=== PATIENT | male | born 1970 | race Caucasian/White ===

== ENCOUNTER 2017-09-14 17:40 | Inpatient (IN) | payer OTHER ==
[~2017-09-14] VITALS: Ht 177.8 cm; Wt 94.8 kg
[2017-09-14 18:21] LABS: ABSOLUTE BASOPHIL COUNT 0 /CUMM (0.0-0.2); ABSOLUTE EOSINOPHIL COUNT 0.5 /CUMM (0.0-0.7); ABSOLUTE GRANULOCYTE CT 10.8 /CUMM (1.4-6.5); ABSOLUTE LYMPH COUNT 2.1 /CUMM (1.2-3.4); ABSOLUTE MONOCYTE COUNT 0.6 /CUMM (0.10-0.60); BASOPHIL % 0.2 % (0.0-2.0); EOSINOPHIL % 3.6 % (0-5); GRANULOCYTE % 76.8 % (42.2-75.2); HEMATOCRIT 46.5 % (42-52); MEAN CORPUSCULAR HGB CONC 32.5 G/DL (33.0-37.0); MEAN CORPUSCULAR VOLUME 92.3 FL (80.0-94.0); MEAN PLATELET VOLUME 7.9 FL (7.4-10.4); PLATELET COUNT 375 /CUMM (130-400); RBC DISTRIBUTION WIDTH 15.2 % (11.5-14.5); RED BLOOD CELL CT 5.03 /CUMM (4.70-6.10); WHITE BLOOD CELL COUNT 14.1 /CUMM (4.8-10.8)
--- NOTE | 2017-09-14 18:26 | ED GI/GU/ABDOMINAL COMPLAINT ---
History of Present Illness General Chief Complaint: Abdominal Pain/Flank Pain Stated Complaint: ABDOMINAL PAIN Source: patient, old records Exam Limitations: no limitations Vital Signs & Intake/Output Vital Signs & Intake/Output Vital Signs Date Time Temp Pulse Resp B/P B/P Pulse O2 O2 Flow FiO2 Mean Ox Delivery Rate 09/14 2106 98.4 89 16 143/81 100 Room Air 09/14 1748 94.8 64 22 103/66 98 Room Air Allergies Coded Allergies: NO KNOWN ALLERGIES (12/05/10) Triage Note: PT TO ER C/C 03/17 UMBILICAL ABD PAIN X 2 HRS. 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 +DIAPHORESIS +NAUSEA Triage Nurses Notes Reviewed? yes Onset: Abrupt Duration: hour(s): Timing: single episode today Quality/Severity: severe Severity Numbers: 10 Location: periumbilical Radiation: periumbilical HPI: 47yo male with hx of HTN presents to ED complaining of severe abdominal pain x 2 hours. Pain is described as periumbilical, 03/17, without radiation. Patient reports abdoinal pain and diarrhea x 1 month described as generalized however current symptoms are much more severe. Patient states he had an abdominal ultrasound last month in [place] which showed his "gallbladder was enlarged" however no other acute abnormality that he knows of. Patient reports nausea and chills associated with his abdominal pain. Patient reports dark urine for the past few days. The patient denies constipation, vomiting, chest pain, shortness of breath, dysuria, urinary frequency. (Key Marie) Past History Travel History Traveled to [place] past 21 day No Medical History Any Pertinent Medical History? see below for history Cardiovascular: hypertension, hyperlipidemia Tetanus Vaccine: Surgical History Surgical History: non-contributory Psychosocial History What is your primary language Azeri Tobacco Use: Current Daily Use Daily Tobacco Use Amount/Type: =< 4 Cigarettes daily Family History Hx Contributory? No (Key Marie) Review of Systems Review of Systems Constitutional: Reports: see HPI. EENTM: Reports: no symptoms. Respiratory: Reports: no symptoms. Cardiovascular: Reports: no symptoms. GI: Reports: see HPI. Genitourinary: Reports: see HPI. Musculoskeletal: Reports: no symptoms. Skin: Reports: no symptoms. Neurological/Psychological: Reports: no symptoms. Hematologic/Endocrine: Reports: no symptoms. Immunologic/Allergic: Reports: no symptoms. All Other Systems: Reviewed and Negative (Uyen SIMONS,Key Barboza) Physical Exam Physical Exam General Appearance: well developed/nourished, alert, moderate distress Head: atraumatic, normal appearance Eyes: Bilateral: normal appearance. Ears, Nose, Throat, Mouth: hearing grossly normal Neck: normal inspection, supple, full range of motion Respiratory: normal breath sounds, no respiratory distress, lungs clear Cardiovascular: regular rate/rhythm Gastrointestinal: normal bowel sounds, mild distention, RUQ tenderness with gaurding, RLQ tenderness Back: normal inspection, normal range of motion, no CVA tenderness Extremities: normal range of motion Neurologic/Psych: awake, alert, oriented x 3 Skin: intact, normal color, warm/dry Core Measures ACS in differential dx? No Sepsis Present: No Sepsis Focused Exam Completed? No (Key Marie) Progress Differential Diagnosis: appendicitis, biliary colic, bowel obstruction, cholecystitis, diverticulitis, gastritis, hernia, ischemic bowel, inflamm bowel dis, pancreatitis, peptic ulcer, PUD/GERD, perforated viscous, SBO, UTI/pyelo Plan of Care: Orders Procedure Date/time Status Nothing by Mouth 09/15 B Active ED Holding Orders 09/15 2119 Active Admit to inpatient 09/15 2119 Active Vital Signs 09/15 2119 Active Code Status 09/15 2119 Active LACTIC ACID 09/14 205 Active PARTIAL THROMBOPLASTIN TIME 09/14 2044 Active PROTHROMBIN TIME 09/14 2044 Active BLOOD CULTURE 09/14 1916 Active Add-on Test (ER Only) 09/14 191 Active DIRECT BILIRUBIN 09/14 1806 Complete URINALYSIS 09/14 175 Active EKG 09/14 175 Active TROPONIN LEVEL 09/14 175 Complete LIPASE 09/14 1751 Complete LACTIC ACID 09/14 175 Complete COMPREHENSIVE METABOLIC PANEL 09/14 175 Complete CBC WITHOUT DIFFERENTIAL 09/14 175 Complete Current Medications Sig/Carrington Start time Last Medication Dose Stop Time Status Admin Lactated Ringer's 1,000 ML ONCE ONE 09/14 2044 AC 09/14 (Lactated Ringers) 09/15 0144 2117 Laboratory Tests 09/14/17 2110: Urine Color Pending, Urine Clarity Pending, Urine pH Pending, Ur Specific Doyle Pending, Urine Protein Pending, Urine Ketones Pending, Urine Nitrite Pending, Urine Bilirubin Pending, Urine Urobilinogen Pending, Ur Leukocyte Esterase Pending, Ur Microscopic Pending, Urine Hemoglobin Pending, Urine Glucose Pending 09/14/172058: Lactic Acid Pending, PT Pending, INR Pending, APTT Pending 09/14/17 1806: Anion Gap 14, Estimated GFR > 60, BUN/Creatinine Ratio 14.0, Glucose 148 H, Lactic Acid 1.6, Calcium 9.5, Total Bilirubin 4.4 H, Direct Bilirubin 3.1 H, AST 697 H, ALT 1330 H, Alkaline Phosphatase 282 H, Troponin I < 0.01, Total Protein 7.3, Albumin 4.6, Globulin 2.7, Albumin/Globulin Ratio 1.7, Lipase > 66556 H, CBC w Diff NO MAN DIFF REQ, RBC 5.03, MCV 92.3, MCH 30.0, MCHC 32.5 L , RDW 15.2 H, MPV 7.9, Gran % 76.8 H, Lymphocytes % 15.0 L, Monocytes % 4.4, Eosinophils % 3.6, Basophils % 0.2, Absolute Granulocytes 10.8 H, Absolute Lymphocytes 2.1, Absolute Monocytes 0.6, Absolute Eosinophils 0.5, Absolute Basophils 0 Microbiology 09/14 2058 BLOOD: Blood Culture - RECD 09/14 1916 BLOOD: Blood Culture - ORD Patient with elevated lipase, bilirubin, liver enzymes. Patient has abdominal tenderness and guarding. Findings suspicious for cholecystitis/cholangitis/ gallstone pancreatitis CT scan of abdomen is pending. Patient started on IV Unasyn. The patient was signed out to Dr. Hernandez pending abdominal CT scan, GI consult. Initial ED EKG: sinus rhythm @59bpm, nonspecific ST changes Hand-Off Endorsed To: David INIGUEZ,Rubens Gray Endorsed Time: 2017 Pending: CT, consult, labs (Uyen SIMONS,Key Barboza) Diagnostic Imaging: Viewed by Me: CT Scan. Discussed w/RAD: CT Scan. Radiology Impression: PATIENT: EVANGELISTA CARO PRESENT AGE: 47 PATIENT ACCOUNT NO: [id number] : 70 LOCATION: [facility] ORDERING PHYSICIAN: Key SIMONS SERVICE DATE: 09/14/17 EXAM TYPE: CAT - CT ABD & PELVIS W IV CONTRAST EXAMINATION: CT ABDOMEN AND PELVIS WITH CONTRAST CLINICAL INFORMATION: Abdominal pain. Rule out bowel obstruction or hernia. Periumbilical pain and nausea. COMPARISON: Abdominal CT from 2006. TECHNIQUE: Multidetector volumetric imaging was performed of the abdomen and pelvis following IV administration of 95 mL of Optiray 320 contrast. Sagittal and coronal reformatted images were obtained on the technologist's workstation. DLP: 923 mGy-cm FINDINGS: There is mild dilatation of the intrahepatic and extrahepatic biliary ducts due to an obstructing 0.3 cm calculus at the duodenal papilla. There are also mild inflammatory changes in the fat surrounding the pancreas which is somewhat boggy and mildly enlarged. No peripancreatic fluid collections are seen. There is also mild thickening, hyperemia, and inflammatory change associated with the gastric antral wall and duodenum. There are subsegmental atelectatic changes in the lung bases. No pleural effusions are seen. The liver is homogeneous in attenuation. The gallbladder is mildly distended without wall thickening or pericholecystic change. The spleen and adrenal glands are normal. The kidneys demonstrate nearly symmetric nephrograms. There is a 1.4 cm exophytic soft tissue nodular lesion arising from the posterior cortex of the right kidney which was not present on prior imaging. The lesion does not measure simple fluid characteristics. The abdominal aorta is normal in caliber. There is no evidence of a bowel obstruction. The appendix is normal. No diverticular disease is seen. No pericolonic inflammatory changes are identified. The bladder is distended without wall thickening. The prostate gland and seminal vesicles are unremarkable. No acute osseous abnormality is seen. Multilevel degenerative endplate spurring noted in the lower thoracic spine. There is severe disc space narrowing and a retrosubluxation at L5-S1 contributing to significant foraminal encroachment. IMPRESSION: Choledocholithiasis resulting in mild obstructive biliary ductal dilatation and secondary pancreatitis. Additional mild mucosal hyperemia, surrounding inflammatory change and mild wall thickening of the gastric antrum and duodenum. Exophytic 1.4 cm low-density nodular lesion arising from the posterior cortex of the right kidney which does not measure simple fluid and was not present on previous imaging from 2006. Although this may represent a proteinaceous or hemorrhagic cyst, a dedicated renal ultrasound is recommended in order to rule out a solid mass. Imaging findings discussed with Dr. Hernandez at 9:07 PM on 09/14/2017. DICTATED BY: Rubens Alejandra MD DATE/ TIME DICTATED:09/14/172050 BALLISTICS TEACHER:JOSÉ MIGUEL DATE/TIME TRANSCRIBED: 09/14/172050 CONFIDENTIAL, DO NOT COPY WITHOUT APPROPRIATE AUTHORIZATION. < Electronically signed in Other Vendor System> SIGNED BY: Rubens Alejandra MD 09/14/172110 Comments: D/W DR. FERRIS, HE WILL CONSULT D/W DR. GAONA, ERCP TOMORROW, LR AT 200 ML/HR, IV ABX (David INIGUEZ,Rubens Gray) Departure Departure Disposition: STILL A PATIENT Condition: Stable Referrals: Patient Has No Primary Care Dr (PCP/Family) Departure Forms: Customer Survey General Discharge Information (Uyen SIMONS,Key Barboza) Departure Clinical Impression Primary Impression: Abdominal pain Qualifiers: Abdominal location: unspecified location Qualified Code: R10.9 - Unspecified abdominal pain Secondary Impressions: Cholangitis, Pancreatitis, Transaminitis Admission Note Spoke With: Otoniel Goldberg MD Documentation of Exam: Documentation of any treatments & extenuating circumstances including Concerns Regarding Discharge (functional status, medication knowledge or non-compliance, living conditions, etc.) that warrant an admission rather than observation: [ Nothing by mouth, IV fluids lactated Ringer's at 200 mL per hour, IV antibiotics , ERCP in the morning, surgical consultation] PA/DOT NET ARCHITECT Co-Sign Statement Statement: ED Attending supervision documentation- [X] I saw and evaluated the patient. I have also reviewed all the pertinent lab results and diagnostic results. I agree with the findings and the plan of care as documented in the PA's/DOT NET ARCHITECT's documentation. [X] I have reviewed the ED Record and agree with the PA's/DOT NET ARCHITECT's documentation. [] Additions or exceptions (if any) to the PAs/DOT NET ARCHITECT's note and plan are summarized below: [SEE ABOVE NOTE] (David INIGUEZ,Rubens Gray)
--- NOTE | 2017-09-14 21:11 | CT SCAN REPORT ---
EXAMINATION: CT ABDOMEN AND PELVIS WITH CONTRAST CLINICAL INFORMATION: Abdominal pain. Rule out bowel obstruction or hernia. Periumbilical pain and nausea. COMPARISON: Abdominal CT from 02/19/2007. TECHNIQUE: Multidetector volumetric imaging was performed of the abdomen and pelvis following IV administration of 95 mL of Optiray 320 contrast. Sagittal and coronal reformatted images were obtained on the technologist's workstation. DLP: 923 mGy-cm FINDINGS: There is mild dilatation of the intrahepatic and extrahepatic biliary ducts due to an obstructing 0.3 cm calculus at the duodenal papilla. There are also mild inflammatory changes in the fat surrounding the pancreas which is somewhat boggy and mildly enlarged. No peripancreatic fluid collections are seen. There is also mild thickening, hyperemia, and inflammatory change associated with the gastric antral wall and duodenum. There are subsegmental atelectatic changes in the lung bases. No pleural effusions are seen. The liver is homogeneous in attenuation. The gallbladder is mildly distended without wall thickening or pericholecystic change. The spleen and adrenal glands are normal. The kidneys demonstrate nearly symmetric nephrograms. There is a 1.4 cm exophytic soft tissue nodular lesion arising from the posterior cortex of the right kidney which was not present on prior imaging. The lesion does not measure simple fluid characteristics. The abdominal aorta is normal in caliber. There is no evidence of a bowel obstruction. The appendix is normal. No diverticular disease is seen. No pericolonic inflammatory changes are identified. The bladder is distended without wall thickening. The prostate gland and seminal vesicles are unremarkable. No acute osseous abnormality is seen. Multilevel degenerative endplate spurring noted in the lower thoracic spine. There is severe disc space narrowing and a retrosubluxation at L5-S1 contributing to significant foraminal encroachment. IMPRESSION: Choledocholithiasis resulting in mild obstructive biliary ductal dilatation and secondary pancreatitis. Additional mild mucosal hyperemia, surrounding inflammatory change and mild wall thickening of the gastric antrum and duodenum. Exophytic 1.4 cm low-density nodular lesion arising from the posterior cortex of the right kidney which does not measure simple fluid and was not present on previous imaging from 2006. Although this may represent a proteinaceous or hemorrhagic cyst, a dedicated renal ultrasound is recommended in order to rule out a solid mass. Imaging findings discussed with Dr. Hernandez at 9:07 PM on 09/14/2017.
[2017-09-14 21:26] LABS: PT 11.5 SEC (9.4-12.5); PTT 27 SEC (25-37)
--- NOTE | 2017-09-14 22:36 | History & Physical ---
Trev Gacria MD 09/14/17 8865: General Information and HPI History of Present Illness: 47 year old man with past medical history of bipolar disorder, hypertension, and hyperlipidemia seen for evaluation of acute onset abdominal was with nausea, diarrhea, and chills. Patient reports over the past six months he has had "stomach issues" with persistent / recurrent watery diarrhea and mild abdominal pain. He reports waking today in his normal state of health when around 2 PM after eating a meal of "two hot dogs" he developed sudden onset sharp 10/10 pain just above his belly button without radiation. Nothing seemed to make it better or worse. He reports assocaited cold sweats with chills with nausea, dry heaves, and watery non bloody diarrhea. For further evaluation of these symptoms he came to the [facility] ED. He denies any consumption of raw/undercooked foods, recent travel, but admits to recently starting Zyprexa 2-3 weeks ago. Presently he reports that his pain is "extreme" and that he cannot get comfortably. He is repeatedly requesting pain meds; he is squirming around in a colicky fashion and appears to be in moderate distress. He admits to persistent nausea with a mild headache and chills. Review of Systems He otherwise denies any fever, blurred / double vision, lightheadedness, dizziness, chest pain, heart burn, palpitations, shortness of breath, cough, urinary complaints. Past medical history - as above Allergies - NKDA Meds - reconile in AM when pharmacy opens, patient reports taking Losartan, Simvastatin, Zyprexa, and Ovando; doses unknown Surgical history - None reported Family history - hypertension and hyperlipidemia in multiple family members, father from lung cancer Social history Denies drinking alcohol, smokes 1-2 cigarettes per day for the past four years, denies recreational drug use. Currently works at [employer] and goes to the gym semi- regularly. He recently started Zyprexa 2-3 weeks ago as prescribed by his psychiatrist "Star" at [facility]. Allergies/Medications Allergies: Coded Allergies: NO KNOWN ALLERGIES (12/05/10) Past History Travel History Traveled to [place] past 21 day No Medical History Cardiovascular: hypertension, hyperlipidemia Psychiatric: bipolar disease Tetanus Vaccine: Surgical History Surgical History: non-contributory Past Family/Social History Family History Relations & Conditions if any FATHER, ; Cause: Lung cancer. FH: lung cancer Relation not specified for: FH: hyperlipidemia FH: hypertension Psychosocial History Where do you live? Home Smoking Status: Current Everyday Smoker ETOH Use: denies use Illicit Drug Use: denies illicit drug use Functional Ability ADLs Independent: dressing, eating, toileting, bathing. Ambulation: independent IADLs Independent: shopping, housework, finances, food prep, telephone, transportation , medication admin. Employment History Employment Employed Profession/Employer [employer] Review of Systems Review of Systems Constitutional: Reports: see HPI. Exam & Diagnostic Data Last 24 Hrs of Vital Signs/I&O Vital Signs Date Time Temp Pulse Resp B/P B/P Pulse O2 O2 Flow FiO2 Mean Ox Delivery Rate 09/14 2106 98.4 89 16 143/81 100 Room Air 09/14 1748 94.8 64 22 103/66 98 Room Air Physical Exam General Appearance Alert, Oriented X3, Moderate Distress Skin No Rashes, No Breakdown, No Significant Lesion Skin Temp/Moisture Exam: Cool/Dry Sepsis Skin Exam (color): Flushed, Jaundiced HEENT Atraumatic, PERRLA, EOMI, Dry oral mucosa Neck Supple, No JVD Cardiovascular Regular Rate, Normal S1, Normal S2, No Murmurs Lungs Clear to Auscultation, Normal Air Movement Abdomen Normal Bowel Sounds, Soft, severe diffuse abdominal tenderness without guarding or rigidity, BS + Neurological Normal Speech, Strength at 5/5 X4 Ext, Normal Tone, Sensation Intact, Cranial Nerves 3-12 NL Extremities No Clubbing, No Cyanosis, No Edema, Normal Pulses, No Tenderness/ Swelling Vascular Normal Pulses, Pulses Symmetrical Sepsis Peripheral Pulse Location: Dorsalis Pedis Sepsis Peripheral Pulse Exam: Normal Sepsis Cap Refill Exam: <2 Sec Last 24 Hrs of Labs/David: Laboratory Tests 09/14/17 2110: Methadone Screen Pending, Barbiturate Screen Pending, Ur Phencyclidine Scrn Pending, Amphetamines Screen Pending, U Benzodiazepines Scrn Pending, Urine Cocaine Screen Pending, Urine Cannabis Screen Pending, Urine Color YEL, Urine Clarity CLEAR, Urine pH 6.5, Ur Specific [place] 1.010, Urine Protein NEG, Urine Ketones NEG, Urine Nitrite NEG, Urine Bilirubin POS@ICTO H, Urine Urobilinogen 1.0, Ur Leukocyte Esterase NEG, Ur Microscopic EXAM NOT REQUIRED, Urine Hemoglobin NEG, Urine Glucose NEG 09/14/172058: Lactic Acid 1.5, PT 11.5, INR 1.05, APTT 27 09/14/171805: Anion Gap 14, Estimated GFR > 60, BUN/Creatinine Ratio 14.0, Glucose 148 H, Lactic Acid 1.6, Calcium 9.5, Total Bilirubin 4.4 H, Direct Bilirubin 3.1 H, AST 697 H, ALT 1330 H, Alkaline Phosphatase 282 H, Troponin I < 0.01, Total Protein 7.3, Albumin 4.6, Globulin 2.7, Albumin/Globulin Ratio 1.7, Lipase > 11963 H, CBC w Diff NO MAN DIFF REQ, RBC 5.03, MCV 92.3, MCH 30.0, MCHC 32.5 L , RDW 15.2 H, MPV 7.9, Gran % 76.8 H, Lymphocytes % 15.0 L, Monocytes % 4.4, Eosinophils % 3.6, Basophils % 0.2, Absolute Granulocytes 10.8 H, Absolute Lymphocytes 2.1, Absolute Monocytes 0.6, Absolute Eosinophils 0.5, Absolute Basophils 0, Ovando 0.9, Serum Alcohol < 10.0 Microbiology 09/14 2058 BLOOD: Blood Culture - RECD 09/14 1916 BLOOD: Blood Culture - ORD Assessment/Plan Assessment: 47 year old man with multiple medical problems seen for evaluation of acute onset abdominal pain with nausea, dry heaves, diarrhea, and chills. ED Course -Vitals: Temp 94.8 - 98.4, HR 64-89, RR 16-22, SBP 103-143, O2 98-100% on room air -CBC: WBC 14.1, Hgb 15.1, Hct 46.5, Plt 375 -BMP: Na 140, K 3.7, Cl 101, CO2 25, BUN 14, Cr 1.0, AG 14, Glu 148 -LFT: AST 697, ALT 1330, ALP 282, T. Bili 4.4, D. Bili 3.1 -Misc: Troponin I <0.01, Lactic acid 1.6/1.6, Lipase > 40,000, INR 1.05 -UA: unremarkable -EKG: NSR, HR 59, AL 176, QTc 440 -CT Abdomen/Pelvis with IV Contrast: * Choledocholithiasis resulting in mild obstructive biliary ductal dilatation and secondary pancreatitis. Additional mild mucosal hyperemia, surrounding inflammatory change and mild wall thickening of the gastric antrum and duodenum. * Exophytic 1.4 cm low-density nodular lesion arising from the posterior cortex of the right kidney which does not measure simple fluid and was not present on previous imaging from 2006. Although this may represent a proteinaceous or hemorrhagic cyst, a dedicated renal ultrasound is recommended in order to rule out a solid mass. -ED Interventions: * Blood cultures x 2 * Unasyn 3 g IV * Maritza 30 mg IV * LR 1 L * NS 2 L * Zofran * Morphine Sulfate: 18 mg Patient meets sepsis criteria through leukocytosis and hypothermia; blood cultures were drawn and empiric unasyn was started. CT Abdomen/pelvis with IV contrast demonstrated findings suggestive of choledocholithasis and a new right renal cyst. Liver functions tests are elevated in addition to incredibly high levels of lipase suggestive of gallstone pancreatitis. Patient is to be given aggressive intravenous fluids and be kept nothing by mouth. He is to be given morphine and zofran for pain control and nausea relief respectively; the hospital is currently out of Dilaudid. He is to be seen by gastroenterology and the surgical service in the morning for evaluation of possible ERCP. Patient reportedly takes 1500 mg of Ovando nightly in addition to his new recentyl prescribed Zyprexa for his bipolar disorder. He reported uses [facility] pharmacy on [address] in [place] for his medications, but they have no record of this. Insurance claim history demonstrates using a [facility] pharmacy prior to May of 2017; [facility] is currently closed. Medication reconcilliation should occur in the morning. Problem List -Choledocholithasis -Possible cholangitis -Gallstone pancreatitis -Sepsis -New Right Renal Cyst -Bipolar disorder -Hypertension -Hyperlipidemia Plan -Admit to ICU -Strict I & Os -LR @ 150 mL/hr -Unasyn 3 g IV Q6H -Zofran 4mg IV Q6H PRN for nausea -Hold oral meds: including Losartan, Zyprexa -GI consult for pancreatitis / possible ERCP -Surgery consult for operative evaluation -Blood cultures x2 -Check portable CXR for effusions -Check lithium, utox, and EtOH level -Reconcile patient meds in AM -Renal ultrasound when stable -Pain control with toradol, acetaminophen, and morphine -NPO -DVT PPx with subcutaneous heparin -FULL CODE As Ranked By This Provider Problem List: 1. Pancreatitis 2. Transaminitis 3. Cholangitis Core Measures/Misc (02/22) Acute Coronary Syndrome ACS Diagnosis: No Congestive Heart Failure Congestive Heart Failure Diagnosis No Cerebrovascular Accident CVA/TIA Diagnosis: No VTE (View Protocol) VTE Risk Factors Age>40 No Mechanical VTE Prophylaxis d/t N/A MechProphylax Ordered No VTE Pharm Prophylaxis d/t NA PharmProphylax ordered Sepsis (View protocol) Sepsis Present: Yes Otoniel Goldberg MD 09/15/17 0026: Attending MD Review Statement Attending Statement Attending MD Statement: examined this patient, discuss w/resident/PA/SUPERVISOR PAPER MACHINE, agreed w/resident/PA/SUPERVISOR PAPER MACHINE, discussed with nursing Attending Assessment/Plan: Mr. Carbone is a 47 y/o male with of hypertension dyslipidemia bipolar disorder presents with complaints of acute onset of abdominal pain. Pain started suddenly this afternoon after he had lunch, severity of 10 x 10 without any radiation, associated with fever but associated with watery nonbloody diarrhea. No recent new medications. On examination, patient was initially hypothermic temperature of 94.8 however repeat temperatures after a few hours was normal blood pressure was initially systolic 103 however later blood pressure was 143/81, saturating well on room air heart rate of 90, respiratory rate of 16 General Appearance Alert, Oriented X3, Severe Distress Skin No Rashes, No Breakdown, No Significant Lesion Skin Temp/Moisture Exam: Cool/Dry and icteric HEENT Atraumaticm (color): Flushed, Jaundiced, PERRLA, EOMI, Dry oral mucosa Neck Supple, No JVD Cardiovascular Regular Rate, Normal S1, Normal S2, No Murmurs Lungs Clear to Auscultation, Normal Air Movement Abdomen Normal Bowel Sounds, Soft, diffuse abdominal tenderness all over more so in the right upper quadrant Neurological no focal neurological deficits Extremities no edema tenderness or swelling CT abdomen showed Choledocholithiasis resulting in mild obstructive biliary ductal dilatation and secondary pancreatitis. Additional mild mucosal hyperemia, surrounding inflammatory change and mild wall thickening of the gastric antrum and duodenum. Assessment 1. Gall stone pancreatitis with possible cholangitis - lipase [place] more [place] 33262 2. Choledocholithiasis 3. Hepatocellular pattern of transaminitis with elevated alkaline phosphatase 4. Bipolar disorder 5. Hypertension 6. Exophytic lesion arising from Right kidney Plan Admit to ICU for close monitoring. NPO, IVF @ 150 - 200 cc an hour Follow up on cultures. Continue with IV Unasyn Symptomatic management with antiemetics and pain control with morphine Will obtain chest x-ray, follow-up on lithium and alcohol levels Discussed with gastroenterology-patient will go for ERCP in the morning Repeat Lab work including LFT's in the morning Needs dedicated renal ultrasound - to rule out a solid mass - as an outpatient Sub Q Heparin for DVT prophylaxis
[2017-09-14 23:25] LABS: LITHIUM 0.9 mmol/L (0.6-1.2)
[2017-09-15 01:09] VITALS: BP 130/70
[2017-09-15 04:11] LABS: ABSOLUTE BASOPHIL COUNT 0 /CUMM (0.0-0.2); ABSOLUTE EOSINOPHIL COUNT 0 /CUMM (0.0-0.7); ABSOLUTE GRANULOCYTE CT 19.3 /CUMM (1.4-6.5); ABSOLUTE LYMPH COUNT 0.4 /CUMM (1.2-3.4); ABSOLUTE MONOCYTE COUNT 0.7 /CUMM (0.10-0.60); BASOPHIL % 0 % (0.0-2.0); EOSINOPHIL % 0 % (0-5); GRANULOCYTE % 94.7 % (42.2-75.2); HEMATOCRIT 44.8 % (42-52); MEAN CORPUSCULAR HGB 30.3 PG (27.0-31.0); MEAN CORPUSCULAR HGB CONC 32.9 G/DL (33.0-37.0); MEAN CORPUSCULAR VOLUME 91.9 FL (80.0-94.0); MEAN PLATELET VOLUME 7.9 FL (7.4-10.4); PLATELET COUNT 352 /CUMM (130-400); RBC DISTRIBUTION WIDTH 14.9 % (11.5-14.5); RED BLOOD CELL CT 4.88 /CUMM (4.70-6.10); WHITE BLOOD CELL COUNT 20.3 /CUMM (4.8-10.8)
--- NOTE | 2017-09-15 07:25 | Cons- CRCU ---
Anders INIGUEZ,[facility] 09/15/17 0725: General Information and HPI Consulting Request Date of Consult: 09/15/17 Requested By: Hospitalist Dr. Goldberg Reason for Consult: -Choledocholithasis -Possible cholangitis -Gallstone pancreatitis -Sepsis -New Right Renal Cyst -Bipolar disorder -Hypertension -Hyperlipidemia Source of Information: patient Exam Limitations: no limitations History of Present Illness: Mr. Carbone is a 47 year old man with past medical history of bipolar disorder, hypertension, and hyperlipidemia presented with acute onset abdominal was with nausea, diarrhea, and chills. Patient has been having "stomach issues" with persistent / recurrent watery diarrhea and mild abdominal pain, was referred to a seismographer but has not followed up with him yet. He reported waking up yesterday in his normal state of health when around 2 PM after eating a meal of "two hot dogs" he developed sudden onset sharp 10/10 pain just above his belly button without radiation, aggravating or relieving factors. Reports assocaited cold sweats with chills with nausea, dry heaves, and watery non bloody diarrhea. He denies any consumption of raw/undercooked foods, recent travel, but admits to recently starting Zyprexa 2-3 weeks ago. He has also been taking lithium regularly for his bipolar disorder. Allergies/Medications Allergies: Coded Allergies: NO KNOWN ALLERGIES (12/05/10) Current Medications: Current Medications Sig/[place] Start time Last Medication Dose Route Stop Time Status Admin Acetaminophen 1,000 MG Q6P PRN 09/14 2300 AC IV Ampicillin Sodium/ 3,000 MG Q6H 09/15 0230 AC 09/15 Sulbactam Sodium IV 0815 Sodium Chloride 100 ML Ampicillin Sodium/ 3,000 MG Q6 09/14 2359 DC Sulbactam Sodium IV Sodium Chloride 100 ML Ampicillin Sodium/ 0 .STK-MED ONE 09/15 2031 DC Sulbactam Sodium .ROUTE Ampicillin Sodium/ 3,000 MG ONCE ONE 09/14 1930 DC 09/14 Sulbactam Sodium IV 09/14 Sodium Chloride 100 ML Heparin Sodium 5,000 UNIT Q8 09/15 0600 AC 09/15 (Porcine) SC 0529 Hydromorphone HCl 0.6 MG ONCE ONE 09/15 1000 DC 09/15 IV 09/15 1001 1000 Hydromorphone HCl 0.4 MG ONCE ONE 09/15 0945 CAN IV 09/15 0946 Hydromorphone HCl 0.4 MG ONCE ONE 09/15 0845 DC 09/15 IV 09/15 0846 0840 Ketorolac 15 MG Q6P PRN 09/14 2300 DC Tromethamine IV Ketorolac 0 .STK-MED ONE 09/14 1811 DC Tromethamine .ROUTE Ketorolac 30 MG ONCE ONE 09/14 1800 DC 09/14 Tromethamine IM 09/14 1801 1807 Lactated Ringer's 150 ML 150 MLS/HR 09/14 2315 CAN IV Lactated Ringer's 1,000 ML Q6H 09/14 2315 AC 09/15 IV 0613 Lactated Ringer's 1,000 ML ONCE ONE 09/14 2045 DC 09/14 IV 09/15 0144 2117 Morphine Sulfate 4 MG Q2P PRN 09/15 0945 AC IV Morphine Sulfate 4 MG ONCE ONE 09/15 0800 DC 09/15 IV 09/15 0801 0745 Morphine Sulfate 6 MG ONCE ONE 09/15 0745 DC IV 09/15 0746 Morphine Sulfate 0 .STK-MED ONE 09/14 2311 DC .ROUTE Morphine Sulfate 4 MG Q4 HRS NEEDED PRN 09/14 2245 DC 09/15 IV 0701 Morphine Sulfate 0 .STK-MED ONE 09/14 2118 DC .ROUTE Morphine Sulfate 6 MG ONCE ONE 09/14 2100 DC 09/14 IV 09/14 2101 2116 Morphine Sulfate 0 .STK-MED ONE 09/14 203 DC .ROUTE Morphine Sulfate 4 MG ONCE ONE 09/14 1945 DC 09/14 IV 09/14 194 2032 Morphine Sulfate 0 .STK-MED ONE 09/14 1853 DC .ROUTE Morphine Sulfate 4 MG ONCE ONE 09/14 1845 DC 09/14 IV 09/14 1846 1850 Ondansetron HCl 4 MG Q6P PRN 09/14 2245 AC IV Ondansetron HCl 0 .STK-MED ONE 09/14 1853 DC .ROUTE Ondansetron HCl 4 MG ONCE ONE 09/14 1845 DC 09/14 IV 09/14 1846 1850 Sodium Chloride 1,000 ML BOLUS ONE 09/14 1945 DC IV 09/14 2044 Sodium Chloride 1,000 ML BOLUS ONE 09/14 1844 DC 09/14 IV 09/14 Review of Systems Review of Systems Constitutional: Reports: no symptoms. EENTM: Reports: no symptoms. Cardiovascular: Reports: no symptoms. Respiratory: Reports: no symptoms. GI: Reports: abdominal pain, diarrhea. Genitourinary: Reports: no symptoms. Musculoskeletal: Reports: no symptoms. Skin: Reports: no symptoms. Neurological/Psychological: Reports: no symptoms. Hematologic/Endocrine: Reports: no symptoms. Immunologic/Allergic: Reports: no symptoms. All Other Systems: Reviewed and Negative Past History Travel History Traveled to [place] past 21 day No Medical History Cardiovascular: hypertension, hyperlipidemia Psychiatric: bipolar disease Surgical History Surgical History: non-contributory Family History Relations & Conditions If Any: FATHER, ; Cause: Lung cancer. FH: lung cancer Relation not specified for: FH: hyperlipidemia FH: hypertension Psychosocial History Where Do You Live? Home Smoking Status: Current Everyday Smoker ETOH Use: denies use Illicit Drug Use: heroin (sobre for 1 month) Functional Ability ADLs Independent: dressing, eating, toileting, bathing. Ambulation: independent IADLs Independent: shopping, housework, finances, food prep, telephone, transportation , medication admin. Employment History Employment: Employed Profession/Employer: [employer] Exam & Diagnostic Data Last 24 Hrs of Vital Signs/I&O Vital Signs Date Time Temp Pulse Resp B/P B/P Pulse O2 O2 Flow FiO2 Mean Ox Delivery Rate 09/15 08 99.9 81 20 128/80 96 Room Air 09/15 0800 96 Room Air 09/15 0400 96 Room Air 09/15 0152 98 Room Air 09/15 0109 98 Room Air 09/15 0109 97.6 68 18 130/70 98 Room Air 09/15 0014 98.3 71 20 139/91 97 Room Air 09/14 2106 98.4 89 16 143/81 100 Room Air 09/14 1748 94.8 64 22 103/66 98 Room Air Intake & Output 09/15 1600 09/15 0800 09/15 0000 Intake Total 1000 1000 Output Total 700 Balance 300 1000 Intake, IV 1000 1000 Intake, Oral 0 Output, Urine 700 Patient 210 lb 210 lb Weight Weight Reported by Patient Measurement Method Physical Exam General Appearance: well developed/nourished, alert, awake, severe distress Head: atraumatic, normal appearance Neck: normal inspection, supple Respiratory: normal breath sounds, lungs clear Cardiovascular: regular rate/rhythm, normal peripheral pulses Gastrointestinal: normal bowel sounds, soft, tenderness Extremities: normal inspection, normal range of motion, no edema Last 48 Hrs of Labs/David: Laboratory Tests 09/15/17 0345: Anion Gap 16, Estimated GFR > 60, BUN/Creatinine Ratio 16.3, Calcium 9.1, Phosphorus 4.1, Magnesium 1.7, Total Bilirubin 3.1 H, Direct Bilirubin 1.9 H, AST 385 H, ALT 1075 H, Alkaline Phosphatase 259 H, Lactate Dehydrogenase 735 H, Total Protein 7.0, Albumin 4.3, Triglycerides 106, Cholesterol 227 H, LDL Cholesterol, Calc 147 H, HDL Cholesterol 59, Cholesterol/HDL Ratio 4, Lipase Pending, CBC w Diff MAN DIFF ORDERED, RBC 4.88, MCV 91.9, MCH 30.3, MCHC 32.9 L , RDW 14.9 H, MPV 7.9, Gran % 94.7 H, Lymphocytes % 1.8 L, Monocytes % 3.5, Eosinophils % 0, Basophils % 0, Absolute Granulocytes 19.3 H, Segmented Neutrophils 87 H, Band Neutrophils 4, Absolute Lymphocytes 0.4 L, Lymphocytes 5 L, Monocytes 4, Absolute Monocytes 0.7 H, Absolute Eosinophils 0, Absolute Basophils 0, Platelet Estimate ADEQUATE, Normocytic RBCs VERIFIED, Normochromic RBCs VERIFIED, Hepatitis A IgM Ab Pending, Hep Bs Antigen Pending, Hep B Core IgM Ab Conf Pending, Hepatitis C Antibody Pending 09/14/17 2110: Urine Opiates Screen 2450.00 H, Methadone Screen < 40, Barbiturate Screen < 60, Ur Phencyclidine Scrn < 6.00, Amphetamines Screen < 100, U Benzodiazepines Scrn < 85, Urine Cocaine Screen < 50, Urine Cannabis Screen < 5.00, Urine Color YEL, Urine Clarity CLEAR, Urine pH 6.5, Ur Specific [place] 1.010, Urine Protein NEG, Urine Ketones NEG, Urine Nitrite NEG, Urine Bilirubin POS@ICTO H, Urine Urobilinogen 1.0, Ur Leukocyte Esterase NEG, Ur Microscopic EXAM NOT REQUIRED, Urine Hemoglobin NEG, Urine Glucose NEG 09/14/172058: Lactic Acid 1.5, PT 11.5, INR 1.05, APTT 27 09/14/17 1806: Anion Gap 14, Estimated GFR > 60, BUN/Creatinine Ratio 14.0, Glucose 148 H, Lactic Acid 1.6, Calcium 9.5, Total Bilirubin 4.4 H, Direct Bilirubin 3.1 H, AST 697 H, ALT 1330 H, Alkaline Phosphatase 282 H, Troponin I < 0.01, Total Protein 7.3, Albumin 4.6, Globulin 2.7, Albumin/Globulin Ratio 1.7, Lipase > 77904 H, CBC w Diff NO MAN DIFF REQ, RBC 5.03, MCV 92.3, MCH 30.0, MCHC 32.5 L , RDW 15.2 H, MPV 7.9, Gran % 76.8 H, Lymphocytes % 15.0 L, Monocytes % 4.4, Eosinophils % 3.6, Basophils % 0.2, Absolute Granulocytes 10.8 H, Absolute Lymphocytes 2.1, Absolute Monocytes 0.6, Absolute Eosinophils 0.5, Absolute Basophils 0, [place] 0.9, Serum Alcohol < 10.0 Diagnostic Data CXR Results FINDINGS: Study limited oblique projection, increased attenuation over the LEFT field probably technical, the costophrenic angle on the LEFT is excluded from the film margin, RIGHT lung is clear. IMPRESSION: Very limited study, oblique projection. Left costophrenic angle is excluded from the film margin, no large effusions. Assessment/Plan CRCU Impression/Plan: Mr. Carbone is a 47 year old man with past medical history of bipolar disorder, hypertension, and hyperlipidemia presented with acute onset abdominal associated with nausea, diarrhea, and chills likely 2/2 choledocholithiasis causing pancreatitis and possible cholangitis. In the ER patient, patient was hypothermic with temperature of 94.8 and had a white count of 14.1 with no bands(met SIRS criteria). Had an AST of 697, ALT 1330, ALP 282, T. Bili 4.4, D. Bili 3.1 and Lipase of 40,000. CT abdomen and pelvis showed choledocholithiasis resulting in mild obstructive biliary ductal dilatation and secondary pancreatitis. Patient was kept nothing by mouth and started on IV fluids. Adequate pain management with IV morphine was provided. Patient continues to be in severe pain despite getting IV morphine and IV Dilaudid. He is squirming around in a colicky fashion and appears to be in severe distress. Patient also has a history of opiates and heroine use and states he has been sober for the past 1 month now. He is currently in the ICU for the management of following issues: 1. Gall stone pancreatitis with possible cholangitis - lipase levels more than [id number] 2. Choledocholithiasis 3. Hepatocellular pattern of transaminitis with elevated alkaline phosphatase 4. Bipolar disorder 5. Hypertension 6. Exophytic lesion arising from Right kidney Plan; - Continue to monitor in the ICU - Paul criteria - low mortality - Continue to keep nothing by mouth and continue gentle IV fluid. - Patient will be going for ERCP today. - Appreciate GI recommendations - Appreciate general surgery recommendations. - Pain management with IV morphine 4 mg every 2 hours. - Zofran as needed for nausea. - Continue antibiotics.(Unasyn day 2) - Chest x-ray negative for any large effusions given though it was a very limited study. - Psych consult given history of bipolar disorder and patient recently been started on Zyprexa(which can contribute to pancreatitis episode). Will hold his Zyprexa for now and continue lesion. - We will obtain LDH, lipid panel, hepatitis panel and repeat lipase level. - DVT prophylaxis; subcutaneous heparin and Alps Patient is full code Problem List: 1. Pancreatitis 2. Cholangitis 3. Transaminitis 4. Abdominal pain Consult Acknowledgment - Thank you for your consult request. Pravin Hill MD 09/15/17 1107: Assessment/Plan CRCU Other Findings/Comments: Pravin Richard M.D. have examined this patient, reviewed available EMR data, personally reviewed images, discussed with resident/PA/BASEBALL UMPIRE [employer], discussed management plan with housestaff and nursing staff, discussed managment plan all of healthcare providers, discussed management plan with patient and/or family, agreed with resident/PA/BASEBALL UMPIRE [employer]. The past history and parts of the chart have been autopopulated. Impression 47 year old man * pancreatitis secondary to choledocholithiasis * transaminitis * bipolar disorder * hx of opiate dependence Plan -gi consultation for ercp -f/u lipase -hepatitis panel -monitor electrolytes -paul criteria low for mortality -iv hydration -empiric abx -f/u gi/surgery recommendations -psych consultation - to evaluate zyprexa/lithium use - especially in setting of pancreatitis -check TG levels DVT prophylaxis at all times TTS 40 min Consult Acknowledgment - Thank you for your consult request.
[2017-09-15 08:00] VITALS: BP 128/80
--- NOTE | 2017-09-15 08:59 | Cons- Gastroenterology ---
General Information and HPI Consulting Request Date of Consult: 09/15/17 Requested By: Pravin Hill MD Reason for Consult: Gallstone pancreatitis Source of Information: patient History of Present Illness: The patient presents with acute onset of severe upper abdominal pain starting yesterday afternoon, accompanied by nausea and vomiting, but no fever or chills. The pain has persisted and is now more generalized. It does not radiate to chest or back. There has been no significant dyspnea, diaphoresis, dysuria, or lightheadedness/loss of consciousness. There is no history of liver disease/ jaundice. The patient is a heroin abuser who was recently in rehabilitation in [place]; during that stay he had abdominal pain, an ultrasound was performed and demonstrated "an inflamed gallbladder." For the past month the patient has been having 1-2 hour episodes of upper abdominal pain. The patient does not abuse or even use alcohol, for approximately 20 years. There is no antecedent GI history or diagnosis, such as urgent, peptic ulcer disease, or previous pancreatitis. His bowel movements are generally regular, and he has never had a GI bleed. Allergies/Medications Allergies: Coded Allergies: NO KNOWN ALLERGIES (12/05/10) Current Medications: Current Medications Sig/[place] Start time Last Medication Dose Route Stop Time Status Admin Acetaminophen 1,000 MG Q6P PRN 09/14 2300 AC IV Ampicillin Sodium/ 3,000 MG Q6H 09/15 0230 AC 09/15 Sulbactam Sodium IV 0815 Sodium Chloride 100 ML Ampicillin Sodium/ 3,000 MG Q6 09/14 2359 DC Sulbactam Sodium IV Sodium Chloride 100 ML Ampicillin Sodium/ 0 .STK-MED ONE 09/14 2032 DC Sulbactam Sodium .ROUTE Ampicillin Sodium/ 3,000 MG ONCE ONE 09/14 1930 DC 09/14 Sulbactam Sodium IV 09/14 1958 2032 Sodium Chloride 100 ML Heparin Sodium 5,000 UNIT Q8 09/15 0600 AC 09/15 (Porcine) SC 0529 Hydromorphone HCl 0.4 MG ONCE ONE 09/15 0845 DC 09/15 IV 09/15 0846 0840 Ketorolac 15 MG Q6P PRN 09/14 2300 DC Tromethamine IV Ketorolac 0 .STK-MED ONE 09/14 1811 DC Tromethamine .ROUTE Ketorolac 30 MG ONCE ONE 09/14 1800 DC 09/14 Tromethamine IM 09/14 1801 1807 Lactated Ringer's 150 ML 150 MLS/HR 09/14 2314 CAN IV Lactated Ringer's 1,000 ML Q6H 09/14 2315 AC 09/15 IV 0613 Lactated Ringer's 1,000 ML ONCE ONE 09/14 2045 DC 09/14 IV 09/15 0144 2117 Morphine Sulfate 4 MG ONCE ONE 09/15 0800 DC 09/15 IV 09/15 0801 0745 Morphine Sulfate 6 MG ONCE ONE 09/15 0745 DC IV 09/15 0746 Morphine Sulfate 0 .STK-MED ONE 09/14 2311 DC .ROUTE Morphine Sulfate 4 MG Q4 HRS NEEDED PRN 09/14 2245 AC 09/15 IV 0701 Morphine Sulfate 0 .STK-MED ONE 09/14 2118 DC .ROUTE Morphine Sulfate 6 MG ONCE ONE 09/14 2100 DC 09/14 IV 09/14 2101 2116 Morphine Sulfate 0 .STK-MED ONE 09/14 203 DC .ROUTE Morphine Sulfate 4 MG ONCE ONE 09/14 1945 DC 09/14 IV 09/14 194 203 Morphine Sulfate 0 .STK-MED ONE 09/14 1853 DC .ROUTE Morphine Sulfate 4 MG ONCE ONE 09/14 1845 DC 09/14 IV 09/14 184 1850 Ondansetron HCl 4 MG Q6P PRN 09/14 2245 AC IV Ondansetron HCl 0 .STK-MED ONE 09/14 1853 DC .ROUTE Ondansetron HCl 4 MG ONCE ONE 09/14 1845 DC 09/14 IV 09/14 184 1850 Sodium Chloride 1,000 ML BOLUS ONE 09/14 194 DC IV 09/14 204 Sodium Chloride 1,000 ML BOLUS ONE 09/14 1845 DC 09/14 IV 09/15 1943 1847 Past History Travel History Traveled to [place] past 21 day No Medical History Cardiovascular: hypertension, hyperlipidemia Psychiatric: bipolar disease Surgical History Surgical History: non-contributory Family History Relations & Conditions If Any: FATHER, ; Cause: Lung cancer. FH: lung cancer Relation not specified for: FH: hyperlipidemia FH: hypertension Psychosocial History Where Do You Live? Home Smoking Status: Current Everyday Smoker ETOH Use: denies use Illicit Drug Use: denies illicit drug use Functional Ability ADLs Independent: dressing, eating, toileting, bathing. Ambulation: independent IADLs Independent: shopping, housework, finances, food prep, telephone, transportation , medication admin. Employment History Employment: Employed Profession/Employer: [employer] Review of Systems Review of Systems Constitutional: Denies: chills, fever. EENTM: Denies: icterus, epistaxis. Cardiovascular: Denies: chest pain, edema, syncope. Respiratory: Denies: cough, short of breath. GI: Reports: see HPI. Genitourinary: Denies: dysuria, hematuria. Musculoskeletal: Denies: muscle stiffness, neck pain. Skin: Denies: jaundice, lesions. Neurological/Psychological: Denies: cognitive dysfunction, tremors. Hematologic/Endocrine: Denies: bruising, bleeding. Exam & Diagnostic Data Vital Signs and I&O Vital Signs Date Time Temp Pulse Resp B/P B/P Pulse O2 O2 Flow FiO2 Mean Ox Delivery Rate 09/15 08 99.9 81 20 128/80 96 Room Air 09/15 0800 96 Room Air 09/15 0400 96 Room Air 09/15 0152 98 Room Air 09/15 0109 98 Room Air 09/15 0109 97.6 68 18 130/70 98 Room Air 09/15 0014 98.3 71 20 139/91 97 Room Air 09/14 2106 98.4 89 16 143/81 100 Room Air 09/14 1748 94.8 64 22 103/66 98 Room Air Intake & Output 09/15 1600 09/15 0400 09/14 1600 09/14 0400 09/13 1600 09/13 0400 Intake Total 1000 1000 Output Total 300 400 Balance 700 600 Intake, IV 1000 1000 Intake, Oral 0 Output, Urine 300 400 Patient 210 lb Weight Weight Reported by Patient Measurement Method Physical Exam: Well-developed, well-nourished, in pain. Alert and oriented with normal cognition. Skin is warm and dry without jaundice, stigmata of liver disease, rash or lesion. No adenopathy. Sclera anicteric. Oropharynx is slightly dry, without lesion. Neck supple without thyromegaly. No adenopathy. Heart regular rhythm. Lungs clear. Abdomen is mildly distended with normal bowel sounds; there is diffuse tenderness to mild palpation, worst in the right upper quadrant and epigastrium. No palpable mass or organomegaly. Extremities without clubbing, cyanosis or edema. Distal pulses intact. Results Pertinent Lab Results: Laboratory Tests 09/15 09/14 0345 2110 Chemistry Sodium (137 - 145 mmol/L) 142 Potassium (3.5 - 5.1 mmol/L) 4.4 Chloride (98 - 107 mmol/L) 103 Carbon Dioxide (22 - 30 mmol/L) 22 Anion Gap (5 - 16) 16 BUN (9 - 20 mg/dL) 13 Creatinine (0.7 - 1.2 mg/dL) 0.8 Estimated GFR (>60 ml/min) > 60 BUN/Creatinine Ratio (7 - 25 %) 16.3 Total Bilirubin (0.2 - 1.3 mg/dL) 3.1 H Direct Bilirubin (< 0.4 mg/dL) 1.9 H AST (17 - 59 U/L) 385 H ALT (21 - 72 U/L) 1075 H Alkaline Phosphatase (< 127 U/L) 259 H Total Protein (6.3 - 8.2 g/dL) 7.0 Albumin (3.5 - 5.0 g/dL) 4.3 Hematology CBC w Diff MAN DIFF ORDERED WBC (4.8 - 10.8 /CUMM) 20.3 H RBC (4.70 - 6.10 /CUMM) 4.88 Hgb (14.0 - 18.0 G/DL) 14.8 Hct (42 - 52 %) 44.8 MCV (80.0 - 94.0 FL) 91.9 MCH (27.0 - 31.0 PG) 30.3 MCHC (33.0 - 37.0 G/DL) 32.9 L RDW (11.5 - 14.5 %) 14.9 H Plt Count (130 - 400 /CUMM) 352 MPV (7.4 - 10.4 FL) 7.9 Gran % (42.2 - 75.2 %) 94.7 H Lymphocytes % (20.5 - 51.1 %) 1.8 L Monocytes % (1.7 - 9.3 %) 3.5 Eosinophils % (0 - 5 %) 0 Basophils % (0.0 - 2.0 %) 0 Absolute Granulocytes (1.4 - 6.5 /CUMM) 19.3 H Segmented Neutrophils (42.2 - 75.2 %) 87 H Band Neutrophils (0.0 - 5.0 %) 4 Absolute Lymphocytes (1.2 - 3.4 /CUMM) 0.4 L Lymphocytes (20.5 - 51.1 %) 5 L Monocytes (1.7 - 9.3 %) 4 Absolute Monocytes (0.10 - 0.60 /CUMM) 0.7 H Absolute Eosinophils (0.0 - 0.7 /CUMM) 0 Absolute Basophils (0.0 - 0.2 /CUMM) 0 Platelet Estimate (ADEQUATE) ADEQUATE Normocytic RBCs VERIFIED Normochromic RBCs VERIFIED Toxicology Urine Opiates Screen (>2000 NG/ML) 2450.00 H Methadone Screen (>300 NG/ML) < 40 Barbiturate Screen (>200 NG/ML) < 60 Ur Phencyclidine Scrn (>25 NG/ML) < 6.00 Amphetamines Screen (>1000 NG/ML) < 100 U Benzodiazepines Scrn (>200 NG/ML) < 85 Urine Cocaine Screen (>300 NG/ML) < 50 Urine Cannabis Screen (>50 NG/ML) < 5.00 Urines Urine Color (YEL,AMB,STR) YEL Urine Clarity (CLEAR) CLEAR Urine pH (5.0 - 8.0) 6.5 Ur Specific [place] (1.001 - 1.035) 1.010 Urine Protein (NEG,<30 MG/DL) NEG Urine Ketones (NEG) NEG Urine Nitrite (NEG) NEG Urine Bilirubin (NEG) POS@ICTO H Urine Urobilinogen (0.1 - 1.0 EU/dl) 1.0 Ur Leukocyte Esterase (NEG) NEG Ur Microscopic EXAM NOT REQUIRED Urine Hemoglobin (NEG) NEG Urine Glucose (N MG/DL) NEG 09/14 09/14 2059 1806 Chemistry Sodium (137 - 145 mmol/L) 140 Potassium (3.5 - 5.1 mmol/L) 3.7 Chloride (98 - 107 mmol/L) 101 Carbon Dioxide (22 - 30 mmol/L) 25 Anion Gap (5 - 16) 14 BUN (9 - 20 mg/dL) 14 Creatinine (0.7 - 1.2 mg/dL) 1.0 Estimated GFR (>60 ml/min) > 60 BUN/Creatinine Ratio (7 - 25 %) 14.0 Glucose (65 - 99 mg/dL) 148 H Lactic Acid (0.7 - 2.1 mmol/L) 1.5 1.6 Calcium (8.4 - 10.2 mg/dL) 9.5 Total Bilirubin (0.2 - 1.3 mg/dL) 4.4 H Direct Bilirubin (< 0.4 mg/dL) 3.1 H AST (17 - 59 U/L) 697 H ALT (21 - 72 U/L) 1330 H Alkaline Phosphatase (< 127 U/L) 282 H Troponin I (<0.11 ng/ml) < 0.01 Total Protein (6.3 - 8.2 g/dL) 7.3 Albumin (3.5 - 5.0 g/dL) 4.6 Globulin (1.9 - 4.2 gm/dL) 2.7 Albumin/Globulin Ratio (1.1 - 2.2 %) 1.7 Lipase (23 - 300 U/L) > 37145 H Coagulation PT (9.4 - 12.5 SEC) 11.5 INR (0.90 - 1.17) 1.05 APTT (25 - 37 SEC) 27 Hematology CBC w Diff NO MAN DIFF REQ WBC (4.8 - 10.8 /CUMM) 14.1 H RBC (4.70 - 6.10 /CUMM) 5.03 Hgb (14.0 - 18.0 G/DL) 15.1 Hct (42 - 52 %) 46.5 MCV (80.0 - 94.0 FL) 92.3 MCH (27.0 - 31.0 PG) 30.0 MCHC (33.0 - 37.0 G/DL) 32.5 L RDW (11.5 - 14.5 %) 15.2 H Plt Count (130 - 400 /CUMM) 375 MPV (7.4 - 10.4 FL) 7.9 Gran % (42.2 - 75.2 %) 76.8 H Lymphocytes % (20.5 - 51.1 %) 15.0 L Monocytes % (1.7 - 9.3 %) 4.4 Eosinophils % (0 - 5 %) 3.6 Basophils % (0.0 - 2.0 %) 0.2 Absolute Granulocytes (1.4 - 6.5 /CUMM) 10.8 H Absolute Lymphocytes (1.2 - 3.4 /CUMM) 2.1 Absolute Monocytes (0.10 - 0.60 /CUMM) 0.6 Absolute Eosinophils (0.0 - 0.7 /CUMM) 0.5 Absolute Basophils (0.0 - 0.2 /CUMM) 0 Toxicology Opp (0.6 - 1.2 mmol/L) 0.9 Serum Alcohol (<10 MG/DL) < 10.0 Imaging/Other Studies: CT scan: IMPRESSION: Choledocholithiasis resulting in mild obstructive biliary ductal dilatation and secondary pancreatitis. Additional mild mucosal hyperemia, surrounding inflammatory change and mild wall thickening of the gastric antrum and duodenum. Exophytic 1.4 cm low-density nodular lesion arising from the posterior cortex of the right kidney which does not measure simple fluid and was not present on previous imaging from 2006. Although this may represent a proteinaceous or hemorrhagic cyst, a dedicated renal ultrasound is recommended in order to rule out a solid mass. Assessment/Plan Assessment/Recommendations: Acute gallstone pancreatitis, with choledocholithiasis evident on CT scan. There is hyperbilirubinemia and transaminitis, but no evident cholangitis ( afebrile). The leukocytosis is likely secondary to the pancreatitis. Nevertheless, empiric antibiotic coverage is warranted. There is no evidence of hemoconcentration, acidemia or hypoxemia at this time. The patient's pain is not well controlled on current dose of narcotics. Recommendations * Continue IV fluid (lactated Ringer's), monitor input and output, nothing by mouth * Continue antibiotics * Increase morphine dose (titrated to pain, and watch for overmedication as per protocol) and decrease interval to 2 hours * ERCP to be performed today Copies To: Marcelle Garcia APRN Consult Acknowledgment - Thank you for your consult request.
--- NOTE | 2017-09-15 11:08 | RADIOLOGY REPORT ---
EXAMINATION: XR PORTABLE CHEST CLINICAL INFORMATION: Pancreatitis rule out pleural effusion COMPARISON: None TECHNIQUE: Portable frontal view of the chest was obtained. FINDINGS: Study limited oblique projection, increased attenuation over the LEFT field probably technical, the costophrenic angle on the LEFT is excluded from the film margin, RIGHT lung is clear. IMPRESSION: Very limited study, oblique projection. Left costophrenic angle is excluded from the film margin, no large effusions.
--- NOTE | 2017-09-15 12:05 | Cons- Psychiatry ---
Psychiatric Consult Date of Consult: 09/15/17 Reason for Consult: "bipolar" History of Present Illness: 47 , domiciled male presented to the ED 09/14/17 @ 1744 with a CC of 10/10 umbilical pain X 2 hours, abdominal pain x 1 month, but felt like something burst 2 hours [employer], per triage note. He has been treated at [facility] from 08/07/17 through 08/27/17 for bipolar d/o, opioid/alcohol. stimulant use disorders. At discharge, he was admitted to a residential drug treatment center, [facility]. He was due to start [facility] today, 09/15/17, but is in the hospital. We expect to make an intake appointment at [facility] after medical treatment. The patient is due for an ERCP and probable resolution of a gallstone(s) at 1230 today. He is in severe pain and is NPO. Allergies: Coded Allergies: NO KNOWN ALLERGIES (12/05/10) Current Medications: Current Medications Sig/[place] Start time Last Medication Dose Route Stop Time Status Admin Acetaminophen 1,000 MG Q6P PRN 09/14 2300 AC IV Ampicillin Sodium/ 3,000 MG Q6H 09/15 0230 AC 09/15 Sulbactam Sodium IV 0815 Sodium Chloride 100 ML Ampicillin Sodium/ 3,000 MG Q6 09/14 2359 DC Sulbactam Sodium IV Sodium Chloride 100 ML Ampicillin Sodium/ 0 .STK-MED ONE 09/14 203 DC Sulbactam Sodium .ROUTE Ampicillin Sodium/ 3,000 MG ONCE ONE 09/14 1930 DC 09/14 Sulbactam Sodium IV 09/14 1958 203 Sodium Chloride 100 ML Heparin Sodium 5,000 UNIT Q8 09/15 0600 AC 09/15 (Porcine) SC 0529 Hydromorphone HCl 0.6 MG ONCE ONE 09/15 1000 DC 09/15 IV 09/15 1001 1000 Hydromorphone HCl 0.4 MG ONCE ONE 09/15 0945 CAN IV 09/15 0946 Hydromorphone HCl 0.4 MG ONCE ONE 09/15 0845 DC 09/15 IV 09/15 0846 0840 Ketorolac 15 MG Q6P PRN 09/14 2300 DC Tromethamine IV Ketorolac 0 .STK-MED ONE 09/14 1811 DC Tromethamine .ROUTE Ketorolac 30 MG ONCE ONE 09/14 1800 DC 09/14 Tromethamine IM 09/14 1801 1807 Lactated Ringer's 150 ML 150 MLS/HR 09/14 2314 CAN IV Lactated Ringer's 1,000 ML Q6H 09/14 2315 AC 09/15 IV 0613 Lactated Ringer's 1,000 ML ONCE ONE 09/14 2045 DC 09/14 IV 09/15 0144 2117 Morphine Sulfate 4 MG Q2P PRN 09/15 0845 AC IV Morphine Sulfate 4 MG ONCE ONE 09/15 0800 DC 09/15 IV 09/15 0801 0745 Morphine Sulfate 6 MG ONCE ONE 09/15 0745 DC IV 09/15 0746 Morphine Sulfate 0 .STK-MED ONE 09/14 231 DC .ROUTE Morphine Sulfate 4 MG Q4 HRS NEEDED PRN 09/14 2245 DC 09/15 IV 0701 Morphine Sulfate 0 .STK-MED ONE 09/14 2118 DC .ROUTE Morphine Sulfate 6 MG ONCE ONE 09/14 2100 DC 09/14 IV 09/14 2101 2116 Morphine Sulfate 0 .STK-MED ONE 09/14 203 DC .ROUTE Morphine Sulfate 4 MG ONCE ONE 09/14 194 DC 09/14 IV 09/14 1945 203 Morphine Sulfate 0 .STK-MED ONE 09/14 1853 DC .ROUTE Morphine Sulfate 4 MG ONCE ONE 09/14 1845 DC 09/14 IV 09/14 184 1850 Ondansetron HCl 4 MG Q6P PRN 09/14 2245 AC IV Ondansetron HCl 0 .STK-MED ONE 09/14 1853 DC .ROUTE Ondansetron HCl 4 MG ONCE ONE 09/14 1845 DC 09/14 IV 09/14 184 1850 Sodium Chloride 1,000 ML BOLUS ONE 09/14 194 DC IV 09/15 2043 Sodium Chloride 1,000 ML BOLUS ONE 09/14 184 DC 09/14 IV 09/15 1943 184 Past History Past Medical History Cardiovascular: hypertension, hyperlipidemia Psychiatric: bipolar disease, Opioid, alcohol and stimulant use disorders Past Surgical History Surgical History: non-contributory Psychosocial History Strengths/Capabilities: Motivated for treatment Physical Limitations (Interventions): Severe abd pain, at this time. Psychiatric Treatment History Psych Treatment Psychiatric Treatment Yes Inpatient Treatment No Outpatient Treatment Yes Location of Treatment [facility] Reason for Treatment Bipolar d/o Dates of Treatment Last at [facility] 08/27/17 Response to Treatment continued to relapse Diagnosis: Bipolar disorder, unspecified Risk Factors: [facility] hospitalized, substance abuse, lives alone, male Substance Use/Abuse History Drug Use/Abuse Substances Used/Abused Yes Substance Used/Abused Non-Prescribed Opiates Substance Abuse Treatment Substance Abuse Treatment Past Substance Abuse [place] Yes Inpatient Treatment Yes Outpatient Treatment Yes Location of Treatment Inpt: [facility] in [place], and before that in [place]. Outpt: [facility] Reason for Treatment Polysubstance use disorders and bipolar d/o Dates of Treatment [place] 08/07/17-08/27/17, followed by [facility] Response to Treatment Moderate Assessment/Plan Mental Status Orientation: Person, Place, Situation Affect: Constricted (The patient is in severe pain) Speech: Soft Neuro-vegetative: Not evaluated, due to severe pain Mental Status Exam: The patient is awaiting ERCP and gll stone removal within 45 minutes, and is unable to complete this interview. He is alert and oriented. Denies racing thoughts Denies AH, VH, and presents no aviva delusions He denies SI or HI Lab Results: Laboratory Tests 09/15 09/15 1300 0345 Chemistry Sodium (137 - 145 mmol/L) 142 Potassium (3.5 - 5.1 mmol/L) 4.4 Chloride (98 - 107 mmol/L) 103 Carbon Dioxide (22 - 30 mmol/L) 22 Anion Gap (5 - 16) 16 BUN (9 - 20 mg/dL) 13 Creatinine (0.7 - 1.2 mg/dL) 0.8 Estimated GFR (>60 ml/min) > 60 BUN/Creatinine Ratio (7 - 25 %) 16.3 Calcium (8.4 - 10.2 mg/dL) 9.1 Phosphorus (2.5 - 4.5 mg/dL) 4.1 Magnesium (1.6 - 2.3 mg/dL) 1.7 Total Bilirubin (0.2 - 1.3 mg/dL) 3.1 H Direct Bilirubin (< 0.4 mg/dL) 1.9 H AST (17 - 59 U/L) 385 H ALT (21 - 72 U/L) 1075 H Alkaline Phosphatase (< 127 U/L) 259 H Lactate Dehydrogenase (313 - 618 U/L) 735 H Total Protein (6.3 - 8.2 g/dL) 7.0 Albumin (3.5 - 5.0 g/dL) 4.3 Triglycerides (<150 mg/dL) 106 Cholesterol (< 200 MG/DL) 227 H LDL Cholesterol, Calc (65 - 129 mg/dL) 147 H HDL Cholesterol (40 - 60 mg/dL) 59 Cholesterol/HDL Ratio (0.00 - 4.88 %) 4 Lipase (23 - 300 U/L) Cancelled > 94958 H Hematology CBC w Diff MAN DIFF ORDERED WBC (4.8 - 10.8 /CUMM) 20.3 H RBC (4.70 - 6.10 /CUMM) 4.88 Hgb (14.0 - 18.0 G/DL) 14.8 Hct (42 - 52 %) 44.8 MCV (80.0 - 94.0 FL) 91.9 MCH (27.0 - 31.0 PG) 30.3 MCHC (33.0 - 37.0 G/DL) 32.9 L RDW (11.5 - 14.5 %) 14.9 H Plt Count (130 - 400 /CUMM) 352 MPV (7.4 - 10.4 FL) 7.9 Gran % (42.2 - 75.2 %) 94.7 H Lymphocytes % (20.5 - 51.1 %) 1.8 L Monocytes % (1.7 - 9.3 %) 3.5 Eosinophils % (0 - 5 %) 0 Basophils % (0.0 - 2.0 %) 0 Absolute Granulocytes (1.4 - 6.5 /CUMM) 19.3 H Segmented Neutrophils (42.2 - 75.2 %) 87 H Band Neutrophils (0.0 - 5.0 %) 4 Absolute Lymphocytes (1.2 - 3.4 /CUMM) 0.4 L Lymphocytes (20.5 - 51.1 %) 5 L Monocytes (1.7 - 9.3 %) 4 Absolute Monocytes (0.10 - 0.60 /CUMM) 0.7 H Absolute Eosinophils (0.0 - 0.7 /CUMM) 0 Absolute Basophils (0.0 - 0.2 /CUMM) 0 Platelet Estimate (ADEQUATE) ADEQUATE Normocytic RBCs VERIFIED Normochromic RBCs VERIFIED Serology Hepatitis A IgM Ab (NONREACTIVE) NONREACTIVE Hep Bs Antigen (NONREACTIVE) NONREACTIVE Hep B Core IgM Ab Conf (NONREACTIVE) NONREACTIVE Hepatitis C Antibody (NONREACTIVE) NONREACTIVE 09/140 2059 Chemistry Lactic Acid (0.7 - 2.1 mmol/L) 1.5 Coagulation PT (9.4 - 12.5 SEC) 11.5 INR (0.90 - 1.17) 1.05 APTT (25 - 37 SEC) 27 Toxicology Urine Opiates Screen (>2000 NG/ML) 2450.00 H Methadone Screen (>300 NG/ML) < 40 Barbiturate Screen (>200 NG/ML) < 60 Ur Phencyclidine Scrn (>25 NG/ML) < 6.00 Amphetamines Screen (>1000 NG/ML) < 100 U Benzodiazepines Scrn (>200 NG/ML) < 85 Urine Cocaine Screen (>300 NG/ML) < 50 Urine Cannabis Screen (>50 NG/ML) < 5.00 Urines Urine Color (YEL,AMB,STR) YEL Urine Clarity (CLEAR) CLEAR Urine pH (5.0 - 8.0) 6.5 Ur Specific [place] (1.001 - 1.035) 1.010 Urine Protein (NEG,<30 MG/DL) NEG Urine Ketones (NEG) NEG Urine Nitrite (NEG) NEG Urine Bilirubin (NEG) POS@ICTO H Urine Urobilinogen (0.1 - 1.0 EU/dl) 1.0 Ur Leukocyte Esterase (NEG) NEG Ur Microscopic EXAM NOT REQUIRED Urine Hemoglobin (NEG) NEG Urine Glucose (N MG/DL) NEG 09/14 1806 Chemistry Sodium (137 - 145 mmol/L) 140 Potassium (3.5 - 5.1 mmol/L) 3.7 Chloride (98 - 107 mmol/L) 101 Carbon Dioxide (22 - 30 mmol/L) 25 Anion Gap (5 - 16) 14 BUN (9 - 20 mg/dL) 14 Creatinine (0.7 - 1.2 mg/dL) 1.0 Estimated GFR (>60 ml/min) > 60 BUN/Creatinine Ratio (7 - 25 %) 14.0 Glucose (65 - 99 mg/dL) 148 H Lactic Acid (0.7 - 2.1 mmol/L) 1.6 Calcium (8.4 - 10.2 mg/dL) 9.5 Total Bilirubin (0.2 - 1.3 mg/dL) 4.4 H Direct Bilirubin (< 0.4 mg/dL) 3.1 H AST (17 - 59 U/L) 697 H ALT (21 - 72 U/L) 1330 H Alkaline Phosphatase (< 127 U/L) 282 H Troponin I (<0.11 ng/ml) < 0.01 Total Protein (6.3 - 8.2 g/dL) 7.3 Albumin (3.5 - 5.0 g/dL) 4.6 Globulin (1.9 - 4.2 gm/dL) 2.7 Albumin/Globulin Ratio (1.1 - 2.2 %) 1.7 Lipase (23 - 300 U/L) > 72491 H Hematology CBC w Diff NO MAN DIFF REQ WBC (4.8 - 10.8 /CUMM) 14.1 H RBC (4.70 - 6.10 /CUMM) 5.03 Hgb (14.0 - 18.0 G/DL) 15.1 Hct (42 - 52 %) 46.5 MCV (80.0 - 94.0 FL) 92.3 MCH (27.0 - 31.0 PG) 30.0 MCHC (33.0 - 37.0 G/DL) 32.5 L RDW (11.5 - 14.5 %) 15.2 H Plt Count (130 - 400 /CUMM) 375 MPV (7.4 - 10.4 FL) 7.9 Gran % (42.2 - 75.2 %) 76.8 H Lymphocytes % (20.5 - 51.1 %) 15.0 L Monocytes % (1.7 - 9.3 %) 4.4 Eosinophils % (0 - 5 %) 3.6 Basophils % (0.0 - 2.0 %) 0.2 Absolute Granulocytes (1.4 - 6.5 /CUMM) 10.8 H Absolute Lymphocytes (1.2 - 3.4 /CUMM) 2.1 Absolute Monocytes (0.10 - 0.60 /CUMM) 0.6 Absolute Eosinophils (0.0 - 0.7 /CUMM) 0.5 Absolute Basophils (0.0 - 0.2 /CUMM) 0 Toxicology [place] (0.6 - 1.2 mmol/L) 0.9 Serum Alcohol (<10 MG/DL) < 10.0 Diffential Diagnosis: Gall bladder F31.9 bipolar d/o, unspecified F11.20 opioid use d/o, severe, (heroin and fentanyl) F10.20 alcohol use d/o, severe F14.20 stimulant use d/o, moderate Impression: The patient is preparing for gall bladder surgery. He reports he has been taking his medications daily, including lithium 1500 mg PO qAM, olanzapine 5 mg PO daily. He is not taking gabapentin, nor Lexapro. [place] level at admission is 0.9, or within therapeutic limits. One possible side effect of olanzapine is pancreatitis. Althought we are not sure this medicaiton has caused or exacerbated the pancreatitis, it should be held for now, subject to review as an outpatient. After surgery today, if he is able to take PO, we suggest a one time dose of lithium 750 mg this evening. His home dose of lithium 1500 mg PO qAM can start on the morning of 09/16/17. Provisional Treatment Plan: 1. Hold olanzapine. 2. If he is able to take PO after surgery, please order lithium 750 mg PO once this afternoon or evening. 3. Please start lithium 1500 mg PO qAM on 09/16/17 4. Please order a surveillance lithium level on the 4th morning after restart, at trough, just before his AM dose, and provided he has not missed any doses. Please send results to myself. We will continue to follow along. Thank you for this consult.
--- NOTE | 2017-09-15 15:19 | Proc Note ERCP ---
ERCP Procedure Procedure Date: 09/15/17 GI Procedure(s): ERCP with sphincterotomy/stone meter repairer: Jose Gamboa M.D. ASA Classification: III Indications: Gallstone pancreatitis Hyperbilirubinemia/transaminitis Choledocholithiasis seen on CT scan Instrument: duodenoscope Meds Received: Endotracheal intubation/TIVA Patient's Tolerance: good Complications: none Procedure: The patient signed informed consent, and was intubated. He was then turned into the prone position and further medicated. Pulse oximetry, blood pressure and cardiac monitoring were performed continuously throughout the procedure. The Olympus V duodenoscope was inserted into the mouth and advanced to the duodenum. Indomethacin 100 mg was administered per rectum. The stomach was not examined. The gastric outlet and duodenum were normal. There was an enlarged papilla, with what appeared to be an impacted stone at the orifice. The pancreatic duct was not cannulated/injected. The common bile duct was cannulated with guidewire, and opacified. The cholangiogram demonstrated dilatation of the common bile duct, common hepatic duct, and hepatic ducts. The ducts had normal contour. The cystic duct was not opacified. No filling defects were seen. A complete, bloodless sphincterotomy was performed. There was abundant bile flow, and emptying of contrast. The stone was removed with removal of the papillotome. An occlusion cholangiogram was negative. The duct was swept from bifurcation to duodenum with an inflated extraction balloon, without delivery of stone or debris. The patient was extubated in the procedure room, and taken to the recovery room in good condition. Impression: * Choledocholithiasis (stone impacted in ampulla), treated with sphincterotomy and extraction Recommendations: * Continue management of pancreatitis with IV fluids, IV analgesia, antiemetics as needed. * Follow-up CBC and LFTs * Eventual cholecystectomy; surgical consult * Continue IV antibiotics pending result of blood cultures. CC: Dung Garcia APRN, MD,Pravin
[2017-09-15 16:00] VITALS: BP 162/100
--- NOTE | 2017-09-15 17:24 | RADIOLOGY REPORT ---
EXAMINATION: CR ABDOMEN/INTRAOPERATIVE FLUOROSCOPY/ERCP CLINICAL INDICATION: Abdominal pain. COMPARISON: CT scan of the abdomen and pelvis dated 09/14/2017. TECHNIQUE/FINDINGS: Fluoroscopic equipment was dedicated to the operating room for the performance of an intraoperative procedure. Several (8) spot films were acquired and are archived in PACS. Please refer to operative notes for procedural detail. FLUOROSCOPY TIME: 1 minute 39 seconds. IMPRESSION: Administrative dictation for intraoperative fluoroscopy and image archiving in PACS. Please refer to operative notes for details.
--- NOTE | 2017-09-15 21:29 | Cons- General Surgery ---
General Information and HPI Consulting Request Date of Consult: 09/15/17 Requested By: Pravin Hill MD Reason for Consult: Choledocholithiasis Source of Information: patient Exam Limitations: no limitations History of Present Illness: This is a 47 year old male with a past medical history of bipolar disorder, hypertension, and hyperlipidemia seen for evaluation of acute onset abdominal with nausea, diarrhea, and chills. Workup was obtained and revealed choledocholithiasis. He is now POD#0 s/p ERCP. patient reports pain is somewhat improved since the procedure. However he still afraid to move. He's been experiencing pain in the right upper quadrant that radiates to his back. He denies any fevers, chills, nausea, vomiting, cough, chest pain, shortness of breath, sick contacts, recent travel, or similar symptoms in the past. He does report that he has been having some right upper quadrant discomfort over the last month however it worsened on the day of presentation to the emergency department. Allergies/Medications Allergies: Coded Allergies: NO KNOWN ALLERGIES (12/05/10) Current Medications: Current Medications Sig/[place] Start time Last Medication Dose Route Stop Time Status Admin Acetaminophen 1,000 MG Q6P PRN 09/14 2300 AC IV Ampicillin Sodium/ 3,000 MG Q6H 09/15 0230 AC 09/15 Sulbactam Sodium IV 2013 Sodium Chloride 100 ML Ampicillin Sodium/ 3,000 MG Q6 09/14 2359 DC Sulbactam Sodium IV Sodium Chloride 100 ML Heparin Sodium 5,000 UNIT Q8 09/15 0600 AC 09/15 (Porcine) SC 1616 Hydralazine HCl 5 MG ONCE ONE 09/15 1930 DC 09/15 IV 09/15 1931 1938 Hydralazine HCl 5 MG ONCE ONE 09/15 1615 DC 09/15 IV 09/15 1616 1617 Hydromorphone HCl 2 MG ONCE ONE 09/15 2014 DC 09/15 IV 09/15 Hydromorphone HCl 2 MG Q2P PRN 09/15 2015 AC IV Hydromorphone HCl 1 MG Q2P PRN 09/15 1830 DC 09/15 IV 1938 Hydromorphone HCl 0.6 MG ONCE ONE 09/15 1000 DC 09/15 IV 09/15 1001 1000 Hydromorphone HCl 0.4 MG ONCE ONE 09/15 0945 CAN IV 09/15 0946 Hydromorphone HCl 0.4 MG ONCE ONE 09/15 0845 DC 09/15 IV 09/15 0846 0840 Indomethacin 100 MG .STK-MED ONE 09/15 1505 DC NH 09/15 1506 Iopamidol 1 ML .STK-MED ONE 09/15 1504 DC IV 09/15 1505 Ketorolac 15 MG Q6P PRN 09/14 2300 DC Tromethamine IV Lactated Ringer's 150 ML 150 MLS/HR 09/14 2315 CAN IV Lactated Ringer's 1,000 ML Q6H 09/14 2315 AC 09/15 IV 1753 Lactated Ringer's 1,000 ML ONCE ONE 09/14 2045 DC 09/14 IV 09/15 0144 2117 Lidocaine 2 LEIDY .STK-MED ONE 09/15 1505 DC TOP 09/15 1506 Lidocaine 50 ML .STK-MED ONE 09/15 1505 DC TOP 09/15 1506 [place] Carbonate 1,500 MG DAILY 09/16 1000 AC PO [place] Carbonate 750 MG ONCE ONE 09/15 1515 DC PO 09/15 1516 Morphine Sulfate 4 MG Q2P PRN 09/15 0945 DC 09/15 IV 1203 Morphine Sulfate 4 MG ONCE ONE 09/15 0800 DC 09/15 IV 09/15 0801 0745 Morphine Sulfate 6 MG ONCE ONE 09/15 0745 DC IV 09/15 0746 Morphine Sulfate 0 .STK-MED ONE 09/14 2311 DC .ROUTE Morphine Sulfate 4 MG Q4 HRS NEEDED PRN 09/14 2245 DC 09/15 IV 0701 Morphine Sulfate 0 .STK-MED ONE 09/14 2118 DC .ROUTE Ondansetron HCl 4 MG Q6P PRN 09/14 2245 AC IV Past History Medical History Cardiovascular: hypertension, hyperlipidemia Psychiatric: bipolar disease, Opioid, alcohol and stimulant use disorders Surgical History Pertinent Surgical History: non-contributory Family History Relations & Conditions If Any: FATHER, ; Cause: Lung cancer. FH: lung cancer Relation not specified for: FH: hyperlipidemia FH: hypertension Psychosocial History Where Do You Live? Home Smoking Status: Current Everyday Smoker ETOH Use: denies use Illicit Drug Use: heroin (sobre for 1 month) Functional Ability ADLs Independent: dressing, eating, toileting, bathing. Ambulation: independent IADLs Independent: shopping, housework, finances, food prep, telephone, transportation , medication admin. Employment History Employment: Employed Profession/Employer: [employer] Review of Systems Review of Systems: as per HPI Exam & Diagnostic Data Vital Signs and I&O Vital Signs Date Time Temp Pulse Resp B/P B/P Pulse O2 O2 Flow FiO2 Mean Ox Delivery Rate 09/15 1937 105 174/104 09/15 1617 75 176/97 09/15 1600 97.9 102 16 162/100 97 Room Air 09/15 0800 99.9 81 20 128/80 96 Room Air 09/15 0800 96 Room Air 09/15 0400 96 Room Air 09/15 0152 98 Room Air 09/15 0109 98 Room Air 09/15 0109 97.6 68 18 130/70 98 Room Air 09/15 0014 98.3 71 20 139/91 97 Room Air Intake & Output 09/15 1600 09/15 0800 09/15 0000 / 1600 09/14 0800 09/14 0000 Intake Total 1066 1000 1000 Output Total 600 700 Balance 389 903 3112 Intake, IV 1066 1000 1000 Intake, Oral 0 0 Number 0 Bowel Movements Output, Urine 600 700 Patient 210 lb 210 lb Weight Weight Reported by Patient Measurement Method Physical Exam: General: Alert, awake, no acute distress Abdomen: distended, tympanitic, tender to palpation in the right upper quadrant with rebound and guarding Extremities: No clubbing, cyanosis, or edema Last 24 Hours of Labs: Laboratory Tests 09/15 09/15 1300 0345 Chemistry Sodium (137 - 145 mmol/L) 142 Potassium (3.5 - 5.1 mmol/L) 4.4 Chloride (98 - 107 mmol/L) 103 Carbon Dioxide (22 - 30 mmol/L) 22 Anion Gap (5 - 16) 16 BUN (9 - 20 mg/dL) 13 Creatinine (0.7 - 1.2 mg/dL) 0.8 Estimated GFR (>60 ml/min) > 60 BUN/Creatinine Ratio (7 - 25 %) 16.3 Calcium (8.4 - 10.2 mg/dL) 9.1 Phosphorus (2.5 - 4.5 mg/dL) 4.1 Magnesium (1.6 - 2.3 mg/dL) 1.7 Total Bilirubin (0.2 - 1.3 mg/dL) 3.1 H Direct Bilirubin (< 0.4 mg/dL) 1.9 H AST (17 - 59 U/L) 385 H ALT (21 - 72 U/L) 1075 H Alkaline Phosphatase (< 127 U/L) 259 H Lactate Dehydrogenase (313 - 618 U/L) 735 H Total Protein (6.3 - 8.2 g/dL) 7.0 Albumin (3.5 - 5.0 g/dL) 4.3 Triglycerides (<150 mg/dL) 106 Cholesterol (< 200 MG/DL) 227 H LDL Cholesterol, Calc (65 - 129 mg/dL) 147 H HDL Cholesterol (40 - 60 mg/dL) 59 Cholesterol/HDL Ratio (0.00 - 4.88 %) 4 Lipase (23 - 300 U/L) Cancelled > 25212 H Hematology CBC w Diff MAN DIFF ORDERED WBC (4.8 - 10.8 /CUMM) 20.3 H RBC (4.70 - 6.10 /CUMM) 4.88 Hgb (14.0 - 18.0 G/DL) 14.8 Hct (42 - 52 %) 44.8 MCV (80.0 - 94.0 FL) 91.9 MCH (27.0 - 31.0 PG) 30.3 MCHC (33.0 - 37.0 G/DL) 32.9 L RDW (11.5 - 14.5 %) 14.9 H Plt Count (130 - 400 /CUMM) 352 MPV (7.4 - 10.4 FL) 7.9 Gran % (42.2 - 75.2 %) 94.7 H Lymphocytes % (20.5 - 51.1 %) 1.8 L Monocytes % (1.7 - 9.3 %) 3.5 Eosinophils % (0 - 5 %) 0 Basophils % (0.0 - 2.0 %) 0 Absolute Granulocytes (1.4 - 6.5 /CUMM) 19.3 H Segmented Neutrophils (42.2 - 75.2 %) 87 H Band Neutrophils (0.0 - 5.0 %) 4 Absolute Lymphocytes (1.2 - 3.4 /CUMM) 0.4 L Lymphocytes (20.5 - 51.1 %) 5 L Monocytes (1.7 - 9.3 %) 4 Absolute Monocytes (0.10 - 0.60 /CUMM) 0.7 H Absolute Eosinophils (0.0 - 0.7 /CUMM) 0 Absolute Basophils (0.0 - 0.2 /CUMM) 0 Platelet Estimate (ADEQUATE) ADEQUATE Normocytic RBCs VERIFIED Normochromic RBCs VERIFIED Serology Hepatitis A IgM Ab (NONREACTIVE) NONREACTIVE Hep Bs Antigen (NONREACTIVE) NONREACTIVE Hep B Core IgM Ab Conf (NONREACTIVE) NONREACTIVE Hepatitis C Antibody (NONREACTIVE) NONREACTIVE Imaging Results: ERCP 09/15/17: Choledocholithiasis (stone impacted in ampulla), treated with sphincterotomy and extraction Assessment/Plan Assessment/Plan This is a 47 year old male with a past medical history of bipolar disorder, hypertension, and hyperlipidemia seen for evaluation of acute onset abdominal with nausea, diarrhea, and chills. Workup was obtained and revealed choledocholithiasis. He is now POD#0 s/p ERCP. Consulted to general surgery for definitive management of his choledocholithiasis in the form of cholecystectomy. 1. Nothing by mouth/IV fluids 2. Continue Unasyn 3. When necessary analgesics and antiemetics 4. GI/DVT prophylaxis 5. Ambulate/IS/turn/cough/deep breathe 6. Possible cholecystectomy tomorrow 7. Please refer to primary team's note for management of his other acute and chronic comorbidities 8. Case discussed with Dr. King Problem List: 1. Choledocholithiasis 2. S/P ERCP Consult Acknowledgment - Thank you for your consult request.
[2017-09-15 23:00] VITALS: BP 150/100
[2017-09-16 05:33] LABS: ABSOLUTE BASOPHIL COUNT 0 /CUMM (0.0-0.2); ABSOLUTE EOSINOPHIL COUNT 0 /CUMM (0.0-0.7); ABSOLUTE GRANULOCYTE CT 21.1 /CUMM (1.4-6.5); ABSOLUTE LYMPH COUNT 0.7 /CUMM (1.2-3.4); ABSOLUTE MONOCYTE COUNT 1.1 /CUMM (0.10-0.60); BASOPHIL % 0.1 % (0.0-2.0); EOSINOPHIL % 0 % (0-5); GRANULOCYTE % 92.2 % (42.2-75.2); HEMATOCRIT 45.9 % (42-52); MEAN CORPUSCULAR HGB 30.5 PG (27.0-31.0); MEAN CORPUSCULAR HGB CONC 33.3 G/DL (33.0-37.0); MEAN CORPUSCULAR VOLUME 91.5 FL (80.0-94.0); MEAN PLATELET VOLUME 8.7 FL (7.4-10.4); PLATELET COUNT 341 /CUMM (130-400); RBC DISTRIBUTION WIDTH 15.2 % (11.5-14.5); RED BLOOD CELL CT 5.02 /CUMM (4.70-6.10); WHITE BLOOD CELL COUNT 22.9 /CUMM (4.8-10.8)
--- NOTE | 2017-09-16 07:39 | PN- Resident CRCU ---
See Addendum Anders INIGUEZ,Evelina 09/16/17 0738: Subjective HPI/CRCU Issues: -Choledocholithasis -Gallstone pancreatitis -Sepsis - resolved -New Right Renal Cyst -Bipolar disorder -Hypertension -Hyperlipidemia 24 Hour Events: Patient continues to have severe abdominal pain especially with movement though better compared to yesterday. He also states his abdomen feels distended and rigid. He was having loose bowel movements right after he would eat anything at home which has resolved now as he has not had any bowel movement since admission. Objective Vital Signs & I&O Last 8 Hrs of Vitals and I&O: Intake & Output 09/17 0800 Intake Total 1179 Output Total 500 Balance 679 Intake, IV 1179 Intake, Oral 0 Number 0 Bowel Movements Output, Urine 500 Exam General Appearance: well developed/nourished, alert, awake, mild distress Head: atraumatic, normal appearance Cardiovascular: regular rate/rhythm Gastrointestinal: normal bowel sounds, guarding, tenderness Extremities: normal inspection, no edema Cranial Nerves: normal hearing, normal speech, PERRL Current Medications: Current Medications Sig/[place] Start time Last Medication Dose Route Stop Time Status Admin Acetaminophen 1,000 MG Q6P PRN 09/14 2300 AC IV Ampicillin Sodium/ 3,000 MG Q6H 09/15 0230 AC 09/17 Sulbactam Sodium IV 0208 Sodium Chloride 100 ML Glycerin 2 SPRAY Q2P PRN 09/16 1430 AC 09/16 PO 1541 Heparin Sodium 5,000 UNIT Q8 09/15 0600 AC 09/17 (Porcine) SC 0536 Hydromorphone HCl 2 MG Q2P PRN 09/15 2014 AC 09/17 IV 0536 Lactated Ringer's 1,000 ML Q6H 09/14 2315 AC 09/17 IV 0659 [place] Carbonate 1,500 MG DAILY 09/16 1000 AC PO Magnesium Sulfate 1 GM ONCE ONE 09/16 1100 DC 09/16 Dextrose/Water 100 ML IV 09/16 1459 1107 Metoprolol Tartrate 5 MG Q6 09/16 2359 AC 09/17 IV 0536 Metoprolol Tartrate 5 MG ONCE ONE 09/16 2300 DC 09/16 IV 09/16 2301 2249 Metoprolol Tartrate 2.5 MG Q8P PRN 09/16 1815 DC 09/16 IV 1814 Metoprolol Tartrate 5 MG ONCE ONE 09/16 929 DC 09/16 IV 09/16 0931 0938 Ondansetron HCl 4 MG Q6P PRN 09/14 2245 IV Impression/Plan Impression/Problem List Impression: Mr. Carbone is a 47 year old man with past medical history of bipolar disorder, hypertension, and hyperlipidemia presented with acute onset abdominal associated with nausea, diarrhea, and chills likely 2/2 choledocholithiasis causing pancreatitis and possible cholangitis. He is currently in the ICU for the management of following issues: 1. Gall stone pancreatitis 2. Choledocholithiasis 3. Hepatocellular pattern of transaminitis with elevated alkaline phosphatase - improving 4. Bipolar disorder 5. Hypertension 6. Hyperlipidemia 7. Exophytic lesion arising from Right kidney Plan; - Continue to monitor in the ICU - Patient had the ERCP done yesterday with sphinctertomy and stone extraction. Will need an eventual cholecystectomy but will have to wait for the pancreatitis to resolve to proceed with the surgery. - Continue to keep nothing by mouth and continue gentle IV fluid. - Appreciate GI recommendations - Appreciate general surgery recommendations. - Pain management with IV Dilaudid 2 mg every 2 hours as needed. - Zofran as needed for nausea. - Continue antibiotics.(Unasyn day 3) - Chest x-ray negative for any large effusions given though it was a very limited study. - Psych consult given history of bipolar disorder and patient recently been started on Zyprexa(which can contribute to pancreatitis episode). Will hold his Zyprexa for now and continue lithium. - Patient remains tachycardic(likely from pain) and hypertensive(SBP in 170s as the patient is not getting his oral antihypertensive medications). Was given 1 dose of IV Lopressor 5 mg. Can give IV Lopressor pressures as needed. DVT prophylaxis; subcutaneous heparin and Alps Patient is full code Problem List: 1. Pancreatitis 2. Transaminitis 3. Cholangitis Pain Ratin Pain Location: Abdomen Pain Goal: Pain 7 or less Pain Plan: IV Dialudid Tomorrow's Labs & Rationales: CBC ICU Bundle Plan DVT/Prophylaxis: mechanical, pharmacological Pravin Hill MD 09/16/17 1109: Attending MD Review Statement Attending Sign Off Attending Cosign Statement: I have: examined this patient, reviewed [employer] EMR data, personally reviewd images, discussd w/resident/PA/TRAFFIC LAW ATTORNEY, discussed mgmt plan w/odell, discussed mgmt plan w/CM, discussed mgmt plan w/pt, agreed w/resident/PA/TRAFFIC LAW ATTORNEY, amended to note. Other Findings: Pravin Richard M.D. have examined this patient, reviewed available EMR data, personally reviewed images, discussed with resident/PA/TRAFFIC LAW ATTORNEY, discussed management plan with housestaff and nursing staff, discussed managment plan all of healthcare providers, discussed management plan with patient and/or family, agreed with resident/PA/TRAFFIC LAW ATTORNEY. The past history and parts of the chart have been autopopulated. Impression 47 year old man * pancreatitis secondary to choledocholithiasis * transaminitis * bipolar disorder * hx of opiate dependence Plan -s/p removal of stone in biliary system -awaiting surgery for timing of cholecystectomy -pain control -paul criteria low for mortality -iv hydration -empiric abx -f/u gi/surgery recommendations -psych consultation apprecated -elevated bp likely secondary to pain, will observe in ICU another day at least DVT prophylaxis at all times TTS 35 min
[2017-09-16 08:00] VITALS: BP 150/100
--- NOTE | 2017-09-16 10:33 | PN- General Surgery ---
Subjective Subjective: Patient reports diffuse intermittent abdominal pain, predominatly in the right upper quadrant and epigastric region, denies pain radiating to his back. He is requesting to eat/drink something. Denies nausea/vomiting. Objective Vital Signs and I&Os Vital Signs Date Time Temp Pulse Resp B/P B/P Pulse O2 O2 Flow FiO2 Mean Ox Delivery Rate 09/16 0838 112 170/102 09/16 08 99.4 120 30 150/100 92 Room Air 09/16 0400 95 Room Air 09/16 0000 95 Room Air 09/15 2300 98.2 115 16 150/100 93 Room Air 09/15 2000 96 Room Air 09/15 1938 105 174/104 09/15 1617 75 176/97 09/15 1600 97.9 102 16 162/100 97 Room Air Intake & Output 09/16 1600 09/16 0800 09/16 0000 09/15 1600 09/15 0800 09/15 0000 Intake Total 1019 815 8576 1000 1000 Output Total 350 700 600 700 Balance 850 219 878 852 2081 Intake, IV 7298 026 3072 1000 1000 Intake, Oral 0 0 0 0 Number 0 0 0 Bowel Movements Output, Urine 350 700 600 700 Patient 210 lb 210 lb Weight Weight Reported by Patient Measurement Method Physical Exam: Gen - nad Cardiac - S1S2, tachycardic Abd - tense with mild distenstion, hypoactive bs, tender to palpation in right upper quadrant/epigastric region with guarding and rebound Current Medications: Current Medications Sig/[place] Start time Last Medication Dose Route Stop Time Status Admin Acetaminophen 1,000 MG Q6P PRN 09/14 2300 AC IV Ampicillin Sodium/ 3,000 MG Q6H 09/15 0230 AC 09/16 Sulbactam Sodium IV 0748 Sodium Chloride 100 ML Heparin Sodium 5,000 UNIT Q8 09/15 06 AC 09/15 (Porcine) SC 2205 Hydralazine HCl 5 MG ONCE ONE 09/15 1929 DC 09/15 IV 09/15 193 193 Hydralazine HCl 5 MG ONCE ONE 09/15 161 DC 09/15 IV 09/15 161 161 Hydromorphone HCl 2 MG ONCE ONE 09/15 2014 DC 09/15 IV 09/15 Hydromorphone HCl 2 MG Q2P PRN 09/15 2014 AC 09/16 IV 0648 Hydromorphone HCl 1 MG Q2P PRN 09/15 1830 DC 09/15 IV 1938 Indomethacin 100 MG .STK-MED ONE 09/15 1505 DC NM 09/15 1506 Iopamidol 1 ML .STK-MED ONE 09/15 1504 DC IV 09/15 1505 Lactated Ringer's 1,000 ML Q6H 09/14 2315 AC 09/16 IV 0748 Lidocaine 2 LEIDY .STK-MED ONE 09/15 1505 DC TOP 09/15 1506 Lidocaine 50 ML .STK-MED ONE 09/15 1505 DC TOP 09/15 1506 [place] Carbonate 1,500 MG DAILY 09/16 1000 AC PO [place] Carbonate 750 MG ONCE ONE 09/15 1515 DC PO 09/15 1516 Metoprolol Tartrate 5 MG ONCE ONE 09/16 0930 DC 09/16 IV 09/16 0931 0938 Morphine Sulfate 4 MG Q2P PRN 09/15 0945 DC 09/15 IV 1203 Ondansetron HCl 4 MG Q6P PRN 09/14 2245 AC IV Results Last 48 Hours of Labs: Laboratory Tests 09/16 09/15 0410 1300 Chemistry Sodium (137 - 145 mmol/L) 138 Potassium (3.5 - 5.1 mmol/L) 4.3 Chloride (98 - 107 mmol/L) 103 Carbon Dioxide (22 - 30 mmol/L) 21 L Anion Gap (5 - 16) 15 BUN (9 - 20 mg/dL) 17 Creatinine (0.7 - 1.2 mg/dL) 0.9 Estimated GFR (>60 ml/min) > 60 BUN/Creatinine Ratio (7 - 25 %) 18.9 Glucose (65 - 99 mg/dL) 73 Calcium (8.4 - 10.2 mg/dL) 8.3 L Phosphorus (2.5 - 4.5 mg/dL) 3.6 Magnesium (1.6 - 2.3 mg/dL) 1.7 Total Bilirubin (0.2 - 1.3 mg/dL) 2.7 H Direct Bilirubin (< 0.4 mg/dL) 1.2 H AST (17 - 59 U/L) 124 H ALT (21 - 72 U/L) 599 H Alkaline Phosphatase (< 127 U/L) 201 H Total Protein (6.3 - 8.2 g/dL) 6.2 L Albumin (3.5 - 5.0 g/dL) 3.5 Lipase Cancelled Hematology CBC w Diff MAN DIFF ORDERED WBC (4.8 - 10.8 /CUMM) 22.9 H RBC (4.70 - 6.10 /CUMM) 5.02 Hgb (14.0 - 18.0 G/DL) 15.3 Hct (42 - 52 %) 45.9 MCV (80.0 - 94.0 FL) 91.5 MCH (27.0 - 31.0 PG) 30.5 MCHC (33.0 - 37.0 G/DL) 33.3 RDW (11.5 - 14.5 %) 15.2 H Plt Count (130 - 400 /CUMM) 341 MPV (7.4 - 10.4 FL) 8.7 Gran % (42.2 - 75.2 %) 92.2 H Lymphocytes % (20.5 - 51.1 %) 2.9 L Monocytes % (1.7 - 9.3 %) 4.8 Eosinophils % (0 - 5 %) 0 Basophils % (0.0 - 2.0 %) 0.1 Absolute Granulocytes (1.4 - 6.5 /CUMM) 21.1 H Segmented Neutrophils (42.2 - 75.2 %) 90 H Band Neutrophils (0.0 - 5.0 %) 2 Absolute Lymphocytes (1.2 - 3.4 /CUMM) 0.7 L Lymphocytes (20.5 - 51.1 %) 3 L Monocytes (1.7 - 9.3 %) 4 Absolute Monocytes (0.10 - 0.60 /CUMM) 1.1 H Eosinophils (0 - 5.0 %) 1 Absolute Eosinophils (0.0 - 0.7 /CUMM) 0 Absolute Basophils (0.0 - 0.2 /CUMM) 0 Platelet Estimate (ADEQUATE) ADEQUATE Normochromic RBCs VERIFIED Poikilocytosis 2+ Ovalocytes 1+ [place] Cells 1+ Other Body Source Fld Total RBCs Counted (%) 100 09/15 09/14 0345 2110 Chemistry Sodium (137 - 145 mmol/L) 142 Potassium (3.5 - 5.1 mmol/L) 4.4 Chloride (98 - 107 mmol/L) 103 Carbon Dioxide (22 - 30 mmol/L) 22 Anion Gap (5 - 16) 16 BUN (9 - 20 mg/dL) 13 Creatinine (0.7 - 1.2 mg/dL) 0.8 Estimated GFR (>60 ml/min) > 60 BUN/Creatinine Ratio (7 - 25 %) 16.3 Calcium (8.4 - 10.2 mg/dL) 9.1 Phosphorus (2.5 - 4.5 mg/dL) 4.1 Magnesium (1.6 - 2.3 mg/dL) 1.7 Total Bilirubin (0.2 - 1.3 mg/dL) 3.1 H Direct Bilirubin (< 0.4 mg/dL) 1.9 H AST (17 - 59 U/L) 385 H ALT (21 - 72 U/L) 1075 H Alkaline Phosphatase (< 127 U/L) 259 H Lactate Dehydrogenase (313 - 618 U/L) 735 H Total Protein (6.3 - 8.2 g/dL) 7.0 Albumin (3.5 - 5.0 g/dL) 4.3 Triglycerides (<150 mg/dL) 106 Cholesterol (< 200 MG/DL) 227 H LDL Cholesterol, Calc (65 - 129 mg/dL) 147 H HDL Cholesterol (40 - 60 mg/dL) 59 Cholesterol/HDL Ratio (0.00 - 4.88 %) 4 Lipase (23 - 300 U/L) > 27834 H Hematology CBC w Diff MAN DIFF ORDERED WBC (4.8 - 10.8 /CUMM) 20.3 H RBC (4.70 - 6.10 /CUMM) 4.88 Hgb (14.0 - 18.0 G/DL) 14.8 Hct (42 - 52 %) 44.8 MCV (80.0 - 94.0 FL) 91.9 MCH (27.0 - 31.0 PG) 30.3 MCHC (33.0 - 37.0 G/DL) 32.9 L RDW (11.5 - 14.5 %) 14.9 H Plt Count (130 - 400 /CUMM) 352 MPV (7.4 - 10.4 FL) 7.9 Gran % (42.2 - 75.2 %) 94.7 H Lymphocytes % (20.5 - 51.1 %) 1.8 L Monocytes % (1.7 - 9.3 %) 3.5 Eosinophils % (0 - 5 %) 0 Basophils % (0.0 - 2.0 %) 0 Absolute Granulocytes (1.4 - 6.5 /CUMM) 19.3 H Segmented Neutrophils (42.2 - 75.2 %) 87 H Band Neutrophils (0.0 - 5.0 %) 4 Absolute Lymphocytes (1.2 - 3.4 /CUMM) 0.4 L Lymphocytes (20.5 - 51.1 %) 5 L Monocytes (1.7 - 9.3 %) 4 Absolute Monocytes (0.10 - 0.60 /CUMM) 0.7 H Absolute Eosinophils (0.0 - 0.7 /CUMM) 0 Absolute Basophils (0.0 - 0.2 /CUMM) 0 Platelet Estimate (ADEQUATE) ADEQUATE Normocytic RBCs VERIFIED Normochromic RBCs VERIFIED Serology Hepatitis A IgM Ab (NONREACTIVE) NONREACTIVE Hep Bs Antigen (NONREACTIVE) NONREACTIVE Hep B Core IgM Ab Conf (NONREACTIVE) NONREACTIVE Hepatitis C Antibody (NONREACTIVE) NONREACTIVE Toxicology Urine Opiates Screen (>2000 NG/ML) 2450.00 H Methadone Screen (>300 NG/ML) < 40 Barbiturate Screen (>200 NG/ML) < 60 Ur Phencyclidine Scrn (>25 NG/ML) < 6.00 Amphetamines Screen (>1000 NG/ML) < 100 U Benzodiazepines Scrn (>200 NG/ML) < 85 Urine Cocaine Screen (>300 NG/ML) < 50 Urine Cannabis Screen (>50 NG/ML) < 5.00 Urines Urine Color (YEL,AMB,STR) YEL Urine Clarity (CLEAR) CLEAR Urine pH (5.0 - 8.0) 6.5 Ur Specific [place] (1.001 - 1.035) 1.010 Urine Protein (NEG,<30 MG/DL) NEG Urine Ketones (NEG) NEG Urine Nitrite (NEG) NEG Urine Bilirubin (NEG) POS@ICTO H Urine Urobilinogen (0.1 - 1.0 EU/dl) 1.0 Ur Leukocyte Esterase (NEG) NEG Ur Microscopic EXAM NOT REQUIRED Urine Hemoglobin (NEG) NEG Urine Glucose (N MG/DL) NEG 09/149 1806 Chemistry Sodium (137 - 145 mmol/L) 140 Potassium (3.5 - 5.1 mmol/L) 3.7 Chloride (98 - 107 mmol/L) 101 Carbon Dioxide (22 - 30 mmol/L) 25 Anion Gap (5 - 16) 14 BUN (9 - 20 mg/dL) 14 Creatinine (0.7 - 1.2 mg/dL) 1.0 Estimated GFR (>60 ml/min) > 60 BUN/Creatinine Ratio (7 - 25 %) 14.0 Glucose (65 - 99 mg/dL) 148 H Lactic Acid (0.7 - 2.1 mmol/L) 1.5 1.6 Calcium (8.4 - 10.2 mg/dL) 9.5 Total Bilirubin (0.2 - 1.3 mg/dL) 4.4 H Direct Bilirubin (< 0.4 mg/dL) 3.1 H AST (17 - 59 U/L) 697 H ALT (21 - 72 U/L) 1330 H Alkaline Phosphatase (< 127 U/L) 282 H Troponin I (<0.11 ng/ml) < 0.01 Total Protein (6.3 - 8.2 g/dL) 7.3 Albumin (3.5 - 5.0 g/dL) 4.6 Globulin (1.9 - 4.2 gm/dL) 2.7 Albumin/Globulin Ratio (1.1 - 2.2 %) 1.7 Lipase (23 - 300 U/L) > 11908 H Coagulation PT (9.4 - 12.5 SEC) 11.5 INR (0.90 - 1.17) 1.05 APTT (25 - 37 SEC) 27 Hematology CBC w Diff NO MAN DIFF REQ WBC (4.8 - 10.8 /CUMM) 14.1 H RBC (4.70 - 6.10 /CUMM) 5.03 Hgb (14.0 - 18.0 G/DL) 15.1 Hct (42 - 52 %) 46.5 MCV (80.0 - 94.0 FL) 92.3 MCH (27.0 - 31.0 PG) 30.0 MCHC (33.0 - 37.0 G/DL) 32.5 L RDW (11.5 - 14.5 %) 15.2 H Plt Count (130 - 400 /CUMM) 375 MPV (7.4 - 10.4 FL) 7.9 Gran % (42.2 - 75.2 %) 76.8 H Lymphocytes % (20.5 - 51.1 %) 15.0 L Monocytes % (1.7 - 9.3 %) 4.4 Eosinophils % (0 - 5 %) 3.6 Basophils % (0.0 - 2.0 %) 0.2 Absolute Granulocytes (1.4 - 6.5 /CUMM) 10.8 H Absolute Lymphocytes (1.2 - 3.4 /CUMM) 2.1 Absolute Monocytes (0.10 - 0.60 /CUMM) 0.6 Absolute Eosinophils (0.0 - 0.7 /CUMM) 0.5 Absolute Basophils (0.0 - 0.2 /CUMM) 0 Toxicology [place] (0.6 - 1.2 mmol/L) 0.9 Serum Alcohol (<10 MG/DL) < 10.0 Assessment/Plan Assessment/Plan 47 M with a h/o of bipolar disorder, HTN and HLD admitted with gallstone pancreatitis and choledocholithiasis, now PPD 1 s/p ERCP with sphincterotomy and stone extraction. He remains tender on exam, consistent with ongoing pancreatitis Keep npo on IV fluids Continue Unasyn IV analgesics/antiemetics prn GI/DVT prophylaxis on board Eventual cholecystectomy within a couple days Will continue to monitor with serial abdominal exams All other medical management per primary team D/w Dr. King Core Measures Venous Thromboembolism VTE Risk Factors Age>40 No Mechanical VTE Prophylaxis d/t N/A MechProphylax Ordered No VTE Pharm Prophylaxis d/t NA PharmProphylax ordered
[2017-09-16 16:00] VITALS: BP 148/88
--- NOTE | 2017-09-16 17:07 | PN- Gastroenterology ---
Assessment/Plan GI Assessment/Recommendations: Acute gallstone pancreatitis, moderate. Status post ERCP with sphincterotomy/ stone extraction. No hemoconcentration, acidemia, azotemia, or respiratory sequelae. Evidence of SIRS with tachycardia and leukocytosis. Clinically, do not suspect necrosis or infected pancreatic parenchyma/fluid collection at this time. Recommendations * Continue management of pancreatitis with nothing by mouth, IV fluids, IV analgesia, antiemetics as needed. * Follow-up CBC and CMP daily * Eventual cholecystectomy, but not until clinical resolution of pancreatitis * Continue IV antibiotics pending result of blood cultures. Subjective Subjective: Improvement in pain, although still significant. No nausea or vomiting. No fever. No shortness of breath. Urinating well. Objective Vital Signs and I&Os Vital Signs Date Time Temp Pulse Resp B/P B/P Pulse O2 O2 Flow FiO2 Mean Ox Delivery Rate 09/16 1600 99.1 112 19 148/88 92 Room Air 09/16 0938 112 170/102 09/16 0800 99.4 120 30 150/100 92 Room Air 09/16 0400 95 Room Air 09/16 0000 95 Room Air 09/15 2300 98.2 115 16 150/100 93 Room Air 09/15 2000 96 Room Air 09/15 1938 105 174/104 Intake & Output 09/16 1600 09/16 0400 09/15 1600 09/15 0400 09/14 1600 09/14 0400 Intake Total 2510 919 2066 1000 Output Total 750 700 900 400 Balance 7096 586 3682 600 Intake, IV 2510 919 2066 1000 Intake, Oral 0 0 0 0 Number 0 0 0 Bowel Movements Output, Urine 750 700 900 400 Patient 210 lb Weight Weight Reported by Patient Measurement Method Physical Exam: Appears ill. Alert and oriented with normal cognition. No skin lesion or jaundice. Skin turgor normal. No adenopathy. Sclera anicteric. Oropharynx normal. Abdomen with normal bowel sounds, and tenderness to mild palpation. No edema. Current Medications: Current Medications Sig/[place] Start time Last Medication Dose Route Stop Time Status Admin Acetaminophen 1,000 MG Q6P PRN 09/14 2300 AC IV Ampicillin Sodium/ 3,000 MG Q6H 09/15 0230 AC 09/16 Sulbactam Sodium IV 1542 Sodium Chloride 100 ML Glycerin 2 SPRAY Q2P PRN 09/16 1430 AC 09/16 PO 1541 Heparin Sodium 5,000 UNIT Q8 09/15 06 AC 09/16 (Porcine) SC 1414 Hydralazine HCl 5 MG ONCE ONE 09/15 1929 DC 09/15 IV 09/15 Hydromorphone HCl 2 MG ONCE ONE 09/15 2014 DC 09/15 IV 09/15 Hydromorphone HCl 2 MG Q2P PRN 09/15 2014 AC 09/16 IV 141 Hydromorphone HCl 1 MG Q2P PRN 09/15 183 DC 09/15 IV 193 Lactated Ringer's 1,000 ML Q6H 09/14 2315 AC 09/16 IV 1542 [place] Carbonate 1,500 MG DAILY 09/16 1000 AC PO Magnesium Sulfate 1 GM ONCE ONE 09/16 1100 DC 09/16 Dextrose/Water 100 ML IV 09/16 1459 1107 Metoprolol Tartrate 5 MG ONCE ONE 09/16 0930 DC 09/16 IV 09/16 0931 0938 Ondansetron HCl 4 MG Q6P PRN 09/14 2245 AC IV Results Pertinent Lab Results: Laboratory Tests 09/16 09/15 0410 1300 Chemistry Sodium (137 - 145 mmol/L) 138 Potassium (3.5 - 5.1 mmol/L) 4.3 Chloride (98 - 107 mmol/L) 103 Carbon Dioxide (22 - 30 mmol/L) 21 L Anion Gap (5 - 16) 15 BUN (9 - 20 mg/dL) 17 Creatinine (0.7 - 1.2 mg/dL) 0.9 Estimated GFR (>60 ml/min) > 60 BUN/Creatinine Ratio (7 - 25 %) 18.9 Glucose (65 - 99 mg/dL) 73 Calcium (8.4 - 10.2 mg/dL) 8.3 L Phosphorus (2.5 - 4.5 mg/dL) 3.6 Magnesium (1.6 - 2.3 mg/dL) 1.7 Total Bilirubin (0.2 - 1.3 mg/dL) 2.7 H Direct Bilirubin (< 0.4 mg/dL) 1.2 H AST (17 - 59 U/L) 124 H ALT (21 - 72 U/L) 599 H Alkaline Phosphatase (< 127 U/L) 201 H Total Protein (6.3 - 8.2 g/dL) 6.2 L Albumin (3.5 - 5.0 g/dL) 3.5 Lipase Cancelled Hematology CBC w Diff MAN DIFF ORDERED WBC (4.8 - 10.8 /CUMM) 22.9 H RBC (4.70 - 6.10 /CUMM) 5.02 Hgb (14.0 - 18.0 G/DL) 15.3 Hct (42 - 52 %) 45.9 MCV (80.0 - 94.0 FL) 91.5 MCH (27.0 - 31.0 PG) 30.5 MCHC (33.0 - 37.0 G/DL) 33.3 RDW (11.5 - 14.5 %) 15.2 H Plt Count (130 - 400 /CUMM) 341 MPV (7.4 - 10.4 FL) 8.7 Gran % (42.2 - 75.2 %) 92.2 H Lymphocytes % (20.5 - 51.1 %) 2.9 L Monocytes % (1.7 - 9.3 %) 4.8 Eosinophils % (0 - 5 %) 0 Basophils % (0.0 - 2.0 %) 0.1 Absolute Granulocytes (1.4 - 6.5 /CUMM) 21.1 H Segmented Neutrophils (42.2 - 75.2 %) 90 H Band Neutrophils (0.0 - 5.0 %) 2 Absolute Lymphocytes (1.2 - 3.4 /CUMM) 0.7 L Lymphocytes (20.5 - 51.1 %) 3 L Monocytes (1.7 - 9.3 %) 4 Absolute Monocytes (0.10 - 0.60 /CUMM) 1.1 H Eosinophils (0 - 5.0 %) 1 Absolute Eosinophils (0.0 - 0.7 /CUMM) 0 Absolute Basophils (0.0 - 0.2 /CUMM) 0 Platelet Estimate (ADEQUATE) ADEQUATE Normochromic RBCs VERIFIED Poikilocytosis 2+ Ovalocytes 1+ [place] Cells 1+ Other Body Source Fld Total RBCs Counted (%) 100 09/15 09/14 0345 2110 Chemistry Sodium (137 - 145 mmol/L) 142 Potassium (3.5 - 5.1 mmol/L) 4.4 Chloride (98 - 107 mmol/L) 103 Carbon Dioxide (22 - 30 mmol/L) 22 Anion Gap (5 - 16) 16 BUN (9 - 20 mg/dL) 13 Creatinine (0.7 - 1.2 mg/dL) 0.8 Estimated GFR (>60 ml/min) > 60 BUN/Creatinine Ratio (7 - 25 %) 16.3 Calcium (8.4 - 10.2 mg/dL) 9.1 Phosphorus (2.5 - 4.5 mg/dL) 4.1 Magnesium (1.6 - 2.3 mg/dL) 1.7 Total Bilirubin (0.2 - 1.3 mg/dL) 3.1 H Direct Bilirubin (< 0.4 mg/dL) 1.9 H AST (17 - 59 U/L) 385 H ALT (21 - 72 U/L) 1075 H Alkaline Phosphatase (< 127 U/L) 259 H Lactate Dehydrogenase (313 - 618 U/L) 735 H Total Protein (6.3 - 8.2 g/dL) 7.0 Albumin (3.5 - 5.0 g/dL) 4.3 Triglycerides (<150 mg/dL) 106 Cholesterol (< 200 MG/DL) 227 H LDL Cholesterol, Calc (65 - 129 mg/dL) 147 H HDL Cholesterol (40 - 60 mg/dL) 59 Cholesterol/HDL Ratio (0.00 - 4.88 %) 4 Lipase (23 - 300 U/L) > 46953 H Hematology CBC w Diff MAN DIFF ORDERED WBC (4.8 - 10.8 /CUMM) 20.3 H RBC (4.70 - 6.10 /CUMM) 4.88 Hgb (14.0 - 18.0 G/DL) 14.8 Hct (42 - 52 %) 44.8 MCV (80.0 - 94.0 FL) 91.9 MCH (27.0 - 31.0 PG) 30.3 MCHC (33.0 - 37.0 G/DL) 32.9 L RDW (11.5 - 14.5 %) 14.9 H Plt Count (130 - 400 /CUMM) 352 MPV (7.4 - 10.4 FL) 7.9 Gran % (42.2 - 75.2 %) 94.7 H Lymphocytes % (20.5 - 51.1 %) 1.8 L Monocytes % (1.7 - 9.3 %) 3.5 Eosinophils % (0 - 5 %) 0 Basophils % (0.0 - 2.0 %) 0 Absolute Granulocytes (1.4 - 6.5 /CUMM) 19.3 H Segmented Neutrophils (42.2 - 75.2 %) 87 H Band Neutrophils (0.0 - 5.0 %) 4 Absolute Lymphocytes (1.2 - 3.4 /CUMM) 0.4 L Lymphocytes (20.5 - 51.1 %) 5 L Monocytes (1.7 - 9.3 %) 4 Absolute Monocytes (0.10 - 0.60 /CUMM) 0.7 H Absolute Eosinophils (0.0 - 0.7 /CUMM) 0 Absolute Basophils (0.0 - 0.2 /CUMM) 0 Platelet Estimate (ADEQUATE) ADEQUATE Normocytic RBCs VERIFIED Normochromic RBCs VERIFIED Serology Hepatitis A IgM Ab (NONREACTIVE) NONREACTIVE Hep Bs Antigen (NONREACTIVE) NONREACTIVE Hep B Core IgM Ab Conf (NONREACTIVE) NONREACTIVE Hepatitis C Antibody (NONREACTIVE) NONREACTIVE Toxicology Urine Opiates Screen (>2000 NG/ML) 2450.00 H Methadone Screen (>300 NG/ML) < 40 Barbiturate Screen (>200 NG/ML) < 60 Ur Phencyclidine Scrn (>25 NG/ML) < 6.00 Amphetamines Screen (>1000 NG/ML) < 100 U Benzodiazepines Scrn (>200 NG/ML) < 85 Urine Cocaine Screen (>300 NG/ML) < 50 Urine Cannabis Screen (>50 NG/ML) < 5.00 Urines Urine Color (YEL,AMB,STR) YEL Urine Clarity (CLEAR) CLEAR Urine pH (5.0 - 8.0) 6.5 Ur Specific [place] (1.001 - 1.035) 1.010 Urine Protein (NEG,<30 MG/DL) NEG Urine Ketones (NEG) NEG Urine Nitrite (NEG) NEG Urine Bilirubin (NEG) POS@ICTO H Urine Urobilinogen (0.1 - 1.0 EU/dl) 1.0 Ur Leukocyte Esterase (NEG) NEG Ur Microscopic EXAM NOT REQUIRED Urine Hemoglobin (NEG) NEG Urine Glucose (N MG/DL) NEG 09/149 1806 Chemistry Sodium (137 - 145 mmol/L) 140 Potassium (3.5 - 5.1 mmol/L) 3.7 Chloride (98 - 107 mmol/L) 101 Carbon Dioxide (22 - 30 mmol/L) 25 Anion Gap (5 - 16) 14 BUN (9 - 20 mg/dL) 14 Creatinine (0.7 - 1.2 mg/dL) 1.0 Estimated GFR (>60 ml/min) > 60 BUN/Creatinine Ratio (7 - 25 %) 14.0 Glucose (65 - 99 mg/dL) 148 H Lactic Acid (0.7 - 2.1 mmol/L) 1.5 1.6 Calcium (8.4 - 10.2 mg/dL) 9.5 Total Bilirubin (0.2 - 1.3 mg/dL) 4.4 H Direct Bilirubin (< 0.4 mg/dL) 3.1 H AST (17 - 59 U/L) 697 H ALT (21 - 72 U/L) 1330 H Alkaline Phosphatase (< 127 U/L) 282 H Troponin I (<0.11 ng/ml) < 0.01 Total Protein (6.3 - 8.2 g/dL) 7.3 Albumin (3.5 - 5.0 g/dL) 4.6 Globulin (1.9 - 4.2 gm/dL) 2.7 Albumin/Globulin Ratio (1.1 - 2.2 %) 1.7 Lipase (23 - 300 U/L) > 70108 H Coagulation PT (9.4 - 12.5 SEC) 11.5 INR (0.90 - 1.17) 1.05 APTT (25 - 37 SEC) 27 Hematology CBC w Diff NO MAN DIFF REQ WBC (4.8 - 10.8 /CUMM) 14.1 H RBC (4.70 - 6.10 /CUMM) 5.03 Hgb (14.0 - 18.0 G/DL) 15.1 Hct (42 - 52 %) 46.5 MCV (80.0 - 94.0 FL) 92.3 MCH (27.0 - 31.0 PG) 30.0 MCHC (33.0 - 37.0 G/DL) 32.5 L RDW (11.5 - 14.5 %) 15.2 H Plt Count (130 - 400 /CUMM) 375 MPV (7.4 - 10.4 FL) 7.9 Gran % (42.2 - 75.2 %) 76.8 H Lymphocytes % (20.5 - 51.1 %) 15.0 L Monocytes % (1.7 - 9.3 %) 4.4 Eosinophils % (0 - 5 %) 3.6 Basophils % (0.0 - 2.0 %) 0.2 Absolute Granulocytes (1.4 - 6.5 /CUMM) 10.8 H Absolute Lymphocytes (1.2 - 3.4 /CUMM) 2.1 Absolute Monocytes (0.10 - 0.60 /CUMM) 0.6 Absolute Eosinophils (0.0 - 0.7 /CUMM) 0.5 Absolute Basophils (0.0 - 0.2 /CUMM) 0 Toxicology [place] (0.6 - 1.2 mmol/L) 0.9 Serum Alcohol (<10 MG/DL) < 10.0
[2017-09-16 23:00] VITALS: BP 140/100
[2017-09-17 05:10] LABS: ABSOLUTE BASOPHIL COUNT 0 /CUMM (0.0-0.2); ABSOLUTE EOSINOPHIL COUNT 0 /CUMM (0.0-0.7); ABSOLUTE MONOCYTE COUNT 1.1 /CUMM (0.10-0.60); BASOPHIL % 0.1 % (0.0-2.0); MEAN PLATELET VOLUME 8.5 FL (7.4-10.4); WHITE BLOOD CELL COUNT 17.1 /CUMM (4.8-10.8)
[2017-09-17 05:26] LABS: ABSOLUTE GRANULOCYTE CT 15.2 /CUMM (1.4-6.5); ABSOLUTE LYMPH COUNT 0.7 /CUMM (1.2-3.4); EOSINOPHIL % 0.1 % (0-5); GRANULOCYTE % 89.2 % (42.2-75.2); MEAN CORPUSCULAR HGB 30.1 PG (27.0-31.0); MEAN CORPUSCULAR HGB CONC 32.7 G/DL (33.0-37.0); PLATELET COUNT 282 /CUMM (130-400); RBC DISTRIBUTION WIDTH 14.8 % (11.5-14.5); RED BLOOD CELL CT 4.12 /CUMM (4.70-6.10)
[2017-09-17 05:28] LABS: HEMATOCRIT 37.9 % (42-52)
--- NOTE | 2017-09-17 07:34 | PN- Resident CRCU ---
Anders INIGUEZ,[facility] 09/17/17 0733: Subjective HPI/CRCU Issues: 1. Gall stone pancreatitis 2. Choledocholithiasis 3. Hepatocellular pattern of transaminitis with elevated alkaline phosphatase - improving 4. Bipolar disorder 5. Hypertension 6. Hyperlipidemia 7. Exophytic lesion arising from Right kidney 24 Hour Events: Patient continues to have abdominal pain though better than before and he has been able to get out of bed and walk around. He wants to know when he will be able to eat. Denies any fever/chills, nausea, vomiting, diarrhea, chest pain, confusion or any overnight events. Objective Vital Signs & I&O Last 8 Hrs of Vitals and I&O: Intake & Output 09/17 1600 Intake Total Output Total Balance Patient 209 lb Weight Exam General Appearance: well developed/nourished, alert, awake, mild distress, moderate distress Head: atraumatic, normal appearance Cardiovascular: regular rate/rhythm Gastrointestinal: normal bowel sounds, soft, guarding, tenderness Extremities: normal inspection, no edema Cranial Nerves: normal hearing, normal speech, PERRL Current Medications: Current Medications Sig/[place] Start time Last Medication Dose Route Stop Time Status Admin Acetaminophen 1,000 MG Q6P PRN 09/14 2300 AC IV Ampicillin Sodium/ 3,000 MG Q6H 09/15 0230 AC 09/17 Sulbactam Sodium IV 0808 Sodium Chloride 100 ML Glycerin 2 SPRAY Q2P PRN 09/16 1430 AC 09/16 PO 1541 Heparin Sodium 5,000 UNIT Q8 09/15 0600 AC 09/17 (Porcine) SC 0536 Hydromorphone HCl 2 MG Q2P PRN 09/15 2014 09/17 IV 1217 Lactated Ringer's 1,000 ML Q6H 09/14 2315 09/17 IV 0659 [place] Carbonate 1,500 MG DAILY 09/16 1000 AC PO Magnesium Sulfate 1 GM ONCE ONE 09/16 1100 DC 09/16 Dextrose/Water 100 ML IV 09/16 1459 1107 Metoprolol Tartrate 5 MG Q6 09/16 2359 AC 09/17 IV 1114 Metoprolol Tartrate 5 MG ONCE ONE 09/16 2300 DC 09/16 IV 09/16 2301 2249 Metoprolol Tartrate 2.5 MG Q8P PRN 09/16 1815 DC 09/16 IV 1814 Ondansetron HCl 4 MG Q6P PRN 09/14 2245 IV Impression/Plan Impression/Problem List Impression: Mr. Carbone is a 47 year old man with past medical history of bipolar disorder, hypertension, and hyperlipidemia presented with acute onset abdominal associated with nausea, diarrhea, and chills likely 2/2 choledocholithiasis causing pancreatitis and possible cholangitis. He is currently in the ICU for the management of following issues: 1. Gall stone pancreatitis 2. Choledocholithiasis s/p ERCP and stone extraction 3. Hepatocellular pattern of transaminitis with elevated alkaline phosphatase - improving 4. Bipolar disorder 5. Hypertension 6. Hyperlipidemia 7. Exophytic lesion arising from Right kidney Plan; - Continue to monitor in the ICU - Patient had the ERCP done on 09/15/17 with sphinctertomy and stone extraction. Will need an eventual cholecystectomy but will have to wait for the pancreatitis to resolve to proceed with the surgery. - Continue to keep nothing by mouth and continue gentle IV fluid. - Appreciate GI recommendations - Appreciate general surgery recommendations. - Pain management with IV Dilaudid 2 mg every 2 hours as needed. - Zofran as needed for nausea. - Continue antibiotics.(Unasyn day 4) - Discontinue Zyprexa and continue [place] per Psych. - Patient remains tachycardic(likely from pain) and hypertensive(SBP in 170s as the patient is not getting his oral antihypertensive medications). Patient started on IV lopressor 5mg q 6, awaiting GI recommendations regarding starting the patient on PO meds after which patient can be transferred to Gen med floor. DVT prophylaxis; subcutaneous heparin and Alps Patient is full code Problem List: 1. Pancreatitis 2. Transaminitis 3. Abdominal pain 4. Hypertension Pain Ratin Pain Location: Abdomen Pain Goal: Pain 7 or less Pain Plan: IV dilaudid [facility] Labs & Rationales: CBC ICU bundle Plan DVT/Prophylaxis: mechanical, pharmacological Pravin Hill MD 09/17/17 1121: Attending MD Review Statement Attending Sign Off Attending Cosign Statement: I have: examined this patient, reviewed aval EMR data, personally reviewd images, discussd w/resident/PA/ASSOCIATE PROFESSOR, discussed mgmt plan w/odell, discussed mgmt plan w/CM, discussed mgmt plan w/pt, agreed w/resident/PA/ASSOCIATE PROFESSOR, amended to note. Other Findings: I, Pravin Hill M.D. have examined this patient, reviewed available EMR data, personally reviewed images, discussed with resident/PA/ASSOCIATE PROFESSOR, discussed management plan with housestaff and nursing staff, discussed managment plan all of healthcare providers, discussed management plan with patient and/or family, agreed with resident/PA/ASSOCIATE PROFESSOR. The past history and parts of the chart have been autopopulated. Impression 47 year old man * pancreatitis secondary to choledocholithiasis * transaminitis * bipolar disorder * hx of opiate dependence Plan -s/p removal of stone in biliary system -awaiting surgery for timing of cholecystectomy -pain control -paul criteria low for mortality -iv hydration -empiric abx -f/u gi/surgery recommendations -psych consultation apprecated -elevated bp likely secondary to pain, will observe in ICU another day at least DVT prophylaxis at all times TTS 35 min DG to gen med if okay to take po meds
--- NOTE | 2017-09-17 07:52 | PN- General Surgery ---
Subjective Subjective: Patient continues to complain of abdominal pain, predominatly in the right upper quadrant and epigastric region, which has improved compared to yesterday with IV dilaudid. He denies pain radiating to his back. He reports he is thirsy/hungry and is requesting to eat/drink something. Denies fever, chills, nausea or vomiting. Denies ambulating oob due to pain. Objective Vital Signs and I&Os Vital Signs Date Time Temp Pulse Resp B/P B/P Pulse O2 O2 Flow FiO2 Mean Ox Delivery Rate 09/17 0536 109 174/106 09/17 0400 93 Nasal 2.0L Cannula 09/17 0016 106 159/95 09/17 0000 93 Nasal 2.0L Cannula 09/16 2300 99.1 96 14 140/100 95 Nasal 2.0L Cannula 09/16 2249 113 174/103 09/16 2000 94 Nasal 2.0L Cannula 09/16 1814 113 166/93 09/16 1600 99.1 112 19 148/88 92 Room Air 09/16 0938 112 170/102 Intake & Output 09/17 1600 09/17 0800 09/17 0000 09/16 1600 09/16 0800 09/16 0000 Intake Total 1179 1285 1310 1200 919 Output Total 500 300 400 350 700 Balance 679 985 910 850 219 Intake, IV 1179 1285 1310 1200 919 Intake, Oral 0 0 0 0 Number 0 0 0 0 Bowel Movements Output, Urine 500 300 400 350 700 Physical Exam: Gen - nad Cardiac - S1S2, tachycardic Abd - tense with mild distention, hypoactive bs, tender to palpation in right upper quadrant/epigastric region with guarding and rebound, slightly improved from yesterday Current Medications: Current Medications Sig/Car[place] Start time Last Medication Dose Route Stop Time Status Admin Acetaminophen 1,000 MG Q6P PRN 09/14 2300 AC IV Ampicillin Sodium/ 3,000 MG Q6H 09/15 0230 AC 09/17 Sulbactam Sodium IV 0808 Sodium Chloride 100 ML Glycerin 2 SPRAY Q2P PRN 09/16 1430 AC 09/16 PO 1541 Heparin Sodium 5,000 UNIT Q8 09/15 0600 AC 09/17 (Porcine) SC 0536 Hydromorphone HCl 2 MG Q2P PRN 09/15 2014 AC 09/17 IV 0808 Lactated Ringer's 1,000 ML Q6H 09/14 2315 AC 09/17 IV 0659 [place] Carbonate 1,500 MG DAILY 09/16 1000 AC PO Magnesium Sulfate 1 GM ONCE ONE 09/16 1100 DC 09/16 Dextrose/Water 100 ML IV 09/16 1459 1107 Metoprolol Tartrate 5 MG Q6 09/16 2359 AC 09/17 IV 0536 Metoprolol Tartrate 5 MG ONCE ONE 09/16 2300 DC 09/16 IV 09/16 2301 2249 Metoprolol Tartrate 2.5 MG Q8P PRN 09/16 1815 DC 09/16 IV 1814 Metoprolol Tartrate 5 MG ONCE ONE 09/16 0930 DC 09/16 IV 09/16 0931 0938 Ondansetron HCl 4 MG Q6P PRN 09/14 2245 AC IV Results Last 48 Hours of Labs: Laboratory Tests 09/17 09/16 0429 0410 Chemistry Sodium (137 - 145 mmol/L) 139 138 Potassium (3.5 - 5.1 mmol/L) 4.1 4.3 Chloride (98 - 107 mmol/L) 104 103 Carbon Dioxide (22 - 30 mmol/L) 25 21 L Anion Gap (5 - 16) 10 15 BUN (9 - 20 mg/dL) 19 17 Creatinine (0.7 - 1.2 mg/dL) 0.8 0.9 Estimated GFR (>60 ml/min) > 60 > 60 BUN/Creatinine Ratio (7 - 25 %) 18.9 Glucose (65 - 99 mg/dL) 96 73 Calcium (8.4 - 10.2 mg/dL) 8.4 8.3 L Phosphorus (2.5 - 4.5 mg/dL) 2.7 3.6 Magnesium (1.6 - 2.3 mg/dL) 2.1 1.7 Total Bilirubin (0.2 - 1.3 mg/dL) 1.8 H 2.7 H Direct Bilirubin (< 0.4 mg/dL) 1.2 H AST (17 - 59 U/L) 65 H 124 H ALT (21 - 72 U/L) 354 H 599 H Alkaline Phosphatase (< 127 U/L) 201 H Total Protein (6.3 - 8.2 g/dL) 6.2 L Albumin (3.5 - 5.0 g/dL) 2.9 L 3.5 Amylase (30 - 110 U/L) < 30 L Lipase (23 - 300 U/L) 1122 H Hematology CBC w Diff MAN DIFF ORDERED MAN DIFF ORDERED WBC (4.8 - 10.8 /CUMM) 17.1 H 22.9 H RBC (4.70 - 6.10 /CUMM) 4.12 L 5.02 Hgb (14.0 - 18.0 G/DL) 12.4 L 15.3 Hct (42 - 52 %) 37.9 L 45.9 MCV (80.0 - 94.0 FL) 92.0 91.5 MCH (27.0 - 31.0 PG) 30.1 30.5 MCHC (33.0 - 37.0 G/DL) 32.7 L 33.3 RDW (11.5 - 14.5 %) 14.8 H 15.2 H Plt Count (130 - 400 /CUMM) 282 341 MPV (7.4 - 10.4 FL) 8.5 8.7 Gran % (42.2 - 75.2 %) 89.2 H 92.2 H Lymphocytes % (20.5 - 51.1 %) 4.1 L 2.9 L Monocytes % (1.7 - 9.3 %) 6.5 4.8 Eosinophils % (0 - 5 %) 0.1 0 Basophils % (0.0 - 2.0 %) 0.1 0.1 Absolute Granulocytes (1.4 - 6.5 /CUMM) 15.2 H 21.1 H Segmented Neutrophils (42.2 - 75.2 %) 75 90 H Band Neutrophils (0.0 - 5.0 %) 14 H 2 Absolute Lymphocytes (1.2 - 3.4 /CUMM) 0.7 L 0.7 L Lymphocytes (20.5 - 51.1 %) 4 L 3 L Monocytes (1.7 - 9.3 %) 7 4 Absolute Monocytes (0.10 - 0.60 /CUMM) 1.1 H 1.1 H Eosinophils (0 - 5.0 %) 1 Absolute Eosinophils (0.0 - 0.7 /CUMM) 0 0 Absolute Basophils (0.0 - 0.2 /CUMM) 0 0 Platelet Estimate (ADEQUATE) ADEQUATE ADEQUATE Normocytic RBCs VERIFIED Normochromic RBCs VERIFIED VERIFIED Poikilocytosis 2+ Ovalocytes 1+ Stomatocytes FEW [place] Cells 1+ Other Body Source Fld Total RBCs Counted (%) 100 09/15 1300 Chemistry Lipase Cancelled Assessment/Plan Assessment/Plan 47 M with a h/o of bipolar disorder, HTN and HLD admitted with gallstone pancreatitis and choledocholithiasis, now PPD 2 s/p ERCP with sphincterotomy and stone extraction. Labs improving, however, he remains tender on exam, consistent with ongoing pancreatitis Keep npo on IV fluids Continue Unasyn IV analgesics/antiemetics prn GI/DVT prophylaxis on board Eventual cholecystectomy within a couple days Will continue to monitor with serial abdominal exams Encourage oob/ambulation All other medical management per primary team Will d/w Dr. Jarvis Core Measures Venous Thromboembolism VTE Risk Factors Age>40 No Mechanical VTE Prophylaxis d/t N/A MechProphylax Ordered No VTE Pharm Prophylaxis d/t NA PharmProphylax ordered
[2017-09-17 08:00] VITALS: BP 142/82
[2017-09-17 11:16] VITALS: BP 164/100
[2017-09-17 12:00] VITALS: BP 160/108
--- NOTE | 2017-09-17 14:05 | Incdntl Nt Psy ---
Incidental Note Notation: The patient was seen today at 1330. He is sitting in his chair c/o of abdominal pain. He has a cup of water with mouth swabs in it, as he is NPO. He reports the pain is worse since he took a sip. The patient denies AH, VH and presents no aviva delusions. He denies SI of HI. I asked him about his plans for drug avoidance or use after discharge, and he states, "Hopefully not use." He states that he cannot go back to a drug rehab, as he has used his insurance allotment on two other rehabs in this past year. He has taken naltrexone PO and reports that it does not really help. The patient is reporting considerable pain, and is receiving Dilaudid 2 mg q 2 hours. The medical and nursing team are aware of the patient's complaint. Our IOP director had received a call from the patient's supportive sister, who reports that the patient had said that as soon as he was discharged, he would start using drugs again. We do want him to return to the [facility], unless he can find a higher level of care. The patient will be scheduled for a cholecystectomy before discharge. We will see him again when his pain has subsided postop, and he is being tapered off opioid pain meds. Depending on his postop presentation, we may suggest a social work consult at that time. We will continue to follow along with you.
[2017-09-17 16:00] VITALS: BP 140/86
[2017-09-17] MEDS ORDERED: LITHIUM CARBON300 M6 PO (16:21)
[2017-09-17] MEDS ORDERED: SIMVASTATIN40 M1 PO (16:22)
[2017-09-17] MEDS ORDERED: LOSARTAN POTASS50 M1 PO (16:22)
[2017-09-17] MEDS ORDERED: COZAAR100 M1 PO (16:37)
--- NOTE | 2017-09-17 19:40 | PN- Gastroenterology ---
Assessment/Plan GI Assessment/Recommendations: Acute gallstone pancreatitis, moderate. Status post ERCP with sphincterotomy/ stone extraction. No hemoconcentration, acidemia, azotemia, or respiratory sequelae. Leukocytosis has improved. Clinically, do not suspect necrosis or infected pancreatic parenchyma/fluid collection at this time. Recommendations * Continue management of pancreatitis with IV fluids, IV analgesia, antiemetics as needed. * Begin clear liquids * If pain persists to this degree, and leukocytosis is not resolving, consider repeat CT scan with pancreatic protocol. * Follow-up CBC and CMP daily * Eventual cholecystectomy, but not until clinical resolution of pancreatitis * Discontinue IV antibiotics Subjective Subjective: Persistent pain although improved. No nausea or vomiting. No fever. Objective Vital Signs and I&Os Vital Signs Date Time Temp Pulse Resp B/P B/P Pulse O2 O2 Flow FiO2 Mean Ox Delivery Rate 09/17 1733 165/104 09/17 1600 98 Nasal 2.0L Cannula 09/17 1600 99.0 105 15 140/86 98 Nasal 2.0L Cannula 09/17 1200 95 Nasal 2.0L Cannula 09/17 1200 98.7 96 16 160/108 96 Nasal 2.0L Cannula 09/17 1116 164/100 09/17 1114 164/100 09/17 0800 93 Nasal 2.0L Cannula 09/17 0800 98.6 103 16 142/82 93 Nasal 2.0L Cannula 09/17 0536 109 174/106 09/17 0400 93 Nasal 2.0L Cannula 09/17 0016 106 159/95 09/17 0000 93 Nasal 2.0L Cannula 09/16 2300 99.1 96 14 140/100 95 Nasal 2.0L Cannula 09/16 2249 113 174/103 09/16 2000 94 Nasal 2.0L Cannula Intake & Output 09/17 1600 09/17 0400 09/16 1600 09/16 0400 09/15 1600 09/15 0400 Intake Total 2455 1285 2510 919 2066 1000 Output Total 950 300 750 700 900 400 Balance 3455 170 4850 219 1166 600 Intake, IV 2455 1285 2510 919 2066 1000 Intake, Oral 0 0 0 0 0 0 Number 0 0 0 0 Bowel Movements Output, Urine 950 300 750 700 900 400 Patient 209 lb 210 lb Weight Weight Reported by Patient Measurement Method Physical Exam: Alert and oriented. Anicteric. No edema. Abdomen remains tender in the epigastrium and radiating to the right, although improved. Current Medications: Current Medications Sig/Carrington Start time Last Medication Dose Route Stop Time Status Admin Acetaminophen 1,000 MG Q6P PRN 09/14 2300 AC IV Ampicillin Sodium/ 3,000 MG Q6H 09/15 0230 AC 09/17 Sulbactam Sodium IV 1523 Sodium Chloride 100 ML Glycerin 2 SPRAY Q2P PRN 09/16 1430 AC 09/17 PO 1419 Heparin Sodium 5,000 UNIT Q8 09/15 0600 AC 09/17 (Porcine) SC 1419 Hydromorphone HCl 2 MG Q2P PRN 09/15 2015 AC 09/17 IV 1732 Lactated Ringer's 1,000 ML Q6H 09/14 2315 AC 09/17 IV 1500 [place] Carbonate 1,500 MG DAILY 09/16 1000 AC 09/17 PO 1609 Lorazepam 0.25 MG ONCE ONE 09/17 1500 DC 09/17 IV 09/17 1501 1500 Losartan Potassium 100 MG DAILY 09/18 0900 AC PO Losartan Potassium 50 MG DAILY 09/17 1623 DC 09/17 PO 09/17 1624 1733 Metoprolol Tartrate 5 MG Q6 09/16 2359 DC 09/17 IV 1114 Metoprolol Tartrate 5 MG ONCE ONE 09/16 2300 DC 09/16 IV 09/16 2301 2249 Metoprolol Tartrate 2.5 MG Q8P PRN 09/16 1815 DC 09/16 IV 1814 Ondansetron HCl 4 MG Q6P PRN 09/14 2245 AC IV Results Pertinent Lab Results: Laboratory Tests 09/17 09/16 0429 0410 Chemistry Sodium (137 - 145 mmol/L) 139 138 Potassium (3.5 - 5.1 mmol/L) 4.1 4.3 Chloride (98 - 107 mmol/L) 104 103 Carbon Dioxide (22 - 30 mmol/L) 25 21 L Anion Gap (5 - 16) 10 15 BUN (9 - 20 mg/dL) 19 17 Creatinine (0.7 - 1.2 mg/dL) 0.8 0.9 Estimated GFR (>60 ml/min) > 60 > 60 BUN/Creatinine Ratio (7 - 25 %) 18.9 Glucose (65 - 99 mg/dL) 96 73 Calcium (8.4 - 10.2 mg/dL) 8.4 8.3 L Phosphorus (2.5 - 4.5 mg/dL) 2.7 3.6 Magnesium (1.6 - 2.3 mg/dL) 2.1 1.7 Total Bilirubin (0.2 - 1.3 mg/dL) 1.8 H 2.7 H Direct Bilirubin (< 0.4 mg/dL) 1.2 H AST (17 - 59 U/L) 65 H 124 H ALT (21 - 72 U/L) 354 H 599 H Alkaline Phosphatase (< 127 U/L) 201 H Total Protein (6.3 - 8.2 g/dL) 6.2 L Albumin (3.5 - 5.0 g/dL) 2.9 L 3.5 Amylase (30 - 110 U/L) < 30 L Lipase (23 - 300 U/L) 1122 H Hematology CBC w Diff MAN DIFF ORDERED MAN DIFF ORDERED WBC (4.8 - 10.8 /CUMM) 17.1 H 22.9 H RBC (4.70 - 6.10 /CUMM) 4.12 L 5.02 Hgb (14.0 - 18.0 G/DL) 12.4 L 15.3 Hct (42 - 52 %) 37.9 L 45.9 MCV (80.0 - 94.0 FL) 92.0 91.5 MCH (27.0 - 31.0 PG) 30.1 30.5 MCHC (33.0 - 37.0 G/DL) 32.7 L 33.3 RDW (11.5 - 14.5 %) 14.8 H 15.2 H Plt Count (130 - 400 /CUMM) 282 341 MPV (7.4 - 10.4 FL) 8.5 8.7 Gran % (42.2 - 75.2 %) 89.2 H 92.2 H Lymphocytes % (20.5 - 51.1 %) 4.1 L 2.9 L Monocytes % (1.7 - 9.3 %) 6.5 4.8 Eosinophils % (0 - 5 %) 0.1 0 Basophils % (0.0 - 2.0 %) 0.1 0.1 Absolute Granulocytes (1.4 - 6.5 /CUMM) 15.2 H 21.1 H Segmented Neutrophils (42.2 - 75.2 %) 75 90 H Band Neutrophils (0.0 - 5.0 %) 14 H 2 Absolute Lymphocytes (1.2 - 3.4 /CUMM) 0.7 L 0.7 L Lymphocytes (20.5 - 51.1 %) 4 L 3 L Monocytes (1.7 - 9.3 %) 7 4 Absolute Monocytes (0.10 - 0.60 /CUMM) 1.1 H 1.1 H Eosinophils (0 - 5.0 %) 1 Absolute Eosinophils (0.0 - 0.7 /CUMM) 0 0 Absolute Basophils (0.0 - 0.2 /CUMM) 0 0 Platelet Estimate (ADEQUATE) ADEQUATE ADEQUATE Normocytic RBCs VERIFIED Normochromic RBCs VERIFIED VERIFIED Poikilocytosis 2+ Ovalocytes 1+ Stomatocytes FEW [place] Cells 1+ Other Body Source Fld Total RBCs Counted (%) 100 09/15 09/15 1300 0345 Chemistry Sodium (137 - 145 mmol/L) 142 Potassium (3.5 - 5.1 mmol/L) 4.4 Chloride (98 - 107 mmol/L) 103 Carbon Dioxide (22 - 30 mmol/L) 22 Anion Gap (5 - 16) 16 BUN (9 - 20 mg/dL) 13 Creatinine (0.7 - 1.2 mg/dL) 0.8 Estimated GFR (>60 ml/min) > 60 BUN/Creatinine Ratio (7 - 25 %) 16.3 Calcium (8.4 - 10.2 mg/dL) 9.1 Phosphorus (2.5 - 4.5 mg/dL) 4.1 Magnesium (1.6 - 2.3 mg/dL) 1.7 Total Bilirubin (0.2 - 1.3 mg/dL) 3.1 H Direct Bilirubin (< 0.4 mg/dL) 1.9 H AST (17 - 59 U/L) 385 H ALT (21 - 72 U/L) 1075 H Alkaline Phosphatase (< 127 U/L) 259 H Lactate Dehydrogenase (313 - 618 U/L) 735 H Total Protein (6.3 - 8.2 g/dL) 7.0 Albumin (3.5 - 5.0 g/dL) 4.3 Triglycerides (<150 mg/dL) 106 Cholesterol (< 200 MG/DL) 227 H LDL Cholesterol, Calc (65 - 129 mg/dL) 147 H HDL Cholesterol (40 - 60 mg/dL) 59 Cholesterol/HDL Ratio (0.00 - 4.88 %) 4 Lipase (23 - 300 U/L) Cancelled > 23420 H Hematology CBC w Diff MAN DIFF ORDERED WBC (4.8 - 10.8 /CUMM) 20.3 H RBC (4.70 - 6.10 /CUMM) 4.88 Hgb (14.0 - 18.0 G/DL) 14.8 Hct (42 - 52 %) 44.8 MCV (80.0 - 94.0 FL) 91.9 MCH (27.0 - 31.0 PG) 30.3 MCHC (33.0 - 37.0 G/DL) 32.9 L RDW (11.5 - 14.5 %) 14.9 H Plt Count (130 - 400 /CUMM) 352 MPV (7.4 - 10.4 FL) 7.9 Gran % (42.2 - 75.2 %) 94.7 H Lymphocytes % (20.5 - 51.1 %) 1.8 L Monocytes % (1.7 - 9.3 %) 3.5 Eosinophils % (0 - 5 %) 0 Basophils % (0.0 - 2.0 %) 0 Absolute Granulocytes (1.4 - 6.5 /CUMM) 19.3 H Segmented Neutrophils (42.2 - 75.2 %) 87 H Band Neutrophils (0.0 - 5.0 %) 4 Absolute Lymphocytes (1.2 - 3.4 /CUMM) 0.4 L Lymphocytes (20.5 - 51.1 %) 5 L Monocytes (1.7 - 9.3 %) 4 Absolute Monocytes (0.10 - 0.60 /CUMM) 0.7 H Absolute Eosinophils (0.0 - 0.7 /CUMM) 0 Absolute Basophils (0.0 - 0.2 /CUMM) 0 Platelet Estimate (ADEQUATE) ADEQUATE Normocytic RBCs VERIFIED Normochromic RBCs VERIFIED Serology Hepatitis A IgM Ab (NONREACTIVE) NONREACTIVE Hep Bs Antigen (NONREACTIVE) NONREACTIVE Hep B Core IgM Ab Conf (NONREACTIVE) NONREACTIVE Hepatitis C Antibody (NONREACTIVE) NONREACTIVE 09/14 Chemistry Lactic Acid (0.7 - 2.1 mmol/L) 1.5 Coagulation PT (9.4 - 12.5 SEC) 11.5 INR (0.90 - 1.17) 1.05 APTT (25 - 37 SEC) 27 Toxicology Urine Opiates Screen (>2000 NG/ML) 2450.00 H Methadone Screen (>300 NG/ML) < 40 Barbiturate Screen (>200 NG/ML) < 60 Ur Phencyclidine Scrn (>25 NG/ML) < 6.00 Amphetamines Screen (>1000 NG/ML) < 100 U Benzodiazepines Scrn (>200 NG/ML) < 85 Urine Cocaine Screen (>300 NG/ML) < 50 Urine Cannabis Screen (>50 NG/ML) < 5.00 Urines Urine Color (YEL,AMB,STR) YEL Urine Clarity (CLEAR) CLEAR Urine pH (5.0 - 8.0) 6.5 Ur Specific [place] (1.001 - 1.035) 1.010 Urine Protein (NEG,<30 MG/DL) NEG Urine Ketones (NEG) NEG Urine Nitrite (NEG) NEG Urine Bilirubin (NEG) POS@ICTO H Urine Urobilinogen (0.1 - 1.0 EU/dl) 1.0 Ur Leukocyte Esterase (NEG) NEG Ur Microscopic EXAM NOT REQUIRED Urine Hemoglobin (NEG) NEG Urine Glucose (N MG/DL) NEG
[2017-09-17 23:00] VITALS: BP 158/100
[2017-09-18 04:59] LABS: ABSOLUTE BASOPHIL COUNT 0 /CUMM (0.0-0.2); ABSOLUTE EOSINOPHIL COUNT 0.2 /CUMM (0.0-0.7); ABSOLUTE GRANULOCYTE CT 10.3 /CUMM (1.4-6.5); ABSOLUTE LYMPH COUNT 0.6 /CUMM (1.2-3.4); ABSOLUTE MONOCYTE COUNT 1.2 /CUMM (0.10-0.60); BASOPHIL % 0 % (0.0-2.0); EOSINOPHIL % 1.8 % (0-5); GRANULOCYTE % 83.5 % (42.2-75.2); HEMATOCRIT 34.3 % (42-52); MEAN CORPUSCULAR HGB 30.5 PG (27.0-31.0); MEAN CORPUSCULAR HGB CONC 33.1 G/DL (33.0-37.0); MEAN CORPUSCULAR VOLUME 92.4 FL (80.0-94.0); MEAN PLATELET VOLUME 8.5 FL (7.4-10.4); PLATELET COUNT 302 /CUMM (130-400); RBC DISTRIBUTION WIDTH 14.7 % (11.5-14.5); RED BLOOD CELL CT 3.71 /CUMM (4.70-6.10); WHITE BLOOD CELL COUNT 12.4 /CUMM (4.8-10.8)
--- NOTE | 2017-09-18 07:11 | PN- Resident CRCU ---
Anders INIGUEZ,[facility] 09/18/17 0711: Subjective HPI/CRCU Issues: 1. Gall stone pancreatitis 2. Choledocholithiasis 3. Hepatocellular pattern of transaminitis with elevated alkaline phosphatase - improving 4. Bipolar disorder 5. Hypertension 6. Hyperlipidemia 7. Exophytic lesion arising from Right kidney 24 Hour Events: Patient reports improvement in his abdominal pain, rating it as 6/10 today but his abdomen feels very hard and distended. He has not had a bowel movement since admission. Denies any fever/chills, nausea, vomiting or diarrhea/ constipation. Reports very dark colored urine which is improving after he was started on clear liquid diet yesterday. He has been tolerating the clear liquids well and did not cause worsening of his abdominal pain. Patient also reports difficulty breathing, states he cannot take deep breaths because it makes his abdominal pain worse. Objective Vital Signs & I&O Last 8 Hrs of Vitals and I&O: Intake & Output 09/18 1600 Intake Total 750 Output Total 900 Balance -150 Intake, IV 750 Intake, Oral 0 Output, Urine 900 Exam General Appearance: alert, awake, mild distress Head: atraumatic, normal appearance Respiratory: normal breath sounds, chest non-tender, wheezing Cardiovascular: regular rate/rhythm Gastrointestinal: normal bowel sounds, distention, guarding, tenderness Extremities: normal inspection, no edema Cranial Nerves: normal hearing, normal speech, PERRL Current Medications: Current Medications Sig/[place] Start time Last Medication Dose Route Stop Time Status Admin Acetaminophen 1,000 MG Q6P PRN 09/14 2300 AC 09/18 IV 1141 Ampicillin Sodium/ 3,000 MG Q6H 09/15 0230 DC 09/17 Sulbactam Sodium IV 2044 Sodium Chloride 100 ML Glycerin 2 SPRAY Q2P PRN 09/16 1430 AC 09/17 PO 1419 Heparin Sodium 5,000 UNIT Q8 09/15 0600 AC 09/18 (Porcine) SC 0538 Hydromorphone HCl 2 MG Q4 PRN 09/18 1043 CAN IV Hydromorphone HCl 2 MG Q2P PRN 09/15 2014 DC 09/18 IV 0836 Lactated Ringer's 1,000 ML Q6H 09/14 2315 AC 09/18 IV 1047 [place] Carbonate 1,500 MG DAILY 09/18 0900 AC 09/18 PO 1047 [place] Carbonate 1,500 MG DAILY 09/16 1000 DC 09/17 PO 1609 Lorazepam 0.25 MG ONCE ONE 09/17 1500 DC 09/17 IV 09/17 1501 1500 Losartan Potassium 100 MG DAILY 09/18 0900 AC 09/18 PO 0835 Losartan Potassium 50 MG DAILY 09/17 1623 DC 09/17 PO 09/17 1624 1733 Metoprolol Tartrate 5 MG Q6 09/16 2359 DC 09/17 IV 1114 Morphine Sulfate 4 MG Q4 09/18 1400 UNVr IV Morphine Sulfate 4 MG .STK-MED ONE 09/17 2353 DC IM 09/17 2354 Morphine Sulfate 4 MG ONCE ONE 09/17 2345 DC 09/17 IV 09/17 2346 2356 Ondansetron HCl 4 MG Q6P PRN 09/14 2245 AC IV Impression/Plan Impression/Problem List Impression: Mr. Carbone is a 47 year old man with past medical history of bipolar disorder, hypertension, and hyperlipidemia presented with acute onset abdominal associated with nausea, diarrhea, and chills likely 2/2 choledocholithiasis causing pancreatitis and possible cholangitis. He is currently in the ICU for the management of following issues: 1. Gall stone pancreatitis 2. Choledocholithiasis s/p ERCP and stone extraction 3. Hepatocellular pattern of transaminitis with elevated alkaline phosphatase - improving 4. Bipolar disorder 5. Hypertension 6. Hyperlipidemia 7. Exophytic lesion arising from Right kidney Plan; - Continue to monitor in the ICU - Patient had the ERCP done on 09/15/17 with sphinctertomy and stone extraction. Will need an eventual cholecystectomy but will have to wait for the pancreatitis to resolve to proceed with the surgery. - Patient started on clear liquids last night, will advance as tolerated. - Appreciate GI recommendations - Appreciate general surgery recommendations. - Pain management with done with IV Dilaudid 2 mg every 2 hours, will change to IV morphine 4 mg every 4 hours, can decrease the frequency to every 3 hours if the pain not adequately controlled with the current regimen. - Zofran as needed for nausea. - Unasyn discontinued yesterday. Will continue to monitor off antibiotics. - Discontinue Zyprexa and continue [place] per Psych. - Patient is on 2 L of oxygen, will try to wean off. - Patient remains tachycardic and hypertensive, likely secondary to pain. Losartan 100 mg daily was resumed last night after patient was started on clear liquids, but blood pressure remains high, if remains persistently high can start a second antihypertensive agent. DVT prophylaxis; subcutaneous heparin and Alps Patient is full code Problem List: 1. Hypertension 2. Abdominal pain 3. Pancreatitis Pain Ratin Pain Location: Abdomen Pain Goal: Remain pain free Pain Plan: IV Morphine Tomorrow's Labs & Rationales: CBC(Pancreatitis) Plan DVT/Prophylaxis: mechanical, pharmacological Pravin Hill MD 09/18/17 1103: Attending MD Review Statement Attending Sign Off Attending Cosign Statement: I have: examined this patient, reviewed avalbl EMR data, personally reviewd images, discussd w/resident/PA/OCCUPATIONAL THERAPIST AIDE, discussed mgmt plan w/odell, discussed mgmt plan w/CM, discussed mgmt plan w/pt, agreed w/resident/PA/OCCUPATIONAL THERAPIST AIDE, amended to note. Other Findings: Pravin Richard M.D. have examined this patient, reviewed available EMR data, personally reviewed images, discussed with resident/PA/OCCUPATIONAL THERAPIST AIDE, discussed management plan with housestaff and nursing staff, discussed managment plan all of healthcare providers, discussed management plan with patient and/or family, agreed with resident/PA/OCCUPATIONAL THERAPIST AIDE. The past history and parts of the chart have been autopopulated. Impression 47 year old man * pancreatitis secondary to choledocholithiasis * transaminitis * bipolar disorder * hx of opiate dependence Plan -s/p removal of stone in biliary system -awaiting surgery for timing of cholecystectomy -pain control -paul criteria low for mortality -iv hydration -empiric abx -f/u gi/surgery recommendations -psych consultation apprecated DVT prophylaxis at all times TTS 35 min DG to Gen Med today will sign out to the hospital
[2017-09-18 08:00] VITALS: BP 160/90
[2017-09-18 11:41] VITALS: BP 160/100
--- NOTE | 2017-09-18 11:58 | Transfer of Care Summary ---
Hospital Course Course Hospital Course: Mr. Carbone is a 47 year old man with past medical history of bipolar disorder, hypertension, and hyperlipidemia presented with acute onset abdominal associated with nausea, diarrhea, and chills likely 2/2 choledocholithiasis causing pancreatitis and possible cholangitis. Patient was admitted to ICU for the management of following issues: 1. Gall stone pancreatitis 2. Choledocholithiasis s/p ERCP and stone extraction 3. Hepatocellular pattern of transaminitis with elevated alkaline phosphatase - improving 4. Bipolar disorder 5. Hypertension 6. Hyperlipidemia 7. Exophytic lesion arising from Right kidney Gallstone Pancreatitis; - Patient had the ERCP done on 09/15/17 with sphinctertomy and stone extraction. Will need an eventual cholecystectomy but will have to wait for the pancreatitis to resolve to proceed with the surgery. Initiaaly kept nothing by mouth with gentle IV fluid hydration, patient started on clear liquids last night. apin managed with IV dilaudid 2mg q2h. Patient also recieved Unasyn x 3 days. Transaminitis resolved. - Follow GI recommendations - Follow General surgery recommendations. - Dilaudid changed to IV morphine 4 mg every 4 hours, can decrease the frequency to every 3 hours if the pain not adequately controlled with the current regimen. - Zofran as needed for nausea. - Monitor off antibiotics. Bipolar Disorder; - Zyprexa discontinued. - Continue Hana. - Follow Psych recommendations. Hypertension and sinus tachycardia; Patient remains tachycardic and hypertensive, likely secondary to pain. While NPO patient was given IV Lopressor 5 mg every 6 hours. Losartan was resumed last night after patient was started on clear liquids, but blood pressure remains high, if remains persistently high can start a second antihypertensive agent. - Continue Losartan 100 mg - Monitor Vitals. Hyperlipidemia; - Continue simvastatin 40 mg daily. Exophytic lesion arising from Right kidney; - Can obtain US of right kidney once stable. DVT prophylaxis; subcutaneous heparin and Alps Patient is full code Significant Procedures: CT ABD & PELVIS W IV CONTRAST IMPRESSION: Choledocholithiasis resulting in mild obstructive biliary ductal dilatation and secondary pancreatitis. Additional mild mucosal hyperemia, surrounding inflammatory change and mild wall thickening of the gastric antrum and duodenum. Exophytic 1.4 cm low-density nodular lesion arising from the posterior cortex of the right kidney which does not measure simple fluid and was not present on previous imaging from 2006. Although this may represent a proteinaceous or hemorrhagic cyst, a dedicated renal ultrasound is recommended in order to rule out a solid mass. XRY-PORTABLE CHEST XRAY IMPRESSION: Very limited study, oblique projection. Left costophrenic angle is excluded from the film margin, no large effusions. Assessment/Plan: See Above
--- NOTE | 2017-09-18 13:30 | PN- General Surgery ---
See Addendum Subjective Subjective: Reports ongoing abdominal pain. Moved from icu to floor. Objective Vital Signs and I&Os Vital Signs Date Time Temp Pulse Resp B/P B/P Pulse O2 O2 Flow FiO2 Mean Ox Delivery Rate 09/18 1141 98.4 96 22 160/100 92 Room Air 09/18 0835 105 162/97 09/18 0800 96 Nasal 2.0L Cannula 09/18 0800 99.0 104 18 160/90 96 Nasal 2.0L Cannula 09/18 0400 95 Nasal 2.0L Cannula 09/18 0000 93 Nasal 2.0L Cannula 09/17 2300 99.8 104 12 158/100 94 Nasal 2.0L Cannula 09/17 2000 93 Nasal 2.0L Cannula 09/17 1733 165/104 09/17 1600 98 Nasal 2.0L Cannula 09/17 1600 99.0 105 15 140/86 98 Nasal 2.0L Cannula Intake & Output 09/18 1600 09/18 0800 09/18 0000 09/17 1600 09/17 0800 09/17 0000 Intake Total 1297 1579 1276 1179 1285 Output Total 1000 850 450 500 300 Balance 297 729 826 679 985 Intake, IV 1177 1219 1276 1179 1285 Intake, Oral 120 360 0 0 Number 0 0 Bowel Movements Output, Urine 1000 850 450 500 300 Patient 209 lb Weight Physical Exam: General - alert. uncomfortable appearing. Abdomen - firm and distended. impressive generalized tenderness with guarding Current Medications: Current Medications Sig/Carrington Start time Last Medication Dose Route Stop Time Status Admin Acetaminophen 1,000 MG Q6P PRN 09/14 2300 AC 09/18 IV 1141 Ampicillin Sodium/ 3,000 MG Q6H 09/15 0230 DC 09/17 Sulbactam Sodium IV 2044 Sodium Chloride 100 ML Atorvastatin Calcium 20 MG 1700 09/18 1700 AC PO Glycerin 2 SPRAY Q2P PRN 09/16 1430 AC 09/17 PO 1419 Heparin Sodium 5,000 UNIT Q8 09/15 0600 AC 09/18 (Porcine) SC 1321 Hydromorphone HCl 2 MG Q4 PRN 09/18 1043 CAN IV Hydromorphone HCl 2 MG Q2P PRN 09/15 2014 DC 09/18 IV 0836 Lactated Ringer's 1,000 ML Q6H 09/14 2315 AC 09/18 IV 1047 [place] Carbonate 1,500 MG DAILY 09/18 0900 AC 09/18 PO 1047 [place] Carbonate 1,500 MG DAILY 09/16 1000 DC 09/17 PO 1609 Lorazepam 0.25 MG ONCE ONE 09/17 1500 DC 09/17 IV 09/17 1501 1500 Losartan Potassium 100 MG DAILY 09/18 0900 AC 09/18 PO 0835 Losartan Potassium 50 MG DAILY 09/17 1623 DC 09/17 PO 09/17 1624 1733 Metoprolol Tartrate 5 MG Q6 09/16 2359 DC 09/17 IV 1114 Morphine Sulfate 4 MG Q4 09/18 1400 AC 09/18 IV 1319 Morphine Sulfate 4 MG .STK-MED ONE 09/17 2353 DC IM 09/17 2354 Morphine Sulfate 4 MG ONCE ONE 09/17 2345 DC 09/17 IV 09/17 2346 2356 Ondansetron HCl 4 MG Q6P PRN 09/14 2245 AC IV Results Last 48 Hours of Labs: Laboratory Tests 09/18 09/17 0428 0429 Chemistry Sodium (137 - 145 mmol/L) 137 139 Potassium (3.5 - 5.1 mmol/L) 3.9 4.1 Chloride (98 - 107 mmol/L) 101 104 Carbon Dioxide (22 - 30 mmol/L) 26 25 Anion Gap (5 - 16) 10 10 BUN (9 - 20 mg/dL) 14 19 Creatinine (0.7 - 1.2 mg/dL) 0.7 0.8 Estimated GFR (>60 ml/min) > 60 > 60 Glucose (65 - 99 mg/dL) 97 96 Calcium (8.4 - 10.2 mg/dL) 8.5 8.4 Phosphorus (2.5 - 4.5 mg/dL) 2.2 L 2.7 Magnesium (1.6 - 2.3 mg/dL) 2.1 2.1 Total Bilirubin (0.2 - 1.3 mg/dL) 1.4 H 1.8 H AST (17 - 59 U/L) 57 65 H ALT (21 - 72 U/L) 279 H 354 H Albumin (3.5 - 5.0 g/dL) 3.1 L 2.9 L Amylase (30 - 110 U/L) < 30 L Lipase (23 - 300 U/L) 1122 H Hematology CBC w Diff MAN DIFF ORDERED MAN DIFF ORDERED WBC (4.8 - 10.8 /CUMM) 12.4 H 17.1 H RBC (4.70 - 6.10 /CUMM) 3.71 L 4.12 L Hgb (14.0 - 18.0 G/DL) 11.3 L 12.4 L Hct (42 - 52 %) 34.3 L 37.9 L MCV (80.0 - 94.0 FL) 92.4 92.0 MCH (27.0 - 31.0 PG) 30.5 30.1 MCHC (33.0 - 37.0 G/DL) 33.1 32.7 L RDW (11.5 - 14.5 %) 14.7 H 14.8 H Plt Count (130 - 400 /CUMM) 302 282 MPV (7.4 - 10.4 FL) 8.5 8.5 Gran % (42.2 - 75.2 %) 83.5 H 89.2 H Lymphocytes % (20.5 - 51.1 %) 4.7 L 4.1 L Monocytes % (1.7 - 9.3 %) 10.0 H 6.5 Eosinophils % (0 - 5 %) 1.8 0.1 Basophils % (0.0 - 2.0 %) 0 0.1 Absolute Granulocytes (1.4 - 6.5 /CUMM) 10.3 H 15.2 H Segmented Neutrophils (42.2 - 75.2 %) 78 H 75 Band Neutrophils (0.0 - 5.0 %) 3 14 H Absolute Lymphocytes (1.2 - 3.4 /CUMM) 0.6 L 0.7 L Lymphocytes (20.5 - 51.1 %) 9 L 4 L Monocytes (1.7 - 9.3 %) 6 7 Absolute Monocytes (0.10 - 0.60 /CUMM) 1.2 H 1.1 H Eosinophils (0 - 5.0 %) 4 Absolute Eosinophils (0.0 - 0.7 /CUMM) 0.2 0 Absolute Basophils (0.0 - 0.2 /CUMM) 0 0 Platelet Estimate (ADEQUATE) ADEQUATE ADEQUATE Normocytic RBCs VERIFIED Normochromic RBCs VERIFIED Polychromasia 1+ Poikilocytosis 1+ Ovalocytes 1+ Stomatocytes FEW FEW Other Body Source Fld Total RBCs Counted (%) 100 Assessment/Plan Assessment/Plan 47 M with a hx bipolar disorder, HTN and HLD admitted with gallstone pancreatitis and choledocholithiasis, now PPD#3 s/p ERCP with sphincterotomy and stone extraction, improving transaminitis clinically with ongoing pancreatitis npo / iv fluids pain control as needed hep sc - dvt ppx serial exams follow labs lap jamil when clinical pancreatitis is resolved will d/w Dr. Jarvis
[2017-09-18 15:33] VITALS: BP 170/100
[2017-09-18 22:40] VITALS: BP 174/90
--- NOTE | 2017-09-18 23:39 | PN- Gastroenterology ---
Assessment/Plan GI Assessment/Recommendations: (*The patient was seen and examined on 09/18/17. His extensive records were reviewed. I assumed the patient's inpt GI care on 09/18/17. Dr. Erika Gamboa's GI consult 0f 09/15/17 was reviewed, along with subsequent progress notes, labs, imaging studies, & 09/15/17: ERCP). 47 y/o male, bipolar disorder, HTN, HLD, heroin addict, hx cocaine, mild smoker, non-EtOH, admitted to [facility] 09/14/17, after being in rehabilitation in [place], where he developed abdominal pain & was told it was from the gallbladder. Upon admission to [place], he had moderate to severe gallstone pancreatitis with an impacted stone in the ampulla, removed via 09/15/17: ERCP/ ES, followed by progressive decline in LFTs, although there were still elevated. Plans were to have lap CCKY at the end of this admission, but the patient had persistent abdominal pain, possibly implying ongoing pancreatic inflammation. * Please note, 09/14/17: Admission Utox: +OP/MS; [EtOH] < 10. 09/15/17: *nl TG 106. 06/10/10: HIV- neg. 09/15/17: HAVM, Hep Bs Ag, Hep B core Ab, & Hep C Ab- all neg. IV Unasyn was stopped 09/17/17. *As of 09/18/17, he was still getting po Dilaudid, Zofran, & IV MS. He was on IV Lactated Ringers at 250cc/hr & was being followed by surgery. *The pt was moved from the ICU to [facility] on 09/18/17. Medical & surgical notes appreciated. He was complaining of diffuse abdominal pain despite narcotic analgesics. He had mild nausea but no recurrent vomiting. He denies any fevers , chills, jaundice, chest pain, or shortness of breath. He was started on clears, but is now NPO. Surgery is holding off on CCKY, in view of his ongoing symptoms. *As of 09/18/17, the patient was hypertensive, nontachycardic, with O2 sat RA 95%, Tm 99.3. His BC had remained negative. His leukocytosis was improving. His H/H had dropped appropriately after IV fluids, going against hemoconcentration. *SUGGEST- NPO for now. IV Ringers Lactate @ 250 cc/hr. Narcotic analgesics as needed. Zofran. *Advise repeat CT of abdomen with pancreatic protocol to reassess inflammation & to rule out necrosis (doubt). Follow-up CBC & CMP. Replete electrolytes. Observe off antibiotics for now (Unasyn D/C 09/17/17). Eventual CCKY, depending on clinical course, once pancreatitis is resolved. Follow-up with surgery. The patient was told to follow up with his PMD or a urologist upon discharge to follow up the exophytic right renal lesion incidentally noted on admission 09/14/17: CT AP with IV cont. The case was discussed with the patient's RN, who will convey the above suggestions to the medical house staff. Problem List: 1. Pancreatitis 2. Abdominal pain 3. Elevated LFTs 4. Leukocytosis 5. Choledocholithiasis 6. S/P ERCP 7. Substance abuse 8. Bipolar 1 disorder Subjective Subjective: *The pt was moved from the ICU to [facility] on 09/18/17. Medical & surgical notes appreciated. He was complaining of diffuse abdominal pain despite narcotic analgesics. He had mild nausea but no recurrent vomiting. He denies any fevers , chills, jaundice, chest pain, or shortness of breath. He was started on clears, but is now NPO. Surgery is holding off on CCKY, in view of his ongoing symptoms. *As of 09/18/17, the patient was hypertensive, nontachycardic, with O2 sat RA 95%, Tm 99.3. His BC had remained negative. His leukocytosis was improving. His H/H had dropped appropriately after IV fluids, going against hemoconcentration. Review of Systems: Full 14 point review of systems otherwise noncontributory, and as above. Constitutional: Reports: no symptoms. EENTM: Reports: no symptoms. Cardiovascular: Reports: no symptoms. Respiratory: Reports: no symptoms. GI: Reports: abdominal pain. Genitourinary: Reports: no symptoms. Musculoskeletal: Reports: no symptoms. Skin: Reports: no symptoms. Neurological/Psychological: Reports: hx bipolar disorder & hx substance abuse. Hematologic/Endocrine: Reports: no symptoms. Immunologic/Allergic: Reports: no symptoms. All Other Systems: Reviewed and Negative Objective Vital Signs and I&Os Vital Signs Date Time Temp Pulse Resp B/P B/P Pulse O2 O2 Flow FiO2 Mean Ox Delivery Rate 09/18 2240 99.3 96 20 174/90 95 Room Air 09/18 1533 99.2 94 20 170/100 94 Room Air 09/18 1141 98.4 96 22 160/100 92 Room Air 09/18 0835 105 162/97 09/18 0800 96 Nasal 2.0L Cannula 09/18 0800 99.0 104 18 160/90 96 Nasal 2.0L Cannula 09/18 0400 95 Nasal 2.0L Cannula 09/18 0000 93 Nasal 2.0L Cannula Intake & Output 09/18 1600 09/18 0400 09/17 1600 09/17 0400 09/16 1600 09/16 0400 Intake Total 2047 1579 2455 1285 2510 919 Output Total 1900 850 950 300 750 700 Balance 349 046 4390 985 1760 219 Intake, IV 1927 1219 2455 1285 2510 919 Intake, Oral 120 360 0 0 0 0 Number 0 0 0 0 Bowel Movements Output, Urine 1900 850 950 300 750 700 Patient 209 lb Weight Physical Exam: Well-developed, well-nourished, obese male, in mild distress. Sclera anicteric. Conjunctiva pink. Oropharynx clear. Slightly dry mucous membranes. There is no adenopathy, thyromegaly, or JVD. No peripheral stigmata of inflammatory bowel disease or chronic liver disease on exam. No spiders on the anterior chest. No gynecomastia. No CVA tenderness. Lungs: clear to A&P, with slight decreased breath sounds at the bases B/L. Heart exam: regular rate rhythm, S1 and S2, without any murmur. Abdominal exam: slightly hypoactive bowel sounds, mildly distended belly, LUQ > epigastric tenderness, mild guarding, no rebound. Negative Bazan sign. No mass. No organomegaly. No fluid shift. No pulsatile mass. No epigastric bruit. Digital rectal exam: deferred. Extremities: without C, C, or E. No palpable cords. Distal pulses 2+ bilaterally. DTRs 2+ bilaterally. No palmar erythema. No Dupuytren's contractures. Alert and oriented x 3. No tremor. No asterixis. Current Medications: Current Medications Sig/Carrington Start time Last Medication Dose Route Stop Time Status Admin Acetaminophen 1,000 MG .STK-MED ONE 09/18 1139 DC IV 09/18 1140 Acetaminophen 1,000 MG Q6P PRN 09/14 2300 AC 09/18 IV 1941 Atorvastatin Calcium 20 MG 1700 09/18 1700 AC 09/18 PO 1654 Glycerin 2 SPRAY Q2P PRN 09/16 1430 AC 09/17 PO 1419 Heparin Sodium 5,000 UNIT Q8 09/15 0600 AC 09/18 (Porcine) SC 2135 Hydromorphone HCl 2 MG ONCE ONE 09/19 0015 DC 09/19 PO 09/19 0016 0020 Hydromorphone HCl 2 MG Q4 PRN 09/18 1043 CAN IV Hydromorphone HCl 2 MG Q2P PRN 09/15 2015 DC 09/18 IV 0836 Lactated Ringer's 1,000 ML Q6H 09/18 1430 AC 09/18 IV 1654 Lactated Ringer's 1,000 ML Q6H 09/14 2315 DC 09/18 IV 1047 [place] Carbonate 1,500 MG DAILY 09/18 0900 AC 09/18 PO 1047 [place] Carbonate 1,500 MG DAILY 09/16 1000 DC 09/17 PO 1609 Losartan Potassium 100 MG DAILY 09/18 0900 AC 09/18 PO 0835 Morphine Sulfate 2 MG ONCE ONE 09/19 0015 CAN IV 09/19 0016 Morphine Sulfate 4 MG ONCE ONE 09/18 1845 DC 09/18 IV 09/18 1846 2201 Morphine Sulfate 4 MG ONCE ONE 09/18 1545 DC 09/18 IV 09/18 1546 1600 Morphine Sulfate 4 MG Q4 PRN 09/18 1535 AC 09/18 IV 1852 Morphine Sulfate 4 MG Q4 09/18 1400 DC 09/18 IV 1319 Ondansetron HCl 4 MG Q6P PRN 09/14 2245 AC IV Results Pertinent Lab Results: Laboratory Tests 09/18 09/17 0428 0429 Chemistry Sodium (137 - 145 mmol/L) 137 139 Potassium (3.5 - 5.1 mmol/L) 3.9 4.1 Chloride (98 - 107 mmol/L) 101 104 Carbon Dioxide (22 - 30 mmol/L) 26 25 Anion Gap (5 - 16) 10 10 BUN (9 - 20 mg/dL) 14 19 Creatinine (0.7 - 1.2 mg/dL) 0.7 0.8 Estimated GFR (>60 ml/min) > 60 > 60 Glucose (65 - 99 mg/dL) 97 96 Calcium (8.4 - 10.2 mg/dL) 8.5 8.4 Phosphorus (2.5 - 4.5 mg/dL) 2.2 L 2.7 Magnesium (1.6 - 2.3 mg/dL) 2.1 2.1 Total Bilirubin (0.2 - 1.3 mg/dL) 1.4 H 1.8 H AST (17 - 59 U/L) 57 65 H ALT (21 - 72 U/L) 279 H 354 H Albumin (3.5 - 5.0 g/dL) 3.1 L 2.9 L Amylase (30 - 110 U/L) < 30 L Lipase (23 - 300 U/L) 1122 H Hematology CBC w Diff MAN DIFF ORDERED MAN DIFF ORDERED WBC (4.8 - 10.8 /CUMM) 12.4 H 17.1 H RBC (4.70 - 6.10 /CUMM) 3.71 L 4.12 L Hgb (14.0 - 18.0 G/DL) 11.3 L 12.4 L Hct (42 - 52 %) 34.3 L 37.9 L MCV (80.0 - 94.0 FL) 92.4 92.0 MCH (27.0 - 31.0 PG) 30.5 30.1 MCHC (33.0 - 37.0 G/DL) 33.1 32.7 L RDW (11.5 - 14.5 %) 14.7 H 14.8 H Plt Count (130 - 400 /CUMM) 302 282 MPV (7.4 - 10.4 FL) 8.5 8.5 Gran % (42.2 - 75.2 %) 83.5 H 89.2 H Lymphocytes % (20.5 - 51.1 %) 4.7 L 4.1 L Monocytes % (1.7 - 9.3 %) 10.0 H 6.5 Eosinophils % (0 - 5 %) 1.8 0.1 Basophils % (0.0 - 2.0 %) 0 0.1 Absolute Granulocytes (1.4 - 6.5 /CUMM) 10.3 H 15.2 H Segmented Neutrophils (42.2 - 75.2 %) 78 H 75 Band Neutrophils (0.0 - 5.0 %) 3 14 H Absolute Lymphocytes (1.2 - 3.4 /CUMM) 0.6 L 0.7 L Lymphocytes (20.5 - 51.1 %) 9 L 4 L Monocytes (1.7 - 9.3 %) 6 7 Absolute Monocytes (0.10 - 0.60 /CUMM) 1.2 H 1.1 H Eosinophils (0 - 5.0 %) 4 Absolute Eosinophils (0.0 - 0.7 /CUMM) 0.2 0 Absolute Basophils (0.0 - 0.2 /CUMM) 0 0 Platelet Estimate (ADEQUATE) ADEQUATE ADEQUATE Normocytic RBCs VERIFIED Normochromic RBCs VERIFIED Polychromasia 1+ Poikilocytosis 1+ Ovalocytes 1+ Stomatocytes FEW FEW Other Body Source Fld Total RBCs Counted (%) 100 09/16 0410 Chemistry Sodium (137 - 145 mmol/L) 138 Potassium (3.5 - 5.1 mmol/L) 4.3 Chloride (98 - 107 mmol/L) 103 Carbon Dioxide (22 - 30 mmol/L) 21 L Anion Gap (5 - 16) 15 BUN (9 - 20 mg/dL) 17 Creatinine (0.7 - 1.2 mg/dL) 0.9 Estimated GFR (>60 ml/min) > 60 BUN/Creatinine Ratio (7 - 25 %) 18.9 Glucose (65 - 99 mg/dL) 73 Calcium (8.4 - 10.2 mg/dL) 8.3 L Phosphorus (2.5 - 4.5 mg/dL) 3.6 Magnesium (1.6 - 2.3 mg/dL) 1.7 Total Bilirubin (0.2 - 1.3 mg/dL) 2.7 H Direct Bilirubin (< 0.4 mg/dL) 1.2 H AST (17 - 59 U/L) 124 H ALT (21 - 72 U/L) 599 H Alkaline Phosphatase (< 127 U/L) 201 H Total Protein (6.3 - 8.2 g/dL) 6.2 L Albumin (3.5 - 5.0 g/dL) 3.5 Hematology CBC w Diff MAN DIFF ORDERED WBC (4.8 - 10.8 /CUMM) 22.9 H RBC (4.70 - 6.10 /CUMM) 5.02 Hgb (14.0 - 18.0 G/DL) 15.3 Hct (42 - 52 %) 45.9 MCV (80.0 - 94.0 FL) 91.5 MCH (27.0 - 31.0 PG) 30.5 MCHC (33.0 - 37.0 G/DL) 33.3 RDW (11.5 - 14.5 %) 15.2 H Plt Count (130 - 400 /CUMM) 341 MPV (7.4 - 10.4 FL) 8.7 Gran % (42.2 - 75.2 %) 92.2 H Lymphocytes % (20.5 - 51.1 %) 2.9 L Monocytes % (1.7 - 9.3 %) 4.8 Eosinophils % (0 - 5 %) 0 Basophils % (0.0 - 2.0 %) 0.1 Absolute Granulocytes (1.4 - 6.5 /CUMM) 21.1 H Segmented Neutrophils (42.2 - 75.2 %) 90 H Band Neutrophils (0.0 - 5.0 %) 2 Absolute Lymphocytes (1.2 - 3.4 /CUMM) 0.7 L Lymphocytes (20.5 - 51.1 %) 3 L Monocytes (1.7 - 9.3 %) 4 Absolute Monocytes (0.10 - 0.60 /CUMM) 1.1 H Eosinophils (0 - 5.0 %) 1 Absolute Eosinophils (0.0 - 0.7 /CUMM) 0 Absolute Basophils (0.0 - 0.2 /CUMM) 0 Platelet Estimate (ADEQUATE) ADEQUATE Normochromic RBCs VERIFIED Poikilocytosis 2+ Ovalocytes 1+ Casey Cells 1+ Other Body Source Fld Total RBCs Counted (%) 100 Imaging/Other Studies: 09/14/17: EKG- SB @ 59, nl axis, nl intervals, no acute ischemia. 09/14/17: CT ABD & PELVIS W IV CONTRAST- IMPRESSION: Choledocholithiasis resulting in mild obstructive biliary ductal dilatation and secondary pancreatitis. Additional mild mucosal hyperemia, surrounding inflammatory change and mild wall thickening of the gastric antrum and duodenum. Exophytic 1.4 cm low-density nodular lesion arising from the posterior cortex of the right kidney which does not measure simple fluid and was not present on previous imaging from 2006. Although this may represent a proteinaceous or hemorrhagic cyst, a dedicated renal ultrasound is recommended in order to rule out a solid mass. Imaging findings discussed with Dr. Hernandez at 9:07 PM on 09/14/2017. DICTATED BY: Rubens Alejandra MD DATE/TIME DICTATED:09/14/17205009/15/17: *ERCP with ES/stone extraction, per Dr. Rachel Gamboa- Impression: * Choledocholithiasis (stone impacted in ampulla), treated with sphincterotomy and extraction. 09/15/17: XRY-PORTABLE CHEST XRAY- Very limited study, oblique projection. Left costophrenic angle is excluded from the film margin, no large effusions.
[2017-09-19] VITALS (7 sets, daily range): BP systolic 140–180; BP diastolic 70–122
--- NOTE | 2017-09-19 07:54 | PN- General Surgery ---
See Addendum Subjective Subjective: Still with significant abdominal pain, appears uncomfortable in room, holding his mid abdominal region. He is tolerating clears. Objective Vital Signs and I&Os Vital Signs Date Time Temp Pulse Resp B/P B/P Pulse O2 O2 Flow FiO2 Mean Ox Delivery Rate 09/19 0731 180/108 09/19 0623 98.4 78 20 180/102 96 Room Air 09/19 0123 98 170/100 09/18 2240 99.3 96 20 174/90 95 Room Air 09/18 1533 99.2 94 20 170/100 94 Room Air 09/18 1141 98.4 96 22 160/100 92 Room Air 09/18 0835 105 162/97 09/18 0800 96 Nasal 2.0L Cannula 09/18 08 99.0 104 18 160/90 96 Nasal 2.0L Cannula Intake & Output 09/19 0800 09/19 0000 09/18 1600 09/18 0800 09/18 0000 09/17 1600 Intake Total 625 7388 151 5401 1579 1276 Output Total 1125 3107 610 0662 850 450 Balance -500 -750 -150 297 729 826 Intake, IV 525 440 466 4962 1219 1276 Intake, Oral 100 450 0 120 360 Number 0 0 Bowel Movements Output, Urine 1125 8288 799 4863 850 450 Patient 209 lb Weight Physical Exam: Well-developed well-nourished Appears uncomfortable, in acute pain HEENT: Atraumatic, extraocular motion intact Neck: Supple, no lymphadenopathy Respiratory: No respiratory distress Abdomen: Mild distention, tenderness in the mid abdominal region epigastric region which is severe. Pain radiates to back. Extremities: No edema, no calf pain Neuro: Alert and oriented x3 Psych: Mood affect normal, normal memory normal judgment. Skin: Warm and dry, no rash on exposed skin Results Last 48 Hours of Labs: Laboratory Tests 09/18 0428 Chemistry Sodium (137 - 145 mmol/L) 137 Potassium (3.5 - 5.1 mmol/L) 3.9 Chloride (98 - 107 mmol/L) 101 Carbon Dioxide (22 - 30 mmol/L) 26 Anion Gap (5 - 16) 10 BUN (9 - 20 mg/dL) 14 Creatinine (0.7 - 1.2 mg/dL) 0.7 Estimated GFR (>60 ml/min) > 60 Glucose (65 - 99 mg/dL) 97 Calcium (8.4 - 10.2 mg/dL) 8.5 Phosphorus (2.5 - 4.5 mg/dL) 2.2 L Magnesium (1.6 - 2.3 mg/dL) 2.1 Total Bilirubin (0.2 - 1.3 mg/dL) 1.4 H AST (17 - 59 U/L) 57 ALT (21 - 72 U/L) 279 H Albumin (3.5 - 5.0 g/dL) 3.1 L Hematology CBC w Diff MAN DIFF ORDERED WBC (4.8 - 10.8 /CUMM) 12.4 H RBC (4.70 - 6.10 /CUMM) 3.71 L Hgb (14.0 - 18.0 G/DL) 11.3 L Hct (42 - 52 %) 34.3 L MCV (80.0 - 94.0 FL) 92.4 MCH (27.0 - 31.0 PG) 30.5 MCHC (33.0 - 37.0 G/DL) 33.1 RDW (11.5 - 14.5 %) 14.7 H Plt Count (130 - 400 /CUMM) 302 MPV (7.4 - 10.4 FL) 8.5 Gran % (42.2 - 75.2 %) 83.5 H Lymphocytes % (20.5 - 51.1 %) 4.7 L Monocytes % (1.7 - 9.3 %) 10.0 H Eosinophils % (0 - 5 %) 1.8 Basophils % (0.0 - 2.0 %) 0 Absolute Granulocytes (1.4 - 6.5 /CUMM) 10.3 H Segmented Neutrophils (42.2 - 75.2 %) 78 H Band Neutrophils (0.0 - 5.0 %) 3 Absolute Lymphocytes (1.2 - 3.4 /CUMM) 0.6 L Lymphocytes (20.5 - 51.1 %) 9 L Monocytes (1.7 - 9.3 %) 6 Absolute Monocytes (0.10 - 0.60 /CUMM) 1.2 H Eosinophils (0 - 5.0 %) 4 Absolute Eosinophils (0.0 - 0.7 /CUMM) 0.2 Absolute Basophils (0.0 - 0.2 /CUMM) 0 Platelet Estimate (ADEQUATE) ADEQUATE Polychromasia 1+ Poikilocytosis 1+ Ovalocytes 1+ Stomatocytes FEW Other Body Source Fld Total RBCs Counted (%) 100 Assessment/Plan Assessment/Plan 47 M with a hx bipolar disorder, heroin abuse, admitted with gallstone pancreatitis and choledocholithiasis, now PPD#4 s/p ERCP with sphincterotomy and stone extraction, improving transaminitis clinically with ongoing pancreatitis Clears, IV fluids pain control as needed hep sc - dvt ppx serial exams follow labs Clinically he is not optimized for surgery yet although Labs are improving, we' ll discuss with Torin Jarvis MD timing of laparoscopic cholecystectomy Cont current care
--- NOTE | 2017-09-19 08:55 | PN- Housestaff ---
See Addendum Subjective Follow-up For: 1. Gall stone pancreatitis 2. Choledocholithiasis 3. Hepatocellular pattern of transaminitis with elevated alkaline phosphatase - improving 4. Bipolar disorder 5. Hypertension 6. Hyperlipidemia 7. Exophytic lesion arising from Right kidney Subjective: No acute events overnight. Patient still in pain. Review of Systems Constitutional: Reports: see HPI. Objective Last 24 Hrs of Vital Signs/I&O Vital Signs Date Time Temp Pulse Resp B/P B/P Pulse O2 O2 Flow FiO2 Mean Ox Delivery Rate 09/19 1452 97.0 74 22 170/100 97 Room Air 09/19 1357 178/96 09/19 0854 160/110 09/19 0846 95 180/122 09/19 0754 180/110 09/19 0731 180/108 09/19 0623 98.4 78 20 180/102 96 Room Air 09/19 0123 98 170/100 09/18 2240 99.3 96 20 174/90 95 Room Air Intake & Output 09/19 1600 09/19 0800 09/19 0000 Intake Total 6184 857 7530 Output Total 1900 1125 1800 Balance -700 -500 -750 Intake, IV 1200 525 600 Intake, Oral 100 450 Number 0 Bowel Movements Output, Urine 1900 1125 1800 Physical Exam General Appearance: Alert, Oriented X3, Cooperative, Moderate Distress, eyes closed, appears uncomfortable Cardiovascular: mild tachycardia Lungs: Clear to Auscultation, Normal Air Movement Abdomen: tenderness worse in the left upper quadrant, abdomen distended Vascular: 2+ radial pulses Assessment/Plan Assessment: Mr. Carbone is a 47 year old man with past medical history of bipolar disorder, hypertension, and hyperlipidemia presented with acute onset abdominal associated with nausea, diarrhea, and chills likely 2/2 choledocholithiasis causing pancreatitis and possible cholangitis. He is currently in the ICU for the management of following issues: 1. Gall stone pancreatitis 2. Choledocholithiasis s/p ERCP and stone extraction 3. Hepatocellular pattern of transaminitis with elevated alkaline phosphatase - improving 4. Bipolar disorder 5. Hypertension 6. Hyperlipidemia 7. Exophytic lesion arising from Right kidney Plan; - CT ABD:1. The volume of abdominal ascites around the pancreas and extending into the mesentery has significantly increased since the exam of 09/14/2017. There is no pseudocyst formation. The enhancement of the pancreas remains normal with no evidence of pancreatic necrosis. 2. There are bilateral pleural effusions and bibasilar infiltrate/atelectasis. -We'll restart lactate Ringers 50 per surgery -Continues to be hypertensive, will start 5 mg amlodipine -Avoid NSAIDs - Patient had the ERCP done on 09/15/17 with sphinctertomy and stone extraction. Will need an eventual cholecystectomy but will have to wait for the pancreatitis to resolve to proceed with the surgery. - Patient started on clear liquids - Appreciate GI recommendations - Appreciate general surgery recommendations. - Pain management with done with IV Dilaudid 2 mg every 2 hours, will change to IV morphine 4 mg every 4 hours, can decrease the frequency to every 3 hours if the pain not adequately controlled with the current regimen. - Zofran as needed for nausea. - Unasyn discontinued yesterday. Restart per surgery - Discontinue Zyprexa and continue [place] per Psych. - Patient is on 2 L of oxygen, will try to wean off. - Patient remains tachycardic and hypertensive, likely secondary to pain. Losartan 100 mg daily was resumed DVT prophylaxis; subcutaneous heparin and Alps Patient is full code Problem List: 1. Choledocholithiasis Pain Ratin Pain Location: abd Pain Goal: Pain 4 or less Pain Plan: pain pathway Tomorrow's Labs & Rationales: cbc bep lft lipase
--- NOTE | 2017-09-19 13:08 | PN- Gastroenterology ---
Assessment/Plan GI Assessment/Recommendations: (*The patient was initially seen & examined on 09/18/17. His extensive records were reviewed. I assumed the patient's inpt GI care on 09/18/17. Dr. Erika Gamboa 's GI consult 0f 09/15/17 was reviewed, along with subsequent progress notes, labs, imaging studies, & 09/15/17: ERCP). 47 y/o male, bipolar disorder, HTN, HLD, heroin addict, hx cocaine, mild smoker, non-EtOH, admitted to [facility] 09/14/17, after being in rehabilitation in [place], where he developed abdominal pain & was told it was from the gallbladder. Upon admission to [place], he had moderate to severe gallstone pancreatitis with an impacted stone in the ampulla, removed via 09/15/17: ERCP/ ES, followed by progressive decline in LFTs, although there were still elevated. Plans were to have lap CCKY at the end of this admission, but the patient had persistent abdominal pain, possibly implying ongoing pancreatic inflammation. * Please note, 09/14/17: Admission Utox: +OP/MS; [EtOH] < 10. 09/15/17: *nl TG 106. 06/10/10: HIV- neg. 09/15/17: HAVM, Hep Bs Ag, Hep B core Ab, & Hep C Ab- all neg. IV Unasyn was stopped 09/17/17. *As of 09/18/17, he was still getting po Dilaudid, Zofran, & IV MS. He was on IV Lactated Ringers at 250cc/hr & was being followed by surgery. *The pt was moved from the ICU to [facility] on 09/18/17. Medical & surgical notes appreciated. He was complaining of diffuse abdominal pain despite narcotic analgesics. He had mild nausea but no recurrent vomiting. He denies any fevers , chills, jaundice, chest pain, or shortness of breath. He was started on clears, but is now NPO. Surgery is holding off on CCKY, in view of his ongoing symptoms. *As of 09/18/17, the patient was hypertensive, nontachycardic, with O2 sat RA 95%, Tm 99.3. His BC had remained negative. His leukocytosis was improving. His H/H had dropped appropriately after IV fluids, going against hemoconcentration. *As of 09/19/17, the patient was somewhat hypertensive, but no longer tachycardic. He was afebrile, with Tm 99.3. He still had subjective abdominal pain, requiring narcotic analgesics (*please note, hx substance abuse & bipolar disorder, so difficult to assess). His MS was switched to IV Dilaudid 1mg Q4h. His nausea & vomiting had improved. He denied any jaundice, CP, SOB, or chills. He tolerated clears po on 09/18/17, but was made NPO for repeat CT with pancreatic protocol on 09/19/17, in order to better objectively reassess his pancreas. His IV lactated Ringer's was just held per surgery, pending the CT results. He was constipated from the narcotic analgesics, with his last BM approximately 4 days ago. He was not obstipated, but was a little bloated. Toradol was D/C 09/19/17, after 2 doses. There was no lab evidence of hemoconcentration, as his H/H dropped appropriately, after IVF. 09/19/17: *Labs- pending. *SUGGEST- NPO for now, *pending results of the 09/19/17: CT AP with pancreatic protocol ( reassess severity of pancreatitis & rule out necrosis-> doubt). IV Ringers Lactate temporarily on hold, as per surgery, pending CT results. Narcotic analgesics as needed. Zofran. *Await labs. *Follow-up CBC & CMP. Replete electrolytes. Observe off antibiotics for now (Unasyn D/C 09/17/17). Eventual CCKY, depending on clinical course, once pancreatitis is resolved. Avoid NSAIDS. *BP control, as per medical team. *Constipation is probably from narcotic analgesics. *Consider checking TSHR (on Li). *Consider Relistor ( Methylnaltrexone) 12 mg sc Q48 hrs as needed, for narcotic induced constipation. Follow-up with surgery. The patient was previously told to follow up with his PMD or a urologist upon discharge, to follow up the exophytic right renal lesion incidentally noted on admission 09/14/17: CT AP with IV cont. The case was previously discussed with the patient's RN & again with Dr. Jarvis, of surgery, who concurs. *Further GI recommendations to follow, depending on clinical course & CT results. Problem List: 1. Pancreatitis 2. Abdominal pain 3. Elevated LFTs 4. Leukocytosis 5. Choledocholithiasis 6. S/P ERCP 7. Substance abuse 8. Bipolar 1 disorder Subjective Subjective: *As of 09/19/17, the patient was somewhat hypertensive, but no longer tachycardic. He was afebrile, with Tm 99.3. He still had subjective abdominal pain, requiring narcotic analgesics (*please note, hx substance abuse & bipolar disorder, so difficult to assess). His MS was switched to IV Dilaudid 1mg Q4h. His nausea & vomiting had improved. He denied any jaundice, CP, SOB, or chills. He tolerated clears po on 09/18/17, but was made NPO for repeat CT with pancreatic protocol on 09/19/17, in order to better objectively reassess his pancreas. His IV lactated Ringer's was just held per surgery, pending the CT results. He was constipated from the narcotic analgesics, with his last BM approximately 4 days ago. He was not obstipated, but was a little bloated. Toradol was D/C 09/19/17, after 2 doses. There was no lab evidence of hemoconcentration, as his H/H dropped appropriately, after IVF. 09/19/17: *Labs- pending. Review of Systems: Full 14 point review of systems otherwise noncontributory, and as above. Constitutional: Reports: no symptoms. EENTM: Reports: no symptoms. Cardiovascular: Reports: no symptoms. Respiratory: Reports: no symptoms. GI: Reports: abdominal pain. Genitourinary: Reports: no symptoms. Musculoskeletal: Reports: no symptoms. Skin: Reports: no symptoms. Neurological/Psychological: Reports: hx bipolar disorder & hx substance abuse. Hematologic/Endocrine: Reports: no symptoms. Immunologic/Allergic: Reports: no symptoms. All Other Systems: Reviewed and Negative Objective Vital Signs and I&Os Vital Signs Date Time Temp Pulse Resp B/P B/P Pulse O2 O2 Flow FiO2 Mean Ox Delivery Rate 09/19 0854 160/110 09/19 0846 95 180/122 09/19 0754 180/110 09/19 0731 180/108 09/19 0623 98.4 78 20 180/102 96 Room Air 09/19 0123 98 170/100 09/18 2240 99.3 96 20 174/90 95 Room Air 09/18 1533 99.2 94 20 170/100 94 Room Air Intake & Output 09/19 1600 09/19 0400 09/18 1600 09/18 0400 09/17 1600 09/17 0400 Intake Total 625 1050 2047 1579 2455 1285 Output Total 775 2650 1900 850 950 300 Balance -150 -1600 613 808 6847 985 Intake, IV 996 449 8684 1219 2455 1285 Intake, Oral 100 450 120 360 0 0 Number 0 0 0 Bowel Movements Output, Urine 775 2650 1900 850 950 300 Patient 209 lb Weight Physical Exam: Well-developed, well-nourished, obese male, in mild distress. Sclera anicteric. Conjunctiva pink. Oropharynx clear. Slightly dry mucous membranes. There is no adenopathy, thyromegaly, or JVD. No peripheral stigmata of inflammatory bowel disease or chronic liver disease on exam. No spiders on the anterior chest. No gynecomastia. No CVA tenderness. Lungs: clear to A&P, with slight decreased breath sounds at the bases B/L. Heart exam: regular rate rhythm, S1 and S2, without any murmur. Abdominal exam: slightly hypoactive bowel sounds, mildly distended belly, LUQ > epigastric tenderness, minimal guarding, no rebound. Negative Bazan sign. No definite mass or organomegaly. No fluid shift. No pulsatile mass. No epigastric bruit. Digital rectal exam: deferred. Extremities: without C, C, or E. No palpable cords. Distal pulses 2+ bilaterally. DTRs 2+ bilaterally. No palmar erythema. No Dupuytren's contractures. Alert and oriented x 3. No tremor. No asterixis. Current Medications: Current Medications Sig/[place] Start time Last Medication Dose Route Stop Time Status Admin Acetaminophen 1,000 MG .STK-MED ONE 09/19 0355 DC IV 09/19 0356 Acetaminophen 1,000 MG .STK-MED ONE 09/18 1939 DC IV 09/18 194 Acetaminophen 1,000 MG Q6P PRN 09/14 2300 AC 09/19 IV 1038 Atorvastatin Calcium 20 MG 1700 09/18 1700 AC 09/18 PO 1654 Glycerin 2 SPRAY Q2P PRN 09/16 1430 AC 09/17 PO 1419 Heparin Sodium 5,000 UNIT Q8 09/15 0600 AC 09/19 (Porcine) SC 1302 Hydromorphone HCl 1 MG Q4 HRS NEEDED PRN 09/19 0845 AC 09/19 IV 0852 Hydromorphone HCl 1 MG ONCE ONE 09/19 0745 DC IV 09/19 0746 Hydromorphone HCl 2 MG ONCE ONE 09/19 0015 DC 09/19 PO 09/19 0016 0020 Ketorolac 30 MG ONCE ONE 09/19 0815 DC 09/19 Tromethamine IV 09/19 0816 0843 Lactated Ringer's 1,000 ML Q8H 09/19 0645 CAN IV Lactated Ringer's 1,000 ML Q6H 09/18 1430 DC 09/19 IV 0843 Lactated Ringer's 1,000 ML Q6H 09/14 2315 DC 09/18 IV 1047 [place] Carbonate 1,500 MG DAILY 09/18 0900 09/19 PO 1000 Losartan Potassium 100 MG DAILY 09/18 0900 AC 09/19 PO 0754 Morphine Sulfate 2 MG ONCE ONE 09/19 0730 DC 09/19 IV 09/19 0731 0730 Morphine Sulfate 2 MG ONCE ONE 09/19 0015 CAN IV 09/19 0016 Morphine Sulfate 4 MG ONCE ONE 09/18 1845 DC 09/18 IV 09/18 1846 2201 Morphine Sulfate 4 MG ONCE ONE 09/18 1545 DC 09/18 IV 09/18 1546 1600 Morphine Sulfate 4 MG Q4 PRN 09/18 1535 DC 09/19 IV 0556 Morphine Sulfate 4 MG Q4 09/18 1400 DC 09/18 IV 1319 Ondansetron HCl 4 MG Q6P PRN 09/14 2245 AC IV Results Pertinent Lab Results: Laboratory Tests 09/19 09/19 09/18 1320 1320 0428 Chemistry Sodium (137 - 145 mmol/L) Pending 137 Potassium (3.5 - 5.1 mmol/L) Pending 3.9 Chloride (98 - 107 mmol/L) Pending 101 Carbon Dioxide (22 - 30 mmol/L) Pending 26 Anion Gap (5 - 16) Pending 10 BUN (9 - 20 mg/dL) Pending 14 Creatinine (0.7 - 1.2 mg/dL) Pending 0.7 Estimated GFR (>60 ml/min) > 60 BUN/Creatinine Ratio Pending Glucose (65 - 99 mg/dL) 97 Calcium (8.4 - 10.2 mg/dL) 8.5 Phosphorus (2.5 - 4.5 mg/dL) 2.2 L Magnesium (1.6 - 2.3 mg/dL) 2.1 Total Bilirubin (0.2 - 1.3 mg/dL) Pending 1.4 H Direct Bilirubin Pending AST (17 - 59 U/L) Pending 57 ALT (21 - 72 U/L) Pending 279 H Alkaline Phosphatase Pending C-React Prot High Sens Pending Total Protein Pending Albumin (3.5 - 5.0 g/dL) Pending 3.1 L Lipase Pending Hematology CBC w Diff MAN DIFF ORDERED WBC (4.8 - 10.8 /CUMM) 12.4 H RBC (4.70 - 6.10 /CUMM) 3.71 L Hgb (14.0 - 18.0 G/DL) 11.3 L Hct (42 - 52 %) 34.3 L MCV (80.0 - 94.0 FL) 92.4 MCH (27.0 - 31.0 PG) 30.5 MCHC (33.0 - 37.0 G/DL) 33.1 RDW (11.5 - 14.5 %) 14.7 H Plt Count (130 - 400 /CUMM) 302 MPV (7.4 - 10.4 FL) 8.5 Gran % (42.2 - 75.2 %) 83.5 H Lymphocytes % (20.5 - 51.1 %) 4.7 L Monocytes % (1.7 - 9.3 %) 10.0 H Eosinophils % (0 - 5 %) 1.8 Basophils % (0.0 - 2.0 %) 0 Absolute Granulocytes (1.4 - 6.5 /CUMM) 10.3 H Segmented Neutrophils (42.2 - 75.2 %) 78 H Band Neutrophils (0.0 - 5.0 %) 3 Absolute Lymphocytes (1.2 - 3.4 /CUMM) 0.6 L Lymphocytes (20.5 - 51.1 %) 9 L Monocytes (1.7 - 9.3 %) 6 Absolute Monocytes (0.10 - 0.60 /CUMM) 1.2 H Eosinophils (0 - 5.0 %) 4 Absolute Eosinophils (0.0 - 0.7 /CUMM) 0.2 Absolute Basophils (0.0 - 0.2 /CUMM) 0 Platelet Estimate (ADEQUATE) ADEQUATE Polychromasia 1+ Poikilocytosis 1+ Ovalocytes 1+ Stomatocytes FEW ESR Westergren Pending Other Body Source Fld Total RBCs Counted (%) 100 09/17 0429 Chemistry Sodium (137 - 145 mmol/L) 139 Potassium (3.5 - 5.1 mmol/L) 4.1 Chloride (98 - 107 mmol/L) 104 Carbon Dioxide (22 - 30 mmol/L) 25 Anion Gap (5 - 16) 10 BUN (9 - 20 mg/dL) 19 Creatinine (0.7 - 1.2 mg/dL) 0.8 Estimated GFR (>60 ml/min) > 60 Glucose (65 - 99 mg/dL) 96 Calcium (8.4 - 10.2 mg/dL) 8.4 Phosphorus (2.5 - 4.5 mg/dL) 2.7 Magnesium (1.6 - 2.3 mg/dL) 2.1 Total Bilirubin (0.2 - 1.3 mg/dL) 1.8 H AST (17 - 59 U/L) 65 H ALT (21 - 72 U/L) 354 H Albumin (3.5 - 5.0 g/dL) 2.9 L Amylase (30 - 110 U/L) < 30 L Lipase (23 - 300 U/L) 1122 H Hematology CBC w Diff MAN DIFF ORDERED WBC (4.8 - 10.8 /CUMM) 17.1 H RBC (4.70 - 6.10 /CUMM) 4.12 L Hgb (14.0 - 18.0 G/DL) 12.4 L Hct (42 - 52 %) 37.9 L MCV (80.0 - 94.0 FL) 92.0 MCH (27.0 - 31.0 PG) 30.1 MCHC (33.0 - 37.0 G/DL) 32.7 L RDW (11.5 - 14.5 %) 14.8 H Plt Count (130 - 400 /CUMM) 282 MPV (7.4 - 10.4 FL) 8.5 Gran % (42.2 - 75.2 %) 89.2 H Lymphocytes % (20.5 - 51.1 %) 4.1 L Monocytes % (1.7 - 9.3 %) 6.5 Eosinophils % (0 - 5 %) 0.1 Basophils % (0.0 - 2.0 %) 0.1 Absolute Granulocytes (1.4 - 6.5 /CUMM) 15.2 H Segmented Neutrophils (42.2 - 75.2 %) 75 Band Neutrophils (0.0 - 5.0 %) 14 H Absolute Lymphocytes (1.2 - 3.4 /CUMM) 0.7 L Lymphocytes (20.5 - 51.1 %) 4 L Monocytes (1.7 - 9.3 %) 7 Absolute Monocytes (0.10 - 0.60 /CUMM) 1.1 H Absolute Eosinophils (0.0 - 0.7 /CUMM) 0 Absolute Basophils (0.0 - 0.2 /CUMM) 0 Platelet Estimate (ADEQUATE) ADEQUATE Normocytic RBCs VERIFIED Normochromic RBCs VERIFIED Stomatocytes FEW Imaging/Other Studies: 09/14/17: EKG- SB @ 59, nl axis, nl intervals, no acute ischemia. 09/14/17: CT ABD & PELVIS W IV CONTRAST- IMPRESSION: Choledocholithiasis resulting in mild obstructive biliary ductal dilatation and secondary pancreatitis. Additional mild mucosal hyperemia, surrounding inflammatory change and mild wall thickening of the gastric antrum and duodenum. Exophytic 1.4 cm low-density nodular lesion arising from the posterior cortex of the right kidney which does not measure simple fluid and was not present on previous imaging from 2006. Although this may represent a proteinaceous or hemorrhagic cyst, a dedicated renal ultrasound is recommended in order to rule out a solid mass. Imaging findings discussed with Dr. Hernandez at 9:07 PM on 09/14/2017. DICTATED BY: Rubens Alejandra MD DATE/TIME DICTATED:09/14/17205009/15/17: *ERCP with ES/stone extraction, per Dr. Rachel Gamboa- Impression: * Choledocholithiasis (stone impacted in ampulla), treated with sphincterotomy and extraction. 09/15/17: XRY-PORTABLE CHEST XRAY- Very limited study, oblique projection. Left costophrenic angle is excluded from the film margin, no large effusions.
--- NOTE | 2017-09-19 15:27 | CT SCAN REPORT ---
EXAMINATION: CT ABDOMEN AND PELVIS WITH CONTRAST CLINICAL INFORMATION: Pancreatitis. Concern for pancreatic necrosis. COMPARISON: CT abdomen pelvis 09/14/2017 TECHNIQUE: Multidetector volumetric imaging was performed of the abdomen and pelvis following IV administration of 95 mL of Optiray 320 intravenous contrast. Both arterial phase and portal venous phase sequences were performed. The arterial phase was performed through the abdomen only. The portal venous phase included abdomen and pelvis. Sagittal and coronal reformatted images were obtained on the technologist's workstation. DLP: 678.76 mGy-cm FINDINGS: LUNG BASES: There are small dependent bilateral pleural effusions. There is bibasilar consolidation/atelectasis at dependent lung. LIVER, GALLBLADDER, AND BILIARY TREE: The liver is normal in size, shape, and attenuation. No focal hepatic lesion or biliary ductal dilatation is present. The gallbladder is contracted. No calcified gallstone in the gallbladder. PANCREAS: There is a large collection of fluid surrounding the pancreas. The volume of fluid has increased since the CAT scan of 09/14/2017. There is fluid along the anterior pararenal fascia bilaterally. There is large fluid collection which extends anteriorly in the mesentery. Fluid surrounds the inferior stomach. Small amount of fluid also seen around the right kidney and along the paracolic gutter as well as anterior to the liver. There is homogeneous enhancement of the pancreas with no evidence of pancreatic necrosis. No pancreatic duct dilatation. No pseudocyst formation. SPLEEN: Unremarkable. ADRENAL GLANDS: Unremarkable. KIDNEYS AND URETERS: The kidneys are normal in size, shape, and attenuation. No hydronephrosis, hydroureter, or calculi seen. No perinephric stranding. BLADDER: Unremarkable. GASTROINTESTINAL TRACT: The small and large bowel are unremarkable. The appendix is unremarkable. ABDOMINAL WALL: No significant hernia is appreciated. LYMPH NODES: Normal. VASCULAR: Unremarkable. PELVIC VISCERA: Unremarkable. OSSEOUS STRUCTURES: There are degenerative spurs of the endplates of the thoracic vertebrae. There is a vacuum disc phenomenon L5-S1. There is facet joint arthrosis at the lower lumbar spine. IMPRESSION: 1. The volume of abdominal ascites around the pancreas and extending into the mesentery has significantly increased since the exam of 09/14/2017. There is no pseudocyst formation. The enhancement of the pancreas remains normal with no evidence of pancreatic necrosis. 2. There are bilateral pleural effusions and bibasilar infiltrate/atelectasis.
[2017-09-19 15:50] LABS: HEMATOCRIT 33.3 % (42-52); MEAN CORPUSCULAR HGB 30.3 PG (27.0-31.0); MEAN CORPUSCULAR VOLUME 91.8 FL (80.0-94.0); MEAN PLATELET VOLUME 8.4 FL (7.4-10.4); PLATELET COUNT 386 /CUMM (130-400); RBC DISTRIBUTION WIDTH 14.6 % (11.5-14.5); RED BLOOD CELL CT 3.63 /CUMM (4.70-6.10); WHITE BLOOD CELL COUNT 15.2 /CUMM (4.8-10.8)
--- NOTE | 2017-09-19 17:43 | PN- General Surgery ---
See Addendum Surgical Brief Attending Note Brief Attending Note: Agree with above surgical PA note patient seen and examined this morning discussed with GI, we've ordered a CT scan Follow-up of choledocholithiasis, pancreatitis Patient feels similar to yesterday bloated bilateral epigastric pain and tenderness, he's moving a little better tolerating clear liquids no nausea no vomiting no sweats. Vital signs reviewed stable highest temperature 90.9 not tachycardic Constitutional: no acute distress no pain Eyes: sclera anicteric ENMT: moist mucous membranes Cardiovascular: S1-S2 no murmurs no peripheral edema Respiratory: clear to auscultation with normal respiratory effort and no intercostal retractions GI: abdomen soft nontender nondistended Extremities / lymphatics: free range of motion no peripheral edema Skin: no jaundice no rashes warm, nondiaphoretic Psychiatric: mood and affect are appropriate and alert and oriented to person place and time Labs White blood cell count slighty up to 15, LFTs continue to trend down, amylase lipase no longer elevated. I reviewed today CT scan up X myself and compared it to the earlier 1 this admission what has changed his the interval increase in the acute inflammatory fluid collections around the pancreas which to extend to the area of the gallbladder, which itself is significantly less distended, almost back to baseline before this episode. Impression is worsening pancreatitis that is causing his distention and it looks on the CT that he also has an ileus his gallbladder may be responsible ultimately but it's not the acute problem right now and would be hazardous to try to do a laparoscopic cholecystectomy right now. His pancreatitis has to resolve and typically we wait 6-8 weeks and approach it as an outpatient. Note that these are acute fluid collections which are normal early in the evolution of pancreatitis pseudocysts aren't an issue until weeks from now, and there is no reason whatsoever for needle aspiration this could be hazardous as well. Also note that the temperature and white blood cell count is slightly elevated which is consistent with pancreatitis even though the LFTs and lipase are much better
[2017-09-20 06:10] VITALS: BP 146/90
--- NOTE | 2017-09-20 10:35 | PN- Housestaff ---
Arturo INIGUEZ,[facility] 09/20/17 1035: Subjective Follow-up For: 1. Gall stone pancreatitis 2. Choledocholithiasis 3. Hepatocellular pattern of transaminitis with elevated alkaline phosphatase - improving 4. Bipolar disorder 5. Hypertension 6. Hyperlipidemia 7. Exophytic lesion arising from Right kidney Subjective: No acute events. Patient in severe pain. Review of Systems Constitutional: Reports: see HPI. Objective Last 24 Hrs of Vital Signs/I&O Vital Signs Date Time Temp Pulse Resp B/P B/P Pulse O2 O2 Flow FiO2 Mean Ox Delivery Rate 09/20 1430 97.8 98 18 150/100 95 Room Air 09/20 0750 146/90 09/20 0610 98.4 92 20 146/90 95 Room Air 09/19 2234 99.7 90 20 140/70 94 Intake & Output 09/20 1600 09/20 0800 09/20 0000 Intake Total 659 779 9517 Output Total 1000 1450 1400 Balance -600 -520 -400 Intake, IV 200 450 600 Intake, Oral 200 480 400 Number 2 Bowel Movements Output, Urine 1000 1450 1400 Physical Exam General Appearance: Alert, Oriented X3, Cooperative, Severe Distress Cardiovascular: Regular Rate, Normal S1, Normal S2 Lungs: Clear to Auscultation, Normal Air Movement Abdomen: distended abd. diffuse abd pain worst in L upper quadrant Extremities: 2+ radial pulses Current Medications: Current Medications Sig/Carrington Start time Last Medication Dose Route Stop Time Status Admin Acetaminophen 1,000 MG .STK-MED ONE 09/20 1004 DC IV 09/20 1005 Acetaminophen 1,000 MG .STK-MED ONE 09/19 2006 DC IV 09/19 2007 Acetaminophen 1,000 MG Q6P PRN 09/14 2300 AC 09/20 IV 1004 Amlodipine Besylate 5 MG DAILY 09/19 1400 AC 09/20 PO 0750 Ampicillin Sodium/ 3,000 MG Q6H 09/19 2030 AC 09/20 Sulbactam Sodium IV 1458 Sodium Chloride 100 ML Atorvastatin Calcium 20 MG 1700 09/18 1700 AC 09/20 PO 1642 Glycerin 2 SPRAY Q2P PRN 09/16 1430 AC 09/17 PO 1419 Heparin Sodium 5,000 UNIT Q8 09/15 0600 AC 09/20 (Porcine) SC 1449 Hydromorphone HCl 4 MG Q4-6 PRN PRN 09/20 1530 AC 09/20 PO 1642 Hydromorphone HCl 1 MG Q3P PRN 09/20 0930 AC 09/20 IV 1449 Hydromorphone HCl 1.5 MG Q4 HRS NEEDED PRN 09/20 0915 DC 09/20 IV 0904 Hydromorphone HCl 1 MG Q4 HRS NEEDED PRN 09/19 0845 DC 09/20 IV 0529 Lactated Ringer's 1,000 ML Q20H 09/19 1845 AC 09/19 IV 1924 [place] Carbonate 1,500 MG DAILY 09/18 0900 AC 09/20 PO 0750 Losartan Potassium 100 MG DAILY 09/18 0900 AC 09/20 PO 0750 Morphine Sulfate 2 MG ONCE ONE 09/20 0745 DC 09/20 IV 09/20 0746 0750 Ondansetron HCl 4 MG Q6P PRN 09/14 2245 IV Potassium Chloride 40 MEQ BID 09/19 1730 DC 09/19 PO 09/19 2101 2135 Last 24 Hrs of Lab/David Results Last 24 Hrs of Labs/Mics: Laboratory Tests 09/20/17 1250: Anion Gap 12, Estimated GFR > 60, BUN/Creatinine Ratio 15.0, Total Bilirubin 1.2 , Direct Bilirubin 0.7 H, AST 60 H, ALT 187 H, Alkaline Phosphatase 142 H, Total Protein 5.9 L, Albumin 3.1 L, Lipase 220, CBC w Diff NO MAN DIFF REQ, RBC 3.95 L, MCV 91.1, MCH 30.3, MCHC 33.3, RDW 14.9 H, MPV 8.0, Gran % 79.9 H , Lymphocytes % 10.3 L, Monocytes % 8.9, Eosinophils % 0.9, Basophils % 0, Absolute Granulocytes 16.5 H, Absolute Lymphocytes 2.1, Absolute Monocytes 1.8 H, Absolute Eosinophils 0.2, Absolute Basophils 0 Assessment/Plan Assessment: Mr. Carbone is a 47 year old man with past medical history of bipolar disorder, hypertension, and hyperlipidemia presented with acute onset abdominal associated with nausea, diarrhea, and chills likely 2/2 choledocholithiasis causing pancreatitis and possible cholangitis. He is currently in the ICU for the management of following issues: 1. Gall stone pancreatitis 2. Choledocholithiasis s/p ERCP and stone extraction 3. Hepatocellular pattern of transaminitis with elevated alkaline phosphatase - improving 4. Bipolar disorder 5. Hypertension 6. Hyperlipidemia 7. Exophytic lesion arising from Right kidney Plan; -increased dilaudid to 1mg q3. increase frequency if needed -replete K+ as needed - CT ABD:1. The volume of abdominal ascites around the pancreas and extending into the mesentery has significantly increased since the exam of 09/14/2017. There is no pseudocyst formation. The enhancement of the pancreas remains normal with no evidence of pancreatic necrosis. 2. There are bilateral pleural effusions and bibasilar infiltrate/atelectasis. -cont lactate Ringers 50 per surgery -Continues to be hypertensive, will start 5 mg amlodipine -Avoid NSAIDs - Patient had the ERCP done on 09/15/17 with sphinctertomy and stone extraction. Will need an eventual cholecystectomy but will have to wait for the pancreatitis to resolve to proceed with the surgery. - Patient started on clear liquids - Appreciate GI recommendations - Appreciate general surgery recommendations. - Zofran as needed for nausea. - Unasyn - Restart per surgery - Discontinue Zyprexa and continue Rentchler per Psych. -lipase in normal range. LFTs improving - Patient remains tachycardic and hypertensive, likely secondary to pain. Losartan 100 mg daily was resumed DVT prophylaxis; subcutaneous heparin and Alps Patient is full code Problem List: 1. Choledocholithiasis 2. S/P ERCP Pain Ratin Pain Location: abd Pain Goal: Pain 4 or less Pain Plan: dilaudid Tomorrow's Labs & Rationales: cbc bep lft Johnny Mendes MD 09/20/17 1410: Attending MD Review Statement Attending Statement Attending MD Statement: examined this patient, discuss w/resident/PA/CREATIVE CONSULTANT, agreed w/resident/PA/CREATIVE CONSULTANT, discussed with family, reviewed EMR data (avail), discussed with nursing, reviewed images Attending Assessment/Plan: The patient was seen and discussed with house staff. Still with significant pain. Dilaudid is helping, however does not last long enough. May consider beginning oral narcotic which has a longer half life and use IV for breakthrough pain. Unasyn restarted per surgery. Need GI follow-up. Discussed briefly with Dr. Dillard. Should be OK to try po pain meds (Dilaudid 4 mg) with sip of water. Will need to address nutrition tomorrow.
[2017-09-20 13:43] LABS: ABSOLUTE BASOPHIL COUNT 0 /CUMM (0.0-0.2); ABSOLUTE EOSINOPHIL COUNT 0.2 /CUMM (0.0-0.7); ABSOLUTE GRANULOCYTE CT 16.5 /CUMM (1.4-6.5); ABSOLUTE LYMPH COUNT 2.1 /CUMM (1.2-3.4); ABSOLUTE MONOCYTE COUNT 1.8 /CUMM (0.10-0.60); BASOPHIL % 0 % (0.0-2.0); EOSINOPHIL % 0.9 % (0-5); GRANULOCYTE % 79.9 % (42.2-75.2); MEAN CORPUSCULAR HGB 30.3 PG (27.0-31.0); MEAN CORPUSCULAR HGB CONC 33.3 G/DL (33.0-37.0); MEAN CORPUSCULAR VOLUME 91.1 FL (80.0-94.0); PLATELET COUNT 443 /CUMM (130-400); RBC DISTRIBUTION WIDTH 14.9 % (11.5-14.5); RED BLOOD CELL CT 3.95 /CUMM (4.70-6.10); WHITE BLOOD CELL COUNT 20.7 /CUMM (4.8-10.8)
[2017-09-20 14:30] VITALS: BP 150/100
--- NOTE | 2017-09-20 15:15 | PN- Gastroenterology ---
Assessment/Plan GI Assessment/Recommendations: (*The patient was initially seen & examined on 09/18/17. His extensive records were reviewed. I assumed the patient's inpt GI care on 09/18/17. Dr. Erika Gamboa 's GI consult 0f 09/15/17 was reviewed, along with subsequent progress notes, labs, imaging studies, & 09/15/17: ERCP). 47 y/o male, bipolar disorder, HTN, HLD, heroin addict, hx cocaine, mild smoker, non-EtOH, admitted to [facility] 09/14/17, after being in rehabilitation in [place], where he developed abdominal pain & was told it was from the gallbladder. Upon admission to [place], he had moderate to severe gallstone pancreatitis with an impacted stone in the ampulla, removed via 09/15/17: ERCP/ ES, followed by progressive decline in LFTs, although there were still elevated. Plans were to have lap CCKY at the end of this admission, but the patient had persistent abdominal pain, possibly implying ongoing pancreatic inflammation. * Please note, 09/14/17: Admission Utox: +OP/MS; [EtOH] < 10. 09/15/17: *nl TG 106. 06/10/10: HIV- neg. 09/15/17: HAVM, Hep Bs Ag, Hep B core Ab, & Hep C Ab- all neg. IV Unasyn was stopped 09/17/17. *As of 09/18/17, he was still getting po Dilaudid, Zofran, & IV MS. He was on IV Lactated Ringers at 250cc/hr & was being followed by surgery. *The pt was moved from the ICU to [facility] on 09/18/17. Medical & surgical notes appreciated. He was complaining of diffuse abdominal pain despite narcotic analgesics. He had mild nausea but no recurrent vomiting. He denies any fevers , chills, jaundice, chest pain, or shortness of breath. He was started on clears, but is now NPO. Surgery is holding off on CCKY, in view of his ongoing symptoms. *As of 09/18/17, the patient was hypertensive, nontachycardic, with O2 sat RA 95%, Tm 99.3. His BC had remained negative. His leukocytosis was improving. His H/H had dropped appropriately after IV fluids, going against hemoconcentration. *As of 09/19/17, the patient was somewhat hypertensive, but no longer tachycardic. He was afebrile, with Tm 99.3. He still had subjective abdominal pain, requiring narcotic analgesics (*please note, hx substance abuse & bipolar disorder, so difficult to assess). His MS was switched to IV Dilaudid 1mg Q4h. His nausea & vomiting had improved. He denied any jaundice, CP, SOB, or chills. He tolerated clears po on 09/18/17, but was made NPO for repeat CT with pancreatic protocol on 09/19/17, in order to better objectively reassess his pancreas. His IV lactated Ringer's was just held per surgery, pending the CT results. He was constipated from the narcotic analgesics, with his last BM approximately 4 days ago. He was not obstipated, but was a little bloated. Toradol was D/C 09/19/17, after 2 doses. There was no lab evidence of hemoconcentration, as his H/H dropped appropriately, after IVF. 09/19/17: CT ABD & PELVIS W IV CONTRAST- IMPRESSION: 1. The volume of abdominal ascites around the pancreas and extending into the mesentery has significantly increased since the exam of 09/14/17. There is no pseudocyst formation. The enhancement of the pancreas remains normal with no evidence of pancreatic necrosis. No dilated PD. 2. There are bilateral pleural effusions and bibasilar infiltrate/atelectasis. *As of 09/20/17, the patient still had abdominal pain. His repeat 09/19/17: CT AP with pancreatic protocol showed worsening pancreatitis, albeit without pseudocyst or necrosis, with increased fluid collection around the pancreas, moreso since 09/14/17: CT, extending anteriorly into the mesentery and inferiorly to the stomach, as well as to the right kidney & right paracolic gutter, anterior to the liver. He denied any significant nausea & vomiting. He was bloated, without CP or SOB. He had a BM last p.m., wihtout needing Relistor. He denied any jaundice or chills. He was only takin minimal amounts of clears po & nutrition was becoming a problem. *As his pancreatitis had worsened, surgery wants to wait 6-8 weeks for lap CCKY. Oral narcotic analgesics are to be added to IV MS. I spoke with the patient regarding his past hx of substance abuse & the possibility for an indwelling PICC line. He denied any past hx IVDA. The patient was still HTN, but not tachycardic. He was essentially afebrile (Tm 99.7), with O2 sat RA 95%. His IV Ringers Lactate was dereased to 50cc/hr. 09/19/17: WBC 15.2 (82S/4B/8L/4M/2E), H/H 11.0/33.3, PLT 386, BUN/Cr 10/0.5, GFR > 60, Na 138, K 3.3, HCO3 23, AG 8, lipase 134, albumin 2.4, globulin 2.3, TBil 1.0, DBil 0.7, alk phos 97, AST 48, ALT 171, TSHR 2.09, *CRP > 9.0 09/20/17: WBC 20.7 (80% gran/17 gran Ab), H/H 12/36, PLT 443, BUN/Cr 9/0.6, GFR > 60, Na 137, K 4.4, HCO3 23, AG 12, lipase 220, albumin 3.1, globulin 2.8, TBil 1.2, DBil 0.7, alk phos 142, AST 60, ALT 187. *SUGGEST- Sips of clears po. Will probably need PICC line placed later this week for access for TPN, as lap CCKY will not be done for another 6-8 weeks, due to worsening pancreatitis on 09/19/17: CT AP with IV cont (although no necrosis), & the patient will not be able to sustain himself nutrtionally. Start po Dilaudid, with IV MS for breakthrough sx. Zofran prn. Follow-up labs (CBC, lytes, GFR, LFT). *No definite indx for antibiotics, but Unasyn 3g IV Q6h resumed per surgery on 09/19/17 (Unasyn was previously D/C 09/17/17). Avoid NSAIDS. *BP control, as per medical team. *Constipation is probably from narcotic analgesics.*Consider Relistor (Methylnaltrexone) 12 mg sc Q48 hrs as needed, for narcotic induced constipation, although the patient had a BM 09/20/17. Follow-up with surgery. DVT prophylaxis. The patient was previously told to follow up with his PMD or a urologist upon discharge, to follow up the exophytic right renal lesion incidentally noted on admission 09/14/17: CT AP with IV cont. The case was again discussed with the patient's RN & again with Dr. Jarvis, of surgery, & Dr. Mendes, who concur. *Further GI recommendations to follow, depending on clinical course. Problem List: 1. Pancreatitis 2. Abdominal pain 3. Elevated LFTs 4. Leukocytosis 5. Choledocholithiasis 6. S/P ERCP 7. Substance abuse 8. Bipolar 1 disorder 9. Malnutrition Subjective Subjective: 09/19/17: CT ABD & PELVIS W IV CONTRAST- IMPRESSION: 1. The volume of abdominal ascites around the pancreas and extending into the mesentery has significantly increased since the exam of 09/14/17. There is no pseudocyst formation. The enhancement of the pancreas remains normal with no evidence of pancreatic necrosis. No dilated PD. 2. There are bilateral pleural effusions and bibasilar infiltrate/atelectasis. *As of 09/20/17, the patient still had abdominal pain. His repeat 09/19/17: CT AP [facility] pancreatic protocol showed worsening pancreatitis, albeit without pseudocyst or necrosis, with increased fluid collection around the pancreas, moreso since 09/14/17: CT, extending anteriorly into the mesentery and inferiorly to the stomach, as well as to the right kidney & right paracolic gutter, anterior to the liver. He denied any significant nausea & vomiting. He was bloated, without CP or SOB. He had a BM last p.m., wihtout needing Relistor. He denied any jaundice or chills. He was only takin minimal amounts of clears po & nutrition was becoming a problem. As his pancreatitis had worsened, surgery wants to wait 6-8 weeks for lap CCKY. Oral narcotic analgesics are to be added to IV MS. Richard spoke with the patient regarding his past hx of substance abuse & the possibility for an indwelling PICC line. He denied any past hx IVDA. The patient was still HTN, but not tachycardic. He was essentially afebrile (Tm 99.7), with O2 sat RA 95%. His IV Ringers Lactate was dereased to 50cc/hr. 09/19/17: WBC 15.2 (82S/4B/8L/4M/2E), H/H 11.0/33.3, PLT 386, BUN/Cr 10/0.5, GFR > 60, Na 138, K 3.3, HCO3 23, AG 8, lipase 134, albumin 2.4, globulin 2.3, TBil 1.0, DBil 0.7, alk phos 97, AST 48, ALT 171, TSHR 2.09, *CRP > 9.0 09/20/17: WBC 20.7 (80% gran/17 gran Ab), H/H 12/36, PLT 443, BUN/Cr 9/0.6, GFR > 60, Na 137, K 4.4, HCO3 23, AG 12, lipase 220, albumin 3.1, globulin 2.8, TBil 1.2, DBil 0.7, alk phos 142, AST 60, ALT 187. Review of Systems: Full 14 point review of systems otherwise noncontributory, and as above. Constitutional: Reports: no symptoms. EENTM: Reports: no symptoms. Cardiovascular: Reports: no symptoms. Respiratory: Reports: no symptoms. GI: Reports: abdominal pain & bloating; n & v- better, stable constipation Genitourinary: Reports: no symptoms. Musculoskeletal: Reports: no symptoms. Skin: Reports: no symptoms. Neurological/Psychological: Reports: hx bipolar disorder & hx substance abuse. Hematologic/Endocrine: Reports: no symptoms. Immunologic/Allergic: Reports: no symptoms. All Other Systems: Reviewed and Negative Objective Vital Signs and I&Os Vital Signs Date Time Temp Pulse Resp B/P B/P Pulse O2 O2 Flow FiO2 Mean Ox Delivery Rate 09/20 1430 97.8 98 18 150/100 95 Room Air 09/20 0750 146/90 09/20 0610 98.4 92 20 146/90 95 Room Air 09/19 2234 99.7 90 20 140/70 94 Intake & Output 09/20 1600 09/20 0400 09/19 1600 09/19 0400 09/18 1600 09/18 040 Intake Total 1330 1000 1825 1050 2047 1579 Output Total 2450 1400 2175 2650 1900 850 Balance -1120 -400 -350 -1600 147 729 Intake, IV 546 669 0437 600 1927 1219 Intake, Oral 680 400 100 450 120 360 Number 2 0 0 Bowel Movements Output, Urine 2450 1400 2175 2650 1900 850 Physical Exam: Well-developed, well-nourished, obese male, in mild distress. Sclera anicteric. Conjunctiva pink. Oropharynx clear. Slightly dry mucous membranes. There is no adenopathy, thyromegaly, or JVD. No peripheral stigmata of inflammatory bowel disease or chronic liver disease on exam. No spiders on the anterior chest. No gynecomastia. No CVA tenderness. Lungs: clear to A&P, with slight decreased breath sounds at the bases B/L. Heart exam: regular rate rhythm, S1 and S2, without any murmur. Abdominal exam: slightly hypoactive bowel sounds, mildly distended belly, mild LUQ > epigastric tenderness, minimal guarding, no rebound. Negative Bazan sign. No definite mass or organomegaly. ? Mild fluid shift. No pulsatile mass. No epigastric bruit. Digital rectal exam: deferred. Extremities: without C, C, or E. No palpable cords. Distal pulses 2+ bilaterally. DTRs 2+ bilaterally. No palmar erythema. No Dupuytren's contractures. Alert and oriented x 3. No tremor. No asterixis. Current Medications: Current Medications Sig/Carrington Start time Last Medication Dose Route Stop Time Status Admin Acetaminophen 1,000 MG .STK-MED ONE 09/19 2005 DC IV 09/19 2006 Acetaminophen 1,000 MG Q6P PRN 09/14 2300 AC 09/20 IV 1004 Amlodipine Besylate 5 MG DAILY 09/19 1400 AC 09/20 PO 0750 Ampicillin Sodium/ 3,000 MG Q6H 09/19 2030 AC 09/20 Sulbactam Sodium IV 1458 Sodium Chloride 100 ML Atorvastatin Calcium 20 MG 1700 09/18 1700 AC 09/20 PO 1642 Glycerin 2 SPRAY Q2P PRN 09/16 1430 AC 09/17 PO 1419 Heparin Sodium 5,000 UNIT Q8 09/15 0600 AC 09/20 (Porcine) SC 1449 Hydromorphone HCl 4 MG Q4-6 PRN PRN 09/20 1530 AC 09/20 PO 1642 Hydromorphone HCl 1 MG Q3P PRN 09/20 0930 AC 09/20 IV 1449 Hydromorphone HCl 1.5 MG Q4 HRS NEEDED PRN 09/20 0915 DC 09/20 IV 0904 Hydromorphone HCl 1 MG Q4 HRS NEEDED PRN 09/19 0845 DC 09/20 IV 0529 Lactated Ringer's 1,000 ML Q20H 09/19 1845 AC 09/19 IV 1924 [place] Carbonate 1,500 MG DAILY 09/18 0900 AC 09/20 PO 0750 Losartan Potassium 100 MG DAILY 09/18 0900 AC 09/20 PO 0750 Morphine Sulfate 2 MG ONCE ONE 09/20 0745 DC 09/20 IV 09/20 0746 0750 Ondansetron HCl 4 MG Q6P PRN 09/14 2245 AC IV Potassium Chloride 40 MEQ BID 09/19 1730 DC 09/19 PO 09/19 2101 2135 Potassium Chloride 10 MEQ Q1H 09/19 1645 DC 09/19 IV 09/19 1846 1659 Results Pertinent Lab Results: Laboratory Tests 09/20 09/19 1250 1320 Chemistry Sodium (137 - 145 mmol/L) 137 Potassium (3.5 - 5.1 mmol/L) 4.4 Chloride (98 - 107 mmol/L) 102 Carbon Dioxide (22 - 30 mmol/L) 23 Anion Gap (5 - 16) 12 BUN (9 - 20 mg/dL) 9 Creatinine (0.7 - 1.2 mg/dL) 0.6 L Estimated GFR (>60 ml/min) > 60 BUN/Creatinine Ratio (7 - 25 %) 15.0 Total Bilirubin (0.2 - 1.3 mg/dL) 1.2 Direct Bilirubin (< 0.4 mg/dL) 0.7 H AST (17 - 59 U/L) 60 H ALT (21 - 72 U/L) 187 H Alkaline Phosphatase (< 127 U/L) 142 H C-Reactive Prot, Quant (<1.0 mg/dL) > 9.0 H C-React Prot High Sens (1.0 - 3.0 mg/L) > 15.0 H Total Protein (6.3 - 8.2 g/dL) 5.9 L Albumin (3.5 - 5.0 g/dL) 3.1 L Lipase (23 - 300 U/L) 220 Hematology CBC w Diff NO MAN DIFF REQ WBC (4.8 - 10.8 /CUMM) 20.7 H RBC (4.70 - 6.10 /CUMM) 3.95 L Hgb (14.0 - 18.0 G/DL) 12.0 L Hct (42 - 52 %) 36.0 L MCV (80.0 - 94.0 FL) 91.1 MCH (27.0 - 31.0 PG) 30.3 MCHC (33.0 - 37.0 G/DL) 33.3 RDW (11.5 - 14.5 %) 14.9 H Plt Count (130 - 400 /CUMM) 443 H MPV (7.4 - 10.4 FL) 8.0 Gran % (42.2 - 75.2 %) 79.9 H Lymphocytes % (20.5 - 51.1 %) 10.3 L Monocytes % (1.7 - 9.3 %) 8.9 Eosinophils % (0 - 5 %) 0.9 Basophils % (0.0 - 2.0 %) 0 Absolute Granulocytes (1.4 - 6.5 /CUMM) 16.5 H Absolute Lymphocytes (1.2 - 3.4 /CUMM) 2.1 Absolute Monocytes (0.10 - 0.60 /CUMM) 1.8 H Absolute Eosinophils (0.0 - 0.7 /CUMM) 0.2 Absolute Basophils (0.0 - 0.2 /CUMM) 0 ESR Westergren (0 - 10 MM) 92 H 09/19 1320 Chemistry Sodium (137 - 145 mmol/L) 138 Potassium (3.5 - 5.1 mmol/L) 3.3 L Chloride (98 - 107 mmol/L) 108 H Carbon Dioxide (22 - 30 mmol/L) 23 Anion Gap (5 - 16) 8 BUN (9 - 20 mg/dL) 10 Creatinine (0.7 - 1.2 mg/dL) 0.5 L Estimated GFR (>60 ml/min) > 60 BUN/Creatinine Ratio (7 - 25 %) 20.0 Total Bilirubin (0.2 - 1.3 mg/dL) 1.0 Direct Bilirubin (< 0.4 mg/dL) 0.7 H AST (17 - 59 U/L) 48 ALT (21 - 72 U/L) 171 H Alkaline Phosphatase (< 127 U/L) 97 Total Protein (6.3 - 8.2 g/dL) 4.7 L Albumin (3.5 - 5.0 g/dL) 2.4 L Lipase (23 - 300 U/L) 134 TSH &T3 &Free T4 Intrp (0.27 - 4.20 uIU/mL) 2.090 Hematology CBC w Diff MAN DIFF ORDERED WBC (4.8 - 10.8 /CUMM) 15.2 H RBC (4.70 - 6.10 /CUMM) 3.63 L Hgb (14.0 - 18.0 G/DL) 11.0 L Hct (42 - 52 %) 33.3 L MCV (80.0 - 94.0 FL) 91.8 MCH (27.0 - 31.0 PG) 30.3 MCHC (33.0 - 37.0 G/DL) 33.0 RDW (11.5 - 14.5 %) 14.6 H Plt Count (130 - 400 /CUMM) 386 MPV (7.4 - 10.4 FL) 8.4 Segmented Neutrophils (42.2 - 75.2 %) 82 H Band Neutrophils (0.0 - 5.0 %) 4 Lymphocytes (20.5 - 51.1 %) 8 L Monocytes (1.7 - 9.3 %) 4 Eosinophils (0 - 5.0 %) 2 Platelet Estimate (ADEQUATE) ADEQUATE Anisocytosis 1+ Other Body Source Fld Total RBCs Counted (%) 100 09/18 0428 Chemistry Sodium (137 - 145 mmol/L) 137 Potassium (3.5 - 5.1 mmol/L) 3.9 Chloride (98 - 107 mmol/L) 101 Carbon Dioxide (22 - 30 mmol/L) 26 Anion Gap (5 - 16) 10 BUN (9 - 20 mg/dL) 14 Creatinine (0.7 - 1.2 mg/dL) 0.7 Estimated GFR (>60 ml/min) > 60 Glucose (65 - 99 mg/dL) 97 Calcium (8.4 - 10.2 mg/dL) 8.5 Phosphorus (2.5 - 4.5 mg/dL) 2.2 L Magnesium (1.6 - 2.3 mg/dL) 2.1 Total Bilirubin (0.2 - 1.3 mg/dL) 1.4 H AST (17 - 59 U/L) 57 ALT (21 - 72 U/L) 279 H Albumin (3.5 - 5.0 g/dL) 3.1 L Hematology CBC w Diff MAN DIFF ORDERED WBC (4.8 - 10.8 /CUMM) 12.4 H RBC (4.70 - 6.10 /CUMM) 3.71 L Hgb (14.0 - 18.0 G/DL) 11.3 L Hct (42 - 52 %) 34.3 L MCV (80.0 - 94.0 FL) 92.4 MCH (27.0 - 31.0 PG) 30.5 MCHC (33.0 - 37.0 G/DL) 33.1 RDW (11.5 - 14.5 %) 14.7 H Plt Count (130 - 400 /CUMM) 302 MPV (7.4 - 10.4 FL) 8.5 Gran % (42.2 - 75.2 %) 83.5 H Lymphocytes % (20.5 - 51.1 %) 4.7 L Monocytes % (1.7 - 9.3 %) 10.0 H Eosinophils % (0 - 5 %) 1.8 Basophils % (0.0 - 2.0 %) 0 Absolute Granulocytes (1.4 - 6.5 /CUMM) 10.3 H Segmented Neutrophils (42.2 - 75.2 %) 78 H Band Neutrophils (0.0 - 5.0 %) 3 Absolute Lymphocytes (1.2 - 3.4 /CUMM) 0.6 L Lymphocytes (20.5 - 51.1 %) 9 L Monocytes (1.7 - 9.3 %) 6 Absolute Monocytes (0.10 - 0.60 /CUMM) 1.2 H Eosinophils (0 - 5.0 %) 4 Absolute Eosinophils (0.0 - 0.7 /CUMM) 0.2 Absolute Basophils (0.0 - 0.2 /CUMM) 0 Platelet Estimate (ADEQUATE) ADEQUATE Polychromasia 1+ Poikilocytosis 1+ Ovalocytes 1+ Stomatocytes FEW Other Body Source Fld Total RBCs Counted (%) 100 Imaging/Other Studies: 09/14/17: EKG- SB @ 59, nl axis, nl intervals, no acute ischemia. 09/14/17: CT ABD & PELVIS W IV CONTRAST- IMPRESSION: Choledocholithiasis resulting in mild obstructive biliary ductal dilatation and secondary pancreatitis. Additional mild mucosal hyperemia, surrounding inflammatory change and mild wall thickening of the gastric antrum and duodenum. Exophytic 1.4 cm low-density nodular lesion arising from the posterior cortex of the right kidney which does not measure simple fluid and was not present on previous imaging from 2006. Although this may represent a proteinaceous or hemorrhagic cyst, a dedicated renal ultrasound is recommended in order to rule out a solid mass. Imaging findings discussed with Dr. Hernandez at 9:07 PM on 09/14/2017. DICTATED BY: Rubens Alejandra MD DATE/TIME DICTATED:09/14/17205009/15/17: *ERCP with ES/stone extraction, per Dr. Rachel Gamboa- Impression: * Choledocholithiasis (stone impacted in ampulla), treated with sphincterotomy and extraction. 09/15/17: XRY-PORTABLE CHEST XRAY- Very limited study, oblique projection. Left costophrenic angle is excluded from the film margin, no large effusions. 09/19/17: CT ABD & PELVIS W IV CONTRAST-
[2017-09-20 22:21] VITALS: BP 160/110
[2017-09-21 06:25] VITALS: BP 150/98
--- NOTE | 2017-09-21 07:31 | PN- Housestaff ---
See Addendum Subjective Follow-up For: Gallstone pancreatitis status post ERCP Subjective: The patient fever last night to 100.8. He subsequently defervesced. He reports this morning that his pain is okay, 5/10. However, he is complaining that his abdomen is hard. He is hungry and is asking for more foods besides Jell-O. He also has some shortness of breath associated with the pain but no chest pain. Review of Systems Constitutional: Reports: no symptoms. EENTM: Reports: no symptoms. Cardiovascular: Reports: no symptoms. Respiratory: Reports: no symptoms. Gastrointestinal: Reports: see HPI. Genitourinary: Reports: no symptoms. Musculoskeletal: Reports: no symptoms. Skin: Reports: no symptoms. Neurological/Psychological: Reports: no symptoms. Hematologic/Endocrine: Reports: no symptoms. Immunologic/Allergic: Reports: no symptoms. Objective Last 24 Hrs of Vital Signs/I&O Vital Signs Date Time Temp Pulse Resp B/P B/P Pulse O2 O2 Flow FiO2 Mean Ox Delivery Rate 09/21 0625 98.6 96 20 150/98 94 Room Air 09/20 2221 100.8 99 20 160/110 94 Room Air 09/20 1430 97.8 98 18 150/100 95 Room Air 09/20 0750 146/90 Intake & Output 09/21 0800 09/21 0000 09/20 1600 Intake Total 800 400 Output Total 1000 1000 Balance -200 -600 Intake, IV 400 200 Intake, Oral 400 200 Number 1 Bowel Movements Output, Urine 1000 1000 Physical Exam General Appearance: Alert, Oriented X3, Cooperative, No Acute Distress Cardiovascular: Regular Rate, Normal S1, Normal S2 Lungs: mild crackles at base Abdomen: hard, distended abdomen, tender to palpation Extremities: No Edema, Normal Pulses, No Tenderness/Swelling Current Medications: Current Medications Sig/Carrington Start time Last Medication Dose Route Stop Time Status Admin Acetaminophen 1,000 MG .STK-MED ONE 09/20 2150 DC IV 09/20 2151 Acetaminophen 1,000 MG .STK-MED ONE 09/20 1004 DC IV 09/20 1005 Acetaminophen 1,000 MG Q6P PRN 09/14 2300 AC 09/21 IV 0629 Amlodipine Besylate 5 MG DAILY 09/19 1400 AC 09/20 PO 0750 Ampicillin Sodium/ 3,000 MG Q6H 04/14 2030 AC 09/21 Sulbactam Sodium IV 0155 Sodium Chloride 100 ML Atorvastatin Calcium 20 MG 1700 09/18 1700 AC 09/20 PO 1642 Glycerin 2 SPRAY Q2P PRN 09/16 1430 AC 09/17 PO 1419 Heparin Sodium 5,000 UNIT Q8 09/15 0600 AC 09/21 (Porcine) SC 0510 Hydromorphone HCl 4 MG Q4-6 PRN PRN 09/20 1530 AC 09/21 PO 0354 Hydromorphone HCl 1 MG Q3P PRN 09/20 0930 AC 09/21 IV 0510 Hydromorphone HCl 1.5 MG Q4 HRS NEEDED PRN 09/20 0915 DC 09/20 IV 0904 Hydromorphone HCl 1 MG Q4 HRS NEEDED PRN 09/19 0845 DC 09/20 IV 0529 Lactated Ringer's 1,000 ML Q20H 09/19 1845 AC 09/20 IV 1857 [place] Carbonate 1,500 MG DAILY 09/18 0900 AC 09/20 PO 0750 Losartan Potassium 100 MG DAILY 09/18 0900 AC 09/20 PO 0750 Morphine Sulfate 2 MG ONCE ONE 09/20 0745 DC 09/20 IV 09/20 0746 0750 Ondansetron HCl 4 MG Q6P PRN 09/14 2245 AC IV Last 24 Hrs of Lab/David Results Last 24 Hrs of Labs/Mics: Laboratory Tests 09/20/17 1250: Anion Gap 12, Estimated GFR > 60, BUN/Creatinine Ratio 15.0, Total Bilirubin 1.2 , Direct Bilirubin 0.7 H, AST 60 H, ALT 187 H, Alkaline Phosphatase 142 H, Total Protein 5.9 L, Albumin 3.1 L, Lipase 220, CBC w Diff NO MAN DIFF REQ, RBC 3.95 L, MCV 91.1, MCH 30.3, MCHC 33.3, RDW 14.9 H, MPV 8.0, Gran % 79.9 H , Lymphocytes % 10.3 L, Monocytes % 8.9, Eosinophils % 0.9, Basophils % 0, Absolute Granulocytes 16.5 H, Absolute Lymphocytes 2.1, Absolute Monocytes 1.8 H, Absolute Eosinophils 0.2, Absolute Basophils 0 Assessment/Plan Assessment: Mr. Carbone is a 47 year old man with past medical history of bipolar disorder, hypertension, and hyperlipidemia presented with acute onset abdominal associated with nausea, diarrhea, and chills secondary to gallstone pancreatitis now status post ERCP. He was initially admitted to the ICU and then transferred to general medicine on 09/18/17 after stabilization of his condition. Problem list: 1. Gallstone pancreatitis status post ERCP 2. Transaminitis 3. Exophytic lesion arising from right kidney #Gallstone pancreatitis status post ERCP: Patient has been maintained on lactated Ringer's but has had increasing pain medication requirements. Gastroenterology is following. He is status post ERCP. He will likely need cholecystectomy in 6-[address] on 09/19/17 showed a volume of abdominal ascites around the pancreas extending into the mesentery significantly increased but there is no pseudocyst formation in the enhancement and the pancreas remains normal with no evidence of pancreatic necrosis. -Hydromorphone 4 mg by mouth every 46 hours when necessary -Hydromorphone 1 mg IV every 3 hours when necessary -Consider switching to morphine -No NSAIDs -Lactated Ringer's 50 mL per hour -Clear liquid diet -Appreciate gastroenterology and general surgery conditions -Ondansetron as necessary -ampicillin/sulbactam -PICC line for TPN #Transaminitis: Liver enzymes are slightly uptrending. -Hold acetaminophen -Avoid hepatotoxins #Exophytic lesion arising from right kidney: Incidental finding. -Follow up with nephrology as an outpatient. #Chronic medical problems: -Continue lithium -Continue amlodipine and losartan -Continue other home medications DVT prophylaxis with heparin Liquid diet Full code Problem List: 1. Gallstone pancreatitis Pain Ratin Pain Location: abd Pain Goal: Remain pain free Pain Plan: see a/p Tomorrow's Labs & Rationales: cbc, bep, lft, albumin, prealbumin
[2017-09-21 09:30] LABS: ABSOLUTE BASOPHIL COUNT 0 /CUMM (0.0-0.2); ABSOLUTE EOSINOPHIL COUNT 0.3 /CUMM (0.0-0.7); ABSOLUTE GRANULOCYTE CT 19.5 /CUMM (1.4-6.5); ABSOLUTE LYMPH COUNT 1.4 /CUMM (1.2-3.4); BASOPHIL % 0.1 % (0.0-2.0); EOSINOPHIL % 1.4 % (0-5); HEMATOCRIT 36.1 % (42-52); MEAN CORPUSCULAR HGB 29.9 PG (27.0-31.0); MEAN CORPUSCULAR HGB CONC 32.6 G/DL (33.0-37.0); MEAN CORPUSCULAR VOLUME 91.6 FL (80.0-94.0); PLATELET COUNT 500 /CUMM (130-400); RBC DISTRIBUTION WIDTH 15.7 % (11.5-14.5); RED BLOOD CELL CT 3.94 /CUMM (4.70-6.10); WHITE BLOOD CELL COUNT 22.2 /CUMM (4.8-10.8)
--- NOTE | 2017-09-21 13:40 | RADIOLOGY REPORT ---
EXAMINATION: XR PORTABLE CHEST CLINICAL INFORMATION: Right arm PICC placement. COMPARISON: Chest x-ray 2017. TECHNIQUE: Portable AP 65 degrees semiupright view of the chest was obtained. FINDINGS: The lung muñiz are hypoexpanded, with bronchovascular crowding at the bases. There is no focal consolidation. The cardiac silhouette is normal. There is a new PICC line from the right with the tip at the cavoatrial junction. There are no pleural effusions or pneumothorax. The central pulmonary vasculature is normal. The hilar regions appear normal. There are no acute osseous findings. IMPRESSION: 1. PICC line from the right with the tip at the cavoatrial junction. 2. No pneumothorax or acute cardiopulmonary findings are demonstrated.
[2017-09-21 15:04] VITALS: BP 140/80
--- NOTE | 2017-09-21 19:06 | PN- Gastroenterology ---
Assessment/Plan GI Assessment/Recommendations: (*The patient was initially seen & examined on 09/18/17. His extensive records were reviewed. I assumed the patient's inpt GI care on 09/18/17. Dr. Erika Gamboa 's GI consult 0f 09/15/17 was reviewed, along with subsequent progress notes, labs, imaging studies, & 09/15/17: ERCP). 47 y/o male, bipolar disorder, HTN, HLD, heroin addict, hx cocaine, mild smoker, non-EtOH, admitted to [facility] 09/14/17, after being in rehabilitation in [place], where he developed abdominal pain & was told it was from the gallbladder. Upon admission to [place], he had moderate to severe gallstone pancreatitis with an impacted stone in the ampulla, removed via 09/15/17: ERCP/ ES, followed by progressive decline in LFTs, although there were still elevated. Plans were to have lap CCKY at the end of this admission, but the patient had persistent abdominal pain, possibly implying ongoing pancreatic inflammation. * Please note, 09/14/17: Admission Utox: +OP/MS; [EtOH] < 10. 09/15/17: *nl TG 106. 06/10/10: HIV- neg. 09/15/17: HAVM, Hep Bs Ag, Hep B core Ab, & Hep C Ab- all neg. IV Unasyn was stopped 09/17/17. *As of 09/18/17, he was still getting po Dilaudid, Zofran, & IV MS. He was on IV Lactated Ringers at 250cc/hr & was being followed by surgery. *The pt was moved from the ICU to [facility] on 09/18/17. Medical & surgical notes appreciated. He was complaining of diffuse abdominal pain despite narcotic analgesics. He had mild nausea but no recurrent vomiting. He denies any fevers , chills, jaundice, chest pain, or shortness of breath. He was started on clears, but is now NPO. Surgery is holding off on CCKY, in view of his ongoing symptoms. *As of 09/18/17, the patient was hypertensive, nontachycardic, with O2 sat RA 95%, Tm 99.3. His BC had remained negative. His leukocytosis was improving. His H/H had dropped appropriately after IV fluids, going against hemoconcentration. *As of 09/19/17, the patient was somewhat hypertensive, but no longer tachycardic. He was afebrile, with Tm 99.3. He still had subjective abdominal pain, requiring narcotic analgesics (*please note, hx substance abuse & bipolar disorder, so difficult to assess). His MS was switched to IV Dilaudid 1mg Q4h. His nausea & vomiting had improved. He denied any jaundice, CP, SOB, or chills. He tolerated clears po on 09/18/17, but was made NPO for repeat CT with pancreatic protocol on 09/19/17, in order to better objectively reassess his pancreas. His IV lactated Ringer's was just held per surgery, pending the CT results. He was constipated from the narcotic analgesics, with his last BM approximately 4 days ago. He was not obstipated, but was a little bloated. Toradol was D/C 09/19/17, after 2 doses. There was no lab evidence of hemoconcentration, as his H/H dropped appropriately, after IVF. 09/19/17: CT ABD & PELVIS W IV CONTRAST- IMPRESSION: 1. The volume of abdominal ascites around the pancreas and extending into the mesentery has significantly increased since the exam of 09/14/17. There is no pseudocyst formation. The enhancement of the pancreas remains normal with no evidence of pancreatic necrosis. No dilated PD. 2. There are bilateral pleural effusions and bibasilar infiltrate/atelectasis. *As of 09/20/17, the patient still had abdominal pain. His repeat 09/19/17: CT AP with pancreatic protocol showed worsening pancreatitis, albeit without pseudocyst or necrosis, with increased fluid collection around the pancreas, moreso since 09/14/17: CT, extending anteriorly into the mesentery and inferiorly to the stomach, as well as to the right kidney & right paracolic gutter, anterior to the liver. He denied any significant nausea & vomiting. He was bloated, without CP or SOB. He had a BM last p.m., wihtout needing Relistor. He denied any jaundice or chills. He was only takin minimal amounts of clears po & nutrition was becoming a problem. *As his pancreatitis had worsened, surgery wants to wait 6-8 weeks for lap CCKY. Oral narcotic analgesics are to be added to IV MS. I spoke with the patient regarding his past hx of substance abuse & the possibility for an indwelling PICC line. He denied any past hx IVDA. The patient was still HTN, but not tachycardic. He was essentially afebrile (Tm 99.7), with O2 sat RA 95%. His IV Ringers Lactate was dereased to 50cc/hr. 09/19/17: WBC 15.2 (82S/4B/8L/4M/2E), H/H 11.0/33.3, PLT 386, BUN/Cr 10/0.5, GFR > 60, Na 138, K 3.3, HCO3 23, AG 8, lipase 134, albumin 2.4, globulin 2.3, TBil 1.0, DBil 0.7, alk phos 97, AST 48, ALT 171, TSHR 2.09, *CRP > 9.0 09/20/17: WBC 20.7 (80% gran/17 gran Ab), H/H 12/36, PLT 443, BUN/Cr 9/0.6, GFR > 60, Na 137, K 4.4, HCO3 23, AG 12, lipase 220, albumin 3.1, globulin 2.8, TBil 1.2, DBil 0.7, alk phos 142, AST 60, ALT 187. 09/21/17: XR PORTABLE CHEST- IMPRESSION: 1. PICC line from the right with the tip at the cavoatrial junction. 2. No pneumothorax or acute cardiopulmonary findings are demonstrated. *As of 09/21/17, the patient's BP was under better control 140/80. He was borderline tachycardic, with T 99.2 (Tm 100.8) & O2 sat RA 92%. He denied any chills. He remained with leukocytosis. Previous BC were negative. *A PICC line was placed in the RUE per IR earlier on 09/21/17, for TPN access. He remained with abdominal pain, which was slightly improving, being managed by the medical team. His po Dilaudid was switched to a Fentanyl patch 12 mcg Q 72h, & his IV MS was continued foir breakthrough sx. He did note increased abdominal bloating. He denied any nausea or vomiting. He tolerated small amounts of Jell-O, but otherwise could not tolerate any additional clears po, except for a few sips of H2O. Unasyn, which had been resumed per surgery, was once again D/C on 09/21/17. He currently denied obstipation. His constipation was stable. He was ambulating. 09/21/17: WBC 22.2 (88% gran/20 gran Ab), H/H 11.8/36.1, PLT 500, BUN/Cr 11/0.7, GFR > 60, Na 137, K 4.0, HCO3 22, AG 14, albumin 3.1, globulin 2.8, TBil 1.0, DBil 0.6, alk phos 145, AST 69, ALT 187 (*post 09/15/17: ERCP with ES; Hep A, B, & C serologies-neg). *SUGGEST: *To start TPN vis RUE PICC, placed 09/21/17. Sips of clears po. *Lap CCKY willprobably not be done for another 6-8 weeks, due to worsening pancreatitis on 09/19/17: CT AP with IV cont (although no necrosis), & the patient will not be able to sustain himself nutrtionally. Dilaudid po switched to Fentanyl patch 12 mcg Q72h, & IV MS for breakthrough sx, per medical team. Zofran prn. Follow-up labs (CBC, lytes, GFR, LFT). *No definite indx for antibiotics, but culture if temp spikes (Unasyn was previously D/C 09/17/17, resumed by surgery on 09/19/17, & again D/C on ). Avoid NSAIDS. *BP control, as per medical team. * Constipation is probably from narcotic analgesics.*Consider Relistor ( Methylnaltrexone) 12 mg sc Q48 hrs as needed, for narcotic induced constipation, although the patient had a BM 09/20/17. Follow-up with surgery. DVT prophylaxis. Mobilize patient. The patient was previously told to follow up with his PMD or a urologist upon discharge, to follow up the exophytic right renal lesion incidentally noted on admission 09/14/17: CT AP with IV cont. The case was again discussed with the patient's RN & previously with Dr. Jarvis, of surgery, & Dr. Mendes, who concur. *Further GI recommendations to follow, depending on clinical course. Problem List: 1. Pancreatitis 2. Abdominal pain 3. Elevated LFTs 4. Leukocytosis 5. Choledocholithiasis 6. S/P ERCP 7. Substance abuse 8. Bipolar 1 disorder 9. Malnutrition Subjective Subjective: 09/21/17: XR PORTABLE CHEST- IMPRESSION: 1. PICC line from the right with the tip at the cavoatrial junction. 2. No pneumothorax or acute cardiopulmonary findings are demonstrated. *As of 09/21/17, the patient's BP was under better control 140/80. He was borderline tachycardic, with T 99.2 (Tm 100.8) & O2 sat RA 92%. He denied any chills. He remained with leukocytosis. Previous BC were negative. *A PICC line was placed in the RUE per IR earlier on 09/21/17, for TPN access. He remained with abdominal pain, which was slightly improving, being managed by the medical team. His po Dilaudid was switched to a Fentanyl patch 12 mcg Q 72h, & his IV MS was continued foir breakthrough sx. He did note increased abdominal bloating. He denied any nausea or vomiting. He tolerated small amounts of Jell-O, but otherwise could not tolerate any additional clears po, except for a few sips of H2O. Unasyn, which had been resumed per surgery, was once again D/C on 09/21/17. He currently denied obstipation. His constipation was stable. He was ambulating. 09/21/17: WBC 22.2 (88% gran/20 gran Ab), H/H 11.8/36.1, PLT 500, BUN/Cr 11/0.7, GFR > 60, Na 137, K 4.0, HCO3 22, AG 14, albumin 3.1, globulin 2.8, TBil 1.0, DBil 0.6, alk phos 145, AST 69, ALT 187 (*post 09/15/17: ERCP with ES; Hep A, B, & C serologies-neg). Review of Systems: Full 14 point review of systems otherwise noncontributory, and as above. Constitutional: Reports: no symptoms. EENTM: Reports: no symptoms. Cardiovascular: Reports: no symptoms. Respiratory: Reports: no symptoms. GI: Reports: abdominal pain & bloating; n & v- better, stable constipation Genitourinary: Reports: no symptoms. Musculoskeletal: Reports: no symptoms. Skin: Reports: no symptoms. Neurological/Psychological: Reports: hx bipolar disorder & hx substance abuse. Hematologic/Endocrine: Reports: no symptoms. Immunologic/Allergic: Reports: no symptoms. All Other Systems: Reviewed and Negative Objective Vital Signs and I&Os Vital Signs Date Time Temp Pulse Resp B/P B/P Pulse O2 O2 Flow FiO2 Mean Ox Delivery Rate 09/21 1504 99.2 104 20 140/80 92 09/21 0918 98.6 96 20 150/98 09/21 0743 98.6 96 20 150/98 09/21 0625 98.6 96 20 150/98 94 Room Air 09/20 2221 100.8 99 20 160/110 94 Room Air Intake & Output 09/21 1600 09/21 0400 09/20 1600 09/20 0400 09/19 1600 09/19 0400 Intake Total 7673 869 7109 1000 1825 1050 Output Total 1900 1000 2450 1400 2175 2650 Balance -240 -200 -1120 -400 -350 -1600 Intake, IV 400 400 381 281 5250 600 Intake, Oral 1260 400 680 400 100 450 Number 1 2 0 Bowel Movements Output, Urine 1900 1000 2450 1400 2175 2650 Patient 209 lb Weight Physical Exam: Well-developed, well-nourished, obese male, in mild distress. Sclera anicteric. Conjunctiva pink. Oropharynx clear. Slightly dry mucous membranes. There is no adenopathy, thyromegaly, or JVD. No peripheral stigmata of inflammatory bowel disease or chronic liver disease on exam. No spiders on the anterior chest. No gynecomastia. No CVA tenderness. Lungs: clear to A&P, with slight decreased breath sounds at the bases B/L. Heart exam: regular rate rhythm, S1 and S2, without any murmur. Abdominal exam: slightly hypoactive bowel sounds, mildly distended belly, mild epigastric > LUQ tenderness, mild guarding, no rebound. Negative Bazan sign. No definite mass or organomegaly. ? Mild fluid shift. No pulsatile mass. No epigastric bruit. Digital rectal exam: deferred. Extremities: without C, C, or E. No palpable cords. RUE PICC site clean, without gross phlebitis or cellulitis. Distal pulses 2+ bilaterally. DTRs 2+ bilaterally. No palmar erythema. No Dupuytren's contractures. Alert and oriented x 3. No tremor. No asterixis. Current Medications: Current Medications Sig/Carrington Start time Last Medication Dose Route Stop Time Status Admin Acetaminophen 1,000 MG .STK-MED ONE 09/21 0628 DC IV 09/21 0629 Acetaminophen 1,000 MG .STK-MED ONE 09/20 2150 DC IV 09/20 2151 Acetaminophen 1,000 MG Q6P PRN 09/14 2300 DC 09/21 IV 0629 Amlodipine Besylate 5 MG DAILY 09/19 1400 AC 09/21 PO 0743 Ampicillin Sodium/ 3,000 MG Q6H 09/19 2030 DC 09/21 Sulbactam Sodium IV 1436 Sodium Chloride 100 ML Atorvastatin Calcium 20 MG 1700 09/18 1700 AC 09/21 PO 1834 Fat Emulsion 100 ML Q24H 09/21 1900 AC Intravenous IV 09/22 1859 Fentanyl Citrate 12 MCG Q72H 09/21 1045 AC 09/21 TOP 1043 Glycerin 2 SPRAY Q2P PRN 09/16 1430 AC 09/17 PO 1419 Heparin Sodium 5,000 UNIT Q8 09/15 0600 AC 09/21 (Porcine) SC 1437 Hydromorphone HCl 2 MG ONCE ONE 09/21 1045 DC 09/21 IV 09/21 1046 1044 Hydromorphone HCl 4 MG Q4-6 PRN PRN 09/20 1530 DC 09/21 PO 0812 Hydromorphone HCl 1 MG Q3P PRN 09/20 0930 DC 09/21 IV 0510 Lactated Ringer's 1,000 ML Q6H 09/21 1145 AC 09/21 IV 1835 Lactated Ringer's 1,000 ML Q20H 09/19 1845 DC 09/20 IV 1857 [place] Carbonate 1,500 MG DAILY 09/18 0900 AC 09/21 PO 0743 Losartan Potassium 100 MG DAILY 09/18 0900 AC 09/21 PO 0918 Morphine Sulfate 3 MG Q4-PRN PRN 09/21 1045 AC 09/21 IV 1835 Ondansetron HCl 4 MG Q6P PRN 09/14 2245 AC IV Total Parenteral 1 UNIT 1900 09/21 1900 AC Nutrition IV 09/22 1859 Results Pertinent Lab Results: Laboratory Tests 09/21 09/20 0820 1250 Chemistry Sodium (137 - 145 mmol/L) 137 137 Potassium (3.5 - 5.1 mmol/L) 4.0 4.4 Chloride (98 - 107 mmol/L) 101 102 Carbon Dioxide (22 - 30 mmol/L) 22 23 Anion Gap (5 - 16) 14 12 BUN (9 - 20 mg/dL) 11 9 Creatinine (0.7 - 1.2 mg/dL) 0.7 0.6 L Estimated GFR (>60 ml/min) > 60 > 60 BUN/Creatinine Ratio (7 - 25 %) 15.7 15.0 Total Bilirubin (0.2 - 1.3 mg/dL) 1.0 1.2 Direct Bilirubin (< 0.4 mg/dL) 0.6 H 0.7 H AST (17 - 59 U/L) 69 H 60 H ALT (21 - 72 U/L) 187 H 187 H Alkaline Phosphatase (< 127 U/L) 145 H 142 H Total Protein (6.3 - 8.2 g/dL) 5.9 L 5.9 L Albumin (3.5 - 5.0 g/dL) 3.1 L 3.1 L Lipase (23 - 300 U/L) 220 Hematology CBC w Diff NO MAN DIFF REQ NO MAN DIFF REQ WBC (4.8 - 10.8 /CUMM) 22.2 H 20.7 H RBC (4.70 - 6.10 /CUMM) 3.94 L 3.95 L Hgb (14.0 - 18.0 G/DL) 11.8 L 12.0 L Hct (42 - 52 %) 36.1 L 36.0 L MCV (80.0 - 94.0 FL) 91.6 91.1 MCH (27.0 - 31.0 PG) 29.9 30.3 MCHC (33.0 - 37.0 G/DL) 32.6 L 33.3 RDW (11.5 - 14.5 %) 15.7 H 14.9 H Plt Count (130 - 400 /CUMM) 500 H 443 H MPV (7.4 - 10.4 FL) 8.0 8.0 Gran % (42.2 - 75.2 %) 88.0 H 79.9 H Lymphocytes % (20.5 - 51.1 %) 6.1 L 10.3 L Monocytes % (1.7 - 9.3 %) 4.4 8.9 Eosinophils % (0 - 5 %) 1.4 0.9 Basophils % (0.0 - 2.0 %) 0.1 0 Absolute Granulocytes (1.4 - 6.5 /CUMM) 19.5 H 16.5 H Absolute Lymphocytes (1.2 - 3.4 /CUMM) 1.4 2.1 Absolute Monocytes (0.10 - 0.60 /CUMM) 1.0 H 1.8 H Absolute Eosinophils (0.0 - 0.7 /CUMM) 0.3 0.2 Absolute Basophils (0.0 - 0.2 /CUMM) 0 0 09/20 03/14 1320 1320 Chemistry Sodium (137 - 145 mmol/L) 138 Potassium (3.5 - 5.1 mmol/L) 3.3 L Chloride (98 - 107 mmol/L) 108 H Carbon Dioxide (22 - 30 mmol/L) 23 Anion Gap (5 - 16) 8 BUN (9 - 20 mg/dL) 10 Creatinine (0.7 - 1.2 mg/dL) 0.5 L Estimated GFR (>60 ml/min) > 60 BUN/Creatinine Ratio (7 - 25 %) 20.0 Total Bilirubin (0.2 - 1.3 mg/dL) 1.0 Direct Bilirubin (< 0.4 mg/dL) 0.7 H AST (17 - 59 U/L) 48 ALT (21 - 72 U/L) 171 H Alkaline Phosphatase (< 127 U/L) 97 C-Reactive Prot, Quant (<1.0 mg/dL) > 9.0 H C-React Prot High Sens (1.0 - 3.0 mg/L) > 15.0 H Total Protein (6.3 - 8.2 g/dL) 4.7 L Albumin (3.5 - 5.0 g/dL) 2.4 L Lipase (23 - 300 U/L) 134 TSH &T3 &Free T4 Intrp (0.27 - 4.20 uIU/mL) 2.090 Hematology CBC w Diff MAN DIFF ORDERED WBC (4.8 - 10.8 /CUMM) 15.2 H RBC (4.70 - 6.10 /CUMM) 3.63 L Hgb (14.0 - 18.0 G/DL) 11.0 L Hct (42 - 52 %) 33.3 L MCV (80.0 - 94.0 FL) 91.8 MCH (27.0 - 31.0 PG) 30.3 MCHC (33.0 - 37.0 G/DL) 33.0 RDW (11.5 - 14.5 %) 14.6 H Plt Count (130 - 400 /CUMM) 386 MPV (7.4 - 10.4 FL) 8.4 Segmented Neutrophils (42.2 - 75.2 %) 82 H Band Neutrophils (0.0 - 5.0 %) 4 Lymphocytes (20.5 - 51.1 %) 8 L Monocytes (1.7 - 9.3 %) 4 Eosinophils (0 - 5.0 %) 2 Platelet Estimate (ADEQUATE) ADEQUATE Anisocytosis 1+ ESR Westergren (0 - 10 MM) 92 H Other Body Source Fld Total RBCs Counted (%) 100 Imaging/Other Studies: 09/14/17: EKG- SB @ 59, nl axis, nl intervals, no acute ischemia. 09/14/17: CT ABD & PELVIS W IV CONTRAST- IMPRESSION: Choledocholithiasis resulting in mild obstructive biliary ductal dilatation and secondary pancreatitis. Additional mild mucosal hyperemia, surrounding inflammatory change and mild wall thickening of the gastric antrum and duodenum. Exophytic 1.4 cm low-density nodular lesion arising from the posterior cortex of the right kidney which does not measure simple fluid and was not present on previous imaging from 2006. Although this may represent a proteinaceous or hemorrhagic cyst, a dedicated renal ultrasound is recommended in order to rule out a solid mass. Imaging findings discussed with Dr. Hernandez at 9:07 PM on 09/14/2017. DICTATED BY: Rubens Alejandra MD DATE/TIME DICTATED:09/14/17205009/15/17: *ERCP with ES/stone extraction, per Dr. Rachel Gamboa- Impression: * Choledocholithiasis (stone impacted in ampulla), treated with sphincterotomy and extraction. 09/15/17: XRY-PORTABLE CHEST XRAY- Very limited study, oblique projection. Left costophrenic angle is excluded from the film margin, no large effusions. 09/19/17: CT ABD & PELVIS W IV CONTRAST- IMPRESSION: 1. The volume of abdominal ascites around the pancreas and extending into the mesentery has significantly increased since the exam of 09/14/17. There is no pseudocyst formation. The enhancement of the pancreas remains normal with no evidence of pancreatic necrosis. No dilated PD. 2. There are bilateral pleural effusions and bibasilar infiltrate/atelectasis. 09/21/17: XR PORTABLE CHEST-
[2017-09-21 22:59] VITALS: BP 170/96
[2017-09-22 06:35] VITALS: BP 142/88
--- NOTE | 2017-09-22 07:41 | PN- Housestaff ---
See Addendum Subjective Follow-up For: Pancreatitis Subjective: Patient fever to 100.5 last night. He says his pain is not well controlled. Pain scores are 610 overnight. He is experiencing a lot of abdominal pain this morning but no nausea. He says he can't get comfortable. Review of Systems Constitutional: Reports: no symptoms. EENTM: Reports: no symptoms. Cardiovascular: Reports: no symptoms. Respiratory: Reports: no symptoms. Gastrointestinal: Reports: see HPI. Genitourinary: Reports: no symptoms. Musculoskeletal: Reports: no symptoms. Skin: Reports: no symptoms. Neurological/Psychological: Reports: no symptoms. Hematologic/Endocrine: Reports: no symptoms. Immunologic/Allergic: Reports: no symptoms. Objective Last 24 Hrs of Vital Signs/I&O Vital Signs Date Time Temp Pulse Resp B/P B/P Pulse O2 O2 Flow FiO2 Mean Ox Delivery Rate 09/22 0635 99.4 95 20 142/88 94 Room Air 09/21 2259 100.5 96 20 170/96 93 Room Air 09/21 1504 99.2 104 20 140/80 92 09/21 0918 98.6 96 20 150/98 09/21 0743 98.6 96 20 150/98 Intake & Output 09/22 0800 09/22 0000 09/21 1600 Intake Total 1927.2 1291.8 800 Output Total 2350 1200 1250 Balance -422.8 91.8 -450 Intake, IV 1200 1200 Intake, Lipid 33.6 8.4 Intake, Oral 360 800 Intake, 333.6 83.4 TPN/PPN Output, Urine 2350 1200 1250 Patient 94.8 kg Weight Physical Exam General Appearance: Alert, Oriented X3, Cooperative, No Acute Distress Cardiovascular: Regular Rate, Normal S1, Normal S2 Lungs: Clear to Auscultation Abdomen: Normal Bowel Sounds, Soft, No Tenderness Extremities: No Edema, Normal Pulses, No Tenderness/Swelling Current Medications: Current Medications Sig/[place] Start time Last Medication Dose Route Stop Time Status Admin Acetaminophen 1,000 MG Q6P PRN 09/14 2300 DC 09/21 IV 0629 Amlodipine Besylate 5 MG DAILY 09/19 1400 AC 09/21 PO 0743 Ampicillin Sodium/ 3,000 MG Q6H 09/19 2030 DC 09/21 Sulbactam Sodium IV 1436 Sodium Chloride 100 ML Atorvastatin Calcium 20 MG 1700 09/18 1700 AC 09/21 PO 1834 Fat Emulsion 100 ML Q24H 09/21 1900 AC 09/21 Intravenous IV 09/22 1859 1952 Fentanyl Citrate 12 MCG Q72H 09/21 1045 AC 09/21 TOP 1043 Glycerin 2 SPRAY Q2P PRN 09/16 1430 AC 09/17 PO 1419 Heparin Sodium 5,000 UNIT Q8 09/15 0600 AC 09/22 (Porcine) SC 0623 Hydromorphone HCl 2 MG ONCE ONE 09/21 1045 DC 09/21 IV 09/21 1046 1044 Hydromorphone HCl 4 MG Q4-6 PRN PRN 09/20 1530 DC 09/21 PO 0812 Hydromorphone HCl 1 MG Q3P PRN 09/20 0930 DC 09/21 IV 0510 Lactated Ringer's 1,000 ML Q6H 09/21 1145 r 09/22 IV 0407 Lactated Ringer's 1,000 ML Q20H 09/19 1845 DC 09/20 IV 1857 [place] Carbonate 1,500 MG DAILY 09/18 0900 AC 09/21 PO 0743 Losartan Potassium 100 MG DAILY 09/18 0900 AC 09/21 PO 0918 Morphine Sulfate 4 MG ONCE ONE 09/22 0745 UNVr IV 09/22 0746 Morphine Sulfate 5 MG Q4-PRN PRN 09/22 0745 UNVr IV Morphine Sulfate 3 MG Q4-PRN PRN 09/21 2245 DC 09/22 IV 0624 Morphine Sulfate 4 MG .STK-MED ONE 09/21 1428 DC IM 09/21 1429 Morphine Sulfate 3 MG Q4-PRN PRN 09/21 1045 DC 09/21 IV 1835 Ondansetron HCl 4 MG Q6P PRN 09/14 2245 IV Total Parenteral 1 UNIT 1900 09/21 1900 AC 09/21 Nutrition IV 09/22 1859 1945 Last 24 Hrs of Lab/David Results Last 24 Hrs of Labs/Mics: Laboratory Tests 09/22/17 0620: Sodium Pending, Potassium Pending, Chloride Pending, Carbon Dioxide Pending, Anion Gap Pending, BUN Pending, Creatinine Pending, BUN/Creatinine Ratio Pending , Total Bilirubin Pending, Direct Bilirubin Pending, AST Pending, ALT Pending, Alkaline Phosphatase Pending, Total Protein Pending, Albumin Pending, Prealbumin Pending, CBC w Diff Pending, WBC Pending, RBC Pending, Hgb Pending, Hct Pending, MCV Pending, MCH Pending, MCHC Pending, RDW Pending, Plt Count Pending, MPV Pending 09/21/17 0820: Anion Gap 14, Estimated GFR > 60, BUN/Creatinine Ratio 15.7, Total Bilirubin 1.0 , Direct Bilirubin 0.6 H, AST 69 H, ALT 187 H, Alkaline Phosphatase 145 H, Total Protein 5.9 L, Albumin 3.1 L, CBC w Diff NO MAN DIFF REQ, RBC 3.94 L, MCV 91.6, MCH 29.9, MCHC 32.6 L, RDW 15.7 H, MPV 8.0, Gran % 88.0 H, Lymphocytes % 6.1 L, Monocytes % 4.4, Eosinophils % 1.4, Basophils % 0.1, Absolute Granulocytes 19.5 H, Absolute Lymphocytes 1.4, Absolute Monocytes 1.0 H, Absolute Eosinophils 0.3, Absolute Basophils 0 Assessment/Plan Assessment: Mr. Carbone is a 47 year old man with past medical history of bipolar disorder, hypertension, and hyperlipidemia presented with acute onset abdominal associated with nausea, diarrhea, and chills secondary to gallstone pancreatitis now status post ERCP. He was initially admitted to the ICU and then transferred to general medicine on 09/18/17 after stabilization of his condition. Problem list: 1. Gallstone pancreatitis status post ERCP 2. Transaminitis 3. Exophytic lesion arising from right kidney #Gallstone pancreatitis status post ERCP: Patient has been maintained on lactated Ringer's but has had increasing pain medication requirements. Gastroenterology is following. He is status post ERCP. He will likely need cholecystectomy in 6-[address] on 09/19/17 showed a volume of abdominal ascites around the pancreas extending into the mesentery significantly increased but there is no pseudocyst formation in the enhancement and the pancreas remains normal with no evidence of pancreatic necrosis. -Fentanyl patch, increase to 25 g every 72 hours. -Increase morphine to 5 mg every 4 hours when necessary pain -Consider adding oral morphine -No NSAIDs -Lactated Ringer's 75 mL per hour, adjust per TPN protocol -Continue TPN -Nothing by mouth -Appreciate gastroenterology and general surgery conditions -Ondansetron as necessary #Transaminitis: Liver enzymes are slightly downtrending today -Hold acetaminophen -Avoid hepatotoxins #Exophytic lesion arising from right kidney: Incidental finding. -Follow up with nephrology as an outpatient. #Chronic medical problems: -Continue lithium -Continue amlodipine and losartan -Continue other home medications DVT prophylaxis with heparin NPO Full code Problem List: 1. Gallstone pancreatitis Pain Ratin Pain Location: abd Pain Goal: Remain pain free Pain Plan: see a/p Tomorrow's Labs & Rationales: cbc., bep, lft
[2017-09-22 09:26] LABS: ABSOLUTE BASOPHIL COUNT 0.1 /CUMM (0.0-0.2); ABSOLUTE EOSINOPHIL COUNT 0.2 /CUMM (0.0-0.7); ABSOLUTE GRANULOCYTE CT 20.6 /CUMM (1.4-6.5); ABSOLUTE LYMPH COUNT 1.4 /CUMM (1.2-3.4); ABSOLUTE MONOCYTE COUNT 1.9 /CUMM (0.10-0.60); BASOPHIL % 0.4 % (0.0-2.0); MEAN CORPUSCULAR HGB 29.9 PG (27.0-31.0); MEAN CORPUSCULAR HGB CONC 33.1 G/DL (33.0-37.0); MEAN CORPUSCULAR VOLUME 90.3 FL (80.0-94.0); MEAN PLATELET VOLUME 8.2 FL (7.4-10.4); PLATELET COUNT 497 /CUMM (130-400); RBC DISTRIBUTION WIDTH 15.2 % (11.5-14.5); RED BLOOD CELL CT 3.77 /CUMM (4.70-6.10)
[2017-09-22 10:08] LABS: WHITE BLOOD CELL COUNT 24.2 /CUMM (4.8-10.8)
--- NOTE | 2017-09-22 11:35 | Cons- Infect Disease ---
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 On admission he was afebrile. Laboratory data revealed a white blood cell count of 14,000, BUN/creatinine 14 and 1.0, lipase greater than 40,000, bilirubin 4.4, alkaline phosphatase 282, AST/ALT 697 and 1330, coags normal. Urinalysis negative. CT of the abdomen and pelvis revealed choledocholithiasis, with mild obstructive biliary ductal dilatation and secondary pancreatitis, and with an exophytic 1.4 cm nodular lesion in the posterior cortex of the right kidney. He was begun on Unasyn and underwent an ERCP with sphincterotomy and stone extraction on September 15. His white blood cell count initially increased to 23, 000 but decreased to 17,000 on September 17. The Unasyn was discontinued on September 17, restarted on September 19 and again discontinued on September 21. He remained afebrile until September 20, since which he has had low-grade fevers. His pancreatic and liver enzymes have decreased, but he continues to complain of abdominal pain. He was begun on clears but was unable to tolerate them and he has been mostly NPO, except for sips of water, with TPN begun on September 21 via a PICC line. He does note difficulty in taking a deep breath but offers no other complaints. Allergies/Medications Allergies: Coded Allergies: NO KNOWN ALLERGIES (NONE 09/18/17) Home Med List: Slaughter Carbonate (Slaughter Carbonate ER) 300 MG TABLET.ER 5 TAB PO AT BEDTIME MOOD STABILITY (Reported) Losartan (Cozaar) 100 MG TABLET 1 TAB PO DAILY HIGH BLOOD PRESSURE (Reported) Simvastatin (Simvastatin*) 40 MG TABLET 1 TAB PO QPM HIGH CHOLESTROL ( Reported) Past History Travel History Traveled to [place] past 21 day No Medical History Cardiovascular: hypertension, hyperlipidemia Psychiatric: bipolar disease History of MRSA: No History of VRE: No History of CDIFF: No Isolation History: Standard Tetanus Vaccine: Surgical History Surgical History: non-contributory Family History Relations & Conditions If Any: FATHER, ; Cause: Lung cancer. FH: lung cancer Relation not specified for: FH: hyperlipidemia FH: hypertension Psychosocial History Where Do You Live? Home Smoking Status: Current Everyday Smoker ETOH Use: denies use Illicit Drug Use: heroin (sobre for 1 month) Functional Ability ADLs Independent: dressing, eating, toileting, bathing. Ambulation: independent IADLs Independent: shopping, housework, finances, food prep, telephone, transportation , medication admin. Employment History Employment: Employed Profession/Employer: [employer] Review of Systems Review of Systems All Other Systems: Reviewed and Negative Exam & Diagnostic Data Last 24 Hrs of Vital Signs/I&O Vital Signs Date Time Temp Pulse Resp B/P B/P Pulse O2 O2 Flow FiO2 Mean Ox Delivery Rate 09/22 1040 90 154/110 09/22 1039 90 154/110 09/22 0635 99.4 95 20 142/88 94 Room Air 09/21 2259 100.5 96 20 170/96 93 Room Air 09/21 1504 99.2 104 20 140/80 92 Intake & Output 09/22 1600 09/22 0800 09/22 0000 Intake Total 1927.2 1291.8 Output Total 630 2350 1200 Balance -630 -422.8 91.8 Intake, IV 1200 1200 Intake, Lipid 33.6 8.4 Intake, Oral 360 Intake, 333.6 83.4 TPN/PPN Number 1 Bowel Movements Output, Urine 630 2350 1200 Patient 209 lb Weight Physical Exam Other Physical Findings: MAXIMUM TEMPERATURE 100.5. He is awake and alert in no acute distress. Skin reveals no rash. HEENT negative. Neck is supple with no adenopathy. Lungs decreased breath sounds at both bases. Heart regular rhythm with no murmur. Abdomen is distended, tender to palpation in the mid abdomen and epigastrium, with guarding but no rebound, and with positive bowel sounds. Back no CVA tenderness. Extremities no cyanosis, clubbing or edema. Neuro is without focality. Last 24 Hours of Lab Results: Laboratory Tests 09/22 0620 Chemistry Sodium (137 - 145 mmol/L) 139 Potassium (3.5 - 5.1 mmol/L) 4.3 Chloride (98 - 107 mmol/L) 101 Carbon Dioxide (22 - 30 mmol/L) 25 Anion Gap (5 - 16) 12 BUN (9 - 20 mg/dL) 9 Creatinine (0.7 - 1.2 mg/dL) 0.7 Estimated GFR (>60 ml/min) > 60 BUN/Creatinine Ratio (7 - 25 %) 12.9 Calcium (8.4 - 10.2 mg/dL) 8.4 Phosphorus (2.5 - 4.5 mg/dL) 4.1 Magnesium (1.6 - 2.3 mg/dL) 2.1 Total Bilirubin (0.2 - 1.3 mg/dL) 1.0 Direct Bilirubin (< 0.4 mg/dL) 0.5 H AST (17 - 59 U/L) 66 H ALT (21 - 72 U/L) 171 H Alkaline Phosphatase (< 127 U/L) 160 H Total Protein (6.3 - 8.2 g/dL) 5.7 L Albumin (3.5 - 5.0 g/dL) 3.0 L Prealbumin (17.6 - 36.0 mg/dL) 8.6 L Triglycerides (<150 mg/dL) Pending Hematology CBC w Diff NO MAN DIFF REQ WBC (4.8 - 10.8 /CUMM) 24.2 H RBC (4.70 - 6.10 /CUMM) 3.77 L Hgb (14.0 - 18.0 G/DL) 11.3 L Hct (42 - 52 %) 34.0 L MCV (80.0 - 94.0 FL) 90.3 MCH (27.0 - 31.0 PG) 29.9 MCHC (33.0 - 37.0 G/DL) 33.1 RDW (11.5 - 14.5 %) 15.2 H Plt Count (130 - 400 /CUMM) 497 H MPV (7.4 - 10.4 FL) 8.2 Gran % (42.2 - 75.2 %) 85.0 H Lymphocytes % (20.5 - 51.1 %) 5.7 L Monocytes % (1.7 - 9.3 %) 7.9 Eosinophils % (0 - 5 %) 1.0 Basophils % (0.0 - 2.0 %) 0.4 Absolute Granulocytes (1.4 - 6.5 /CUMM) 20.6 H Absolute Lymphocytes (1.2 - 3.4 /CUMM) 1.4 Absolute Monocytes (0.10 - 0.60 /CUMM) 1.9 H Absolute Eosinophils (0.0 - 0.7 /CUMM) 0.2 Absolute Basophils (0.0 - 0.2 /CUMM) 0.1 Last 24 Hours of David Results: Blood culture September 14 and September 15 negative Diagnostic Data Recent Imaging Findings: Chest x-ray September [address] of the abdomen and pelvis with contrast September 19 reveals small dependent bilateral pleural effusions with bibasilar consolidation/atelectasis; contracted gallbladder with no stones; a large collection of fluid surrounding the pancreas , increased from the previous study, and extending anteriorly in the mesentery; no evidence of pancreatic necrosis or pancreatic ductal dilatation; normal kidneys CT of the abdomen and pelvis with contrast September 14 reveals choledocholithiasis with mild obstructive biliary ductal dilatation and secondary pancreatitis; an exophytic 1.4 cm nodular lesion arising from the posterior cortex of the right kidney Assessment/Plan Assessment/Plan Impression: 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, 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 of mid- abdominal pain associated with intermittent nausea and diarrhea, admitted on September 14 with increased abdominal pain, associated with nausea and diaphoresis, found to be afebrile with a leukocytosis, a markedly elevated lipase and elevated liver enzymes and with a CT of the abdomen and pelvis revealing choledocholithiasis and obstructive biliary ductal dilatation, status post ERCP with sphincterotomy and stone extraction on the day after admission, now with low-grade fevers and increasing white blood cell count with a recent CT scan revealing increasing santos-pancreatic inflammation. His presentation is consistent with gallstone pancreatitis, complicated by choledocholithiasis, now 1 week status post ERCP and sphincterotomy, and with the development of a significant amount of peripancreatic inflammation, which is the most likely explanation for his low-grade fevers and increasing white blood cell count. The possibility of a secondary pancreatic infection must be considered, but there is no evidence of pancreatic necrosis on the recent CT scan; therefore this is less likely. He will, however, need to be followed closely for any change in his status, manifested either by a significant change in his pain, fever or white blood cell count, which would warrant a repeat CT scan of the abdomen and pelvis and IR guided aspiration if any pancreatic necrosis is identified. His liver enzymes have, for the most part, decreased and, as he has undergone a sphincterotomy, there should not be any significant concern for cholangitis at this point. In the absence of any evidence of infection he can continue be followed off antibiotics pending further evaluation. The significance of the exophytic lesion in the right kidney seen on the initial CT is unclear as it was not noted on the repeat CT. Suggestion: 1. Continue close monitoring of his abdominal symptoms, temperatures and white blood cell count 2. Repeat CT of the abdomen and pelvis with pancreatic protocol if any change in his condition as noted above 3. Further evaluation/review of the imaging regarding the exophytic right renal lesion per Medicine 4. Continue to follow off antibiotics pending above Consult Acknowledgment - Thank you for your consult request.
--- NOTE | 2017-09-22 12:11 | RADIOLOGY REPORT ---
EXAMINATION: XR ABDOMEN CLINICAL INDICATION: Nausea. Pancreatitis. Presumptive diagnosis of ileus. COMPARISON: CT scan of the abdomen and pelvis dated 09/19/2017. TECHNIQUE: AP view of the abdomen. FINDINGS: Compared to prior exam, interval decompression of the gas within the colon is seen with small amount of residual gas in small and large bowel loops noted. No abnormal distention of bowel loops is seen. Mild convex right lumbar scoliosis and multilevel moderate vertebral spondylosis is seen in the thoracolumbar spine. Degenerative changes also seen in the left hip joint. Sclerotic density along the iliac side of the sacroiliac joints bilaterally is noted. IMPRESSION: Interval decompression of small and large bowel loops.
[2017-09-22 14:48] VITALS: BP 142/80
[2017-09-22 21:48] VITALS: BP 142/84
--- NOTE | 2017-09-22 22:46 | PN- Gastroenterology ---
Assessment/Plan GI Assessment/Recommendations: (*The patient was initially seen & examined on 09/18/17. His extensive records were reviewed. I assumed the patient's inpt GI care on 09/18/17. Dr. Erika Gamboa 's GI consult 0f 09/15/17 was reviewed, along with subsequent progress notes, labs, imaging studies, & 09/15/17: ERCP). 47 y/o male, bipolar disorder, HTN, HLD, heroin addict, hx cocaine, mild smoker, non-EtOH, admitted to [facility] 09/14/17, after being in rehabilitation in [place], where he developed abdominal pain & was told it was from the gallbladder. Upon admission to [place], he had moderate to severe gallstone pancreatitis with an impacted stone in the ampulla, removed via 09/15/17: ERCP/ ES, followed by progressive decline in LFTs, although there were still elevated. Plans were to have lap CCKY at the end of this admission, but the patient had persistent abdominal pain, possibly implying ongoing pancreatic inflammation. * Please note, 09/14/17: Admission Utox: +OP/MS; [EtOH] < 10. 09/15/17: *nl TG 106. 06/10/10: HIV- neg. 09/15/17: HAVM, Hep Bs Ag, Hep B core Ab, & Hep C Ab- all neg. IV Unasyn was stopped 09/17/17. *As of 09/18/17, he was still getting po Dilaudid, Zofran, & IV MS. He was on IV Lactated Ringers at 250cc/hr & was being followed by surgery. *The pt was moved from the ICU to [facility] on 09/18/17. Medical & surgical notes appreciated. He was complaining of diffuse abdominal pain despite narcotic analgesics. He had mild nausea but no recurrent vomiting. He denies any fevers , chills, jaundice, chest pain, or shortness of breath. He was started on clears, but is now NPO. Surgery is holding off on CCKY, in view of his ongoing symptoms. *As of 09/18/17, the patient was hypertensive, nontachycardic, with O2 sat RA 95%, Tm 99.3. His BC had remained negative. His leukocytosis was improving. His H/H had dropped appropriately after IV fluids, going against hemoconcentration. *As of 09/19/17, the patient was somewhat hypertensive, but no longer tachycardic. He was afebrile, with Tm 99.3. He still had subjective abdominal pain, requiring narcotic analgesics (*please note, hx substance abuse & bipolar disorder, so difficult to assess). His MS was switched to IV Dilaudid 1mg Q4h. His nausea & vomiting had improved. He denied any jaundice, CP, SOB, or chills. He tolerated clears po on 09/18/17, but was made NPO for repeat CT with pancreatic protocol on 09/19/17, in order to better objectively reassess his pancreas. His IV lactated Ringer's was just held per surgery, pending the CT results. He was constipated from the narcotic analgesics, with his last BM approximately 4 days ago. He was not obstipated, but was a little bloated. Toradol was D/C 09/19/17, after 2 doses. There was no lab evidence of hemoconcentration, as his H/H dropped appropriately, after IVF. 09/19/17: CT ABD & PELVIS W IV CONTRAST- IMPRESSION: 1. The volume of abdominal ascites around the pancreas and extending into the mesentery has significantly increased since the exam of 09/14/17. There is no pseudocyst formation. The enhancement of the pancreas remains normal with no evidence of pancreatic necrosis. No dilated PD. 2. There are bilateral pleural effusions and bibasilar infiltrate/atelectasis. *As of 09/20/17, the patient still had abdominal pain. His repeat 09/19/17: CT AP with pancreatic protocol showed worsening pancreatitis, albeit without pseudocyst or necrosis, with increased fluid collection around the pancreas, moreso since 09/14/17: CT, extending anteriorly into the mesentery and inferiorly to the stomach, as well as to the right kidney & right paracolic gutter, anterior to the liver. He denied any significant nausea & vomiting. He was bloated, without CP or SOB. He had a BM last p.m., wihtout needing Relistor. He denied any jaundice or chills. He was only takin minimal amounts of clears po & nutrition was becoming a problem. *As his pancreatitis had worsened, surgery wants to wait 6-8 weeks for lap CCKY. Oral narcotic analgesics are to be added to IV MS. I spoke with the patient regarding his past hx of substance abuse & the possibility for an indwelling PICC line. He denied any past hx IVDA. The patient was still HTN, but not tachycardic. He was essentially afebrile (Tm 99.7), with O2 sat RA 95%. His IV Ringers Lactate was dereased to 50cc/hr. 09/19/17: WBC 15.2 (82S/4B/8L/4M/2E), H/H 11.0/33.3, PLT 386, BUN/Cr 10/0.5, GFR > 60, Na 138, K 3.3, HCO3 23, AG 8, lipase 134, albumin 2.4, globulin 2.3, TBil 1.0, DBil 0.7, alk phos 97, AST 48, ALT 171, TSHR 2.09, *CRP > 9.0 09/20/17: WBC 20.7 (80% gran/17 gran Ab), H/H 12/36, PLT 443, BUN/Cr 9/0.6, GFR > 60, Na 137, K 4.4, HCO3 23, AG 12, lipase 220, albumin 3.1, globulin 2.8, TBil 1.2, DBil 0.7, alk phos 142, AST 60, ALT 187. 09/21/17: XR PORTABLE CHEST- IMPRESSION: 1. PICC line from the right with the tip at the cavoatrial junction. 2. No pneumothorax or acute cardiopulmonary findings are demonstrated. *As of 09/21/17, the patient's BP was under better control 140/80. He was borderline tachycardic, with T 99.2 (Tm 100.8) & O2 sat RA 92%. He denied any chills. He remained with leukocytosis. Previous BC were negative. *A PICC line was placed in the RUE per IR earlier on 09/21/17, for TPN access. He remained with abdominal pain, which was slightly improving, being managed by the medical team. His po Dilaudid was switched to a Fentanyl patch 12 mcg Q 72h, & his IV MS was continued foir breakthrough sx. He did note increased abdominal bloating. He denied any nausea or vomiting. He tolerated small amounts of Jell-O, but otherwise could not tolerate any additional clears po, except for a few sips of H2O. Unasyn, which had been resumed per surgery, was once again D/C on 09/21/17. He currently denied obstipation. His constipation was stable. He was ambulating. 09/21/17: WBC 22.2 (88% gran/20 gran Ab), H/H 11.8/36.1, PLT 500, BUN/Cr 11/0.7, GFR > 60, Na 137, K 4.0, HCO3 22, AG 14, albumin 3.1, globulin 2.8, TBil 1.0, DBil 0.6, alk phos 145, AST 69, ALT 187 (*post 09/15/17: ERCP with ES; Hep A, B, & C serologies-neg). 09/22/17: [id number] VIEW- Interval decompression of small and large bowel loops. *The patient was seen in ID consultation by Dr. Edmondson on 09/22/17, for low- grade fever & leukocytosis, which was felt to be most likely reactive in nature from the peripancreatic inflammation. A relatively recent 09/19/17: CT did not show any evidence of necrosis or abscess. He agreed with continuing to follow the patient off antibiotics for now, with the caveat that a repeat CT with pancreatic protocol be done, if there is a significant change in pain, abdominal exam, fever, or leukocytosis. 09/22/17: WBC 24.2 (85% gran/21 gran Ab), H/H 11.3/34, PLT 497, BUN/Cr 9/0.7, GFR > 60, Na 139, K 4.3, HCO3 25, AG 12, Mg 2.1, Ca 8.4, PO4 4.1, *PAB 8.6 (17.6 -36), *albumin 3.0, globulin 2.7, *TG 218, TBil 1.0, DBil 0.5, alk phos 160, AST 66, ALT 171. *As of 09/22/17, the patient was on TPN with intralipids & essentially NPO except for a few sips. He was also on decreased rate of IV Lactated Ringers @ 75 cc/hr. Relistor 12 mg sc Q 48h as needed was added 09/22/17 for narcotic induced constipation. He had a BM 09/22/17 & was less distended. The patient's pain regimen consisted of Fentanyl patch 25 mcg Q72h, MS Contin 15 mg po BID, & IV MS for breakthrough sx. His abdominal pain was improved. He denied any n & v. The patient's HTN was under better control. He had Tm 100.5-> 97.3. He denied any chills. *SUGGEST: *Continue TPN with intralipids via RUE PICC, placed 09/21/17. Sips of clears po. *Lap CCKY will probably not be done for another 6-8 weeks, due to worsening pancreatitis on 09/19/17: CT AP with IV cont (although no necrosis). Dilaudid po switched to Fentanyl patch 25 mcg Q72h, MS Contin 15 mg po BID, & IV MS for breakthrough sx, per medical team. Zofran prn. Follow-up labs (CBC, lytes, GFR , LFT). *No definite indx for antibiotics, but culture if temp spikes (Unasyn was previously D/C 09/17/17, resumed by surgery on 09/19/17, & again D/C on 415). Consideration for repeat CT abd with pancreatic protocol, if spikes. Avoid NSAIDS. *BP control, as per medical team. *Constipation is probably from narcotic analgesics.*Relistor (Methylnaltrexone) 12 mg sc Q48 hrs as needed, for narcotic induced constipation, although the patient had a BM 09/22/17. Follow-up with surgery. DVT prophylaxis. Mobilize patient. The patient was previously told to follow up with his PMD or a urologist upon discharge, to follow up the exophytic right renal lesion incidentally noted on admission 09/14/17: CT AP with IV cont. The case was again discussed with the patient's RN & previously with Dr. Jarvis, of surgery, & Dr. Kimbrough, who concur. *Further GI recommendations to follow, depending on clinical course. Problem List: 1. Gallstone pancreatitis 2. Abdominal pain 3. Elevated LFTs 4. Leukocytosis 5. Choledocholithiasis 6. S/P ERCP 7. Substance abuse 8. Bipolar 1 disorder 9. Malnutrition 10. Constipation due to opioid therapy Subjective Subjective: 09/22/17: [id number] VIEW- Interval decompression of small and large bowel loops. *The patient was seen in ID consultation by Dr. Edmondson on 09/22/17, for low- grade fever & leukocytosis, which was felt to be most likely reactive in nature from the peripancreatic inflammation. A relatively recent 09/19/17: CT did not show any evidence of necrosis or abscess. He agreed with continuing to follow the patient off antibiotics for now, with the caveat that a repeat CT with pancreatic protocol be done, if there is a significant change in pain, abdominal exam, fever, or leukocytosis. 09/22/17: WBC 24.2 (85% gran/21 gran Ab), H/H 11.3/34, PLT 497, BUN/Cr 9/0.7, GFR > 60, Na 139, K 4.3, HCO3 25, AG 12, Mg 2.1, Ca 8.4, PO4 4.1, *PAB 8.6 (17.6 -36), *albumin 3.0, globulin 2.7, *TG 218, TBil 1.0, DBil 0.5, alk phos 160, AST 66, ALT 171. *As of 09/22/17, the patient was on TPN with intralipids & essentially NPO except for a few sips. He was also on decreased rate of IV Lactated Ringers @ 75 cc/hr. Relistor 12 mg sc Q 48h as needed was added 09/22/17 for narcotic induced constipation. He had a BM 09/22/17 & was less distended. The patient's pain regimen consisted of Fentanyl patch 25 mcg Q72h, MS Contin 15 mg po BID, & IV MS for breakthrough sx. His abdominal pain was improved. He denied any n & v. The patient's HTN was under better control. He had Tm 100.5-> 97.3. He denied any chills. Review of Systems: Full 14 point review of systems otherwise noncontributory, and as above. Constitutional: Reports: no symptoms. EENTM: Reports: no symptoms. Cardiovascular: Reports: no symptoms. Respiratory: Reports: no symptoms. GI: Reports: abdominal pain & bloating; n & v- better, stable constipation Genitourinary: Reports: no symptoms. Musculoskeletal: Reports: no symptoms. Skin: Reports: no symptoms. Neurological/Psychological: Reports: hx bipolar disorder & hx substance abuse. Hematologic/Endocrine: Reports: no symptoms. Immunologic/Allergic: Reports: no symptoms. All Other Systems: Reviewed and Negative Objective Vital Signs and I&Os Vital Signs Date Time Temp Pulse Resp B/P B/P Pulse O2 O2 Flow FiO2 Mean Ox Delivery Rate 09/22 2148 97.3 93 20 142/84 96 09/22 1448 99.2 95 20 142/80 92 Room Air 09/22 1040 90 154/110 09/22 1039 90 154/110 09/22 0800 Room Air 09/22 0635 99.4 95 20 142/88 94 Room Air Intake & Output 09/22 1600 09/22 0400 09/21 1600 09/21 0400 09/20 1600 09/20 0400 Intake Total 1927.2 1291.8 2877 066 8242 1000 Output Total 2505 1850 1900 1000 2450 1400 Balance -577.8 -558.2 -240 -200 -1120 -400 Intake, IV 1200 1200 400 400 650 600 Intake, Lipid 33.6 8.4 Intake, Oral 360 1260 400 680 400 Intake, 333.6 83.4 TPN/PPN Number 1 1 2 Bowel Movements Output, Urine 2505 1850 1900 1000 2450 1400 Patient 209 lb 209 lb Weight Physical Exam: Well-developed, well-nourished, obese male, in less distress. Nontoxic appearing. Sclera anicteric. Conjunctiva pink. Oropharynx clear. Slightly dry mucous membranes. There is no adenopathy, thyromegaly, or JVD. No peripheral stigmata of inflammatory bowel disease or chronic liver disease on exam. No spiders on the anterior chest wall. No gynecomastia. No CVA tenderness. Lungs : clear to A&P, with slight decreased breath sounds at the bases B/L. No wheezing, rales, or rhonchi. Heart exam: regular rate rhythm, S1 and S2, without any murmur. Abdominal exam: slightly hypoactive bowel sounds, mildly distended belly, mild epigastric tenderness, with minimal guarding, but no rebound. Negative Bazan sign. No definite mass or organomegaly. ? Mild fluid shift. No pulsatile mass. No epigastric bruit. Digital rectal exam: deferred. Extremities: without C, C, or E. No palpable cords. RUE PICC site clean, without gross phlebitis or cellulitis. Distal pulses 2+ bilaterally. DTRs 2+ bilaterally. No palmar erythema. No Dupuytren's contractures. Alert and oriented x 3. No tremor. No asterixis. Current Medications: Current Medications Sig/[place] Start time Last Medication Dose Route Stop Time Status Admin Amlodipine Besylate 5 MG DAILY 09/19 1400 AC 09/22 PO 1039 Atorvastatin Calcium 20 MG 1700 09/18 1700 AC 09/22 PO 1707 Fat Emulsion 250 ML Q24H 09/22 1900 09/22 Intravenous IV 09/23 Fat Emulsion 100 ML Q24H 09/21 1900 DC 09/21 Intravenous IV 09/22 185 1952 Fentanyl Citrate 25 MCG Q72H 09/22 1030 09/22 TOP 1041 Fentanyl Citrate 12 MCG Q72H 09/21 1045 MT 09/21 TOP 1043 Glycerin 2 SPRAY Q2P PRN 09/16 1430 AC 09/17 PO 1419 Heparin Sodium 5,000 UNIT Q8 09/15 0600 09/22 (Porcine) SC 2218 Lactated Ringer's 1,000 ML Q6H 09/21 1145 09/22 IV 1449 [place] Carbonate 1,500 MG DAILY 09/18 0900 AC 09/22 PO 1040 Losartan Potassium 100 MG DAILY 09/18 0900 09/22 PO 1040 Methylnaltrexone 12 MG Q48 PRN 09/22 1315 AC [place] SC Morphine Sulfate 15 MG BID 09/22 1306 09/22 PO 2040 Morphine Sulfate 4 MG ONCE ONE 09/22 0745 MT 09/22 IV 09/22 0746 0756 Morphine Sulfate 5 MG Q4-PRN PRN 09/22 0745 09/22 IV 2218 Morphine Sulfate 3 MG Q4-PRN PRN 09/21 2245 DC 09/22 IV 0624 Ondansetron HCl 4 MG Q6P PRN 09/14 2245 IV Total Parenteral 1 UNIT 1900 09/22 1900 09/22 Nutrition IV 09/23 Total Parenteral 1 UNIT 1900 09/21 1900 MT 09/21 Nutrition IV 09/22 6891 0839 Results Pertinent Lab Results: Laboratory Tests 09/22 09/21 0620 0820 Chemistry Sodium (137 - 145 mmol/L) 139 137 Potassium (3.5 - 5.1 mmol/L) 4.3 4.0 Chloride (98 - 107 mmol/L) 101 101 Carbon Dioxide (22 - 30 mmol/L) 25 22 Anion Gap (5 - 16) 12 14 BUN (9 - 20 mg/dL) 9 11 Creatinine (0.7 - 1.2 mg/dL) 0.7 0.7 Estimated GFR (>60 ml/min) > 60 > 60 BUN/Creatinine Ratio (7 - 25 %) 12.9 15.7 Calcium (8.4 - 10.2 mg/dL) 8.4 Phosphorus (2.5 - 4.5 mg/dL) 4.1 Magnesium (1.6 - 2.3 mg/dL) 2.1 Total Bilirubin (0.2 - 1.3 mg/dL) 1.0 1.0 Direct Bilirubin (< 0.4 mg/dL) 0.5 H 0.6 H AST (17 - 59 U/L) 66 H 69 H ALT (21 - 72 U/L) 171 H 187 H Alkaline Phosphatase (< 127 U/L) 160 H 145 H Total Protein (6.3 - 8.2 g/dL) 5.7 L 5.9 L Albumin (3.5 - 5.0 g/dL) 3.0 L 3.1 L Prealbumin (17.6 - 36.0 mg/dL) 8.6 L Triglycerides (<150 mg/dL) 218 H Hematology CBC w Diff NO MAN DIFF REQ NO MAN DIFF REQ WBC (4.8 - 10.8 /CUMM) 24.2 H 22.2 H RBC (4.70 - 6.10 /CUMM) 3.77 L 3.94 L Hgb (14.0 - 18.0 G/DL) 11.3 L 11.8 L Hct (42 - 52 %) 34.0 L 36.1 L MCV (80.0 - 94.0 FL) 90.3 91.6 MCH (27.0 - 31.0 PG) 29.9 29.9 MCHC (33.0 - 37.0 G/DL) 33.1 32.6 L RDW (11.5 - 14.5 %) 15.2 H 15.7 H Plt Count (130 - 400 /CUMM) 497 H 500 H MPV (7.4 - 10.4 FL) 8.2 8.0 Gran % (42.2 - 75.2 %) 85.0 H 88.0 H Lymphocytes % (20.5 - 51.1 %) 5.7 L 6.1 L Monocytes % (1.7 - 9.3 %) 7.9 4.4 Eosinophils % (0 - 5 %) 1.0 1.4 Basophils % (0.0 - 2.0 %) 0.4 0.1 Absolute Granulocytes (1.4 - 6.5 /CUMM) 20.6 H 19.5 H Absolute Lymphocytes (1.2 - 3.4 /CUMM) 1.4 1.4 Absolute Monocytes (0.10 - 0.60 /CUMM) 1.9 H 1.0 H Absolute Eosinophils (0.0 - 0.7 /CUMM) 0.2 0.3 Absolute Basophils (0.0 - 0.2 /CUMM) 0.1 0 04/15 1250 Chemistry Sodium (137 - 145 mmol/L) 137 Potassium (3.5 - 5.1 mmol/L) 4.4 Chloride (98 - 107 mmol/L) 102 Carbon Dioxide (22 - 30 mmol/L) 23 Anion Gap (5 - 16) 12 BUN (9 - 20 mg/dL) 9 Creatinine (0.7 - 1.2 mg/dL) 0.6 L Estimated GFR (>60 ml/min) > 60 BUN/Creatinine Ratio (7 - 25 %) 15.0 Total Bilirubin (0.2 - 1.3 mg/dL) 1.2 Direct Bilirubin (< 0.4 mg/dL) 0.7 H AST (17 - 59 U/L) 60 H ALT (21 - 72 U/L) 187 H Alkaline Phosphatase (< 127 U/L) 142 H Total Protein (6.3 - 8.2 g/dL) 5.9 L Albumin (3.5 - 5.0 g/dL) 3.1 L Lipase (23 - 300 U/L) 220 Hematology CBC w Diff NO MAN DIFF REQ WBC (4.8 - 10.8 /CUMM) 20.7 H RBC (4.70 - 6.10 /CUMM) 3.95 L Hgb (14.0 - 18.0 G/DL) 12.0 L Hct (42 - 52 %) 36.0 L MCV (80.0 - 94.0 FL) 91.1 MCH (27.0 - 31.0 PG) 30.3 MCHC (33.0 - 37.0 G/DL) 33.3 RDW (11.5 - 14.5 %) 14.9 H Plt Count (130 - 400 /CUMM) 443 H MPV (7.4 - 10.4 FL) 8.0 Gran % (42.2 - 75.2 %) 79.9 H Lymphocytes % (20.5 - 51.1 %) 10.3 L Monocytes % (1.7 - 9.3 %) 8.9 Eosinophils % (0 - 5 %) 0.9 Basophils % (0.0 - 2.0 %) 0 Absolute Granulocytes (1.4 - 6.5 /CUMM) 16.5 H Absolute Lymphocytes (1.2 - 3.4 /CUMM) 2.1 Absolute Monocytes (0.10 - 0.60 /CUMM) 1.8 H Absolute Eosinophils (0.0 - 0.7 /CUMM) 0.2 Absolute Basophils (0.0 - 0.2 /CUMM) 0 Imaging/Other Studies: 09/14/17: EKG- SB @ 59, nl axis, nl intervals, no acute ischemia. 09/14/17: CT ABD & PELVIS W IV CONTRAST- IMPRESSION: Choledocholithiasis resulting in mild obstructive biliary ductal dilatation and secondary pancreatitis. Additional mild mucosal hyperemia, surrounding inflammatory change and mild wall thickening of the gastric antrum and duodenum. Exophytic 1.4 cm low-density nodular lesion arising from the posterior cortex of the right kidney which does not measure simple fluid and was not present on previous imaging from 2006. Although this may represent a proteinaceous or hemorrhagic cyst, a dedicated renal ultrasound is recommended in order to rule out a solid mass. Imaging findings discussed with Dr. Hernandez at 9:07 PM on 09/14/2017. DICTATED BY: Rubens Alejandra MD DATE/TIME DICTATED:09/14/17205009/15/17: *ERCP with ES/stone extraction, per Dr. Rachel Gamboa- Impression: * Choledocholithiasis (stone impacted in ampulla), treated with sphincterotomy and extraction. 09/15/17: XRY-PORTABLE CHEST XRAY- Very limited study, oblique projection. Left costophrenic angle is excluded from the film margin, no large effusions. 09/19/17: CT ABD & PELVIS W IV CONTRAST- IMPRESSION: 1. The volume of abdominal ascites around the pancreas and extending into the mesentery has significantly increased since the exam of 09/14/17. There is no pseudocyst formation. The enhancement of the pancreas remains normal with no evidence of pancreatic necrosis. No dilated PD. 2. There are bilateral pleural effusions and bibasilar infiltrate/atelectasis. 09/21/17: XR PORTABLE CHEST- IMPRESSION: 1. PICC line from the right with the tip at the cavoatrial junction. 2. No pneumothorax or acute cardiopulmonary findings are demonstrated. 09/22/17: [id number] VIEW- Interval decompression of small and large bowel loops.
[2017-09-23 06:38] VITALS: BP 142/92
--- NOTE | 2017-09-23 07:41 | PN- Housestaff ---
See Addendum Subjective Follow-up For: Gallstone pancreatitis status post ERCP Subjective: No overnight events. The patient continues to have pain this morning but he says it is going in the right direction at least. His abdomen and also feels slightly less rigid. He still cannot tolerate any food including ice chips. No chest pain but he does have some shortness of breath associated with the abdominal pain. Review of Systems Constitutional: Reports: no symptoms. EENTM: Reports: no symptoms. Cardiovascular: Reports: no symptoms. Respiratory: Reports: no symptoms. Gastrointestinal: Reports: see HPI. Genitourinary: Reports: no symptoms. Musculoskeletal: Reports: no symptoms. Skin: Reports: no symptoms. Neurological/Psychological: Reports: no symptoms. Hematologic/Endocrine: Reports: no symptoms. Immunologic/Allergic: Reports: no symptoms. Objective Last 24 Hrs of Vital Signs/I&O Vital Signs Date Time Temp Pulse Resp B/P B/P Pulse O2 O2 Flow FiO2 Mean Ox Delivery Rate 09/23 0638 98.3 91 20 142/92 95 Room Air 09/22 2148 97.3 93 20 142/84 96 09/22 1448 99.2 95 20 142/80 92 Room Air 09/22 1040 90 154/110 09/22 1039 90 154/110 09/22 0800 Room Air Intake & Output 09/23 0800 09/23 0000 09/22 1600 Intake Total 1260.5 0 Output Total 575 1250 805 Balance -575 10.5 -805 Intake, IV 450 Intake, Lipid 35.6 Intake, Oral 480 0 Intake, 294.9 TPN/PPN Number 1 Bowel Movements Output, Urine 575 1250 805 Patient 94.8 kg Weight Physical Exam General Appearance: Alert, Oriented X3, Cooperative, No Acute Distress Cardiovascular: Regular Rate, Normal S1, Normal S2 Lungs: Clear to Auscultation Abdomen: rigid and tender Extremities: No Edema, Normal Pulses, No Tenderness/Swelling Current Medications: Current Medications Sig/[place] Start time Last Medication Dose Route Stop Time Status Admin Amlodipine Besylate 5 MG DAILY 09/19 1400 AC 09/22 PO 1039 Atorvastatin Calcium 20 MG 1700 09/18 1700 AC 09/22 PO 1707 Fat Emulsion 250 ML Q24H 09/22 1900 AC 09/22 Intravenous IV 09/23 1852001 Fat Emulsion 100 ML Q24H 09/21 1900 DC 09/21 Intravenous IV 09/22 1859 1952 Fentanyl Citrate 25 MCG Q72H 09/22 1030 AC 09/22 TOP 1041 Fentanyl Citrate 12 MCG Q72H 09/21 1045 DC 09/21 TOP 1043 Glycerin 2 SPRAY Q2P PRN 09/16 1430 AC 09/17 PO 1419 Heparin Sodium 5,000 UNIT Q8 09/15 0600 AC 09/23 (Porcine) SC 0543 Lactated Ringer's 1,000 ML Q6H 09/21 1145 AC 09/23 IV 0543 [place] Carbonate 1,500 MG DAILY 09/18 0900 AC 09/22 PO 1040 Losartan Potassium 100 MG DAILY 09/18 0900 AC 09/22 PO 1040 Methylnaltrexone 12 MG Q48 PRN 09/22 1315 AC [place] SC Morphine Sulfate 15 MG BID 09/22 1306 AC 09/22 PO 2040 Morphine Sulfate 4 MG ONCE ONE 09/22 0745 DC 09/22 IV 09/22 0746 0756 Morphine Sulfate 5 MG Q4-PRN PRN 09/22 0745 AC 09/23 IV 0645 Ondansetron HCl 4 MG Q6P PRN 09/14 2245 AC IV Total Parenteral 1 UNIT 1900 09/22 1900 AC 09/22 Nutrition IV 09/23 Total Parenteral 1 UNIT 1900 09/21 1900 DC 09/21 Nutrition IV 09/22 1858 1945 Last 24 Hrs of Lab/David Results Last 24 Hrs of Labs/Mics: Laboratory Tests 09/23/17 0550: Sodium Pending, Potassium Pending, Chloride Pending, Carbon Dioxide Pending, Anion Gap Pending, BUN Pending, Creatinine Pending, BUN/Creatinine Ratio Pending , Calcium Pending, Phosphorus Pending, Magnesium Pending, Albumin Pending, Prealbumin Pending, CBC w Diff Pending, WBC Pending, RBC Pending, Hgb Pending, Hct Pending, MCV Pending, MCH Pending, MCHC Pending, RDW Pending, Plt Count Pending, MPV Pending Assessment/Plan Assessment: Mr. Carbone is a 47 year old man with past medical history of bipolar disorder, hypertension, and hyperlipidemia presented with acute onset abdominal associated with nausea, diarrhea, and chills secondary to gallstone pancreatitis now status post ERCP. He was initially admitted to the ICU and then transferred to general medicine on 09/18/17 after stabilization of his condition. Problem list: 1. Gallstone pancreatitis status post ERCP 2. Transaminitis 3. Exophytic lesion arising from right kidney #Gallstone pancreatitis status post ERCP: Patient has been maintained on lactated Ringer's but has had increasing pain medication requirements. Gastroenterology is following. He is status post ERCP. He will likely need cholecystectomy in 6-[address] on 09/19/17 showed a volume of abdominal ascites around the pancreas extending into the mesentery significantly increased but there is no pseudocyst formation in the enhancement and the pancreas remains normal with no evidence of pancreatic necrosis. He has not had further fevers but is still not tolerating food. -Fentanyl patch 25 g every 72 hours. -morphine to 5 mg every 4 hours when necessary pain -Increase oral morphine to 30 mg BID -No NSAIDs -Lactated Ringer's 75 mL per hour, adjust per TPN protocol -Continue TPN -clear liquid diet -Appreciate gastroenterology and general surgery conditions -Ondansetron as necessary -Appreciate ID recommendations -Watch electrolytes #Transaminitis: Liver enzymes are slightly downtrending -Hold acetaminophen -Avoid hepatotoxins #Exophytic lesion arising from right kidney: Incidental finding. -Follow up with nephrology as an outpatient. #Chronic medical problems: -Continue lithium -Continue amlodipine and losartan -Continue other home medications DVT prophylaxis with heparin Clear liquid diet Full code Problem List: 1. Gallstone pancreatitis Pain Ratin Pain Location: no Pain Goal: Remain pain free Pain Plan: see a/p Tomorrow's Labs & Rationales: cbc, bep, phos, mg, milla
[2017-09-23 09:26] LABS: ABSOLUTE BASOPHIL COUNT 0 /CUMM (0.0-0.2); ABSOLUTE EOSINOPHIL COUNT 0.4 /CUMM (0.0-0.7); ABSOLUTE MONOCYTE COUNT 1.4 /CUMM (0.10-0.60); EOSINOPHIL % 1.7 % (0-5); MEAN CORPUSCULAR HGB 30.9 PG (27.0-31.0); MEAN PLATELET VOLUME 8.7 FL (7.4-10.4)
[2017-09-23 10:00] LABS: ABSOLUTE GRANULOCYTE CT 18.6 /CUMM (1.4-6.5); ABSOLUTE LYMPH COUNT 1.8 /CUMM (1.2-3.4); BASOPHIL % 0.1 % (0.0-2.0); HEMATOCRIT 33.3 % (42-52); MEAN CORPUSCULAR HGB CONC 32.1 G/DL (33.0-37.0); PLATELET COUNT 536 /CUMM (130-400); RBC DISTRIBUTION WIDTH 16.6 % (11.5-14.5); RED BLOOD CELL CT 3.45 /CUMM (4.70-6.10); WHITE BLOOD CELL COUNT 22.2 /CUMM (4.8-10.8)
[2017-09-23 10:37] LABS: MEAN CORPUSCULAR VOLUME 96.4 FL (80.0-94.0)
[2017-09-23 10:54] LABS: GRANULOCYTE % 83.8 % (42.2-75.2)
--- NOTE | 2017-09-23 14:47 | PN- Student ---
Jayant Rubi 09/23/17 6824: Subjective Subjective: No overnight events reported. Mr. Carbone reports that he is still in considerable pain with his pain rating at 0645 am being 8/10. However he does state that there is mild pain improvement. He does notice that his abdomen feels less rigid, but has difficulty with drinking water or sucking on ice chips. He states that he does not have difficulty eating jello and that his appetite is returning. He does not report any chest pain or palpatations, headache or any difficulty ambulating. Objective Objective: Laboratory Tests 09/23 09/23 1028 0550 Chemistry Sodium (137 - 145 mmol/L) 138 128 L Potassium (3.5 - 5.1 mmol/L) 4.4 6.6 *H Chloride (98 - 107 mmol/L) 102 95 L Carbon Dioxide (22 - 30 mmol/L) 22 21 L Anion Gap (5 - 16) 13 12 BUN (9 - 20 mg/dL) 11 10 Creatinine (0.7 - 1.2 mg/dL) 0.7 0.8 Estimated GFR (>60 ml/min) > 60 > 60 BUN/Creatinine Ratio (7 - 25 %) 15.7 12.5 Calcium (8.4 - 10.2 mg/dL) 8.7 8.2 L Phosphorus (2.5 - 4.5 mg/dL) 4.0 6.6 H Magnesium (1.6 - 2.3 mg/dL) 2.0 2.3 Total Bilirubin (0.2 - 1.3 mg/dL) 0.8 0.7 Direct Bilirubin (< 0.4 mg/dL) 0.6 H 0.6 H AST (17 - 59 U/L) 114 H 117 H ALT (21 - 72 U/L) 221 H 187 H Alkaline Phosphatase (< 127 U/L) 140 H 101 Total Protein (6.3 - 8.2 g/dL) 5.9 L 4.9 L Albumin (3.5 - 5.0 g/dL) 3.0 L 2.7 L Prealbumin (17.6 - 36.0 mg/dL) 9.8 L Triglycerides (<150 mg/dL) 193 H 525 H Hematology CBC w Diff NO MAN DIFF REQ WBC (4.8 - 10.8 /CUMM) 22.2 H RBC (4.70 - 6.10 /CUMM) 3.45 L Hgb (14.0 - 18.0 G/DL) 10.7 L Hct (42 - 52 %) 33.3 L MCV (80.0 - 94.0 FL) 96.4 H MCH (27.0 - 31.0 PG) 30.9 MCHC (33.0 - 37.0 G/DL) 32.1 L RDW (11.5 - 14.5 %) 16.6 H Plt Count (130 - 400 /CUMM) 536 H MPV (7.4 - 10.4 FL) 8.7 Gran % (42.2 - 75.2 %) 83.8 H Lymphocytes % (20.5 - 51.1 %) 8.3 L Monocytes % (1.7 - 9.3 %) 6.1 Eosinophils % (0 - 5 %) 1.7 Basophils % (0.0 - 2.0 %) 0.1 Absolute Granulocytes (1.4 - 6.5 /CUMM) 18.6 H Absolute Lymphocytes (1.2 - 3.4 /CUMM) 1.8 Absolute Monocytes (0.10 - 0.60 /CUMM) 1.4 H Absolute Eosinophils (0.0 - 0.7 /CUMM) 0.4 Absolute Basophils (0.0 - 0.2 /CUMM) 0 Vital Signs Date Time Temp Pulse Resp B/P B/P Pulse O2 O2 Flow FiO2 Mean Ox Delivery Rate 09/23 0801 142/90 09/23 0801 142/90 09/23 0638 98.3 91 20 142/92 95 Room Air 09/22 2148 97.3 93 20 142/84 96 09/22 1448 99.2 95 20 142/80 92 Room Air Intake & Output 09/23 1600 09/23 0800 09/23 0000 Intake Total 1216.8 1260.5 Output Total 877 290 8365 Balance -350 291.8 10.5 Intake, IV 600 450 Intake, Lipid 83.2 35.6 Intake, Oral 0 480 Intake, 533.6 294.9 TPN/PPN Output, Urine 663 034 8587 09/22/17 X-Ray of Abdomen single view Radiologist IMPRESSION: Interval decompression of small and large bowel loops. Physical exam General appreance: appears to be in some pain, AOx3, cooperative\ CV: regular rate and rhytym normal S1&S2, no MRG Pulm: lungs clear to auscultation in posterior lung muñiz Abd: Normal bowel sounds, dull on percusion, tender and rigid, no evidence of anjel's or baer bruce's sign Extremities: no peripheral edema, no evidence of significant bruising or rash Assessment/Plan Assessment: Mr. Carboen is a 47 year old man with a pmhx signifcant for Bipolar d/o, HTN, hyperlipidemia, and substance abuse presenting with abdominal pain, nausea, diarrhea and chills. He was found to have gallstone pancreatitis and ECRP was done on 09/15/17. He has been being followed on the general medical floor since after previously being admitted to the ICU. He reports having abdominal pain begining in April, when he was seeking drug rehabilitation in [place]. He has subsequently been at a program in [place] as well prior to presenting to [place] with acute abdominal pain on 09/14/17. Plan: Problem list: 1. Gallstone Pancreatitis 2. Elevated LFTs 3. Hypoalbuminemia 4. Hypertriglyceridemia 5. Leukocytosis 6. Normocytic Anemia 7. Chronic medical conditions #Gallstone Pancreatitis: Mr. Carbone had ERCP done on 09/15/17 and has subsequently been monitored throughout his hospitalization. CT on 09/19/17 of the abd/pelvis indicated ascites present around the pancreas extending into the mesentery, but no evidence of pseudocyst formation or necrosis. He is unable to tolerate water or food aside from jello by mouth and therefore was started on TPN. GI consult concluded he will most likely need Cholecystectomy but due to the Pancreatitis will not likely occur until 6-8 weeks from this present time. He is recieving LR IV fluids and his blood glucose levels have been within acceptable range. He has been afebrile within the last 24 hours. His pain level is still significant running anywhere from 2-8 in the last 24 hours. He started PO morphine yesterday with the hopes that this would help moderate the pain for longer period of time than IV morphine. However at 15 mg BID he reports still having considerable pain. -Continue to appreciate GI recommendations -Clear liquid diet -Increase PO Morphine to 30 mg BID -Morphine IV PRN Q4H -Fentanyl patch ever 72 hours -Continue TPN -Coninue to monitor pain levels #Elevated LFTs: Patient's AST and ALT are significantly elevated. He has had a hepatitis panel workup which did not yeild significant findings. These findings are likely due to the acute pancreatitis and gallstone obstruction. These levels require further monitoring. -Continue to follow LFTs -Avoid any hepatoxic medications #Hypoalbuminemia: Kidney function indicates that patient is not losing protein via nephrotic process. Patient has not been eating and total protein level is also decresed, he is recieving TPN. Albumin level has increased since yesterdays lab work. -continue to monitor -continue TPN #Hypertriglyceridemia: Although patient has history of elevated lipid profile, this hypertriglyceridemia is most likely due to Pancreatitis. Most recent lab work up indicates improvement of triglycerides. -continue to monitor -continue statin therapy #Leukocytosis: Inflammatory process due to pancreatitis, however WBC count is improving. He is afebrile within the last 24 hours. -continue to monitor CBC #Normocytic Anemia: Patient has reduced RBCs, Hgb and HCT. However he has been recieving large amounts of IV fluids. Therefore this reduction is likely due to a fluid dilutional effect. -continue to monitor CBC #chronic medical conditions -continue to monitor -continue lithium -continue HTN medicaitons DVT ppx: Heparin Clear Liquid Diet + TPN Full Code
[2017-09-23 15:00] VITALS: BP 140/86
--- NOTE | 2017-09-23 15:40 | PN- Infect Dx ---
Subjective Subjective: Afebrile. He feels overall better but did note increased pain this afternoon after eating broth. Objective Last 24 Hrs of Vital Signs/I&O Vital Signs Date Time Temp Pulse Resp B/P B/P Pulse O2 O2 Flow FiO2 Mean Ox Delivery Rate 09/23 1500 98.9 91 20 140/86 95 09/23 0801 142/90 09/23 0801 142/90 09/23 0638 98.3 91 20 142/92 95 Room Air 09/22 2148 97.3 93 20 142/84 96 Intake & Output 09/23 1600 09/23 0800 09/23 0000 Intake Total 1316.8 1216.8 1260.5 Output Total 276 560 5895 Balance 966.8 291.8 10.5 Intake, IV 600 600 450 Intake, Lipid 533.6 83.2 35.6 Intake, Oral 100 0 480 Intake, 83.2 533.6 294.9 TPN/PPN Output, Urine 861 374 9777 Physical Exam Other Physical Findings: He appears comfortable in no acute distress Lungs are clear Heart regular rhythm with no murmur Abdomen is distended, tender on palpation over the mid abdomen, with guarding but no rebound, positive bowel sounds Results Last 24 Hours of Lab Results: Laboratory Tests 09/23 09/23 1028 0550 Chemistry Sodium (137 - 145 mmol/L) 138 128 L Potassium (3.5 - 5.1 mmol/L) 4.4 6.6 *H Chloride (98 - 107 mmol/L) 102 95 L Carbon Dioxide (22 - 30 mmol/L) 22 21 L Anion Gap (5 - 16) 13 12 BUN (9 - 20 mg/dL) 11 10 Creatinine (0.7 - 1.2 mg/dL) 0.7 0.8 Estimated GFR (>60 ml/min) > 60 > 60 BUN/Creatinine Ratio (7 - 25 %) 15.7 12.5 Calcium (8.4 - 10.2 mg/dL) 8.7 8.2 L Phosphorus (2.5 - 4.5 mg/dL) 4.0 6.6 H Magnesium (1.6 - 2.3 mg/dL) 2.0 2.3 Total Bilirubin (0.2 - 1.3 mg/dL) 0.8 0.7 Direct Bilirubin (< 0.4 mg/dL) 0.6 H 0.6 H AST (17 - 59 U/L) 114 H 117 H ALT (21 - 72 U/L) 221 H 187 H Alkaline Phosphatase (< 127 U/L) 140 H 101 Total Protein (6.3 - 8.2 g/dL) 5.9 L 4.9 L Albumin (3.5 - 5.0 g/dL) 3.0 L 2.7 L Prealbumin (17.6 - 36.0 mg/dL) 9.8 L Triglycerides (<150 mg/dL) 193 H 525 H Hematology CBC w Diff NO MAN DIFF REQ WBC (4.8 - 10.8 /CUMM) 22.2 H RBC (4.70 - 6.10 /CUMM) 3.45 L Hgb (14.0 - 18.0 G/DL) 10.7 L Hct (42 - 52 %) 33.3 L MCV (80.0 - 94.0 FL) 96.4 H MCH (27.0 - 31.0 PG) 30.9 MCHC (33.0 - 37.0 G/DL) 32.1 L RDW (11.5 - 14.5 %) 16.6 H Plt Count (130 - 400 /CUMM) 536 H MPV (7.4 - 10.4 FL) 8.7 Gran % (42.2 - 75.2 %) 83.8 H Lymphocytes % (20.5 - 51.1 %) 8.3 L Monocytes % (1.7 - 9.3 %) 6.1 Eosinophils % (0 - 5 %) 1.7 Basophils % (0.0 - 2.0 %) 0.1 Absolute Granulocytes (1.4 - 6.5 /CUMM) 18.6 H Absolute Lymphocytes (1.2 - 3.4 /CUMM) 1.8 Absolute Monocytes (0.10 - 0.60 /CUMM) 1.4 H Absolute Eosinophils (0.0 - 0.7 /CUMM) 0.4 Absolute Basophils (0.0 - 0.2 /CUMM) 0 Last 24 Hours of David Results: No recent cultures Recent Imaging Studies: X-ray of the abdomen September 22 reveals interval decompression of small and large bowel loops Assessment/Plan ID Impression: Stable, with no further fevers but with a persistent leukocytosis, presumably secondary to ongoing pancreatitis, with significant peripancreatic inflammation seen on the recent CT scan. He has no evidence for any infectious process at this time and, therefore, can continue to be followed off antibiotics. His liver enzymes have increased today, after an initial decrease, and they can continue to be monitored. Suggestion: 1. Continue close monitoring of his abdominal symptoms, temperatures and white blood cell count 2. Repeat CT of the abdomen and pelvis with pancreatic protocol if any significant change in his pain, temperature or white blood cell count 3. Further evaluation/review of the imaging regarding the exophytic right renal lesion per Medicine 4. Continue to follow off antibiotics
--- NOTE | 2017-09-23 20:49 | PN- Gastroenterology ---
Assessment/Plan GI Assessment/Recommendations: (*The patient was initially seen & examined on 09/18/17. His extensive records were reviewed. I assumed the patient's inpt GI care on 09/18/17. Dr. Erika Gamboa 's GI consult 0f 09/15/17 was reviewed, along with subsequent progress notes, labs, imaging studies, & 09/15/17: ERCP). 47 y/o male, bipolar disorder, HTN, HLD, heroin addict, hx cocaine, mild smoker, non-EtOH, admitted to [facility] 09/14/17, after being in rehabilitation in [place], where he developed abdominal pain & was told it was from the gallbladder. Upon admission to [place], he had moderate to severe gallstone pancreatitis with an impacted stone in the ampulla, removed via 09/15/17: ERCP/ ES, followed by progressive decline in LFTs, although there were still elevated. Plans were to have lap CCKY at the end of this admission, but the patient had persistent abdominal pain, possibly implying ongoing pancreatic inflammation. * Please note, 09/14/17: Admission Utox: +OP/MS; [EtOH] < 10. 09/15/17: *nl TG 106. 06/10/10: HIV- neg. 09/15/17: HAVM, Hep Bs Ag, Hep B core Ab, & Hep C Ab- all neg. IV Unasyn was stopped 09/17/17. *As of 09/18/17, he was still getting po Dilaudid, Zofran, & IV MS. He was on IV Lactated Ringers at 250cc/hr & was being followed by surgery. *The pt was moved from the ICU to [facility] on 09/18/17. Medical & surgical notes appreciated. He was complaining of diffuse abdominal pain despite narcotic analgesics. He had mild nausea but no recurrent vomiting. He denies any fevers , chills, jaundice, chest pain, or shortness of breath. He was started on clears, but is now NPO. Surgery is holding off on CCKY, in view of his ongoing symptoms. *As of 09/18/17, the patient was hypertensive, nontachycardic, with O2 sat RA 95%, Tm 99.3. His BC had remained negative. His leukocytosis was improving. His H/H had dropped appropriately after IV fluids, going against hemoconcentration. *As of 09/19/17, the patient was somewhat hypertensive, but no longer tachycardic. He was afebrile, with Tm 99.3. He still had subjective abdominal pain, requiring narcotic analgesics (*please note, hx substance abuse & bipolar disorder, so difficult to assess). His MS was switched to IV Dilaudid 1mg Q4h. His nausea & vomiting had improved. He denied any jaundice, CP, SOB, or chills. He tolerated clears po on 09/18/17, but was made NPO for repeat CT with pancreatic protocol on 09/19/17, in order to better objectively reassess his pancreas. His IV lactated Ringer's was just held per surgery, pending the CT results. He was constipated from the narcotic analgesics, with his last BM approximately 4 days ago. He was not obstipated, but was a little bloated. Toradol was D/C 09/19/17, after 2 doses. There was no lab evidence of hemoconcentration, as his H/H dropped appropriately, after IVF. 09/19/17: CT ABD & PELVIS W IV CONTRAST- IMPRESSION: 1. The volume of abdominal ascites around the pancreas and extending into the mesentery has significantly increased since the exam of 09/14/17. There is no pseudocyst formation. The enhancement of the pancreas remains normal with no evidence of pancreatic necrosis. No dilated PD. 2. There are bilateral pleural effusions and bibasilar infiltrate/atelectasis. *As of 09/20/17, the patient still had abdominal pain. His repeat 09/19/17: CT AP with pancreatic protocol showed worsening pancreatitis, albeit without pseudocyst or necrosis, with increased fluid collection around the pancreas, moreso since 09/14/17: CT, extending anteriorly into the mesentery and inferiorly to the stomach, as well as to the right kidney & right paracolic gutter, anterior to the liver. He denied any significant nausea & vomiting. He was bloated, without CP or SOB. He had a BM last p.m., wihtout needing Relistor. He denied any jaundice or chills. He was only takin minimal amounts of clears po & nutrition was becoming a problem. *As his pancreatitis had worsened, surgery wants to wait 6-8 weeks for lap CCKY. Oral narcotic analgesics are to be added to IV MS. I spoke with the patient regarding his past hx of substance abuse & the possibility for an indwelling PICC line. He denied any past hx IVDA. The patient was still HTN, but not tachycardic. He was essentially afebrile (Tm 99.7), with O2 sat RA 95%. His IV Ringers Lactate was dereased to 50cc/hr. 09/19/17: WBC 15.2 (82S/4B/8L/4M/2E), H/H 11.0/33.3, PLT 386, BUN/Cr 10/0.5, GFR > 60, Na 138, K 3.3, HCO3 23, AG 8, lipase 134, albumin 2.4, globulin 2.3, TBil 1.0, DBil 0.7, alk phos 97, AST 48, ALT 171, TSHR 2.09, *CRP > 9.0 09/20/17: WBC 20.7 (80% gran/17 gran Ab), H/H 12/36, PLT 443, BUN/Cr 9/0.6, GFR > 60, Na 137, K 4.4, HCO3 23, AG 12, lipase 220, albumin 3.1, globulin 2.8, TBil 1.2, DBil 0.7, alk phos 142, AST 60, ALT 187. 09/21/17: XR PORTABLE CHEST- IMPRESSION: 1. PICC line from the right with the tip at the cavoatrial junction. 2. No pneumothorax or acute cardiopulmonary findings are demonstrated. *As of 09/21/17, the patient's BP was under better control 140/80. He was borderline tachycardic, with T 99.2 (Tm 100.8) & O2 sat RA 92%. He denied any chills. He remained with leukocytosis. Previous BC were negative. *A PICC line was placed in the RUE per IR earlier on 09/21/17, for TPN access. He remained with abdominal pain, which was slightly improving, being managed by the medical team. His po Dilaudid was switched to a Fentanyl patch 12 mcg Q 72h, & his IV MS was continued foir breakthrough sx. He did note increased abdominal bloating. He denied any nausea or vomiting. He tolerated small amounts of Jell-O, but otherwise could not tolerate any additional clears po, except for a few sips of H2O. Unasyn, which had been resumed per surgery, was once again D/C on 09/21/17. He currently denied obstipation. His constipation was stable. He was ambulating. 09/21/17: WBC 22.2 (88% gran/20 gran Ab), H/H 11.8/36.1, PLT 500, BUN/Cr 11/0.7, GFR > 60, Na 137, K 4.0, HCO3 22, AG 14, albumin 3.1, globulin 2.8, TBil 1.0, DBil 0.6, alk phos 145, AST 69, ALT 187 (*post 09/15/17: ERCP with ES; Hep A, B, & C serologies-neg). 09/22/17: [id number] VIEW- Interval decompression of small and large bowel loops. *The patient was seen in ID consultation by Dr. Edmondson on 09/22/17, for low- grade fever & leukocytosis, which was felt to be most likely reactive in nature from the peripancreatic inflammation. A relatively recent 09/19/17: CT did not show any evidence of necrosis or abscess. He agreed with continuing to follow the patient off antibiotics for now, with the caveat that a repeat CT with pancreatic protocol be done, if there is a significant change in pain, abdominal exam, fever, or leukocytosis. 09/22/17: WBC 24.2 (85% gran/21 gran Ab), H/H 11.3/34, PLT 497, BUN/Cr 9/0.7, GFR > 60, Na 139, K 4.3, HCO3 25, AG 12, Mg 2.1, Ca 8.4, PO4 4.1, *PAB 8.6 (17.6 -36), *albumin 3.0, globulin 2.7, *TG 218, TBil 1.0, DBil 0.5, alk phos 160, AST 66, ALT 171. *As of 09/22/17, the patient was on TPN with intralipids & essentially NPO except for a few sips. He was also on decreased rate of IV Lactated Ringers @ 75 cc/hr. Relistor 12 mg sc Q 48h as needed was added 09/22/17 for narcotic induced constipation. He had a BM 09/22/17 & was less distended. The patient's pain regimen consisted of Fentanyl patch 25 mcg Q72h, MS Contin 15 mg po BID, & IV MS for breakthrough sx. His abdominal pain was improved. He denied any n & v. The patient's HTN was under better control. He had Tm 100.5-> 97.3. He denied any chills. 09/23/17: TG 525 09/23/17: WBC 22.2, H/H 10.7/33.3, MCV 96.4, RDW 16.6, PLT 536, BUN/Cr 11/0.7, GFR > 60, Na 138, K 4.4, HCO3 22, AG 13, Mg 2.0, Ca 8.7, PO4 4.0, *PAB 9.8, albumin 3.0, globulin 2.9, TBil 0.8, DBil 0.6, alk phos 140, AST 114, ALT 221, * TG 193, *As of 09/23/17, the patient was hemodynamically stable (albeit borderline hypertensive) & afebrile, with O2 sat RA 95%. he was tolerating TPN. He looked comfortable. He did get abdominal pain when he tried to eat Jell-O. He is now back to only sips of ice chips po. He currently denied any CP, SOB, fevers or chills, but still had mild leukocytosis. He had no obstructive symptoms. ID was on board and agreed with no antibiotics for now. *SUGGEST: *Continue TPN (defer to pharmacy regarding the intralipids re: TG) via RUE PICC, placed 09/21/17. Sips of clears po max!! *Lap CCKY will probably not be done for another 6-8 weeks, due to worsening pancreatitis on 09/19/17: CT AP with IV cont (although no necrosis). Dilaudid po switched to Fentanyl patch 25 mcg Q72h, MS Contin 30 mg po BID, & IV MS for breakthrough sx, per medical team. Zofran prn. Follow-up labs (CBC, lytes, GFR, LFT). *No definite indx for antibiotics, but culture if temp spikes (Unasyn was previously D/C 09/17/17, resumed by surgery on 09/19/17, & again D/C on ). Consideration for repeat CT abd with pancreatic protocol, if spikes. Avoid NSAIDS. *BP control, as per medical team. *Constipation is probably from narcotic analgesics.*Relistor (Methylnaltrexone) 12 mg sc Q48 hrs as needed, for narcotic induced constipation, although the patient had a BM 09/22/17. Follow-up with surgery. DVT prophylaxis. Mobilize patient. The patient was previously told to follow up with his PMD or a urologist upon discharge, to follow up the exophytic right renal lesion incidentally noted on admission 09/14/17: CT AP with IV cont. The case was again discussed with the patient's RN & previously with Dr. Jarvis, of surgery, & Dr. Kimbrough, who concur. *Further GI recommendations to follow, depending on clinical course. Problem List: 1. Gallstone pancreatitis 2. Abdominal pain 3. Elevated LFTs 4. Leukocytosis 5. Choledocholithiasis 6. S/P ERCP 7. Substance abuse 8. Constipation due to opioid therapy 9. Bipolar 1 disorder 10. Malnutrition Subjective Subjective: 09/23/17: TG 525 09/23/17: WBC 22.2, H/H 10.7/33.3, MCV 96.4, RDW 16.6, PLT 536, BUN/Cr 11/0.7, GFR > 60, Na 138, K 4.4, HCO3 22, AG 13, Mg 2.0, Ca 8.7, PO4 4.0, *PAB 9.8, albumin 3.0, globulin 2.9, TBil 0.8, DBil 0.6, alk phos 140, AST 114, ALT 221, * TG 193, *As of 09/23/17, the patient was hemodynamically stable (albeit borderline hypertensive) & afebrile, with O2 sat RA 95%. he was tolerating TPN. He looked comfortable. He did get abdominal pain when he tried to eat Jell-O. He is now back to only sips of ice chips po. He currently denied any CP, SOB, fevers or chills, but still had mild leukocytosis. He hasd no obstructive symptoms. ID was on board and agreed with no antibiotics for now. Review of Systems: Full 14 point review of systems otherwise noncontributory, and as above. Constitutional: Reports: no symptoms. EENTM: Reports: no symptoms. Cardiovascular: Reports: no symptoms. Respiratory: Reports: no symptoms. GI: Reports: abdominal pain & bloating; n & v- better, stable constipation Genitourinary: Reports: no symptoms. Musculoskeletal: Reports: no symptoms. Skin: Reports: no symptoms. Neurological/Psychological: Reports: hx bipolar disorder & hx substance abuse. Hematologic/Endocrine: Reports: no symptoms. Immunologic/Allergic: Reports: no symptoms. All Other Systems: Reviewed and Negative Objective Vital Signs and I&Os Vital Signs Date Time Temp Pulse Resp B/P B/P Pulse O2 O2 Flow FiO2 Mean Ox Delivery Rate 09/23 1500 98.9 91 20 140/86 95 09/23 0801 142/90 09/23 0801 142/90 09/23 0638 98.3 91 20 142/92 95 Room Air 09/22 2148 97.3 93 20 142/84 96 Intake & Output 09/23 1600 09/23 0400 09/22 1600 09/22 0400 09/21 1600 09/21 0400 Intake Total 2533.6 1260.5 1927.2 1291.8 1660 800 Output Total 900 1625 2505 1850 1900 1000 Balance 1633.6 -364.5 -577.8 -558.2 -240 -200 Intake, IV 9207 179 3301 1200 400 400 Intake, Lipid 616.8 35.6 33.6 8.4 Intake, Oral 100 338 852 5898 400 Intake, 616.8 294.9 333.6 83.4 TPN/PPN Number 1 1 Bowel Movements Output, Urine 900 1625 2505 1850 1900 1000 Patient 209 lb 209 lb Weight Physical Exam: Well-developed, well-nourished, obese male, in less distress. Nontoxic appearing. Sclera anicteric. Conjunctiva pink. Oropharynx clear. Slightly dry mucous membranes. There is no adenopathy, thyromegaly, or JVD. No peripheral stigmata of inflammatory bowel disease or chronic liver disease on exam. No spiders on the anterior chest wall. No gynecomastia. No CVA tenderness. Lungs : clear to A&P, with slight decreased breath sounds at the bases B/L. No wheezing, rales, or rhonchi. Heart exam: regular rate rhythm, S1 and S2, without any murmur. Abdominal exam: slightly hypoactive bowel sounds, mildly distended belly, moderate LUQ > epigastric tenderness, with minimal guarding, but no rebound. Negative Bazan sign. No definite mass or organomegaly. ? Mild fluid shift. No pulsatile mass. No epigastric bruit. Digital rectal exam: deferred. Extremities: without C, C, or E. No palpable cords. RUE PICC site clean, without gross phlebitis or cellulitis. Distal pulses 2+ bilaterally. DTRs 2+ bilaterally. No palmar erythema. No Dupuytren's contractures. Alert and oriented x 3. No tremor. No asterixis. Current Medications: Current Medications Sig/[place] Start time Last Medication Dose Route Stop Time Status Admin Amlodipine Besylate 5 MG DAILY 09/19 1400 AC 09/23 PO 0801 Atorvastatin Calcium 20 MG 1700 09/18 1700 AC 09/23 PO 1720 Fat Emulsion 250 ML Q24H 09/22 1900 DC 09/22 Intravenous IV 09/23 1852001 Fentanyl Citrate 25 MCG Q72H 09/22 1030 AC 09/22 TOP 1041 Glycerin 2 SPRAY Q2P PRN 09/16 1430 AC 09/17 PO 1419 Heparin Sodium 5,000 UNIT Q8 09/15 0600 AC 09/23 (Porcine) SC 2102 Lactated Ringer's 1,000 ML Q6H 09/21 1145 AC 09/23 IV 1849 [place] Carbonate 1,500 MG DAILY 09/18 0900 AC 09/23 PO 0801 Losartan Potassium 100 MG DAILY 09/18 0900 AC 09/23 PO 0801 Methylnaltrexone 12 MG Q48 PRN 09/22 1315 AC [place] SC Morphine Sulfate 30 MG BID 09/23 2100 AC 09/23 PO 2102 Morphine Sulfate 15 MG BID 09/22 1306 DC 09/23 PO 0801 Morphine Sulfate 5 MG Q4-PRN PRN 09/22 0745 AC 09/23 IV 1819 Ondansetron HCl 4 MG Q6P PRN 09/14 2245 AC IV Total Parenteral 1 UNIT 1900 09/23 1900 AC 09/23 Nutrition IV 09/24 Total Parenteral 1 UNIT 1900 09/22 1900 DC 09/22 Nutrition IV 09/23 Results Pertinent Lab Results: Laboratory Tests 09/23 09/23 1028 0550 Chemistry Sodium (137 - 145 mmol/L) 138 128 L Potassium (3.5 - 5.1 mmol/L) 4.4 6.6 *H Chloride (98 - 107 mmol/L) 102 95 L Carbon Dioxide (22 - 30 mmol/L) 22 21 L Anion Gap (5 - 16) 13 12 BUN (9 - 20 mg/dL) 11 10 Creatinine (0.7 - 1.2 mg/dL) 0.7 0.8 Estimated GFR (>60 ml/min) > 60 > 60 BUN/Creatinine Ratio (7 - 25 %) 15.7 12.5 Calcium (8.4 - 10.2 mg/dL) 8.7 8.2 L Phosphorus (2.5 - 4.5 mg/dL) 4.0 6.6 H Magnesium (1.6 - 2.3 mg/dL) 2.0 2.3 Total Bilirubin (0.2 - 1.3 mg/dL) 0.8 0.7 Direct Bilirubin (< 0.4 mg/dL) 0.6 H 0.6 H AST (17 - 59 U/L) 114 H 117 H ALT (21 - 72 U/L) 221 H 187 H Alkaline Phosphatase (< 127 U/L) 140 H 101 Total Protein (6.3 - 8.2 g/dL) 5.9 L 4.9 L Albumin (3.5 - 5.0 g/dL) 3.0 L 2.7 L Prealbumin (17.6 - 36.0 mg/dL) 9.8 L Triglycerides (<150 mg/dL) 193 H 525 H Hematology CBC w Diff NO MAN DIFF REQ WBC (4.8 - 10.8 /CUMM) 22.2 H RBC (4.70 - 6.10 /CUMM) 3.45 L Hgb (14.0 - 18.0 G/DL) 10.7 L Hct (42 - 52 %) 33.3 L MCV (80.0 - 94.0 FL) 96.4 H MCH (27.0 - 31.0 PG) 30.9 MCHC (33.0 - 37.0 G/DL) 32.1 L RDW (11.5 - 14.5 %) 16.6 H Plt Count (130 - 400 /CUMM) 536 H MPV (7.4 - 10.4 FL) 8.7 Gran % (42.2 - 75.2 %) 83.8 H Lymphocytes % (20.5 - 51.1 %) 8.3 L Monocytes % (1.7 - 9.3 %) 6.1 Eosinophils % (0 - 5 %) 1.7 Basophils % (0.0 - 2.0 %) 0.1 Absolute Granulocytes (1.4 - 6.5 /CUMM) 18.6 H Absolute Lymphocytes (1.2 - 3.4 /CUMM) 1.8 Absolute Monocytes (0.10 - 0.60 /CUMM) 1.4 H Absolute Eosinophils (0.0 - 0.7 /CUMM) 0.4 Absolute Basophils (0.0 - 0.2 /CUMM) 0 09/23 03/16 0620 0820 Chemistry Sodium (137 - 145 mmol/L) 139 137 Potassium (3.5 - 5.1 mmol/L) 4.3 4.0 Chloride (98 - 107 mmol/L) 101 101 Carbon Dioxide (22 - 30 mmol/L) 25 22 Anion Gap (5 - 16) 12 14 BUN (9 - 20 mg/dL) 9 11 Creatinine (0.7 - 1.2 mg/dL) 0.7 0.7 Estimated GFR (>60 ml/min) > 60 > 60 BUN/Creatinine Ratio (7 - 25 %) 12.9 15.7 Calcium (8.4 - 10.2 mg/dL) 8.4 Phosphorus (2.5 - 4.5 mg/dL) 4.1 Magnesium (1.6 - 2.3 mg/dL) 2.1 Total Bilirubin (0.2 - 1.3 mg/dL) 1.0 1.0 Direct Bilirubin (< 0.4 mg/dL) 0.5 H 0.6 H AST (17 - 59 U/L) 66 H 69 H ALT (21 - 72 U/L) 171 H 187 H Alkaline Phosphatase (< 127 U/L) 160 H 145 H Total Protein (6.3 - 8.2 g/dL) 5.7 L 5.9 L Albumin (3.5 - 5.0 g/dL) 3.0 L 3.1 L Prealbumin (17.6 - 36.0 mg/dL) 8.6 L Triglycerides (<150 mg/dL) 218 H Hematology CBC w Diff NO MAN DIFF REQ NO MAN DIFF REQ WBC (4.8 - 10.8 /CUMM) 24.2 H 22.2 H RBC (4.70 - 6.10 /CUMM) 3.77 L 3.94 L Hgb (14.0 - 18.0 G/DL) 11.3 L 11.8 L Hct (42 - 52 %) 34.0 L 36.1 L MCV (80.0 - 94.0 FL) 90.3 91.6 MCH (27.0 - 31.0 PG) 29.9 29.9 MCHC (33.0 - 37.0 G/DL) 33.1 32.6 L RDW (11.5 - 14.5 %) 15.2 H 15.7 H Plt Count (130 - 400 /CUMM) 497 H 500 H MPV (7.4 - 10.4 FL) 8.2 8.0 Gran % (42.2 - 75.2 %) 85.0 H 88.0 H Lymphocytes % (20.5 - 51.1 %) 5.7 L 6.1 L Monocytes % (1.7 - 9.3 %) 7.9 4.4 Eosinophils % (0 - 5 %) 1.0 1.4 Basophils % (0.0 - 2.0 %) 0.4 0.1 Absolute Granulocytes (1.4 - 6.5 /CUMM) 20.6 H 19.5 H Absolute Lymphocytes (1.2 - 3.4 /CUMM) 1.4 1.4 Absolute Monocytes (0.10 - 0.60 /CUMM) 1.9 H 1.0 H Absolute Eosinophils (0.0 - 0.7 /CUMM) 0.2 0.3 Absolute Basophils (0.0 - 0.2 /CUMM) 0.1 0 Imaging/Other Studies: 09/14/17: EKG- SB @ 59, nl axis, nl intervals, no acute ischemia. 09/14/17: CT ABD & PELVIS W IV CONTRAST- IMPRESSION: Choledocholithiasis resulting in mild obstructive biliary ductal dilatation and secondary pancreatitis. Additional mild mucosal hyperemia, surrounding inflammatory change and mild wall thickening of the gastric antrum and duodenum. Exophytic 1.4 cm low-density nodular lesion arising from the posterior cortex of the right kidney which does not measure simple fluid and was not present on previous imaging from 2006. Although this may represent a proteinaceous or hemorrhagic cyst, a dedicated renal ultrasound is recommended in order to rule out a solid mass. Imaging findings discussed with Dr. Hernandez at 9:07 PM on 09/14/2017. DICTATED BY: Rubens Alejandra MD DATE/TIME DICTATED:09/14/17205009/15/17: *ERCP with ES/stone extraction, per Dr. Rachel Gamboa- Impression: * Choledocholithiasis (stone impacted in ampulla), treated with sphincterotomy and extraction. 09/15/17: XRY-PORTABLE CHEST XRAY- Very limited study, oblique projection. Left costophrenic angle is excluded from the film margin, no large effusions. 09/19/17: CT ABD & PELVIS W IV CONTRAST- IMPRESSION: 1. The volume of abdominal ascites around the pancreas and extending into the mesentery has significantly increased since the exam of 09/14/17. There is no pseudocyst formation. The enhancement of the pancreas remains normal with no evidence of pancreatic necrosis. No dilated PD. 2. There are bilateral pleural effusions and bibasilar infiltrate/atelectasis. 09/21/17: XR PORTABLE CHEST- IMPRESSION: 1. PICC line from the right with the tip at the cavoatrial junction. 2. No pneumothorax or acute cardiopulmonary findings are demonstrated. 09/22/17: [id number] VIEW- Interval decompression of small and large bowel loops.
[2017-09-23 22:10] VITALS: BP 142/70
[2017-09-24 06:43] VITALS: BP 122/82
--- NOTE | 2017-09-24 07:27 | PN- Housestaff ---
See Addendum Subjective Follow-up For: Gallstone pancreatitis status post ERCP Subjective: No overnight events. Patient was resting comfortably and sleeping when I went in this morning. When I woke him up, he is complaining of abdominal pain. He has been tolerating the clears well but does not enjoy them. No other complaints. Review of Systems Constitutional: Reports: no symptoms. EENTM: Reports: no symptoms. Cardiovascular: Reports: no symptoms. Respiratory: Reports: no symptoms. Gastrointestinal: Reports: see HPI. Genitourinary: Reports: no symptoms. Musculoskeletal: Reports: no symptoms. Skin: Reports: no symptoms. Neurological/Psychological: Reports: no symptoms. Hematologic/Endocrine: Reports: no symptoms. Immunologic/Allergic: Reports: no symptoms. Objective Last 24 Hrs of Vital Signs/I&O Vital Signs Date Time Temp Pulse Resp B/P B/P Pulse O2 O2 Flow FiO2 Mean Ox Delivery Rate 09/24 0643 98.9 88 20 122/82 96 Room Air 09/23 2210 99.7 94 18 142/70 95 09/23 1500 98.9 91 20 140/86 95 09/23 0801 142/90 09/23 0801 142/90 Intake & Output 09/24 0800 09/24 0000 09/23 1600 Intake Total 1763.0 1316.8 Output Total 1700 1200 350 Balance -1700 563.0 966.8 Intake, IV 600 600 Intake, Lipid 50.0 533.6 Intake, Oral 480 100 Intake, 633 83.2 TPN/PPN Output, Urine 1700 1200 350 Physical Exam General Appearance: Alert, Oriented X3, Cooperative, No Acute Distress Cardiovascular: Regular Rate, Normal S1, Normal S2 Lungs: Clear to Auscultation, Normal Air Movement Abdomen: Normal Bowel Sounds, hard, but softer than yesterday with less tenderness Extremities: No Edema, Normal Pulses, No Tenderness/Swelling Current Medications: Current Medications Sig/[place] Start time Last Medication Dose Route Stop Time Status Admin Amlodipine Besylate 5 MG DAILY 09/19 1400 AC 09/23 PO 0801 Atorvastatin Calcium 20 MG 1700 09/18 1700 AC 09/23 PO 1720 Fat Emulsion 250 ML Q24H 09/22 1900 DC 09/22 Intravenous IV 09/23 1859 2001 Fentanyl Citrate 25 MCG Q72H 09/22 1030 AC 09/22 TOP 1041 Glycerin 2 SPRAY Q2P PRN 09/16 1430 AC 09/17 PO 1419 Heparin Sodium 5,000 UNIT Q8 09/15 0600 AC 09/24 (Porcine) SC 0637 Hydromorphone HCl 1 MG ONCE ONE 09/24 0200 DC 09/24 PO 09/24 0201 0213 Lactated Ringer's 1,000 ML Q6H 09/21 1145 AC 09/23 IV 1849 [place] Carbonate 1,500 MG DAILY 09/18 09 AC 09/23 PO 0801 Losartan Potassium 100 MG DAILY 09/18 0900 AC 09/23 PO 0801 Methylnaltrexone 12 MG Q48 PRN 09/22 1315 AC [place] SC Morphine Sulfate 3 MG Q4-PRN PRN 09/24 0730 UNVr IV Morphine Sulfate 30 MG BID 09/23 2100 AC 09/23 PO 2102 Morphine Sulfate 15 MG BID 09/22 1306 DC 09/23 PO 0801 Morphine Sulfate 5 MG Q4-PRN PRN 09/22 0745 DC 09/24 IV 0356 Ondansetron HCl 4 MG Q6P PRN 09/14 2245 AC IV Total Parenteral 1 UNIT 1900 09/23 1900 AC 09/23 Nutrition IV 09/24 Total Parenteral 1 UNIT 1900 09/22 1900 DC 09/22 Nutrition IV 09/23 Last 24 Hrs of Lab/David Results Last 24 Hrs of Labs/Mics: Laboratory Tests 09/24/17 0630: Sodium Pending, Potassium Pending, Chloride Pending, Carbon Dioxide Pending, Anion Gap Pending, BUN Pending, Creatinine Pending, BUN/Creatinine Ratio Pending , Calcium Pending, Phosphorus Pending, Magnesium Pending, Total Bilirubin Pending, Direct Bilirubin Pending, AST Pending, ALT Pending, Alkaline Phosphatase Pending, Total Protein Pending, Albumin Pending, Prealbumin Pending, Triglycerides Pending, CBC w Diff Pending, WBC Pending, RBC Pending, Hgb Pending , Hct Pending, MCV Pending, MCH Pending, MCHC Pending, RDW Pending, Plt Count Pending, MPV Pending 09/23/17 1028: Anion Gap 13, Estimated GFR > 60, BUN/Creatinine Ratio 15.7, Calcium 8.7, Phosphorus 4.0, Magnesium 2.0, Total Bilirubin 0.8, Direct Bilirubin 0.6 H, AST 114 H, ALT 221 H, Alkaline Phosphatase 140 H, Total Protein 5.9 L, Albumin 3.0 L, Triglycerides 193 H Assessment/Plan Assessment: Mr. Carbone is a 47 year old man with past medical history of bipolar disorder, hypertension, and hyperlipidemia presented with acute onset abdominal associated with nausea, diarrhea, and chills secondary to gallstone pancreatitis now status post ERCP. He was initially admitted to the ICU and then transferred to general medicine on 09/18/17 after stabilization of his condition. Problem list: 1. Gallstone pancreatitis status post ERCP 2. Transaminitis 3. Exophytic lesion arising from right kidney #Gallstone pancreatitis status post ERCP: Patient presented with epigastric pain , found to have gallstone pancreatitis, is now status post ERCP.. Gastroenterology is following. He will need cholecystectomy in 6-[address] on 09/19/17 showed a volume of abdominal ascites around the pancreas extending into the mesentery significantly increased but there is no pseudocyst formation in the enhancement and the pancreas remains normal with no evidence of pancreatic necrosis. He has not had further fevers and his pain seems better controlled. He is tolerating clear liquids at this point. -Fentanyl patch 25 g every 72 hours. -Decrease IV morphine to 3 mg every 4 hours when necessary pain -oral morphine to 30 mg BID -No NSAIDs -Lactated Ringer's 75 mL per hour, adjust per TPN protocol -Continue TPN -clear liquid diet -Appreciate gastroenterology and general surgery conditions -Ondansetron as necessary -Appreciate ID recommendations -Watch electrolytes -If febrile, reculture and obtain CT abdomen/pelvis with contrast #Transaminitis: Liver enzymes are slightly downtrending. -Hold acetaminophen -Avoid hepatotoxins #Exophytic lesion arising from right kidney: Incidental finding. -Follow up with nephrology as an outpatient. #Chronic medical problems: -Continue lithium -Continue amlodipine and losartan -Continue other home medications DVT prophylaxis with heparin Clear liquid diet Full code Problem List: 1. Gallstone pancreatitis 2. S/P ERCP Pain Ratin Pain Location: abd Pain Goal: Remain pain free Pain Plan: see a/p Tomorrow's Labs & Rationales: cbc, bep
[2017-09-24 10:01] LABS: ABSOLUTE BASOPHIL COUNT 0.1 /CUMM (0.0-0.2); ABSOLUTE EOSINOPHIL COUNT 0.4 /CUMM (0.0-0.7); ABSOLUTE GRANULOCYTE CT 19.9 /CUMM (1.4-6.5); ABSOLUTE LYMPH COUNT 2.1 /CUMM (1.2-3.4); ABSOLUTE MONOCYTE COUNT 0.4 /CUMM (0.10-0.60); BASOPHIL % 0.3 % (0.0-2.0); EOSINOPHIL % 1.7 % (0-5); GRANULOCYTE % 87.3 % (42.2-75.2); HEMATOCRIT 33.7 % (42-52); MEAN CORPUSCULAR HGB 30.4 PG (27.0-31.0); MEAN PLATELET VOLUME 8.1 FL (7.4-10.4); PLATELET COUNT 583 /CUMM (130-400); RBC DISTRIBUTION WIDTH 15.2 % (11.5-14.5); RED BLOOD CELL CT 3.77 /CUMM (4.70-6.10); WHITE BLOOD CELL COUNT 22.8 /CUMM (4.8-10.8)
[2017-09-24 10:05] LABS: MEAN CORPUSCULAR VOLUME 89.3 FL (80.0-94.0)
--- NOTE | 2017-09-24 10:11 | PN- Student ---
Subjective Subjective: No overnight events reported. Mr. Carbone still reports feeling pain and trouble sleeping, only finding relief after IV morphine which he states allows him to sleep for 1 hour at a time. His abdominal pain has flucuated from 0-10 on the pain scale out of 10, even after increasing PO morphine from 15 to 30 mg BID. He reports diffculty eating and drinking still, with only being able to eat jello. Mr. Carbone reports that he was able to pass gas this morning for the first time in a few days. He denies any chest pain, palpitaitons, headache or difficulty ambulating. Objective Objective: Current Medications Sig/Carrington Start time Last Medication Dose Route Stop Time Status Admin Amlodipine Besylate 5 MG DAILY 09/19 1400 AC 09/24 PO 0808 Atorvastatin Calcium 20 MG 1700 09/18 1700 AC 09/23 PO 1720 Fat Emulsion 250 ML Q24H 09/22 1900 DC 09/22 Intravenous IV 09/23 Fentanyl Citrate 25 MCG Q72H 09/22 1030 09/22 TOP 1041 Glycerin 2 SPRAY Q2P PRN 09/16 1430 AC 09/17 PO 1419 Heparin Sodium 5,000 UNIT Q8 09/15 0600 AC 09/24 (Porcine) SC 0637 Hydromorphone HCl 1 MG ONCE ONE 09/24 0200 DC 09/24 PO 09/24 020 0213 Lactated Ringer's 1,000 ML Q6H 09/21 1145 AC 09/23 IV 1849 [place] Carbonate 1,500 MG DAILY 09/18 0900 AC 09/24 PO 0808 Losartan Potassium 100 MG DAILY 09/18 0900 09/24 PO 0808 Methylnaltrexone 12 MG Q48 PRN 09/22 1315 AC [place] Morphine Sulfate 3 MG Q4-PRN PRN 09/24 0730 AC IV Morphine Sulfate 30 MG BID 09/23 2100 AC 09/24 PO 0809 Morphine Sulfate 5 MG Q4-PRN PRN 09/22 0745 DC 09/24 IV 0356 Ondansetron HCl 4 MG Q6P PRN 09/14 2245 AC IV Total Parenteral 1 UNIT 1900 09/23 1900 AC 09/23 Nutrition IV 09/24 Total Parenteral 1 UNIT 1900 09/22 1900 PR 09/22 Nutrition IV 09/23 Laboratory Tests 09/24 09/23 0630 1028 Chemistry Sodium (137 - 145 mmol/L) Pending 138 Potassium (3.5 - 5.1 mmol/L) Pending 4.4 Chloride (98 - 107 mmol/L) Pending 102 Carbon Dioxide (22 - 30 mmol/L) Pending 22 Anion Gap (5 - 16) Pending 13 BUN (9 - 20 mg/dL) Pending 11 Creatinine (0.7 - 1.2 mg/dL) Pending 0.7 Estimated GFR (>60 ml/min) > 60 BUN/Creatinine Ratio (7 - 25 %) Pending 15.7 Calcium (8.4 - 10.2 mg/dL) Pending 8.7 Phosphorus (2.5 - 4.5 mg/dL) Pending 4.0 Magnesium (1.6 - 2.3 mg/dL) Pending 2.0 Total Bilirubin (0.2 - 1.3 mg/dL) Pending 0.8 Direct Bilirubin (< 0.4 mg/dL) Pending 0.6 H AST (17 - 59 U/L) Pending 114 H ALT (21 - 72 U/L) Pending 221 H Alkaline Phosphatase (< 127 U/L) Pending 140 H Total Protein (6.3 - 8.2 g/dL) Pending 5.9 L Albumin (3.5 - 5.0 g/dL) Pending 3.0 L Prealbumin Pending Triglycerides (<150 mg/dL) Pending 193 H Hematology CBC w Diff Pending WBC Pending RBC Pending Hgb Pending Hct Pending MCV Pending MCH Pending MCHC Pending RDW Pending Plt Count Pending MPV Pending Vital Signs Date Time Temp Pulse Resp B/P B/P Pulse O2 O2 Flow FiO2 Mean Ox Delivery Rate 09/24 0808 122/82 09/24 0808 122/82 09/24 0643 98.9 88 20 122/82 96 Room Air 09/23 2210 99.7 94 18 142/70 95 09/23 1500 98.9 91 20 140/86 95 Intake & Output 09/24 1600 09/24 0800 09/24 0000 Intake Total 1275 1763.0 Output Total 1950 1200 Balance -675 563.0 Intake, IV 525 600 Intake, Lipid 50.0 Intake, Oral 50 480 Intake, 700 633 TPN/PPN Output, Urine 1950 1200 Physical Exam General apperance: slight discomfort due to pain, AOx3 CV: regular rhythym and rate, normal S1&S2, No MRG Pulm: lungs clear to ausculatation Abd: normal bowel sounds, diffuse tenderness and rigidity Ext: no signs of peripheral edema, purpura or petichae, peripheral pulses 2+ ( radial, post. tibial, dorsal pedis) Assessment/Plan Assessment: Mr. Carbone is a 47 year old man with a past medical history significant for Bipolar d/o, HTN, hyperlipidemia, and IV drug abuse presented with abdominal pain, nausea, diarrhea and chills. He was found to have gallstone pancreatitis with ECRP being performed on 09/15/17. He was initially admitted to the ICU and subsequently transferred to the general medicine floor on 09/18/17. He reports having abdominal pain since the begining of April at the same time of treatment he was recieving at a drug rehabilitation facility in [place]. He completed the program in [place] and then sought additional drug rehabilitation at a facility in [place]. Upon returning home to [facility] he began having acute abdominal pain and presented to [facility] ED on 09/14/17. He has been hospitalized from that time period for Pancreatitis. His main complaint since being on the medical floor is abdominal pain and diffusely tender and rigid abdomen. Plan: Problem List: 1. Gallstone Pancreatitis 2. Elevated LFTs 3. Hypoalbuminemia 4. Hypertriglyceridemia 5. Normocytic anemia 7. Chronic medical conditions #Gallstone Pancreatitis: Mr. Carbone had ERCP done on 09/15/17 and has subsequently been monitored throughout his hospitalization. CT on 09/19/17 of the abd/pelvis indicated ascites present around the pancreas extending into the mesentery, but no evidence of pseudocyst formation or necrosis. He is unable to tolerate water or food aside from jello by mouth and therefore was started on TPN. He has had high triglycerides and therefore lipids have been witheld from TPN. His potassium and sodium levels were abnormal today but just outside the normal range which may be related to the diet, will continue to monitor these levels. GI consult concluded he will most likely need Cholecystectomy but due to the Pancreatitis will not likely occur until 6-8 weeks from this present time. He is recieving LR IV fluids and his blood glucose levels have been within acceptable range. He has been afebrile, however his pain level is still significant. He has reported his pain level as anywhere from 0-10 over the past 24 hours. He started PO morphine on 09/22/17 with an increase in dosing to 30 mg BID 09/23/17. He reports only being able to sleep after recieving IV morphine. -Continue to appreciate GI recommendations -Clear liquid diet -Morphine 30 mg BID PO -Morphine 3 mg IV PRN Q4H -Fentanyl patch ever 72 hours -Continue TPN and monitor electrolytes and lipid levels -Coninue to monitor pain levels #Elevated LFTs: Patient's AST and ALT are significantly elevated. He has had a hepatitis panel workup which did not yeild significant findings. These findings are likely due to the acute pancreatitis and gallstone obstruction. These levels are still elevated today, and will likely remain elevated until Cholecystectomy can be performed. -Continue to follow LFTs -Avoid any hepatoxic medications #Hypoalbuminemia: Kidney function indicates that patient is not losing protein via nephrotic process. Patient has not been eating and total protein level is also decresed, he is recieving TPN. Albumin level has increased since yesterdays lab work. -continue to monitor -continue TPN #Hypertriglyceridemia: Although patient has history of elevated lipid profile, this hypertriglyceridemia is most likely due to Pancreatitis. Most recent lab work up indicates improvement of triglycerides. -continue to monitor -continue statin therapy -remove lipids from TPN #Normocytic Anemia: Patient continues to have low RBCs, Hgb and HCT. However he has been recieving large amounts of IV fluids throughout the duration of his hospitaliztion. Therefore this reduction is likely due to a fluid dilutional effect. -continue to monitor CBC -continue IV fluids #chronic medical conditions -continue to monitor -continue lithium -continue HTN medicaitons DVT ppx: Heparin Clear Liquid Diet + TPN Full Code
--- NOTE | 2017-09-24 13:57 | PN- Infect Dx ---
Subjective Subjective: Afebrile. He continues to complain of mid abdominal pain. Objective Last 24 Hrs of Vital Signs/I&O Vital Signs Date Time Temp Pulse Resp B/P B/P Pulse O2 O2 Flow FiO2 Mean Ox Delivery Rate 09/24 0808 122/82 09/24 0808 122/82 09/24 0643 98.9 88 20 122/82 96 Room Air 09/23 2210 99.7 94 18 142/70 95 09/23 1500 98.9 91 20 140/86 95 Intake & Output 09/24 1600 09/24 0800 09/24 0000 Intake Total 1275 1763.0 Output Total 550 1950 1200 Balance -550 -675 563.0 Intake, IV 525 600 Intake, Lipid 50.0 Intake, Oral 50 480 Intake, 700 633 TPN/PPN Output, Urine 550 1950 1200 Physical Exam Other Physical Findings: He appears comfortable in no acute distress Abdomen is mildly distended, tender on palpation over the mid abdomen, right upper quadrant and left upper quadrant, with guarding, but no rebound, and with positive bowel sounds Extremities no cyanosis, clubbing or edema Results Last 24 Hours of Lab Results: Laboratory Tests 09/24 0630 Chemistry Sodium (137 - 145 mmol/L) 134 L Potassium (3.5 - 5.1 mmol/L) 5.3 H Chloride (98 - 107 mmol/L) 99 Carbon Dioxide (22 - 30 mmol/L) 26 Anion Gap (5 - 16) 9 BUN (9 - 20 mg/dL) 13 Creatinine (0.7 - 1.2 mg/dL) 0.7 Estimated GFR (>60 ml/min) > 60 BUN/Creatinine Ratio (7 - 25 %) 18.6 Calcium (8.4 - 10.2 mg/dL) 8.5 Phosphorus (2.5 - 4.5 mg/dL) 4.9 H Magnesium (1.6 - 2.3 mg/dL) 2.1 Total Bilirubin (0.2 - 1.3 mg/dL) 1.1 Direct Bilirubin (< 0.4 mg/dL) 0.7 H AST (17 - 59 U/L) 133 H ALT (21 - 72 U/L) 280 H Alkaline Phosphatase (< 127 U/L) 141 H Total Protein (6.3 - 8.2 g/dL) 5.9 L Albumin (3.5 - 5.0 g/dL) 3.1 L Prealbumin (17.6 - 36.0 mg/dL) 11.3 L Triglycerides (<150 mg/dL) 136 Hematology CBC w Diff MAN DIFF ORDERED WBC (4.8 - 10.8 /CUMM) 22.8 H RBC (4.70 - 6.10 /CUMM) 3.77 L Hgb (14.0 - 18.0 G/DL) 11.5 L Hct (42 - 52 %) 33.7 L MCV (80.0 - 94.0 FL) 89.3 MCH (27.0 - 31.0 PG) 30.4 MCHC (33.0 - 37.0 G/DL) 34.0 RDW (11.5 - 14.5 %) 15.2 H Plt Count (130 - 400 /CUMM) 583 H MPV (7.4 - 10.4 FL) 8.1 Gran % (42.2 - 75.2 %) 87.3 H Lymphocytes % (20.5 - 51.1 %) 9.1 L Monocytes % (1.7 - 9.3 %) 1.6 L Eosinophils % (0 - 5 %) 1.7 Basophils % (0.0 - 2.0 %) 0.3 Absolute Granulocytes (1.4 - 6.5 /CUMM) 19.9 H Segmented Neutrophils (42.2 - 75.2 %) 82 H Band Neutrophils (0.0 - 5.0 %) 3 Absolute Lymphocytes (1.2 - 3.4 /CUMM) 2.1 Lymphocytes (20.5 - 51.1 %) 10 L Monocytes (1.7 - 9.3 %) 4 Absolute Monocytes (0.10 - 0.60 /CUMM) 0.4 Eosinophils (0 - 5.0 %) 1 Absolute Eosinophils (0.0 - 0.7 /CUMM) 0.4 Absolute Basophils (0.0 - 0.2 /CUMM) 0.1 Platelet Estimate (ADEQUATE) INCREASED Normocytic RBCs VERIFIED Normochromic RBCs VERIFIED Last 24 Hours of David Results: No recent cultures Assessment/Plan ID Impression: Stable, with temperatures remaining normal but with a persistent leukocytosis, presumably secondary to ongoing pancreatitis/peripancreatic inflammation, but with his liver enzymes also increasing, raising concern for a process involving the liver, for example a liver abscess, secondary to his recent choledocholithiasis/ cholangitis. Suggestion: 1. Repeat CT of the abdomen and pelvis with IV contrast (would do pancreatic protocol as well) 2. Continue to follow off antibiotics pending above
[2017-09-24 14:38] VITALS: BP 130/70
--- NOTE | 2017-09-24 17:12 | CT SCAN REPORT ---
EXAMINATION: CT ABDOMEN AND PELVIS WITH CONTRAST CLINICAL INFORMATION: Pancreatic necrosis versus liver abscess. COMPARISON: CT scan of the abdomen and pelvis 09/19/2017. TECHNIQUE: Multidetector volumetric imaging was performed of the abdomen and pelvis following IV administration of 95 mL of Optiray 320 intravenous contrast. Sagittal and coronal reformatted images were obtained on the technologist's workstation. DLP: 1449.83 mGy-cm FINDINGS: LUNG BASES: There are small bilateral pleural effusions and bibasilar subsegmental atelectasis. No pericardial effusion. LIVER, GALLBLADDER, AND BILIARY TREE: Liver attenuation is grossly homogeneous with no evidence of a discrete hepatic parenchymal mass or collection. Grossly no intrahepatic or extrahepatic biliary duct dilatation. The gallbladder is unremarkable with no evidence of radiopaque gallstones, gallbladder wall thickening, or obvious pericholecystic inflammatory changes. PANCREAS: The amount of fluid filling the lesser omental sac has not substantially changed when compared to most recent prior examination from 09/19/2017. There is subtle enhancement along the margins of this peripancreatic fluid collection however no evidence of mature pseudocyst formation. Enhancement characteristics within the pancreatic tissue is also stable no evidence of pancreatic necrosis. SPLEEN: Unremarkable. ADRENAL GLANDS: Unremarkable. KIDNEYS AND URETERS: Kidneys demonstrate symmetric corticomedullary enhancement characteristics. There is a small benign-appearing cystic lesion within the right kidney. No discrete renal parenchymal mass. No hydronephrosis. No worrisome mass or calcifications visualized along the expected course of the right or left ureters. BLADDER: Unremarkable. GASTROINTESTINAL TRACT: There is reactive inflammatory thickening within the transverse colon adjacent to the fluid collection within the lesser omental sac. A small volume of fluid also layers within the pelvis. No free intraperitoneal air. There is an appendicolith within an otherwise unremarkable appendix. No evidence of small bowel obstruction. Stomach is unremarkable. ABDOMINAL WALL: No significant hernia is appreciated. LYMPH NODES: There are no pathologically enlarged mesenteric or retroperitoneal lymph nodes. VASCULAR: The portal vein is compressed by the collection within the lesser omental sac however there is no evidence of overt portal vein thrombosis. The abdominal aorta and the major unpaired aortic branches are grossly patent. The inferior vena cava is unremarkable. PELVIC VISCERA: Unremarkable. OSSEOUS STRUCTURES: There is no acute osseous finding. Specifically no worrisome lytic or blastic osseous lesion. There is degenerative spondylosis at L5-S1. Disc degeneration at multiple additional levels. IMPRESSION: The size of the fluid collection within the lesser omental sac has not substantially changed when compared to the most recent prior CT scan of abdomen and pelvis from 09/19/2017. There is some enhancement at the margins of the fluid collection with no evidence of mature pseudocyst formation. The pancreatic tissue enhances homogeneously with no evidence of pancreatic necrosis. The fluid collection within the lesser sac compresses the portal vein however there is no evidence of portal vein thrombosis.
[2017-09-24 22:13] VITALS: BP 120/80
--- NOTE | 2017-09-24 23:50 | PN- Gastroenterology ---
Assessment/Plan GI Assessment/Recommendations: (*The patient was initially seen & examined on 09/18/17. His extensive records were reviewed. I assumed the patient's inpt GI care on 09/18/17. Dr. Erika Gamboa 's GI consult 0f 09/15/17 was reviewed, along with subsequent progress notes, labs, imaging studies, & 09/15/17: ERCP). 47 y/o male, bipolar disorder, HTN, HLD, heroin addict, hx cocaine, mild smoker, non-EtOH, admitted to [facility] 09/14/17, after being in rehabilitation in [place], where he developed abdominal pain & was told it was from the gallbladder. Upon admission to [facility], he had moderate to severe gallstone pancreatitis with an impacted stone in the ampulla, removed via 09/15/17: ERCP/ ES, followed by progressive decline in LFTs, although there were still elevated. Plans were to have lap CCKY at the end of this admission, but the patient had persistent abdominal pain, possibly implying ongoing pancreatic inflammation. * Please note, 09/14/17: Admission Utox: +OP/MS; [EtOH] < 10. 09/15/17: *nl TG 106. 06/10/10: HIV- neg. 09/15/17: HAVM, Hep Bs Ag, Hep B core Ab, & Hep C Ab- all neg. IV Unasyn was stopped 09/17/17. *As of 09/18/17, he was still getting po Dilaudid, Zofran, & IV MS. He was on IV Lactated Ringers at 250cc/hr & was being followed by surgery. *The pt was moved from the ICU to [facility] on 09/18/17. Medical & surgical notes appreciated. He was complaining of diffuse abdominal pain despite narcotic analgesics. He had mild nausea but no recurrent vomiting. He denies any fevers , chills, jaundice, chest pain, or shortness of breath. He was started on clears, but is now NPO. Surgery is holding off on CCKY, in view of his ongoing symptoms. *As of 09/18/17, the patient was hypertensive, nontachycardic, with O2 sat RA 95%, Tm 99.3. His BC had remained negative. His leukocytosis was improving. His H/H had dropped appropriately after IV fluids, going against hemoconcentration. *As of 09/19/17, the patient was somewhat hypertensive, but no longer tachycardic. He was afebrile, with Tm 99.3. He still had subjective abdominal pain, requiring narcotic analgesics (*please note, hx substance abuse & bipolar disorder, so difficult to assess). His MS was switched to IV Dilaudid 1mg Q4h. His nausea & vomiting had improved. He denied any jaundice, CP, SOB, or chills. He tolerated clears po on 09/18/17, but was made NPO for repeat CT with pancreatic protocol on 09/19/17, in order to better objectively reassess his pancreas. His IV lactated Ringer's was just held per surgery, pending the CT results. He was constipated from the narcotic analgesics, with his last BM approximately 4 days ago. He was not obstipated, but was a little bloated. Toradol was D/C 09/19/17, after 2 doses. There was no lab evidence of hemoconcentration, as his H/H dropped appropriately, after IVF. 09/19/17: CT ABD & PELVIS W IV CONTRAST- IMPRESSION: 1. The volume of abdominal ascites around the pancreas and extending into the mesentery has significantly increased since the exam of 09/14/17. There is no pseudocyst formation. The enhancement of the pancreas remains normal with no evidence of pancreatic necrosis. No dilated PD. 2. There are bilateral pleural effusions and bibasilar infiltrate/atelectasis. *As of 09/20/17, the patient still had abdominal pain. His repeat 09/19/17: CT AP with pancreatic protocol showed worsening pancreatitis, albeit without pseudocyst or necrosis, with increased fluid collection around the pancreas, moreso since 09/14/17: CT, extending anteriorly into the mesentery and inferiorly to the stomach, as well as to the right kidney & right paracolic gutter, anterior to the liver. He denied any significant nausea & vomiting. He was bloated, without CP or SOB. He had a BM last p.m., wihtout needing Relistor. He denied any jaundice or chills. He was only takin minimal amounts of clears po & nutrition was becoming a problem. *As his pancreatitis had worsened, surgery wants to wait 6-8 weeks for lap CCKY. Oral narcotic analgesics are to be added to IV MS. I spoke with the patient regarding his past hx of substance abuse & the possibility for an indwelling PICC line. He denied any past hx IVDA. The patient was still HTN, but not tachycardic. He was essentially afebrile (Tm 99.7), with O2 sat RA 95%. His IV Ringers Lactate was dereased to 50cc/hr. 09/19/17: WBC 15.2 (82S/4B/8L/4M/2E), H/H 11.0/33.3, PLT 386, BUN/Cr 10/0.5, GFR > 60, Na 138, K 3.3, HCO3 23, AG 8, lipase 134, albumin 2.4, globulin 2.3, TBil 1.0, DBil 0.7, alk phos 97, AST 48, ALT 171, TSHR 2.09, *CRP > 9.0 09/20/17: WBC 20.7 (80% gran/17 gran Ab), H/H 12/36, PLT 443, BUN/Cr 9/0.6, GFR > 60, Na 137, K 4.4, HCO3 23, AG 12, lipase 220, albumin 3.1, globulin 2.8, TBil 1.2, DBil 0.7, alk phos 142, AST 60, ALT 187. 09/21/17: XR PORTABLE CHEST- IMPRESSION: 1. PICC line from the right with the tip at the cavoatrial junction. 2. No pneumothorax or acute cardiopulmonary findings are demonstrated. *As of 09/21/17, the patient's BP was under better control 140/80. He was borderline tachycardic, with T 99.2 (Tm 100.8) & O2 sat RA 92%. He denied any chills. He remained with leukocytosis. Previous BC were negative. *A PICC line was placed in the RUE per IR earlier on 09/21/17, for TPN access. He remained with abdominal pain, which was slightly improving, being managed by the medical team. His po Dilaudid was switched to a Fentanyl patch 12 mcg Q 72h, & his IV MS was continued foir breakthrough sx. He did note increased abdominal bloating. He denied any nausea or vomiting. He tolerated small amounts of Jell-O, but otherwise could not tolerate any additional clears po, except for a few sips of H2O. Unasyn, which had been resumed per surgery, was once again D/C on 09/21/17. He currently denied obstipation. His constipation was stable. He was ambulating. 09/21/17: WBC 22.2 (88% gran/20 gran Ab), H/H 11.8/36.1, PLT 500, BUN/Cr 11/0.7, GFR > 60, Na 137, K 4.0, HCO3 22, AG 14, albumin 3.1, globulin 2.8, TBil 1.0, DBil 0.6, alk phos 145, AST 69, ALT 187 (*post 09/15/17: ERCP with ES; Hep A, B, & C serologies-neg). 09/22/17: [id number] VIEW- Interval decompression of small and large bowel loops. *The patient was seen in ID consultation by Dr. Edmondson on 09/22/17, for low- grade fever & leukocytosis, which was felt to be most likely reactive in nature from the peripancreatic inflammation. A relatively recent 09/19/17: CT did not show any evidence of necrosis or abscess. He agreed with continuing to follow the patient off antibiotics for now, with the caveat that a repeat CT with pancreatic protocol be done, if there is a significant change in pain, abdominal exam, fever, or leukocytosis. 09/22/17: WBC 24.2 (85% gran/21 gran Ab), H/H 11.3/34, PLT 497, BUN/Cr 9/0.7, GFR > 60, Na 139, K 4.3, HCO3 25, AG 12, Mg 2.1, Ca 8.4, PO4 4.1, *PAB 8.6 (17.6 -36), *albumin 3.0, globulin 2.7, *TG 218, TBil 1.0, DBil 0.5, alk phos 160, AST 66, ALT 171. *As of 09/22/17, the patient was on TPN with intralipids & essentially NPO except for a few sips. He was also on decreased rate of IV Lactated Ringers @ 75 cc/hr. Relistor 12 mg sc Q 48h as needed was added 09/22/17 for narcotic induced constipation. He had a BM 09/22/17 & was less distended. The patient's pain regimen consisted of Fentanyl patch 25 mcg Q72h, MS Contin 15 mg po BID, & IV MS for breakthrough sx. His abdominal pain was improved. He denied any n & v. The patient's HTN was under better control. He had Tm 100.5-> 97.3. He denied any chills. 09/23/17: TG 525 09/23/17: WBC 22.2, H/H 10.7/33.3, MCV 96.4, RDW 16.6, PLT 536, BUN/Cr 11/0.7, GFR > 60, Na 138, K 4.4, HCO3 22, AG 13, Mg 2.0, Ca 8.7, PO4 4.0, *PAB 9.8, albumin 3.0, globulin 2.9, TBil 0.8, DBil 0.6, alk phos 140, AST 114, ALT 221, * TG 193, *As of 09/23/17, the patient was hemodynamically stable (albeit borderline hypertensive) & afebrile, with O2 sat RA 95%. he was tolerating TPN. He looked comfortable. He did get abdominal pain when he tried to eat Jell-O. He is now back to only sips of ice chips po. He currently denied any CP, SOB, fevers or chills, but still had mild leukocytosis. He had no obstructive symptoms. ID was on board and agreed with no antibiotics for now. 09/24/17: *CT ABD & PELVIS W IV CONTRAST- The size of the fluid collection within the lesser omental sac has *not substantially changed when compared to the most recent prior CT scan of abdomen and pelvis from 09/19/2017. There is some enhancement at the margins of the fluid collection with no evidence of mature pseudocyst formation. The pancreatic tissue enhances homogeneously with *no evidence of pancreatic necrosis. The fluid collection within the lesser sac compresses the portal vein however there is no evidence of portal vein thrombosis. *Normal liver & GB. No dilated ducts. Small bilateral pleural effusions and bibasilar subsegmental atelectasis. *There is a small benign-appearing cystic lesion within the right kidney. 09/24/17: WBC 22.8 (82S/3B/10L/4M/1E), H/H 11.5/33.7, MCV 89.3, RDW 15.2, PLT 583, BUN/Cr 13/0.7, GFR > 60, Na 134, K 5.3, HCO3 26, AG 9, Mg 2.1, Ca 8.5, PO4 4.9, *PAB 11.3, albumin 3.1, globulin 2.8, TG 136, TBil 1.1, alk phos 141, AST 133, ALT 280. *As of 09/24/17, the patient was hemodynamically stable with O2 sat RA 94%. He had spiked to 101.3 this afternoon, later defervescing to 98.8. He denied chills & was recultured. The temperature spike, rising LFTs (*probably due to a combination of TPN & malnutrition), & leukocytosis prompted ID to get a repeat 09/24/17: CT AP with pancreatic protocol, which did not show any new findings (* see above), certainly no pancreatic necrosis, with nl liver & GB. The patient still had abdominal pain. He remained NPO on TPN. He denied any nausea or vomiting. He was constipated on narcotics, but not obstipated. He was less bloated. *SUGGEST: *Continue TPN (defer to pharmacy regarding the intralipids re: TG) via RUE PICC, placed 09/21/17, with close f/u of LFTs. Keep essentially NPO with few sips of sips of clears po max!! *Lap CCKY will probably not be done for another 6-8 weeks, due to worsening pancreatitis on 09/19/17 & 09/24/17: CT AP with IV cont (although no necrosis). Dilaudid po switched to Fentanyl patch 25 mcg Q72h, MS Contin 30 mg po BID, & IV MS for breakthrough sx, per medical team. Zofran prn. Follow- up labs (CBC, lytes, GFR, LFT). *No definite indx for antibiotics,despite mild temp spikes (Unasyn was previously D/C 09/17/17, resumed by surgery on 09/19/17, & again D/C on ). Last 09/24/17: CT abd with pancreatic protocol- negative for necrosis. Avoid NSAIDS. *BP control, as per medical team. * Constipation is probably from narcotic analgesics.*Relistor (Methylnaltrexone) 12 mg sc Q48 hrs as needed, for narcotic induced constipation, although the patient had a BM 09/22/17. Follow-up with surgery. DVT prophylaxis. Mobilize patient. The patient was previously told to follow up with his PMD or a urologist upon discharge, to follow up the exophytic right renal lesion incidentally noted on admission 09/14/17: CT AP with IV cont, which had a benign appearance on the 09/24/17: CT. The case was again discussed with the patient's RN & previously with Dr. Jarvis, of surgery, & Dr. Kimbrough, who concur. Dr. Khalil will be assuming the patient's inpt care, as he will be rounding on the GI inpts this week.*Further GI recommendations to follow, depending on clinical course. Problem List: 1. Gallstone pancreatitis 2. Abdominal pain 3. Elevated LFTs 4. Leukocytosis 5. Choledocholithiasis 6. S/P ERCP 7. Substance abuse 8. Constipation due to opioid therapy 9. Malnutrition 10. Bipolar 1 disorder Subjective Subjective: 09/24/17: *CT ABD & PELVIS W IV CONTRAST- The size of the fluid collection within the lesser omental sac has *not substantially changed when compared to the most recent prior CT scan of abdomen and pelvis from 09/19/2017. There is some enhancement at the margins of the fluid collection with no evidence of mature pseudocyst formation. The pancreatic tissue enhances homogeneously with *no evidence of pancreatic necrosis. The fluid collection within the lesser sac compresses the portal vein however there is no evidence of portal vein thrombosis. *Normal liver & GB. No dilated ducts. Small bilateral pleural effusions and bibasilar subsegmental atelectasis. *There is a small benign-appearing cystic lesion within the right kidney. 09/24/17: WBC 22.8 (82S/3B/10L/4M/1E), H/H 11.5/33.7, MCV 89.3, RDW 15.2, PLT 583, BUN/Cr 13/0.7, GFR > 60, Na 134, K 5.3, HCO3 26, AG 9, Mg 2.1, Ca 8.5, PO4 4.9, *PAB 11.3, albumin 3.1, globulin 2.8, TG 136, TBil 1.1, alk phos 141, AST 133, ALT 280. *As of 09/24/17, the patient was hemodynamically stable with O2 sat RA 94%. He had spiked to 101.3 this afternoon, later defervescing to 98.8. He denied chills & was recultured. The temperature spike, rising LFTs (*probably due to a combination of TPN & malnutrition), & leukocytosis prompted ID to get a repeat 09/24/17: CT AP with pancreatic protocol, which did not show any new findings (* see above), certainly no pancreatic necrosis, with nl liver & GB. The patient still had abdominal pain. He remained NPO on TPN. He denied any nausea or vomiting. He was constipated on narcotics, but not obstipated. He was less bloated. Review of Systems: Full 14 point review of systems otherwise noncontributory, and as above. Constitutional: Reports: no symptoms. EENTM: Reports: no symptoms. Cardiovascular: Reports: no symptoms. Respiratory: Reports: no symptoms. GI: Reports: abdominal pain & bloating; n & v- better, stable constipation Genitourinary: Reports: no symptoms. Musculoskeletal: Reports: no symptoms. Skin: Reports: no symptoms. Neurological/Psychological: Reports: hx bipolar disorder & hx substance abuse. Hematologic/Endocrine: Reports: no symptoms. Immunologic/Allergic: Reports: no symptoms. All Other Systems: Reviewed and Negative Objective Vital Signs and I&Os Vital Signs Date Time Temp Pulse Resp B/P B/P Pulse O2 O2 Flow FiO2 Mean Ox Delivery Rate 09/24 2213 98.8 88 20 120/80 94 Room Air 09/24 1804 100.2 09/24 1438 101.3 91 20 130/70 95 Room Air 09/24 0808 122/82 09/24 0808 122/82 09/24 0643 98.9 88 20 122/82 96 Room Air Intake & Output 09/25 0400 09/24 1600 09/24 0400 09/23 1600 09/23 04009/22 1600 Intake Total 2275 1763.0 2533.6 1260.5 1927.2 Output Total 400 3350 2552 738 9764 2505 Balance -400 -1075 563.0 1633.6 -364.5 -577.8 Intake, IV 992 355 9713 450 1200 Intake, Lipid 50.0 616.8 35.6 33.6 Intake, Oral 250 480 100 480 360 Intake, 1500 633 616.8 294.9 333.6 TPN/PPN Number 1 Bowel Movements Output, Urine 400 3350 0052 945 4629 2505 Patient 209 lb Weight Physical Exam: Well-developed, well-nourished, obese male, in less distress. Nontoxic appearing. Sclera anicteric. Conjunctiva pink. Oropharynx clear. Slightly dry mucous membranes. There is no adenopathy, thyromegaly, or JVD. No peripheral stigmata of inflammatory bowel disease or chronic liver disease on exam. No spiders on the anterior chest wall. No gynecomastia. No CVA tenderness. Lungs : clear to A&P, with slight decreased breath sounds at the bases B/L. No wheezing, rales, or rhonchi. Heart exam: regular rate rhythm, S1 and S2, without any murmur. Abdominal exam: slightly hypoactive bowel sounds, mildly distended belly, moderate LUQ > epigastric tenderness, without guarding or rebound. Negative Bazan sign. No definite mass or organomegaly. ? Minimal fluid shift. No pulsatile mass. No epigastric bruit. Digital rectal exam: deferred. Extremities: without C, C, or E. No palpable cords. *RUE PICC site clean, without gross phlebitis or cellulitis. Distal pulses 2+ bilaterally. DTRs 2+ bilaterally. No palmar erythema. No Dupuytren's contractures. Alert and oriented x 3. No tremor. No asterixis. Current Medications: Current Medications Sig/[place] Start time Last Medication Dose Route Stop Time Status Admin Acetaminophen 650 MG .STK-MED ONE 09/24 1430 DC PO 09/24 1431 Amlodipine Besylate 5 MG DAILY 09/19 1400 AC 09/24 PO 0808 Atorvastatin Calcium 20 MG 1700 09/18 1700 AC 09/24 PO 1702 Docusate Sodium 100 MG DAILY NEEDED PRN 09/24 1315 AC PO Fat Emulsion 200 ML Q24H 09/24 1900 AC 09/24 Intravenous IV 09/25 1858 194 Fentanyl Citrate 25 MCG Q72H 09/22 1030 09/22 TOP 1041 Glycerin 2 SPRAY Q2P PRN 09/16 1430 AC 09/17 PO 1419 Heparin Sodium 5,000 UNIT Q8 09/15 0600 AC 09/24 (Porcine) SC 204 Hydromorphone HCl 1 MG ONCE ONE 09/24 0200 DC 09/24 PO 09/24 0201 0213 Lactated Ringer's 1,000 ML Q6H 09/21 1145 AC 09/24 IV 1948 [place] Carbonate 1,500 MG DAILY 09/18 0900 AC 09/24 PO 0808 Losartan Potassium 100 MG DAILY 09/18 0900 AC 09/24 PO 0808 Methylnaltrexone 12 MG Q48 PRN 09/22 1315 AC [place] SC Morphine Sulfate 3 MG Q4-PRN PRN 09/24 0730 AC 09/24 IV 212 Morphine Sulfate 30 MG BID 09/23 2100 09/24 PO 204 Morphine Sulfate 5 MG Q4-PRN PRN 09/22 0745 DC 09/24 IV 0356 Ondansetron HCl 4 MG Q6P PRN 09/14 2245 AC IV Polyethylene Glycol 17 GM DAILY 09/24 1303 AC 09/24 PO 1451 Ramelteon 8 MG AT BEDTIME 09/24 2100 AC 09/24 PO 204 Total Parenteral 1 UNIT 09/24 190 AC 09/24 Nutrition IV 09/25 Total Parenteral 1 UNIT 09/23 190 TN 09/23 Nutrition IV 09/24 Results Pertinent Lab Results: Laboratory Tests 09/24 09/23 0630 1028 Chemistry Sodium (137 - 145 mmol/L) 134 L 138 Potassium (3.5 - 5.1 mmol/L) 5.3 H 4.4 Chloride (98 - 107 mmol/L) 99 102 Carbon Dioxide (22 - 30 mmol/L) 26 22 Anion Gap (5 - 16) 9 13 BUN (9 - 20 mg/dL) 13 11 Creatinine (0.7 - 1.2 mg/dL) 0.7 0.7 Estimated GFR (>60 ml/min) > 60 > 60 BUN/Creatinine Ratio (7 - 25 %) 18.6 15.7 Calcium (8.4 - 10.2 mg/dL) 8.5 8.7 Phosphorus (2.5 - 4.5 mg/dL) 4.9 H 4.0 Magnesium (1.6 - 2.3 mg/dL) 2.1 2.0 Total Bilirubin (0.2 - 1.3 mg/dL) 1.1 0.8 Direct Bilirubin (< 0.4 mg/dL) 0.7 H 0.6 H AST (17 - 59 U/L) 133 H 114 H ALT (21 - 72 U/L) 280 H 221 H Alkaline Phosphatase (< 127 U/L) 141 H 140 H Total Protein (6.3 - 8.2 g/dL) 5.9 L 5.9 L Albumin (3.5 - 5.0 g/dL) 3.1 L 3.0 L Prealbumin (17.6 - 36.0 mg/dL) 11.3 L Triglycerides (<150 mg/dL) 136 193 H Hematology CBC w Diff MAN DIFF ORDERED WBC (4.8 - 10.8 /CUMM) 22.8 H RBC (4.70 - 6.10 /CUMM) 3.77 L Hgb (14.0 - 18.0 G/DL) 11.5 L Hct (42 - 52 %) 33.7 L MCV (80.0 - 94.0 FL) 89.3 MCH (27.0 - 31.0 PG) 30.4 MCHC (33.0 - 37.0 G/DL) 34.0 RDW (11.5 - 14.5 %) 15.2 H Plt Count (130 - 400 /CUMM) 583 H MPV (7.4 - 10.4 FL) 8.1 Gran % (42.2 - 75.2 %) 87.3 H Lymphocytes % (20.5 - 51.1 %) 9.1 L Monocytes % (1.7 - 9.3 %) 1.6 L Eosinophils % (0 - 5 %) 1.7 Basophils % (0.0 - 2.0 %) 0.3 Absolute Granulocytes (1.4 - 6.5 /CUMM) 19.9 H Segmented Neutrophils (42.2 - 75.2 %) 82 H Band Neutrophils (0.0 - 5.0 %) 3 Absolute Lymphocytes (1.2 - 3.4 /CUMM) 2.1 Lymphocytes (20.5 - 51.1 %) 10 L Monocytes (1.7 - 9.3 %) 4 Absolute Monocytes (0.10 - 0.60 /CUMM) 0.4 Eosinophils (0 - 5.0 %) 1 Absolute Eosinophils (0.0 - 0.7 /CUMM) 0.4 Absolute Basophils (0.0 - 0.2 /CUMM) 0.1 Platelet Estimate (ADEQUATE) INCREASED Normocytic RBCs VERIFIED Normochromic RBCs VERIFIED 09/23 09/22 0550 0620 Chemistry Sodium (137 - 145 mmol/L) 128 L 139 Potassium (3.5 - 5.1 mmol/L) 6.6 *H 4.3 Chloride (98 - 107 mmol/L) 95 L 101 Carbon Dioxide (22 - 30 mmol/L) 21 L 25 Anion Gap (5 - 16) 12 12 BUN (9 - 20 mg/dL) 10 9 Creatinine (0.7 - 1.2 mg/dL) 0.8 0.7 Estimated GFR (>60 ml/min) > 60 > 60 BUN/Creatinine Ratio (7 - 25 %) 12.5 12.9 Calcium (8.4 - 10.2 mg/dL) 8.2 L 8.4 Phosphorus (2.5 - 4.5 mg/dL) 6.6 H 4.1 Magnesium (1.6 - 2.3 mg/dL) 2.3 2.1 Total Bilirubin (0.2 - 1.3 mg/dL) 0.7 1.0 Direct Bilirubin (< 0.4 mg/dL) 0.6 H 0.5 H AST (17 - 59 U/L) 117 H 66 H ALT (21 - 72 U/L) 187 H 171 H Alkaline Phosphatase (< 127 U/L) 101 160 H Total Protein (6.3 - 8.2 g/dL) 4.9 L 5.7 L Albumin (3.5 - 5.0 g/dL) 2.7 L 3.0 L Prealbumin (17.6 - 36.0 mg/dL) 9.8 L 8.6 L Triglycerides (<150 mg/dL) 525 H 218 H Hematology CBC w Diff NO MAN DIFF REQ NO MAN DIFF REQ WBC (4.8 - 10.8 /CUMM) 22.2 H 24.2 H RBC (4.70 - 6.10 /CUMM) 3.45 L 3.77 L Hgb (14.0 - 18.0 G/DL) 10.7 L 11.3 L Hct (42 - 52 %) 33.3 L 34.0 L MCV (80.0 - 94.0 FL) 96.4 H 90.3 MCH (27.0 - 31.0 PG) 30.9 29.9 MCHC (33.0 - 37.0 G/DL) 32.1 L 33.1 RDW (11.5 - 14.5 %) 16.6 H 15.2 H Plt Count (130 - 400 /CUMM) 536 H 497 H MPV (7.4 - 10.4 FL) 8.7 8.2 Gran % (42.2 - 75.2 %) 83.8 H 85.0 H Lymphocytes % (20.5 - 51.1 %) 8.3 L 5.7 L Monocytes % (1.7 - 9.3 %) 6.1 7.9 Eosinophils % (0 - 5 %) 1.7 1.0 Basophils % (0.0 - 2.0 %) 0.1 0.4 Absolute Granulocytes (1.4 - 6.5 /CUMM) 18.6 H 20.6 H Absolute Lymphocytes (1.2 - 3.4 /CUMM) 1.8 1.4 Absolute Monocytes (0.10 - 0.60 /CUMM) 1.4 H 1.9 H Absolute Eosinophils (0.0 - 0.7 /CUMM) 0.4 0.2 Absolute Basophils (0.0 - 0.2 /CUMM) 0 0.1 Imaging/Other Studies: 09/14/17: EKG- SB @ 59, nl axis, nl intervals, no acute ischemia. 09/14/17: CT ABD & PELVIS W IV CONTRAST- IMPRESSION: Choledocholithiasis resulting in mild obstructive biliary ductal dilatation and secondary pancreatitis. Additional mild mucosal hyperemia, surrounding inflammatory change and mild wall thickening of the gastric antrum and duodenum. Exophytic 1.4 cm low-density nodular lesion arising from the posterior cortex of the right kidney which does not measure simple fluid and was not present on previous imaging from 2006. Although this may represent a proteinaceous or hemorrhagic cyst, a dedicated renal ultrasound is recommended in order to rule out a solid mass. Imaging findings discussed with Dr. Hernandez at 9:07 PM on 09/14/2017. DICTATED BY: Rubens Alejandra MD DATE/TIME DICTATED:09/14/17205009/15/17: *ERCP with ES/stone extraction, per Dr. Rachel Gamboa- Impression: * Choledocholithiasis (stone impacted in ampulla), treated with sphincterotomy and extraction. 09/15/17: XRY-PORTABLE CHEST XRAY- Very limited study, oblique projection. Left costophrenic angle is excluded from the film margin, no large effusions. 09/19/17: CT ABD & PELVIS W IV CONTRAST- IMPRESSION: 1. The volume of abdominal ascites around the pancreas and extending into the mesentery has significantly increased since the exam of 09/14/17. There is no pseudocyst formation. The enhancement of the pancreas remains normal with no evidence of pancreatic necrosis. No dilated PD. 2. There are bilateral pleural effusions and bibasilar infiltrate/atelectasis. 09/21/17: XR PORTABLE CHEST- IMPRESSION: 1. PICC line from the right with the tip at the cavoatrial junction. 2. No pneumothorax or acute cardiopulmonary findings are demonstrated. 09/22/17: [id number] VIEW- Interval decompression of small and large bowel loops. 09/24/17: CT ABD & PELVIS W IV CONTRAST- The size of the fluid collection within the lesser omental sac has *not substantially changed when compared to the most recent prior CT scan of abdomen and pelvis from 09/19/2017. There is some enhancement at the margins of the fluid collection with no evidence of mature pseudocyst formation. The pancreatic tissue enhances homogeneously with *no evidence of pancreatic necrosis. The fluid collection within the lesser sac compresses the portal vein however there is no evidence of portal vein thrombosis. *Normal liver & GB. No dilated ducts. Small bilateral pleural effusions and bibasilar subsegmental atelectasis. *There is a small benign-appearing cystic lesion within the right kidney.
[2017-09-25 06:47] VITALS: BP 110/74
--- NOTE | 2017-09-25 07:21 | PN- Housestaff ---
See Addendum Subjective Follow-up For: Gallstone pancreatitis status post ERCP Subjective: The patient had a fever to 101.[address] with IV contrast do not show any changes from prior imaging studies. The patient defervesced but still has significant pain. He says he still can't tolerate any liquids without pain. He has some shortness of breath associated with this but no chest pain. No dysuria or headache. Review of Systems Constitutional: Reports: see HPI. EENTM: Reports: no symptoms. Cardiovascular: Reports: no symptoms. Respiratory: Reports: no symptoms. Gastrointestinal: Reports: see HPI. Genitourinary: Reports: no symptoms. Musculoskeletal: Reports: no symptoms. Skin: Reports: no symptoms. Neurological/Psychological: Reports: no symptoms. Hematologic/Endocrine: Reports: no symptoms. Immunologic/Allergic: Reports: no symptoms. Objective Last 24 Hrs of Vital Signs/I&O Vital Signs Date Time Temp Pulse Resp B/P B/P Pulse O2 O2 Flow FiO2 Mean Ox Delivery Rate 09/25 0647 98.6 94 20 110/74 95 Room Air 09/24 2213 98.8 88 20 120/80 94 Room Air 09/24 1804 100.2 09/24 1438 101.3 91 20 130/70 95 Room Air 09/24 0808 122/82 09/24 0808 122/82 Intake & Output 09/25 0800 09/25 0000 09/24 1600 Intake Total 541.6 1000 Output Total 400 1400 Balance 141.6 -400 Intake, IV 225 Intake, Lipid 16.6 Intake, Oral 100 200 Intake, 200 800 TPN/PPN Number 0 Bowel Movements Output, Urine 400 1400 Physical Exam General Appearance: Alert, Oriented X3, Cooperative, No Acute Distress Cardiovascular: Regular Rate, Normal S1, Normal S2 Lungs: Clear to Auscultation Abdomen: hard, tender to palpation Extremities: No Edema, Normal Pulses, No Tenderness/Swelling Current Medications: Current Medications Sig/[place] Start time Last Medication Dose Route Stop Time Status Admin Acetaminophen 650 MG .STK-MED ONE 09/24 1430 DC PO 09/24 1431 Amlodipine Besylate 5 MG DAILY 09/19 1400 AC 09/24 PO 0808 Atorvastatin Calcium 20 MG 1700 09/18 1700 AC 09/24 PO 1702 Docusate Sodium 100 MG DAILY NEEDED PRN 09/24 1315 AC PO Fat Emulsion 200 ML Q24H 09/24 1900 AC 09/24 Intravenous IV 09/25 185 194 Fentanyl Citrate 25 MCG Q72H 09/22 1030 AC 09/22 TOP 1041 Glycerin 2 SPRAY Q2P PRN 09/16 1430 AC 09/17 PO 1419 Heparin Sodium 5,000 UNIT Q8 09/15 0600 AC 09/25 (Porcine) SC 0703 Lactated Ringer's 1,000 ML Q6H 09/21 1145 AC 09/24 IV 1948 [place] Carbonate 1,500 MG DAILY 09/18 0900 AC 09/24 PO 0808 Losartan Potassium 100 MG DAILY 09/18 0900 AC 09/24 PO 0808 Methylnaltrexone 12 MG Q48 PRN 09/22 1315 AC [place] SC Morphine Sulfate 3 MG Q4-PRN PRN 09/24 0730 AC 09/25 IV 0703 Morphine Sulfate 30 MG BID 09/23 2100 AC 09/24 PO 2042 Morphine Sulfate 5 MG Q4-PRN PRN 09/22 0745 DC 09/24 IV 0356 Ondansetron HCl 4 MG Q6P PRN 09/14 2245 AC IV Polyethylene Glycol 17 GM DAILY 09/24 1303 AC 09/24 PO 1451 Ramelteon 8 MG AT BEDTIME 09/24 2100 AC 09/24 PO 204 Total Parenteral 1 UNIT 1900 09/24 1900 AC 09/24 Nutrition IV 09/25 Total Parenteral 1 UNIT 1900 09/23 1900 DC 09/23 Nutrition IV 09/24 Last 24 Hrs of Lab/David Results Last 24 Hrs of Labs/Mics: Laboratory Tests 09/25/17 0700: Sodium Pending, Potassium Pending, Chloride Pending, Carbon Dioxide Pending, Anion Gap Pending, BUN Pending, Creatinine Pending, BUN/Creatinine Ratio Pending , Calcium Pending, Phosphorus Pending, Magnesium Pending, Total Bilirubin Pending, Direct Bilirubin Pending, AST Pending, ALT Pending, Alkaline Phosphatase Pending, Total Protein Pending, Albumin Pending, Triglycerides Pending, CBC w Diff Pending, WBC Pending, RBC Pending, Hgb Pending, Hct Pending, MCV Pending, MCH Pending, MCHC Pending, RDW Pending, Plt Count Pending, MPV Pending Microbiology 09/24 1615 BLOOD: Blood Culture - RECD 09/24 1600 BLOOD: Blood Culture - RECD Assessment/Plan Assessment: Mr. Carbone is a 47 year old man with past medical history of bipolar disorder, hypertension, and hyperlipidemia presented with acute onset abdominal associated with nausea, diarrhea, and chills secondary to gallstone pancreatitis now status post ERCP. He was initially admitted to the ICU and then transferred to general medicine on 09/18/17 after stabilization of his condition. Problem list: 1. Gallstone pancreatitis status post ERCP 2. Transaminitis 3. Exophytic lesion arising from right kidney #Gallstone pancreatitis status post ERCP: Patient presented with epigastric pain , found to have gallstone pancreatitis, is now status post ERCP.. Gastroenterology is following. He will need cholecystectomy in 6-[address] on 09/19/17 showed a volume of abdominal ascites around the pancreas extending into the mesentery significantly increased but there is no pseudocyst formation in the enhancement and the pancreas remains normal with no evidence of pancreatic necrosis. He had fever to 101.[address] abdomen/ pelvis with IV contrast did not show any change from prior imaging study. The etiology of his fevers and leukocytosis is unclear, may be infectious versus inflammatory. There is no clear source of infection. We will talk to GI about potentially doing a colonoscopy. -Fentanyl patch 25 g every 72 hours. -IV morphine to 3 mg every 4 hours when necessary pain -oral morphine to 30 mg BID, consider increasing to 45 mg twice a day -No NSAIDs -Lactated Ringer's 75 mL per hour, adjust per TPN protocol -Continue TPN -Nothing by mouth -Appreciate gastroenterology and general surgery conditions -Ondansetron as necessary -Appreciate ID recommendations -Watch electrolytes -Follow blood cultures #Transaminitis: Liver enzymes are slightly downtrending. -Hold acetaminophen -Avoid hepatotoxins #Exophytic lesion arising from right kidney: Incidental finding. -Follow up with nephrology as an outpatient. #Chronic medical problems: -Continue lithium -Continue amlodipine and losartan -Continue other home medications DVT prophylaxis with heparin Nothing by mouth Full code Problem List: 1. Gallstone pancreatitis Pain Ratin Pain Location: abd Pain Goal: Remain pain free Pain Plan: see a/p Tomorrow's Labs & Rationales: cbc, bep, lft
[2017-09-25 08:25] LABS: ABSOLUTE BASOPHIL COUNT 0 /CUMM (0.0-0.2); ABSOLUTE EOSINOPHIL COUNT 0.5 /CUMM (0.0-0.7); ABSOLUTE GRANULOCYTE CT 17.4 /CUMM (1.4-6.5); ABSOLUTE MONOCYTE COUNT 1.4 /CUMM (0.10-0.60); BASOPHIL % 0.1 % (0.0-2.0); EOSINOPHIL % 2.1 % (0-5); GRANULOCYTE % 81.9 % (42.2-75.2); HEMATOCRIT 33.9 % (42-52); MEAN CORPUSCULAR HGB 29.7 PG (27.0-31.0); MEAN CORPUSCULAR HGB CONC 32.9 G/DL (33.0-37.0); MEAN CORPUSCULAR VOLUME 90.3 FL (80.0-94.0); MEAN PLATELET VOLUME 7.9 FL (7.4-10.4); PLATELET COUNT 702 /CUMM (130-400); RBC DISTRIBUTION WIDTH 15.5 % (11.5-14.5); RED BLOOD CELL CT 3.75 /CUMM (4.70-6.10); WHITE BLOOD CELL COUNT 21.3 /CUMM (4.8-10.8)
--- NOTE | 2017-09-25 09:49 | PN- Student ---
Subjective Subjective: Patient had a fever yesterday that arabella to 101.3, he is afebrile today. He continues to report diffuse abdominal pain with his pain range being 0-8 out of 10 on the pain scale. Mr. Carbone does not report improvement of his pain, adding he only recieves temporary relief from IV morphine which allows him to sleep 1 hour max at a time. He was seen yesterday by ID and GI for consultation. He denies any chest pain, palpitations, headache, skin rash or peripheral edema. Objective Objective: Current Medications Sig/[place] Start time Last Medication Dose Route Stop Time Status Admin Acetaminophen 650 MG .STK-MED ONE 09/24 1430 DC PO 09/24 1431 Amlodipine Besylate 5 MG DAILY 09/19 1400 AC 09/25 PO 0906 Atorvastatin Calcium 20 MG 1700 09/18 1700 AC 09/24 PO 170 Docusate Sodium 100 MG DAILY NEEDED PRN 09/24 1315 AC PO Fat Emulsion 200 ML Q24H 09/24 1900 AC 09/24 Intravenous IV 09/25 1859 1942 Fentanyl Citrate 25 MCG Q72H 09/22 1030 AC 09/22 TOP 1041 Glycerin 2 SPRAY Q2P PRN 09/16 1430 AC 09/17 PO 1419 Heparin Sodium 5,000 UNIT Q8 09/15 0600 AC 09/25 (Porcine) SC 0703 Lactated Ringer's 1,000 ML Q6H 09/21 1145 AC 09/24 IV 1948 [place] Carbonate 1,500 MG DAILY 09/18 0900 AC 09/25 PO 09 Losartan Potassium 100 MG DAILY 09/18 0900 AC 09/25 PO 0906 Methylnaltrexone 12 MG Q48 PRN 09/22 1315 AC 09/25 [place] SC 0906 Morphine Sulfate 45 MG BID 09/25 0900 AC 09/25 PO 0910 Morphine Sulfate 2 MG Q6-PRN PRN 09/25 09 AC IV Morphine Sulfate 3 MG Q4-PRN PRN 09/24 0730 DC 09/25 IV 0703 Morphine Sulfate 30 MG BID 09/23 2100 DC 09/24 PO 204 Ondansetron HCl 4 MG Q6P PRN 09/14 2245 AC IV Polyethylene Glycol 17 GM DAILY 09/24 1303 AC 09/25 PO 09 Ramelteon 8 MG AT BEDTIME 09/24 2100 AC 09/24 PO 2042 Total Parenteral 1 UNIT 09/24 AC 09/24 Nutrition IV 09/25 Total Parenteral 1 UNIT 09/23 190 DC 09/23 Nutrition IV 09/24 Laboratory Tests 09/25/17 0700: Anion Gap 10, Estimated GFR > 60, BUN/Creatinine Ratio 21.4, Calcium 8.7, Phosphorus 4.5, Magnesium 2.1, Total Bilirubin 0.9, Direct Bilirubin 0.6 H, AST 173 H, ALT 362 H, Alkaline Phosphatase 132 H, Total Protein 5.9 L, Albumin 3.1 L, Triglycerides 132, Amylase < 30 L, Lipase 578 H, CBC w Diff NO MAN DIFF REQ, RBC 3.75 L, MCV 90.3, MCH 29.7, MCHC 32.9 L, RDW 15.5 H, MPV 7.9, Gran % 81.9 H, Lymphocytes % 9.5 L, Monocytes % 6.4, Eosinophils % 2.1, Basophils % 0.1, Absolute Granulocytes 17.4 H, Absolute Lymphocytes 2.0, Absolute Monocytes 1.4 H, Absolute Eosinophils 0.5, Absolute Basophils 0 Vital Signs Date Time Temp Pulse Resp B/P B/P Pulse O2 O2 Flow FiO2 Mean Ox Delivery Rate 09/25 0906 120/80 09/25 0906 120/80 09/25 0647 98.6 94 20 110/74 95 Room Air 09/24 2213 98.8 88 20 120/80 94 Room Air 09/24 1804 100.2 09/24 1438 101.3 91 20 130/70 95 Room Air Intake & Output 09/25 1600 09/25 0800 09/25 0000 Intake Total 1383.1 541.6 Output Total 750 400 Balance 633.1 141.6 Intake, IV 525 225 Intake, Lipid 58.1 16.6 Intake, Oral 100 100 Intake, 700 200 TPN/PPN Number 0 0 Bowel Movements Output, Urine 750 400 09/24/17 CT abdomen/pelvis with contrast: no evidence of pseudocyst formation or pancreatic necrosis fluid collection within the lesser omental sac causing compression on the portal vein with no evidence of portal vein thrombosis no evidence of discrete hepatic parenchymal mass or collection no biliary duct dilation, GB was unremarkable there was a small benign-appearing cystic lesion within the right kidney with no descrete renal parenchymal mass or evidence of hydronephrosis Physical Exam General Apperance: AOx3, in pain CV: regular rhythym and rate, normal S1&S2, no MRG Pulm: lungs clear to ausculatation, no rubs, ronchi or wheeze Abd: normal bowel sounds, tenderness and rigidity diffusely, small ecchymosis in right hypogastric region (patient attributes to injection site) Extremities: no evidence of peripheral edema Assessment/Plan Assessment: Mr. Carbone is a 47 year old man with a past medical history significant for Bipolar d/o, HTN, hyperlipidemia, and IV drug abuse presented with abdominal pain, nausea, diarrhea and chills. He was found to have gallstone pancreatitis with ECRP being performed on 09/15/17. He was initially admitted to the ICU and subsequently transferred to the general medicine floor on 09/18/17. He reports having abdominal pain since the begining of April at the same time of treatment he was recieving at a drug rehabilitation facility in [place]. He completed the program in [place] and then sought additional drug rehabilitation at a facility in [place]. Upon returning home to [facility] he began having acute abdominal pain and presented to [facility] ED on 09/14/17. He has been hospitalized from that time period for Pancreatitis. His main complaint since being on the medical floor is abdominal pain and diffusely tender and rigid abdomen. He had a repeat CT scan of the abdomen and pelvis with contrast yesterday which indicated no changes when compared to his previous CT performed on 09/19/17. ID and GI have been consulted. Plan: Problem List: 1. Gallstone Pancreatitis 2. Elevated LFTs 3. Hypoalbuminemia 4. Hypertriglyceridemia 5. Normocytic anemia 7. Chronic medical conditions #Gallstone Pancreatitis: Mr. Carbone had ERCP done on 09/15/17 and has subsequently been monitored throughout his hospitalization. CT on 09/19/17 of the abd/pelvis indicated ascites present around the pancreas extending into the mesentery, but no evidence of pseudocyst formation or necrosis. He had a fever last night which warented repeat CT. CT on 09/24/17 indicated no acute changes with some compression on the portal vein but no evidence of thrombosis. He is unable to tolerate water or food aside from jello by mouth and therefore was started on TPN. He has had high triglycerides and therefore lipids have been witheld from TPN, repeat lipid panel indicates his triglycerides have normalized. GI consult concluded he will most likely need Cholecystectomy but due to the Pancreatitis will not likely occur until 6-8 weeks from this present time. He is recieving LR IV fluids and his blood glucose levels have been within acceptable range. He continues to report significant, sustained abdominal pain ranging from 0-8 over the past 24 hours. He started PO morphine on 09/22/17 with an increase in dosing to 30 mg BID 09/23/17, and considering further increase today to 45. The hope is to provide sustained pain relief with PO medication and less reliance on the shorter acting IV morphine. He reports only being able to sleep after recieving IV morphine. -Continue to appreciate GI recommendations -Clear liquid diet -Morphine 45 mg BID PO -Morphine 2 mg IV PRN Q6H -Fentanyl patch ever 72 hours -Continue TPN and monitor electrolytes and lipid levels -Coninue to monitor pain levels #Elevated LFTs: Patient's AST and ALT are significantly elevated. He has had a hepatitis panel workup which did not yeild significant findings. These findings are likely due to the acute pancreatitis and gallstone obstruction. These levels are still elevated today, and will likely remain elevated until Cholecystectomy can be performed. Liver abscess and Ascending Cholangitis post ECRP were considered as he did have a fever last night. CT of the abd/pelvis was performed and did no indicate any evidence to support these as a diagnosis. We will continue to monitor. -Continue to follow LFTs -Watch for signs of fever -Avoid any hepatoxic medications #Hypoalbuminemia: Kidney function indicates that patient is not losing protein via nephrotic process. Patient has not been eating and total protein level is also decresed, he is recieving TPN. Albumin level has increased since yesterdays lab work. Likely due to a combination of his liver function and catabolic state. -continue to monitor -continue TPN -watch for signs of edema #Hypertriglyceridemia: Although patient has history of elevated lipid profile, this hypertriglyceridemia is most likely due to Pancreatitis. Most recent lab work up indicates normalizing of triglycerides. -continue to monitor -continue statin therapy -continue TPN without lipids added #Normocytic Anemia: Patient continues to have low RBCs, Hgb and HCT. However he has been recieving large amounts of IV fluids throughout the duration of his hospitaliztion. Therefore this reduction is likely due to a fluid dilutional effect. -continue to monitor CBC -continue IV fluids #chronic medical conditions -continue to monitor -continue lithium -continue HTN medicaitons DVT ppx: Heparin Clear Liquid Diet + TPN Full Code
--- NOTE | 2017-09-25 10:57 | PN- Infect Dx ---
Subjective Subjective: T-max 101.3. He complains of severe abdominal pain, with no nausea or vomiting. He denies any cough, chest pain or shortness of breath. He has no diarrhea or urinary symptoms. Objective Last 24 Hrs of Vital Signs/I&O Vital Signs Date Time Temp Pulse Resp B/P B/P Pulse O2 O2 Flow FiO2 Mean Ox Delivery Rate 09/25 0906 120/80 09/25 0906 120/80 09/25 0647 98.6 94 20 110/74 95 Room Air 09/24 2213 98.8 88 20 120/80 94 Room Air 09/24 1804 100.2 09/24 1438 101.3 91 20 130/70 95 Room Air Intake & Output 09/25 1600 09/25 0800 09/25 0000 Intake Total 1383.1 541.6 Output Total 800 750 400 Balance -800 633.1 141.6 Intake, IV 525 225 Intake, Lipid 58.1 16.6 Intake, Oral 100 100 Intake, 700 200 TPN/PPN Number 0 0 Bowel Movements Output, Urine 800 750 400 Physical Exam Other Physical Findings: He appears in moderate discomfort secondary to abdominal pain Lungs are clear Heart regular rhythm with no murmur Abdomen is mildly distended, tender to palpation in the midabdomen, with guarding but no rebound, positive bowel sounds Extremities no cyanosis, clubbing or edema; PICC in the right upper extremity with no inflammation at the site Results Last 24 Hours of Lab Results: Laboratory Tests 09/25 0700 Chemistry Sodium (137 - 145 mmol/L) 134 L Potassium (3.5 - 5.1 mmol/L) 5.1 Chloride (98 - 107 mmol/L) 99 Carbon Dioxide (22 - 30 mmol/L) 25 Anion Gap (5 - 16) 10 BUN (9 - 20 mg/dL) 15 Creatinine (0.7 - 1.2 mg/dL) 0.7 Estimated GFR (>60 ml/min) > 60 BUN/Creatinine Ratio (7 - 25 %) 21.4 Calcium (8.4 - 10.2 mg/dL) 8.7 Phosphorus (2.5 - 4.5 mg/dL) 4.5 Magnesium (1.6 - 2.3 mg/dL) 2.1 Total Bilirubin (0.2 - 1.3 mg/dL) 0.9 Direct Bilirubin (< 0.4 mg/dL) 0.6 H AST (17 - 59 U/L) 173 H ALT (21 - 72 U/L) 362 H Alkaline Phosphatase (< 127 U/L) 132 H Total Protein (6.3 - 8.2 g/dL) 5.9 L Albumin (3.5 - 5.0 g/dL) 3.1 L Triglycerides (<150 mg/dL) 132 Amylase (30 - 110 U/L) < 30 L Lipase (23 - 300 U/L) 578 H Hematology CBC w Diff NO MAN DIFF REQ WBC (4.8 - 10.8 /CUMM) 21.3 H RBC (4.70 - 6.10 /CUMM) 3.75 L Hgb (14.0 - 18.0 G/DL) 11.1 L Hct (42 - 52 %) 33.9 L MCV (80.0 - 94.0 FL) 90.3 MCH (27.0 - 31.0 PG) 29.7 MCHC (33.0 - 37.0 G/DL) 32.9 L RDW (11.5 - 14.5 %) 15.5 H Plt Count (130 - 400 /CUMM) 702 H MPV (7.4 - 10.4 FL) 7.9 Gran % (42.2 - 75.2 %) 81.9 H Lymphocytes % (20.5 - 51.1 %) 9.5 L Monocytes % (1.7 - 9.3 %) 6.4 Eosinophils % (0 - 5 %) 2.1 Basophils % (0.0 - 2.0 %) 0.1 Absolute Granulocytes (1.4 - 6.5 /CUMM) 17.4 H Absolute Lymphocytes (1.2 - 3.4 /CUMM) 2.0 Absolute Monocytes (0.10 - 0.60 /CUMM) 1.4 H Absolute Eosinophils (0.0 - 0.7 /CUMM) 0.5 Absolute Basophils (0.0 - 0.2 /CUMM) 0 Last 24 Hours of David Results: Blood cultures September 24 negative Recent Imaging Studies: CT of the abdomen and pelvis with IV contrast and pancreatic protocol September 24 reveals no change in the size of the fluid collection within the lesser omental sac, with some enhancement of the margins of the collection with no evidence of mature pseudocyst formation and no necrosis; homogeneous liver with no evidence of any discrete parenchymal mass or collection, no intrahepatic or extra hepatic biliary ductal dilatation and an unremarkable gallbladder with no evidence of stones, gallbladder wall thickening or pericholecystic inflammation Assessment/Plan ID Impression: Recurrent fever with a persistent leukocytosis, though his white blood cell count has decreased slightly today, and with persistent abdominal pain, presumably secondary to ongoing pancreatitis/peripancreatic inflammation, with the repeat CT of the abdomen and pelvis revealing no significant change in the pancreas. His liver enzymes continue to increase, but the CT scan does not reveal any hepatobiliary abnormalities, and suspect, as per GI, that these are likely secondary to TPN. Suggestion: 1. Continue supportive care 2. Further management with regard to his diet per GI 3. Continue to follow off antibiotics
[2017-09-25 14:12] VITALS: BP 110/80
--- NOTE | 2017-09-25 14:55 | PN- Gastroenterology ---
Assessment/Plan GI Assessment/Recommendations: Assessment: Mr. Carbone is a 47 year old male admitted with gallstone pancreatitis s/p ERCP with stone extraction who has had a prolonged hospital course secondary to extensive pancreatitis and he is currently on TPN. He is currently doing relatively well with improvement in his pain. His WBC continues to be markedly elevated which I feel is still just reactive to his pancreatitis. He has also developed a recurrent transaminitis which I suspect may be secondary to the TPN. As he still has his GB in place and he had been having significant pain that repeat imaging didn't show any obvious alternative etiology for (ie. worsening pancreatitis or developing fluid collection) it is possible the increased LFTs may be from other stones that he may have passed. I would expect any other stones though to pass without incident considering the sphincterotomy making this scenario somewhat less plausible. In any case, as his bilirubin and alk phos are normal and his repeat ct scan was negative for any worsening pancreatitis or other fluid collections I don't feel that anything else needs to be done for his increased LFTs at this time. Recommendations: 1. Keep NPO and continue TPN for now 2. Analgesia as needed. 3. Consideration should be given for repeat imaging for a high temp spike or a significant change in his WBC. 4. Follow daily LFTs. 5. Tentatively plan for outpatient ccy in 6-8 weeks after resolution of acute inflammation I will continue to follow this patient and make further recommendations based on his clinical course and results of repeat blood work. Problem List: 1. Cholangitis 2. Pancreatitis 3. Transaminitis 4. Abdominal pain 5. Constipation due to opioid therapy 6. Choledocholithiasis 7. S/P ERCP Subjective Subjective: pt reports some improvement in his pain today as compared to the past few days. he is still NPO on TPN. no vomiting or high temperature spikes. Objective Vital Signs and I&Os Vital Signs Date Time Temp Pulse Resp B/P B/P Pulse O2 O2 Flow FiO2 Mean Ox Delivery Rate 09/25 1412 98.0 89 20 110/80 95 Room Air 09/25 0906 120/80 09/25 0906 120/80 09/25 0647 98.6 94 20 110/74 95 Room Air 09/24 2213 98.8 88 20 120/80 94 Room Air 09/24 1804 100.2 Intake & Output 09/25 1600 09/25 0400 09/24 1600 09/24 0400 09/23 1600 09/23 0400 Intake Total 1383.1 541.6 2275 1763.0 2533.6 1260.5 Output Total 9986 448 2637 4111 226 7594 Balance -366.9 141.6 -1075 563.0 1633.6 -364.5 Intake, IV 525 225 744 641 7056 450 Intake, Lipid 58.1 16.6 50.0 616.8 35.6 Intake, Oral 100 100 250 480 100 480 Intake, 488 476 1989 633 616.8 294.9 TPN/PPN Number 0 0 Bowel Movements Output, Urine 3260 820 4455 9723 420 4668 Physical Exam General Appearance: well developed/nourished, no apparent distress, alert, comfortable Head: atraumatic, normal appearance Ears, Nose, Throat: normal pharynx Respiratory: normal breath sounds, chest non-tender, no respiratory distress Cardiovascular: regular rate/rhythm Abdomen: normal bowel sounds, soft, distention, tenderness Extremities: normal inspection Current Medications: Current Medications Sig/[place] Start time Last Medication Dose Route Stop Time Status Admin Amlodipine Besylate 5 MG DAILY 09/19 1400 AC 09/25 PO 0906 Atorvastatin Calcium 20 MG 1700 09/18 1700 AC 09/24 PO 1702 Docusate Sodium 100 MG DAILY NEEDED PRN 09/24 1315 AC PO Fat Emulsion 200 ML 1900 09/25 1900 AC Intravenous IV 09/26 185 Fat Emulsion 200 ML Q24H 09/24 1900 AC 09/24 Intravenous IV 09/25 1859 1942 Fentanyl Citrate 25 MCG Q72H 09/22 1030 AC 09/25 TOP 1044 Glycerin 2 SPRAY Q2P PRN 09/16 1430 AC 09/17 PO 1419 Heparin Sodium 5,000 UNIT Q8 09/15 0600 AC 09/25 (Porcine) SC 1319 Lactated Ringer's 1,000 ML Q6H 09/21 1145 AC 09/24 IV 1948 [place] Carbonate 1,500 MG DAILY 09/18 0900 AC 09/25 PO 0906 Losartan Potassium 100 MG DAILY 09/18 0900 AC 09/25 PO 0906 Methylnaltrexone 12 MG Q48 PRN 09/22 1315 AC 09/25 [place] 0906 Morphine Sulfate 45 MG BID 09/25 0900 AC 09/25 PO 0910 Morphine Sulfate 2 MG Q6-PRN PRN 09/25 09 AC IV Morphine Sulfate 3 MG Q4-PRN PRN 09/24 0730 DC 09/25 IV 0703 Morphine Sulfate 30 MG BID 09/23 2099 DC 09/24 PO 2041 Ondansetron HCl 4 MG Q6P PRN 09/14 2245 AC IV Polyethylene Glycol 17 GM DAILY 09/24 1303 AC 09/25 PO 09 Ramelteon 8 MG AT BEDTIME 09/24 2099 AC 09/24 PO 2041 Total Parenteral 1 UNIT 09/25 AC Nutrition IV 09/26 1858 Total Parenteral 1 UNIT 09/24 190 AC 09/24 Nutrition IV 09/25 Total Parenteral 1 UNIT 09/23 DC 09/23 Nutrition IV 09/24 Results Pertinent Lab Results: Laboratory Tests 09/25 09/24 0700 0630 Chemistry Sodium (137 - 145 mmol/L) 134 L 134 L Potassium (3.5 - 5.1 mmol/L) 5.1 5.3 H Chloride (98 - 107 mmol/L) 99 99 Carbon Dioxide (22 - 30 mmol/L) 25 26 Anion Gap (5 - 16) 10 9 BUN (9 - 20 mg/dL) 15 13 Creatinine (0.7 - 1.2 mg/dL) 0.7 0.7 Estimated GFR (>60 ml/min) > 60 > 60 BUN/Creatinine Ratio (7 - 25 %) 21.4 18.6 Calcium (8.4 - 10.2 mg/dL) 8.7 8.5 Phosphorus (2.5 - 4.5 mg/dL) 4.5 4.9 H Magnesium (1.6 - 2.3 mg/dL) 2.1 2.1 Total Bilirubin (0.2 - 1.3 mg/dL) 0.9 1.1 Direct Bilirubin (< 0.4 mg/dL) 0.6 H 0.7 H AST (17 - 59 U/L) 173 H 133 H ALT (21 - 72 U/L) 362 H 280 H Alkaline Phosphatase (< 127 U/L) 132 H 141 H Total Protein (6.3 - 8.2 g/dL) 5.9 L 5.9 L Albumin (3.5 - 5.0 g/dL) 3.1 L 3.1 L Prealbumin (17.6 - 36.0 mg/dL) 11.3 L Triglycerides (<150 mg/dL) 132 136 Amylase (30 - 110 U/L) < 30 L Lipase (23 - 300 U/L) 578 H Hematology CBC w Diff NO MAN DIFF REQ MAN DIFF ORDERED WBC (4.8 - 10.8 /CUMM) 21.3 H 22.8 H RBC (4.70 - 6.10 /CUMM) 3.75 L 3.77 L Hgb (14.0 - 18.0 G/DL) 11.1 L 11.5 L Hct (42 - 52 %) 33.9 L 33.7 L MCV (80.0 - 94.0 FL) 90.3 89.3 MCH (27.0 - 31.0 PG) 29.7 30.4 MCHC (33.0 - 37.0 G/DL) 32.9 L 34.0 RDW (11.5 - 14.5 %) 15.5 H 15.2 H Plt Count (130 - 400 /CUMM) 702 H 583 H MPV (7.4 - 10.4 FL) 7.9 8.1 Gran % (42.2 - 75.2 %) 81.9 H 87.3 H Lymphocytes % (20.5 - 51.1 %) 9.5 L 9.1 L Monocytes % (1.7 - 9.3 %) 6.4 1.6 L Eosinophils % (0 - 5 %) 2.1 1.7 Basophils % (0.0 - 2.0 %) 0.1 0.3 Absolute Granulocytes (1.4 - 6.5 /CUMM) 17.4 H 19.9 H Segmented Neutrophils (42.2 - 75.2 %) 82 H Band Neutrophils (0.0 - 5.0 %) 3 Absolute Lymphocytes (1.2 - 3.4 /CUMM) 2.0 2.1 Lymphocytes (20.5 - 51.1 %) 10 L Monocytes (1.7 - 9.3 %) 4 Absolute Monocytes (0.10 - 0.60 /CUMM) 1.4 H 0.4 Eosinophils (0 - 5.0 %) 1 Absolute Eosinophils (0.0 - 0.7 /CUMM) 0.5 0.4 Absolute Basophils (0.0 - 0.2 /CUMM) 0 0.1 Platelet Estimate (ADEQUATE) INCREASED Normocytic RBCs VERIFIED Normochromic RBCs VERIFIED 09/23 09/23 1028 0550 Chemistry Sodium (137 - 145 mmol/L) 138 128 L Potassium (3.5 - 5.1 mmol/L) 4.4 6.6 *H Chloride (98 - 107 mmol/L) 102 95 L Carbon Dioxide (22 - 30 mmol/L) 22 21 L Anion Gap (5 - 16) 13 12 BUN (9 - 20 mg/dL) 11 10 Creatinine (0.7 - 1.2 mg/dL) 0.7 0.8 Estimated GFR (>60 ml/min) > 60 > 60 BUN/Creatinine Ratio (7 - 25 %) 15.7 12.5 Calcium (8.4 - 10.2 mg/dL) 8.7 8.2 L Phosphorus (2.5 - 4.5 mg/dL) 4.0 6.6 H Magnesium (1.6 - 2.3 mg/dL) 2.0 2.3 Total Bilirubin (0.2 - 1.3 mg/dL) 0.8 0.7 Direct Bilirubin (< 0.4 mg/dL) 0.6 H 0.6 H AST (17 - 59 U/L) 114 H 117 H ALT (21 - 72 U/L) 221 H 187 H Alkaline Phosphatase (< 127 U/L) 140 H 101 Total Protein (6.3 - 8.2 g/dL) 5.9 L 4.9 L Albumin (3.5 - 5.0 g/dL) 3.0 L 2.7 L Prealbumin (17.6 - 36.0 mg/dL) 9.8 L Triglycerides (<150 mg/dL) 193 H 525 H Hematology CBC w Diff NO MAN DIFF REQ WBC (4.8 - 10.8 /CUMM) 22.2 H RBC (4.70 - 6.10 /CUMM) 3.45 L Hgb (14.0 - 18.0 G/DL) 10.7 L Hct (42 - 52 %) 33.3 L MCV (80.0 - 94.0 FL) 96.4 H MCH (27.0 - 31.0 PG) 30.9 MCHC (33.0 - 37.0 G/DL) 32.1 L RDW (11.5 - 14.5 %) 16.6 H Plt Count (130 - 400 /CUMM) 536 H MPV (7.4 - 10.4 FL) 8.7 Gran % (42.2 - 75.2 %) 83.8 H Lymphocytes % (20.5 - 51.1 %) 8.3 L Monocytes % (1.7 - 9.3 %) 6.1 Eosinophils % (0 - 5 %) 1.7 Basophils % (0.0 - 2.0 %) 0.1 Absolute Granulocytes (1.4 - 6.5 /CUMM) 18.6 H Absolute Lymphocytes (1.2 - 3.4 /CUMM) 1.8 Absolute Monocytes (0.10 - 0.60 /CUMM) 1.4 H Absolute Eosinophils (0.0 - 0.7 /CUMM) 0.4 Absolute Basophils (0.0 - 0.2 /CUMM) 0 Imaging/Other Studies: SERVICE DATE: 09/24/17- EXAM TYPE: CAT - CT ABD & PELVIS W IV CONTRAST EXAMINATION: CT ABDOMEN AND PELVIS WITH CONTRAST CLINICAL INFORMATION: Pancreatic necrosis versus liver abscess. COMPARISON: CT scan of the abdomen and pelvis 09/19/2017. TECHNIQUE: Multidetector volumetric imaging was performed of the abdomen and pelvis following IV administration of 95 mL of Optiray 320 intravenous contrast. Sagittal and coronal reformatted images were obtained on the technologist's workstation. DLP: 1449.83 mGy-cm FINDINGS: LUNG BASES: There are small bilateral pleural effusions and bibasilar subsegmental atelectasis. No pericardial effusion. LIVER, GALLBLADDER, AND BILIARY TREE: Liver attenuation is grossly homogeneous with no evidence of a discrete hepatic parenchymal mass or collection. Grossly no intrahepatic or extrahepatic biliary duct dilatation. The gallbladder is unremarkable with no evidence of radiopaque gallstones, gallbladder wall thickening, or obvious pericholecystic inflammatory changes. PANCREAS: The amount of fluid filling the lesser omental sac has not substantially changed when compared to most recent prior examination from 09/19/2017. There is subtle enhancement along the margins of this peripancreatic fluid collection however no evidence of mature pseudocyst formation. Enhancement characteristics within the pancreatic tissue is also stable no evidence of pancreatic necrosis. SPLEEN: Unremarkable. ADRENAL GLANDS: Unremarkable. KIDNEYS AND URETERS: Kidneys demonstrate symmetric corticomedullary enhancement characteristics. There is a small benign-appearing cystic lesion within the right kidney. No discrete renal parenchymal mass. No hydronephrosis. No worrisome mass or calcifications visualized along the expected course of the right or left ureters. BLADDER: Unremarkable. GASTROINTESTINAL TRACT: There is reactive inflammatory thickening within the transverse colon adjacent to the fluid collection within the lesser omental sac. A small volume of fluid also layers within the pelvis. No free intraperitoneal air. There is an appendicolith within an otherwise unremarkable appendix. No evidence of small bowel obstruction. Stomach is unremarkable. ABDOMINAL WALL: No significant hernia is appreciated. LYMPH NODES: There are no pathologically enlarged mesenteric or retroperitoneal lymph nodes. VASCULAR: The portal vein is compressed by the collection within the lesser omental sac however there is no evidence of overt portal vein thrombosis. The abdominal aorta and the major unpaired aortic branches are grossly patent. The inferior vena cava is unremarkable. PELVIC VISCERA: Unremarkable. OSSEOUS STRUCTURES: There is no acute osseous finding. Specifically no worrisome lytic or blastic osseous lesion. There is degenerative spondylosis at L5-S1. Disc degeneration at multiple additional levels. IMPRESSION: The size of the fluid collection within the lesser omental sac has not substantially changed when compared to the most recent prior CT scan of abdomen and pelvis from 09/19/2017. There is some enhancement at the margins of the fluid collection with no evidence of mature pseudocyst formation. The pancreatic tissue enhances homogeneously with no evidence of pancreatic necrosis. The fluid collection within the lesser sac compresses the portal vein however there is no evidence of portal vein thrombosis.
[2017-09-25 23:54] VITALS: BP 120/66
--- NOTE | 2017-09-26 06:19 | PN- Housestaff ---
See Addendum Subjective Follow-up For: Gallstone pancreatitis status post ERCP Subjective: Overnight events. Patient continues to have significant abdominal pain that prevents him from sleeping well. He did have a bowel movement yesterday but was mostly water. No chest pain or shortness of breath. Review of Systems Constitutional: Reports: no symptoms. EENTM: Reports: no symptoms. Cardiovascular: Reports: no symptoms. Respiratory: Reports: no symptoms. Gastrointestinal: Reports: see HPI. Genitourinary: Reports: no symptoms. Musculoskeletal: Reports: no symptoms. Skin: Reports: no symptoms. Neurological/Psychological: Reports: no symptoms. Hematologic/Endocrine: Reports: no symptoms. Immunologic/Allergic: Reports: no symptoms. Objective Last 24 Hrs of Vital Signs/I&O Vital Signs Date Time Temp Pulse Resp B/P B/P Pulse O2 O2 Flow FiO2 Mean Ox Delivery Rate 09/25 2354 97.9 84 16 120/66 95 Room Air 09/25 1412 98.0 89 20 110/80 95 Room Air 09/25 0906 120/80 09/25 0906 120/80 09/25 0647 98.6 94 20 110/74 95 Room Air Intake & Output 09/26 0800 09/26 0000 09/25 1600 Intake Total 1760.0 669.0 Output Total 117 684 9263 Balance 1510.0 -81.0 -1000 Intake, IV 600 225 Intake, Lipid 240.0 24.0 Intake, Oral 120 120 Intake, 800 300 TPN/PPN Output, Urine 359 510 8257 Physical Exam General Appearance: Alert, Oriented X3, Cooperative, No Acute Distress Cardiovascular: Regular Rate, Normal S1, Normal S2 Lungs: Clear to Auscultation Abdomen: epigastric tenderness Extremities: No Edema, Normal Pulses, No Tenderness/Swelling Current Medications: Current Medications Sig/[place] Start time Last Medication Dose Route Stop Time Status Admin Amlodipine Besylate 5 MG DAILY 09/19 1400 AC 09/25 PO 0906 Atorvastatin Calcium 20 MG 1700 09/18 1700 AC 09/25 PO 1541 Docusate Sodium 100 MG DAILY NEEDED PRN 09/24 1315 AC PO Fat Emulsion 200 ML 1900 09/25 1900 AC 09/25 Intravenous IV 09/26 Fat Emulsion 200 ML Q24H 09/24 1900 DC 09/24 Intravenous IV 09/25 1858 194 Fentanyl Citrate 25 MCG Q72H 09/22 1030 09/25 TOP 1044 Glycerin 2 SPRAY Q2P PRN 09/16 1430 AC 09/17 PO 1419 Heparin Sodium 5,000 UNIT Q8 09/15 0600 AC 09/26 (Porcine) SC 0526 Lactated Ringer's 1,000 ML Q6H 09/21 1145 AC 09/26 IV 0526 [place] Carbonate 1,500 MG DAILY 09/18 0900 AC 09/25 PO 0906 Losartan Potassium 100 MG DAILY 09/18 0900 AC 09/25 PO 0906 Methylnaltrexone 12 MG Q48 PRN 09/22 1315 AC 09/25 [place] 0906 Morphine Sulfate 30 MG .STK-MED ONE 09/25 0908 DC PO 09/25 0909 Morphine Sulfate 45 MG BID 09/25 0900 09/25 PO 204 Morphine Sulfate 2 MG Q6-PRN PRN 09/25 0900 09/26 IV 0345 Morphine Sulfate 3 MG Q4-PRN PRN 09/24 0730 NH 09/25 IV 0703 Morphine Sulfate 30 MG BID 09/23 2100 NH 09/24 PO 2042 Ondansetron HCl 4 MG Q6P PRN 09/14 2245 AC IV Patient Medication 1 ED ONE ONE 09/25 1730 NH 09/25 Teaching ED 09/25 1731 1729 Polyethylene Glycol 17 GM DAILY 09/24 1303 09/25 PO 0906 Ramelteon 8 MG AT BEDTIME 09/24 2100 AC 09/25 PO 2046 Total Parenteral 1 UNIT 1900 09/25 1900 AC 09/25 Nutrition IV 09/26 1859 2046 Total Parenteral 1 UNIT 1900 09/24 1900 NH 09/24 Nutrition IV 09/25 1859 1944 Last 24 Hrs of Lab/David Results Last 24 Hrs of Labs/Mics: Laboratory Tests 09/26/17 0530: Sodium Pending, Potassium Pending, Chloride Pending, Carbon Dioxide Pending, Anion Gap Pending, BUN Pending, Creatinine Pending, BUN/Creatinine Ratio Pending , Calcium Pending, Phosphorus Pending, Magnesium Pending, Total Bilirubin Pending, Direct Bilirubin Pending, AST Pending, ALT Pending, Alkaline Phosphatase Pending, Total Protein Pending, Albumin Pending, Prealbumin Pending, Triglycerides Pending, CBC w Diff Pending, WBC Pending, RBC Pending, Hgb Pending , Hct Pending, MCV Pending, MCH Pending, MCHC Pending, RDW Pending, Plt Count Pending, MPV Pending 09/25/17 0844: Urine Color Cancelled, Urine Clarity Cancelled, Urine pH Cancelled, Ur Specific [place] Cancelled, Urine Protein Cancelled, Urine Ketones Cancelled, Urine Nitrite Cancelled, Urine Bilirubin Cancelled, Urine Urobilinogen Cancelled, Ur Leukocyte Esterase Cancelled, Ur Microscopic Cancelled, Urine Hemoglobin Cancelled, Urine Glucose Cancelled 09/25/17 0700: Anion Gap 10, Estimated GFR > 60, BUN/Creatinine Ratio 21.4, Calcium 8.7, Phosphorus 4.5, Magnesium 2.1, Total Bilirubin 0.9, Direct Bilirubin 0.6 H, AST 173 H, ALT 362 H, Alkaline Phosphatase 132 H, Total Protein 5.9 L, Albumin 3.1 L, Triglycerides 132, Amylase < 30 L, Lipase 578 H, CBC w Diff NO MAN DIFF REQ, RBC 3.75 L, MCV 90.3, MCH 29.7, MCHC 32.9 L, RDW 15.5 H, MPV 7.9, Gran % 81.9 H, Lymphocytes % 9.5 L, Monocytes % 6.4, Eosinophils % 2.1, Basophils % 0.1, Absolute Granulocytes 17.4 H, Absolute Lymphocytes 2.0, Absolute Monocytes 1.4 H, Absolute Eosinophils 0.5, Absolute Basophils 0 Microbiology 09/25 0844 URINE ROUT: Urine Culture - COLB Assessment/Plan Assessment: Mr. Carbone is a 47 year old man with past medical history of bipolar disorder, hypertension, and hyperlipidemia presented with acute onset abdominal associated with nausea, diarrhea, and chills secondary to gallstone pancreatitis now status post ERCP. He was initially admitted to the ICU and then transferred to general medicine on 09/18/17 after stabilization of his condition. Problem list: 1. Gallstone pancreatitis status post ERCP 2. Transaminitis 3. Exophytic lesion arising from right kidney #Gallstone pancreatitis status post ERCP: Patient presented with epigastric pain , found to have gallstone pancreatitis, is now status post ERCP.. Gastroenterology is following. He will need cholecystectomy in 6-[address] on 09/19/17 showed a volume of abdominal ascites around the pancreas extending into the mesentery significantly increased but there is no pseudocyst formation in the enhancement and the pancreas remains normal with no evidence of pancreatic necrosis. He had fever to 101.[address] abdomen/ pelvis with IV contrast did not show any change from prior imaging study. The etiology of his fevers and leukocytosis is unclear, may be infectious versus inflammatory. There is no clear source of infection. We will talk to GI about potentially doing a colonoscopy. -Fentanyl patch 25 g every 72 hours. -IV morphine to 2 mg every 6 hours when necessary pain -oral morphine 45 mg twice a day -No NSAIDs -Lactated Ringer's 75 mL per hour, adjust per TPN protocol -Continue TPN -Nothing by mouth -Appreciate gastroenterology and general surgery conditions -Ondansetron as necessary -Appreciate ID recommendations -Watch electrolytes -Follow blood cultures -Consider adding trazodone for sleep #Transaminitis: Liver enzymes are slightly downtrending. -Hold acetaminophen -Avoid hepatotoxins #Exophytic lesion arising from right kidney: Incidental finding. -Follow up with nephrology as an outpatient. #Chronic medical problems: -Continue lithium -Continue amlodipine and losartan -Continue other home medications DVT prophylaxis with heparin Nothing by mouth Full code Problem List: 1. Gallstone pancreatitis Pain Ratin Pain Location: abvd Pain Goal: Remain pain free Pain Plan: see a/p Tomorrow's Labs & Rationales: cbc, bep, lft triglycerides
[2017-09-26 06:41] VITALS: BP 122/76
[2017-09-26 08:43] LABS: ABSOLUTE BASOPHIL COUNT 0.1 /CUMM (0.0-0.2); ABSOLUTE EOSINOPHIL COUNT 0.4 /CUMM (0.0-0.7); ABSOLUTE GRANULOCYTE CT 14.4 /CUMM (1.4-6.5); ABSOLUTE LYMPH COUNT 2.1 /CUMM (1.2-3.4); ABSOLUTE MONOCYTE COUNT 1.3 /CUMM (0.10-0.60); BASOPHIL % 0.4 % (0.0-2.0); EOSINOPHIL % 2.1 % (0-5); GRANULOCYTE % 78.9 % (42.2-75.2); HEMATOCRIT 33.4 % (42-52); MEAN CORPUSCULAR HGB 29.7 PG (27.0-31.0); MEAN CORPUSCULAR VOLUME 89.8 FL (80.0-94.0); MEAN PLATELET VOLUME 7.9 FL (7.4-10.4); PLATELET COUNT 672 /CUMM (130-400); RBC DISTRIBUTION WIDTH 14.8 % (11.5-14.5); RED BLOOD CELL CT 3.72 /CUMM (4.70-6.10); WHITE BLOOD CELL COUNT 18.3 /CUMM (4.8-10.8)
--- NOTE | 2017-09-26 13:24 | PN- Gastroenterology ---
Assessment/Plan GI Assessment/Recommendations: Assessment: Mr. Carbone is a 47 year old male admitted with gallstone pancreatitis status post ERCP with sphincterotomy and stone extraction who is currently doing reasonably well on TPN albeit she still has some pain. His white count is mildly improved from yesterday, but his LFTs remain elevated which I continue to suspect is from the TPN and I don't feel that any acute interventions are necessary for that at this time. While it is encouraging that he was able to tolerate a [place] ices it still did result in some abdominal discomfort so I have recommended that he continue complete bowel rest for at least the next 48 hours and if he continues to improve would attempt another trial of liquids then. I do feel it is okay for him to have cotton swabs though to keep his mucous membranes moist. Recommendations: 1. Continue to keep nothing by mouth through the weekend and if he continues to symptomatically improve would attempt another by mouth trial on Thursday. 2. Continue TPN and maintenance IV fluids. 3. Follow daily LFTs. 4. Follow electrolytes and replete as needed. 5. Administer analgesia as needed. 6. Agree with tentative plan to remove his gallbladder in 6-8 weeks after resolution of his acute inflammation from his pancreatitis. 7. Would reserve repeat imaging for any high temperature spikes or significant change in his white blood cell count. I will continue to follow this patient and make further condition based on his clinical course and results of repeat blood work. Problem List: 1. Transaminitis 2. Cholangitis 3. Elevated LFTs 4. Constipation due to opioid therapy 5. Gallstone pancreatitis 6. Choledocholithiasis 7. S/P ERCP Subjective Subjective: Patient continues to have some pain albeit it is mildly improved over the past 24-48 hours. He did take in some [place] ice is which he noted did cause some discomfort, but is still requesting to drink more. No other acute events overnight. Objective Vital Signs and I&Os Vital Signs Date Time Temp Pulse Resp B/P B/P Pulse O2 O2 Flow FiO2 Mean Ox Delivery Rate 09/26 09 88 126/76 09/26 0920 88 122/76 09/26 0800 95 Room Air 09/26 0641 98.4 88 18 122/76 95 Room Air 09/25 2354 97.9 84 16 120/66 95 Room Air 09/25 1412 98.0 89 20 110/80 95 Room Air Intake & Output 09/26 1600 09/26 0400 09/25 1600 09/25 0400 09/24 1600 09/24 0400 Intake Total 1760.0 669.0 1383.1 541.6 2275 1763.0 Output Total 750 1000 2164 960 3425 1200 Balance 1010.0 -331.0 -366.9 141.6 -1075 563.0 Intake, IV 600 225 525 225 525 600 Intake, Lipid 240.0 24.0 58.1 16.6 50.0 Intake, Oral 120 120 100 100 250 480 Intake, 800 300 657 539 4050 633 TPN/PPN Number 0 0 Bowel Movements Output, Urine 750 1000 4040 403 0372 1200 Physical Exam General Appearance: well developed/nourished, no apparent distress, comfortable Head: atraumatic, normal appearance Respiratory: normal breath sounds, chest non-tender Cardiovascular: regular rate/rhythm Abdomen: normal bowel sounds, soft, tenderness Back: normal inspection, normal range of motion Skin: intact, normal color Current Medications: Current Medications Sig/Car[place] Start time Last Medication Dose Route Stop Time Status Admin Amlodipine Besylate 5 MG DAILY 09/19 1400 AC 09/26 PO 0920 Atorvastatin Calcium 20 MG 1700 09/18 1700 AC 09/25 PO 1541 Docusate Sodium 100 MG DAILY NEEDED PRN 09/24 1315 AC PO Fat Emulsion 250 ML 1900 09/26 1900 AC Intravenous IV 09/27 1859 Fat Emulsion 200 ML 1900 09/25 1900 AC 09/25 Intravenous IV 09/26 1859 2046 Fat Emulsion 200 ML Q24H 09/24 1900 DC 09/24 Intravenous IV 09/25 1859 1942 Fentanyl Citrate 25 MCG Q72H 09/22 1030 AC 09/25 TOP 1044 Glycerin 2 SPRAY Q2P PRN 09/16 1430 AC 09/17 PO 1419 Heparin Sodium 5,000 UNIT Q8 09/15 0600 AC 09/26 (Porcine) SC 0526 Lactated Ringer's 1,000 ML Q6H 09/21 1145 AC 09/26 IV 1043 [place] Carbonate 1,500 MG DAILY 09/18 0900 AC 09/26 PO 0920 Losartan Potassium 100 MG DAILY 09/18 0900 AC 09/26 PO 0920 Methylnaltrexone 12 MG Q48 PRN 09/22 1315 AC 09/25 [place] 0906 Morphine Sulfate 45 MG BID 09/25 09 AC 09/26 PO 0926 Morphine Sulfate 2 MG Q6-PRN PRN 09/25 09 AC 09/26 IV 1041 Ondansetron HCl 4 MG Q6P PRN 09/14 2245 AC IV Patient Medication 1 ED ONE ONE 09/25 1730 DC 09/25 Teaching ED 09/25 1731 1729 Polyethylene Glycol 17 GM DAILY 09/24 1303 AC 09/26 PO 09 Ramelteon 8 MG AT BEDTIME 09/24 2100 AC 09/25 PO 204 Total Parenteral 1 UNIT 09/26 190 AC Nutrition IV 09/27 1858 Total Parenteral 1 UNIT 09/25 190 AC 09/25 Nutrition IV 09/26 Total Parenteral 1 UNIT 09/24 DC 09/24 Nutrition IV 09/25 Results Pertinent Lab Results: Laboratory Tests 09/26 09/25 0530 0844 Chemistry Sodium (137 - 145 mmol/L) 136 L Potassium (3.5 - 5.1 mmol/L) 5.3 H Chloride (98 - 107 mmol/L) 98 Carbon Dioxide (22 - 30 mmol/L) 26 Anion Gap (5 - 16) 13 BUN (9 - 20 mg/dL) 15 Creatinine (0.7 - 1.2 mg/dL) 0.8 Estimated GFR (>60 ml/min) > 60 BUN/Creatinine Ratio (7 - 25 %) 18.8 Calcium (8.4 - 10.2 mg/dL) 8.9 Phosphorus (2.5 - 4.5 mg/dL) 4.9 H Magnesium (1.6 - 2.3 mg/dL) 2.1 Total Bilirubin (0.2 - 1.3 mg/dL) 0.8 Direct Bilirubin (< 0.4 mg/dL) 0.7 H AST (17 - 59 U/L) 180 H ALT (21 - 72 U/L) 420 H Alkaline Phosphatase (< 127 U/L) 136 H Total Protein (6.3 - 8.2 g/dL) 6.2 L Albumin (3.5 - 5.0 g/dL) 3.2 L Prealbumin (17.6 - 36.0 mg/dL) 15.0 L Triglycerides (<150 mg/dL) 109 Hematology CBC w Diff NO MAN DIFF REQ WBC (4.8 - 10.8 /CUMM) 18.3 H RBC (4.70 - 6.10 /CUMM) 3.72 L Hgb (14.0 - 18.0 G/DL) 11.0 L Hct (42 - 52 %) 33.4 L MCV (80.0 - 94.0 FL) 89.8 MCH (27.0 - 31.0 PG) 29.7 MCHC (33.0 - 37.0 G/DL) 33.0 RDW (11.5 - 14.5 %) 14.8 H Plt Count (130 - 400 /CUMM) 672 H MPV (7.4 - 10.4 FL) 7.9 Gran % (42.2 - 75.2 %) 78.9 H Lymphocytes % (20.5 - 51.1 %) 11.7 L Monocytes % (1.7 - 9.3 %) 6.9 Eosinophils % (0 - 5 %) 2.1 Basophils % (0.0 - 2.0 %) 0.4 Absolute Granulocytes (1.4 - 6.5 /CUMM) 14.4 H Absolute Lymphocytes (1.2 - 3.4 /CUMM) 2.1 Absolute Monocytes (0.10 - 0.60 /CUMM) 1.3 H Absolute Eosinophils (0.0 - 0.7 /CUMM) 0.4 Absolute Basophils (0.0 - 0.2 /CUMM) 0.1 Urines Urine Color Cancelled Urine Clarity Cancelled Urine pH Cancelled Ur Specific [place] Cancelled Urine Protein Cancelled Urine Ketones Cancelled Urine Nitrite Cancelled Urine Bilirubin Cancelled Urine Urobilinogen Cancelled Ur Leukocyte Esterase Cancelled Ur Microscopic Cancelled Urine Hemoglobin Cancelled Urine Glucose Cancelled 09/25 09/24 0700 0630 Chemistry Sodium (137 - 145 mmol/L) 134 L 134 L Potassium (3.5 - 5.1 mmol/L) 5.1 5.3 H Chloride (98 - 107 mmol/L) 99 99 Carbon Dioxide (22 - 30 mmol/L) 25 26 Anion Gap (5 - 16) 10 9 BUN (9 - 20 mg/dL) 15 13 Creatinine (0.7 - 1.2 mg/dL) 0.7 0.7 Estimated GFR (>60 ml/min) > 60 > 60 BUN/Creatinine Ratio (7 - 25 %) 21.4 18.6 Calcium (8.4 - 10.2 mg/dL) 8.7 8.5 Phosphorus (2.5 - 4.5 mg/dL) 4.5 4.9 H Magnesium (1.6 - 2.3 mg/dL) 2.1 2.1 Total Bilirubin (0.2 - 1.3 mg/dL) 0.9 1.1 Direct Bilirubin (< 0.4 mg/dL) 0.6 H 0.7 H AST (17 - 59 U/L) 173 H 133 H ALT (21 - 72 U/L) 362 H 280 H Alkaline Phosphatase (< 127 U/L) 132 H 141 H Total Protein (6.3 - 8.2 g/dL) 5.9 L 5.9 L Albumin (3.5 - 5.0 g/dL) 3.1 L 3.1 L Prealbumin (17.6 - 36.0 mg/dL) 11.3 L Triglycerides (<150 mg/dL) 132 136 Amylase (30 - 110 U/L) < 30 L Lipase (23 - 300 U/L) 578 H Hematology CBC w Diff NO MAN DIFF REQ MAN DIFF ORDERED WBC (4.8 - 10.8 /CUMM) 21.3 H 22.8 H RBC (4.70 - 6.10 /CUMM) 3.75 L 3.77 L Hgb (14.0 - 18.0 G/DL) 11.1 L 11.5 L Hct (42 - 52 %) 33.9 L 33.7 L MCV (80.0 - 94.0 FL) 90.3 89.3 MCH (27.0 - 31.0 PG) 29.7 30.4 MCHC (33.0 - 37.0 G/DL) 32.9 L 34.0 RDW (11.5 - 14.5 %) 15.5 H 15.2 H Plt Count (130 - 400 /CUMM) 702 H 583 H MPV (7.4 - 10.4 FL) 7.9 8.1 Gran % (42.2 - 75.2 %) 81.9 H 87.3 H Lymphocytes % (20.5 - 51.1 %) 9.5 L 9.1 L Monocytes % (1.7 - 9.3 %) 6.4 1.6 L Eosinophils % (0 - 5 %) 2.1 1.7 Basophils % (0.0 - 2.0 %) 0.1 0.3 Absolute Granulocytes (1.4 - 6.5 /CUMM) 17.4 H 19.9 H Segmented Neutrophils (42.2 - 75.2 %) 82 H Band Neutrophils (0.0 - 5.0 %) 3 Absolute Lymphocytes (1.2 - 3.4 /CUMM) 2.0 2.1 Lymphocytes (20.5 - 51.1 %) 10 L Monocytes (1.7 - 9.3 %) 4 Absolute Monocytes (0.10 - 0.60 /CUMM) 1.4 H 0.4 Eosinophils (0 - 5.0 %) 1 Absolute Eosinophils (0.0 - 0.7 /CUMM) 0.5 0.4 Absolute Basophils (0.0 - 0.2 /CUMM) 0 0.1 Platelet Estimate (ADEQUATE) INCREASED Normocytic RBCs VERIFIED Normochromic RBCs VERIFIED
[2017-09-26 14:35] VITALS: BP 118/64
[2017-09-26 22:58] VITALS: BP 114/80
[2017-09-27 06:55] VITALS: BP 124/82
[2017-09-27 09:16] LABS: ABSOLUTE BASOPHIL COUNT 0 /CUMM (0.0-0.2); ABSOLUTE EOSINOPHIL COUNT 0.3 /CUMM (0.0-0.7); ABSOLUTE GRANULOCYTE CT 14.5 /CUMM (1.4-6.5); ABSOLUTE LYMPH COUNT 1.7 /CUMM (1.2-3.4); ABSOLUTE MONOCYTE COUNT 1.1 /CUMM (0.10-0.60); BASOPHIL % 0.2 % (0.0-2.0); EOSINOPHIL % 1.9 % (0-5); GRANULOCYTE % 81.9 % (42.2-75.2); HEMATOCRIT 34.1 % (42-52); MEAN CORPUSCULAR HGB 29.5 PG (27.0-31.0); MEAN CORPUSCULAR HGB CONC 32.9 G/DL (33.0-37.0); MEAN CORPUSCULAR VOLUME 89.9 FL (80.0-94.0); MEAN PLATELET VOLUME 7.7 FL (7.4-10.4); RBC DISTRIBUTION WIDTH 14.2 % (11.5-14.5)
--- NOTE | 2017-09-27 09:50 | PN- Housestaff ---
Subjective Follow-up For: Gallstone pancreatitis status post ERCP Complaints: Abdominal pain Subjective: Patient continues to have significant abdominal pain. No bowel movement since yesterday. No chest pain or shortness of breath. Review of Systems Constitutional: Reports: see HPI. Denies: chills, fever, weakness. EENTM: Denies: nasal congestion, nasal pain. Cardiovascular: Denies: chest pain, palpitations. Respiratory: Denies: cough, short of breath, wheezing. Gastrointestinal: Reports: abdominal pain, distention. Denies: constipation, diarrhea. Genitourinary: Denies: dysuria, hematuria. Objective Last 24 Hrs of Vital Signs/I&O Vital Signs Date Time Temp Pulse Resp B/P B/P Pulse O2 O2 Flow FiO2 Mean Ox Delivery Rate 09/27 1437 98.0 90 20 118/86 96 09/27 0844 90 124/82 09/27 0844 90 124/82 09/27 0655 98.6 90 18 124/82 96 Room Air 09/26 2258 98.3 85 18 114/80 100 Room Air Intake & Output 09/27 1600 09/27 0800 09/27 0000 Intake Total 1483.2 741.6 Output Total 4318 074 4721 Balance -1100 883.2 -283.4 Intake, IV 600 300 Intake, Lipid 83.2 41.6 Intake, 800 400 TPN/PPN Output, Urine 1916 572 4895 Physical Exam General Appearance: Alert, Oriented X3, Cooperative, No Acute Distress Skin: No Rashes Skin Temp/Moisture Exam: Warm/Dry Sepsis Skin Exam (color): Normal for Ethnicity HEENT: Atraumatic, PERRLA, EOMI, Mucous Membr. moist/pink Neck: Supple, No JVD Lymphatic: Cervical nl Cardiovascular: Regular Rate, Normal S1, Normal S2, No Murmurs Lungs: Clear to Auscultation, Reduced air entry in lung bases bilaterally Abdomen: Normal Bowel Sounds, Soft, Tenderness with epigastric mass palpable Neurological: Normal Speech, Normal Tone, Cranial Nerves 3-12 NL Current Medications: Current Medications Sig/[place] Start time Last Medication Dose Route Stop Time Status Admin Amlodipine Besylate 5 MG DAILY 09/19 1400 AC 09/27 PO 0844 Atorvastatin Calcium 20 MG 1700 09/18 1700 AC 09/27 PO 1700 Docusate Sodium 100 MG DAILY NEEDED PRN 09/24 1315 AC PO Fat Emulsion 250 ML 09/27 190 AC 09/27 Intravenous IV 09/28 Fat Emulsion 250 ML 09/26 1900 DC 09/26 Intravenous IV 09/27 1858 185 Fentanyl Citrate 25 MCG Q72H 09/22 1030 09/25 TOP 1044 Glycerin 2 SPRAY Q2P PRN 09/16 1430 AC 09/17 PO 1419 Heparin Sodium 5,000 UNIT Q8 09/15 0600 AC 09/27 (Porcine) SC 2105 Lactated Ringer's 1,000 ML Q6H 09/21 1145 AC 09/27 IV 1704 [place] Carbonate 1,500 MG DAILY 09/18 0900 AC 09/27 PO 0844 Losartan Potassium 100 MG DAILY 09/18 0900 AC 09/27 PO 0844 Methylnaltrexone 12 MG Q48 PRN 09/22 1315 09/25 [place] 0906 Morphine Sulfate 45 MG BID 09/25 0900 AC 09/27 PO 204 Morphine Sulfate 2 MG Q6-PRN PRN 09/25 09 09/27 IV 1701 Ondansetron HCl 4 MG Q6P PRN 09/14 2245 IV Polyethylene Glycol 17 GM DAILY 09/24 1303 AC 09/27 PO 0844 Ramelteon 8 MG AT BEDTIME 09/24 2100 09/27 PO 204 Total Parenteral 1 UNIT 09/27 190 09/27 Nutrition IV 09/28 Total Parenteral 1 UNIT 09/26 1900 MO 09/26 Nutrition IV 09/27 1858 190 Last 24 Hrs of Lab/David Results Last 24 Hrs of Labs/Mics: Laboratory Tests 09/27/17 0650: Anion Gap 13, Calcium 8.7, Phosphorus 4.8 H, Magnesium 2.0, Total Bilirubin 0.7 , Direct Bilirubin 0.6 H, AST 101 H, ALT 336 H, Alkaline Phosphatase 120, Total Protein 6.2 L, Albumin 3.3 L, Triglycerides 95, CBC w Diff NO MAN DIFF REQ, RBC 3.80 L, MCV 89.9, MCH 29.5, MCHC 32.9 L, RDW 14.2, MPV 7.7, Gran % 81.9 H, Lymphocytes % 9.5 L, Monocytes % 6.5, Eosinophils % 1.9, Basophils % 0.2, Absolute Granulocytes 14.5 H, Absolute Lymphocytes 1.7, Absolute Monocytes 1.1 H, Absolute Eosinophils 0.3, Absolute Basophils 0 Assessment/Plan Assessment: Mr. Carbone is a 47 year old man with past medical history of bipolar disorder, hypertension, and hyperlipidemia presented with acute onset abdominal associated with nausea, diarrhea, and chills secondary to gallstone pancreatitis now status post ERCP. He was initially admitted to the ICU and then transferred to general medicine on 09/18/17 after stabilization of his condition. Problem list: 1. Gallstone pancreatitis status post ERCP 2. Transaminitis 3. Exophytic lesion arising from right kidney #Gallstone pancreatitis status post ERCP: Patient presented with epigastric pain , found to have gallstone pancreatitis, is now status post ERCP.. Gastroenterology is following. He will need cholecystectomy in 6-[address] on 09/19/17 showed a volume of abdominal ascites around the pancreas extending into the mesentery significantly increased but there is no pseudocyst formation in the enhancement and the pancreas remains normal with no evidence of pancreatic necrosis. He had fever to 101.[address] abdomen/ pelvis with IV contrast did not show any change from prior imaging study. The etiology of his fevers and leukocytosis is unclear, may be inflammatory as there is no clear source of infection. -Continue fentanyl patch 25 g every 72 hours. -IV morphine to 2 mg every 6 hours when necessary pain -oral morphine 45 mg twice a day -No NSAIDs -Lactated Ringer's 75 mL per hour, adjust per TPN protocol -Continue TPN -Continue Nothing by mouth -Appreciate gastroenterology and general surgery conditions -Ondansetron as necessary -Appreciate ID recommendations -Watch electrolytes -Follow blood cultures -Continue rozerem for sleep #Transaminitis: Liver enzymes are slightly downtrending. -Likely related to TPN -Contineu to hold acetaminophen -Avoid hepatotoxins #Exophytic lesion arising from right kidney: Incidental finding. -Follow up with nephrology as an outpatient. #Chronic medical problems: -Continue lithium -Continue amlodipine and losartan -Continue other home medications DVT prophylaxis with heparin Nothing by mouth Full code Problem List: 1. Pancreatitis 2. Gallstone pancreatitis 3. Elevated LFTs Pain Ratin Pain Location: Abdomen Pain Goal: Pain 4 or less Pain Plan: Fentanyl patch, MS contin Tomorrow's Labs & Rationales: BEP, LFT, CBC for pancreatitis DVT/Prophylaxis: pharmacological
[2017-09-27 10:59] LABS: PLATELET COUNT 813 /CUMM (130-400); WHITE BLOOD CELL COUNT 17.7 /CUMM (4.8-10.8)
--- NOTE | 2017-09-27 12:04 | PN- Gastroenterology ---
Assessment/Plan GI Assessment/Recommendations: Assessment: Mr. Carbone is a 47 year old male admitted with GS pancreatitis s/p ERCP with sphincterotomy and stone extraction who has had a prolonged hospital course secondary to his extensive pancreatitis requiring initiation of TPN. He continues to complain of significant abdomina pain, but overall he has noted some improvement and he has been afebrile and his WBC is improved albeit minimally. Considering the level of pain he still has I would attempt to keep him NPO for another 24-48 hours and perhaps will then be able to slowly advance his diet. His LFTs have remained elevated which we have been attributing to his TPN and as they have somewhat improved over the past 24 hours I don't feel that any further interventions are necessary for this at this time, but I would continue to follow them. Recommendations: 1. Keep NPO throughout today and if he continues to improve would consider a trial of clears tomorrow. 2. Continue TPN for now and follow lytes 3. Continue to follow daily LFTs 4. Analgesia as needed. 5. Laxatives as needed 6. Would hold on further imaging for now unless he spikes a high temp or a significant elevation of his WBC. I will continue to follow this patient and make further recommendations based on his clinical course and results of repeat blood work and any imaging if it is done. Problem List: 1. Transaminitis 2. Pancreatitis 3. Abdominal pain 4. Gallstone pancreatitis Subjective Subjective: pt still with significant abdominal pain requiring narcotics, but he is tolerating sips of water per nursing. no vomiting. Objective Vital Signs and I&Os Vital Signs Date Time Temp Pulse Resp B/P B/P Pulse O2 O2 Flow FiO2 Mean Ox Delivery Rate 09/27 0844 90 124/82 09/27 0844 90 124/82 09/27 0655 98.6 90 18 124/82 96 Room Air 09/26 2258 98.3 85 18 114/80 100 Room Air 09/26 1435 98.5 91 20 118/64 95 Intake & Output 09/27 1600 09/27 0400 09/26 1600 09/26 0400 09/25 1600 09/25 040 Intake Total 1483.2 741.6 1760.0 669.0 1383.1 541.6 Output Total 1625 2050 1000 1750 400 Balance 1483.2 -883.4 -290.0 -331.0 -366.9 141.6 Intake, IV 600 300 600 225 525 225 Intake, Lipid 83.2 41.6 240.0 24.0 58.1 16.6 Intake, Oral 120 120 100 100 Intake, 800 400 800 300 700 200 TPN/PPN Number 0 0 Bowel Movements Output, Urine 1625 2050 1000 1750 400 Physical Exam General Appearance: well developed/nourished, no apparent distress, comfortable Head: atraumatic Neck: normal inspection Respiratory: normal breath sounds Cardiovascular: regular rate/rhythm Abdomen: normal bowel sounds, soft, tenderness Extremities: normal inspection Current Medications: Current Medications Sig/[place] Start time Last Medication Dose Route Stop Time Status Admin Amlodipine Besylate 5 MG DAILY 09/19 1400 AC 09/27 PO 0844 Atorvastatin Calcium 20 MG 1700 09/18 1700 AC 09/26 PO 1623 Docusate Sodium 100 MG DAILY NEEDED PRN 09/24 1315 AC PO Fat Emulsion 250 ML 1900 09/27 1900 AC Intravenous IV 09/28 1859 Fat Emulsion 250 ML 1900 09/26 1900 DC 09/26 Intravenous IV 09/27 1859 1859 Fat Emulsion 200 ML 1900 09/25 1900 DC 09/25 Intravenous IV 09/26 1859 2046 Fentanyl Citrate 25 MCG Q72H 09/22 1030 AC 09/25 TOP 1044 Glycerin 2 SPRAY Q2P PRN 09/16 1430 AC 09/17 PO 1419 Heparin Sodium 5,000 UNIT Q8 09/15 0600 AC 09/27 (Porcine) SC 0547 Lactated Ringer's 1,000 ML Q6H 09/21 1145 AC 09/26 IV 2259 [place] Carbonate 1,500 MG DAILY 09/18 0900 AC 09/27 PO 0844 Losartan Potassium 100 MG DAILY 09/18 0900 AC 09/27 PO 0844 Methylnaltrexone 12 MG Q48 PRN 09/22 1315 AC 09/25 [place] 0906 Morphine Sulfate 45 MG BID 09/25 09 AC 09/27 PO 0849 Morphine Sulfate 2 MG Q6-PRN PRN 09/25 0900 AC 09/27 IV 1043 Ondansetron HCl 4 MG Q6P PRN 09/14 2245 AC IV Polyethylene Glycol 17 GM DAILY 09/24 1303 AC 09/27 PO 0844 Ramelteon 8 MG AT BEDTIME 09/24 2099 AC 09/26 PO 2118 Total Parenteral 1 UNIT 09/27 AC Nutrition IV 09/28 1858 Total Parenteral 1 UNIT 09/26 DC 09/26 Nutrition IV 09/27 Total Parenteral 1 UNIT 09/25 DC 09/25 Nutrition IV 09/26 Results Pertinent Lab Results: Laboratory Tests 09/27 09/26 0650 0530 Chemistry Sodium (137 - 145 mmol/L) 137 136 L Potassium (3.5 - 5.1 mmol/L) 5.1 5.3 H Chloride (98 - 107 mmol/L) 98 98 Carbon Dioxide (22 - 30 mmol/L) 26 26 Anion Gap (5 - 16) 13 13 BUN (9 - 20 mg/dL) 15 Creatinine (0.7 - 1.2 mg/dL) 0.8 Estimated GFR (>60 ml/min) > 60 BUN/Creatinine Ratio (7 - 25 %) 18.8 Calcium (8.4 - 10.2 mg/dL) 8.7 8.9 Phosphorus (2.5 - 4.5 mg/dL) 4.8 H 4.9 H Magnesium (1.6 - 2.3 mg/dL) 2.0 2.1 Total Bilirubin (0.2 - 1.3 mg/dL) 0.7 0.8 Direct Bilirubin (< 0.4 mg/dL) 0.6 H 0.7 H AST (17 - 59 U/L) 101 H 180 H ALT (21 - 72 U/L) 336 H 420 H Alkaline Phosphatase (< 127 U/L) 120 136 H Total Protein (6.3 - 8.2 g/dL) 6.2 L 6.2 L Albumin (3.5 - 5.0 g/dL) 3.3 L 3.2 L Prealbumin (17.6 - 36.0 mg/dL) 15.0 L Triglycerides (<150 mg/dL) 95 109 Hematology CBC w Diff NO MAN DIFF REQ NO MAN DIFF REQ WBC (4.8 - 10.8 /CUMM) 17.7 H 18.3 H RBC (4.70 - 6.10 /CUMM) 3.80 L 3.72 L Hgb (14.0 - 18.0 G/DL) 11.2 L 11.0 L Hct (42 - 52 %) 34.1 L 33.4 L MCV (80.0 - 94.0 FL) 89.9 89.8 MCH (27.0 - 31.0 PG) 29.5 29.7 MCHC (33.0 - 37.0 G/DL) 32.9 L 33.0 RDW (11.5 - 14.5 %) 14.2 14.8 H Plt Count (130 - 400 /CUMM) 813 H 672 H MPV (7.4 - 10.4 FL) 7.7 7.9 Gran % (42.2 - 75.2 %) 81.9 H 78.9 H Lymphocytes % (20.5 - 51.1 %) 9.5 L 11.7 L Monocytes % (1.7 - 9.3 %) 6.5 6.9 Eosinophils % (0 - 5 %) 1.9 2.1 Basophils % (0.0 - 2.0 %) 0.2 0.4 Absolute Granulocytes (1.4 - 6.5 /CUMM) 14.5 H 14.4 H Absolute Lymphocytes (1.2 - 3.4 /CUMM) 1.7 2.1 Absolute Monocytes (0.10 - 0.60 /CUMM) 1.1 H 1.3 H Absolute Eosinophils (0.0 - 0.7 /CUMM) 0.3 0.4 Absolute Basophils (0.0 - 0.2 /CUMM) 0 0.1 09/25 09/25 0844 0700 Chemistry Sodium (137 - 145 mmol/L) 134 L Potassium (3.5 - 5.1 mmol/L) 5.1 Chloride (98 - 107 mmol/L) 99 Carbon Dioxide (22 - 30 mmol/L) 25 Anion Gap (5 - 16) 10 BUN (9 - 20 mg/dL) 15 Creatinine (0.7 - 1.2 mg/dL) 0.7 Estimated GFR (>60 ml/min) > 60 BUN/Creatinine Ratio (7 - 25 %) 21.4 Calcium (8.4 - 10.2 mg/dL) 8.7 Phosphorus (2.5 - 4.5 mg/dL) 4.5 Magnesium (1.6 - 2.3 mg/dL) 2.1 Total Bilirubin (0.2 - 1.3 mg/dL) 0.9 Direct Bilirubin (< 0.4 mg/dL) 0.6 H AST (17 - 59 U/L) 173 H ALT (21 - 72 U/L) 362 H Alkaline Phosphatase (< 127 U/L) 132 H Total Protein (6.3 - 8.2 g/dL) 5.9 L Albumin (3.5 - 5.0 g/dL) 3.1 L Triglycerides (<150 mg/dL) 132 Amylase (30 - 110 U/L) < 30 L Lipase (23 - 300 U/L) 578 H Hematology CBC w Diff NO MAN DIFF REQ WBC (4.8 - 10.8 /CUMM) 21.3 H RBC (4.70 - 6.10 /CUMM) 3.75 L Hgb (14.0 - 18.0 G/DL) 11.1 L Hct (42 - 52 %) 33.9 L MCV (80.0 - 94.0 FL) 90.3 MCH (27.0 - 31.0 PG) 29.7 MCHC (33.0 - 37.0 G/DL) 32.9 L RDW (11.5 - 14.5 %) 15.5 H Plt Count (130 - 400 /CUMM) 702 H MPV (7.4 - 10.4 FL) 7.9 Gran % (42.2 - 75.2 %) 81.9 H Lymphocytes % (20.5 - 51.1 %) 9.5 L Monocytes % (1.7 - 9.3 %) 6.4 Eosinophils % (0 - 5 %) 2.1 Basophils % (0.0 - 2.0 %) 0.1 Absolute Granulocytes (1.4 - 6.5 /CUMM) 17.4 H Absolute Lymphocytes (1.2 - 3.4 /CUMM) 2.0 Absolute Monocytes (0.10 - 0.60 /CUMM) 1.4 H Absolute Eosinophils (0.0 - 0.7 /CUMM) 0.5 Absolute Basophils (0.0 - 0.2 /CUMM) 0 Urines Urine Color Cancelled Urine Clarity Cancelled Urine pH Cancelled Ur Specific [place] Cancelled Urine Protein Cancelled Urine Ketones Cancelled Urine Nitrite Cancelled Urine Bilirubin Cancelled Urine Urobilinogen Cancelled Ur Leukocyte Esterase Cancelled Ur Microscopic Cancelled Urine Hemoglobin Cancelled Urine Glucose Cancelled
--- NOTE | 2017-09-27 12:34 | PN- Att Addend ---
Attending Addendum Attending Brief Note Patient seen and examined, feels the same. Still c/o abd pain. Even sips of water with meds hurt. Vital Signs Date Time Temp Pulse Resp B/P B/P Pulse O2 O2 Flow FiO2 Mean Ox Delivery Rate 09/27 0844 90 124/82 09/27 0844 90 124/82 09/27 0655 98.6 90 18 124/82 96 Room Air 09/26 2258 98.3 85 18 114/80 100 Room Air 09/26 1435 98.5 91 20 118/64 95 on exam; aox3, nad. cv; s1,s2, rrr resp; clear abd; soft, tender bs+ ext; no edema. Laboratory Tests 09/27 0650 Chemistry Sodium (137 - 145 mmol/L) 137 Potassium (3.5 - 5.1 mmol/L) 5.1 Chloride (98 - 107 mmol/L) 98 Carbon Dioxide (22 - 30 mmol/L) 26 Anion Gap (5 - 16) 13 Calcium (8.4 - 10.2 mg/dL) 8.7 Phosphorus (2.5 - 4.5 mg/dL) 4.8 H Magnesium (1.6 - 2.3 mg/dL) 2.0 Total Bilirubin (0.2 - 1.3 mg/dL) 0.7 Direct Bilirubin (< 0.4 mg/dL) 0.6 H AST (17 - 59 U/L) 101 H ALT (21 - 72 U/L) 336 H Alkaline Phosphatase (< 127 U/L) 120 Total Protein (6.3 - 8.2 g/dL) 6.2 L Albumin (3.5 - 5.0 g/dL) 3.3 L Triglycerides (<150 mg/dL) 95 Hematology CBC w Diff NO MAN DIFF REQ WBC (4.8 - 10.8 /CUMM) 17.7 H RBC (4.70 - 6.10 /CUMM) 3.80 L Hgb (14.0 - 18.0 G/DL) 11.2 L Hct (42 - 52 %) 34.1 L MCV (80.0 - 94.0 FL) 89.9 MCH (27.0 - 31.0 PG) 29.5 MCHC (33.0 - 37.0 G/DL) 32.9 L RDW (11.5 - 14.5 %) 14.2 Plt Count (130 - 400 /CUMM) 813 H MPV (7.4 - 10.4 FL) 7.7 Gran % (42.2 - 75.2 %) 81.9 H Lymphocytes % (20.5 - 51.1 %) 9.5 L Monocytes % (1.7 - 9.3 %) 6.5 Eosinophils % (0 - 5 %) 1.9 Basophils % (0.0 - 2.0 %) 0.2 Absolute Granulocytes (1.4 - 6.5 /CUMM) 14.5 H Absolute Lymphocytes (1.2 - 3.4 /CUMM) 1.7 Absolute Monocytes (0.10 - 0.60 /CUMM) 1.1 H Absolute Eosinophils (0.0 - 0.7 /CUMM) 0.3 Absolute Basophils (0.0 - 0.2 /CUMM) 0 A/P: 47 y/o M with pmh sig for bipolar disorder, hypertension, and hyperlipidemia admitted with acute pancreatitis, acute cholecystitis and acute cholangitis. Status post ERCP with stone extraction for choledocholithiasis. LFTs has started to improve. WBC count is also improving but clinically patient still complains of same abdominal pain although says that morphine helped. We'll keep him nothing by mouth reason the next 24 hours. Reevaluate tomorrow to see if he can be started on clear liquid diet. Continue same pain medications. Continue bowel regimen. Patient on TPN. DVT px; Hep sq.
[2017-09-27 14:37] VITALS: BP 118/86
[2017-09-27 22:45] VITALS: BP 126/74
[2017-09-28 06:33] VITALS: BP 124/76
--- NOTE | 2017-09-28 07:44 | PN- Housestaff ---
See Addendum Subjective Follow-up For: Gallstone pancreatitis status post ERCP Subjective: No overnight events. Patient is improving this morning with reduced pain. He says it still hurts to drink liquids but would like to try clear liquid diet. No chest pain or shortness of breath Review of Systems Constitutional: Reports: no symptoms. EENTM: Reports: no symptoms. Cardiovascular: Reports: no symptoms. Respiratory: Reports: no symptoms. Gastrointestinal: Reports: see HPI. Genitourinary: Reports: no symptoms. Musculoskeletal: Reports: no symptoms. Skin: Reports: no symptoms. Neurological/Psychological: Reports: no symptoms. Hematologic/Endocrine: Reports: no symptoms. Immunologic/Allergic: Reports: no symptoms. Objective Last 24 Hrs of Vital Signs/I&O Vital Signs Date Time Temp Pulse Resp B/P B/P Pulse O2 O2 Flow FiO2 Mean Ox Delivery Rate 09/28 0633 98.5 84 20 124/76 96 Room Air 09/27 2245 99.1 98 20 126/74 95 Room Air 09/27 1437 98.0 90 20 118/86 96 09/27 0844 90 124/82 09/27 0844 90 124/82 Intake & Output 09/28 0800 09/28 0000 09/27 1600 Intake Total 741.6 Output Total 964 738 9602 Balance -800 491.6 -1100 Intake, IV 300 Intake, Lipid 41.6 Intake, 400 TPN/PPN Output, Urine 255 734 9455 Physical Exam General Appearance: Alert, Oriented X3, Cooperative, No Acute Distress Cardiovascular: Regular Rate, Normal S1, Normal S2 Lungs: Clear to Auscultation Abdomen: hard, tender to palpation epigastrium Extremities: No Edema, Normal Pulses, No Tenderness/Swelling Current Medications: Current Medications Sig/[place] Start time Last Medication Dose Route Stop Time Status Admin Amlodipine Besylate 5 MG DAILY 09/19 1400 AC 09/27 PO 0844 Atorvastatin Calcium 20 MG 1700 09/18 1700 AC 09/27 PO 1700 Docusate Sodium 100 MG DAILY NEEDED PRN 09/24 1315 AC PO Fat Emulsion 250 ML 0 09/27 1900 AC 09/27 Intravenous IV 09/28 185 202 Fat Emulsion 250 ML 09/26 1900 DC 09/26 Intravenous IV 09/27 1859 1859 Fentanyl Citrate 25 MCG Q72H 09/22 1030 AC 09/25 TOP 1044 Glycerin 2 SPRAY Q2P PRN 09/16 1430 AC 09/17 PO 1419 Heparin Sodium 5,000 UNIT Q8 09/15 0600 AC 09/28 (Porcine) SC 0611 Lactated Ringer's 1,000 ML Q6H 09/21 1145 AC 09/27 IV 2313 [place] Carbonate 1,500 MG DAILY 09/18 09 AC 09/27 PO 0844 Losartan Potassium 100 MG DAILY 09/18 0900 AC 09/27 PO 0844 Methylnaltrexone 12 MG Q48 PRN 09/22 1315 AC 09/25 [place] 0906 Morphine Sulfate 45 MG BID 09/25 09 AC 09/27 PO 204 Morphine Sulfate 2 MG Q6-PRN PRN 09/25 09 AC 09/28 IV 0624 Ondansetron HCl 4 MG Q6P PRN 09/14 2245 AC IV Polyethylene Glycol 17 GM DAILY 09/24 1303 AC 09/27 PO 0844 Ramelteon 8 MG AT BEDTIME 09/24 2100 AC 09/27 PO 204 Total Parenteral 1 UNIT 1900 09/27 1900 AC 09/27 Nutrition IV 09/28 185 202 Total Parenteral 1 UNIT 1900 09/26 1900 DC 09/26 Nutrition IV 09/27 185 190 Assessment/Plan Assessment: Mr. Carbone is a 47 year old man with past medical history of bipolar disorder, hypertension, and hyperlipidemia presented with acute onset abdominal associated with nausea, diarrhea, and chills secondary to gallstone pancreatitis now status post ERCP. He was initially admitted to the ICU and then transferred to general medicine on 09/18/17 after stabilization of his condition. Problem list: 1. Gallstone pancreatitis status post ERCP 2. Transaminitis 3. Exophytic lesion arising from right kidney #Gallstone pancreatitis status post ERCP: Patient presented with epigastric pain , found to have gallstone pancreatitis, is now status post ERCP.. Gastroenterology is following. He will need cholecystectomy in 6-[address] on 09/19/17 showed a volume of abdominal ascites around the pancreas extending into the mesentery significantly increased but there is no pseudocyst formation in the enhancement and the pancreas remains normal with no evidence of pancreatic necrosis. He had fever to 101.[address] abdomen/ pelvis with IV contrast did not show any change from prior imaging study. The patient has no had no further fevers and his leukocytosis is improving. His abdominal pain is also improving. -Fentanyl patch 25 g every 72 hours. -IV morphine to 2 mg every 6 hours when necessary pain -oral morphine 45 mg twice a day -No NSAIDs -Lactated Ringer's 75 mL per hour, adjust per TPN protocol -Continue TPN -clear liquid diet -Appreciate gastroenterology and general surgery conditions -Ondansetron as necessary -Appreciate ID recommendations -Watch electrolytes -Follow blood cultures #Transaminitis: Liver enzymes are slightly downtrending. -Hold acetaminophen -Avoid hepatotoxins #Exophytic lesion arising from right kidney: Incidental finding. -Follow up with nephrology as an outpatient. #Chronic medical problems: -Continue lithium -Continue amlodipine and losartan -Continue other home medications DVT prophylaxis with heparin clears Full code Problem List: 1. Gallstone pancreatitis Pain Ratin Pain Location: abd Pain Goal: Remain pain free Pain Plan: see a/p Tomorrow's Labs & Rationales: cbc, bep, lft, trigl
[2017-09-28 09:12] LABS: ABSOLUTE BASOPHIL COUNT 0.1 /CUMM (0.0-0.2); ABSOLUTE EOSINOPHIL COUNT 0.3 /CUMM (0.0-0.7); ABSOLUTE GRANULOCYTE CT 12.3 /CUMM (1.4-6.5); ABSOLUTE LYMPH COUNT 2.1 /CUMM (1.2-3.4); ABSOLUTE MONOCYTE COUNT 1.2 /CUMM (0.10-0.60); BASOPHIL % 0.4 % (0.0-2.0); GRANULOCYTE % 77.2 % (42.2-75.2); HEMATOCRIT 33.9 % (42-52); MEAN CORPUSCULAR HGB 29.4 PG (27.0-31.0); MEAN CORPUSCULAR HGB CONC 32.6 G/DL (33.0-37.0); MEAN CORPUSCULAR VOLUME 90.2 FL (80.0-94.0); MEAN PLATELET VOLUME 7.8 FL (7.4-10.4); PLATELET COUNT 778 /CUMM (130-400); RBC DISTRIBUTION WIDTH 14.6 % (11.5-14.5); RED BLOOD CELL CT 3.76 /CUMM (4.70-6.10); WHITE BLOOD CELL COUNT 15.9 /CUMM (4.8-10.8)
--- NOTE | 2017-09-28 11:10 | PN- Student ---
Subjective Subjective: No overnight events reported. Mr. Carbone reports improvement in his pain, however it is still constant and present, the pain intensity has improved. He still has pain when drinking, however he would like to try a clear liquid diet. He does not endorse any chest pain, palpitaitons, headache, fever, chills or shortness of breath. Objective Objective: Current Medications Sig/[place] Start time Last Medication Dose Route Stop Time Status Admin Amlodipine Besylate 5 MG DAILY 09/19 1400 AC 09/28 PO 0817 Atorvastatin Calcium 20 MG 1700 09/18 1700 AC 09/27 PO 1700 Docusate Sodium 100 MG DAILY NEEDED PRN 09/24 1315 AC PO Fat Emulsion 250 ML Q24H 09/28 190 AC Intravenous IV 09/29 185 Fat Emulsion 250 ML 09/27 190 AC 09/27 Intravenous IV 09/28 Fentanyl Citrate 25 MCG Q72H 09/22 1030 AC 09/25 TOP 1044 Glycerin 2 SPRAY Q2P PRN 09/16 1430 AC 09/17 PO 1419 Heparin Sodium 5,000 UNIT Q8 09/15 0600 AC 09/28 (Porcine) SC 0611 Lactated Ringer's 1,000 ML Q6H 09/21 1145 AC 09/27 IV 2313 [place] Carbonate 1,500 MG DAILY 09/18 0900 AC 09/28 PO 0815 Losartan Potassium 100 MG DAILY 09/18 0900 AC 09/28 PO 0816 Methylnaltrexone 12 MG Q48 PRN 09/22 1315 AC 09/25 [place] 0906 Morphine Sulfate 45 MG BID 09/25 09 AC 09/28 PO 0815 Morphine Sulfate 2 MG Q6-PRN PRN 09/25 0900 AC 09/28 IV 0624 Ondansetron HCl 4 MG Q6P PRN 09/14 2245 AC IV Polyethylene Glycol 17 GM DAILY 09/24 1303 AC 09/28 PO 0816 Ramelteon 8 MG AT BEDTIME 09/24 2100 AC 09/27 PO 204 Total Parenteral 1 UNIT 09/28 1900 AC Nutrition IV 09/29 185 Total Parenteral 1 UNIT 09/27 1900 AC 09/27 Nutrition IV 09/28 Laboratory Tests 09/28 0610 Chemistry Sodium (137 - 145 mmol/L) 137 Potassium (3.5 - 5.1 mmol/L) 5.0 Chloride (98 - 107 mmol/L) 98 Carbon Dioxide (22 - 30 mmol/L) 27 Anion Gap (5 - 16) 12 BUN (9 - 20 mg/dL) 14 Creatinine (0.7 - 1.2 mg/dL) 0.8 Estimated GFR (>60 ml/min) > 60 BUN/Creatinine Ratio (7 - 25 %) 17.5 Total Bilirubin (0.2 - 1.3 mg/dL) 0.6 Direct Bilirubin (< 0.4 mg/dL) 0.6 H AST (17 - 59 U/L) 69 H ALT (21 - 72 U/L) 273 H Alkaline Phosphatase (< 127 U/L) 113 Total Protein (6.3 - 8.2 g/dL) 6.1 L Albumin (3.5 - 5.0 g/dL) 3.2 L Triglycerides (<150 mg/dL) 85 Hematology CBC w Diff NO MAN DIFF REQ WBC (4.8 - 10.8 /CUMM) 15.9 H RBC (4.70 - 6.10 /CUMM) 3.76 L Hgb (14.0 - 18.0 G/DL) 11.0 L Hct (42 - 52 %) 33.9 L MCV (80.0 - 94.0 FL) 90.2 MCH (27.0 - 31.0 PG) 29.4 MCHC (33.0 - 37.0 G/DL) 32.6 L RDW (11.5 - 14.5 %) 14.6 H Plt Count (130 - 400 /CUMM) 778 H MPV (7.4 - 10.4 FL) 7.8 Gran % (42.2 - 75.2 %) 77.2 H Lymphocytes % (20.5 - 51.1 %) 13.2 L Monocytes % (1.7 - 9.3 %) 7.2 Eosinophils % (0 - 5 %) 2.0 Basophils % (0.0 - 2.0 %) 0.4 Absolute Granulocytes (1.4 - 6.5 /CUMM) 12.3 H Absolute Lymphocytes (1.2 - 3.4 /CUMM) 2.1 Absolute Monocytes (0.10 - 0.60 /CUMM) 1.2 H Absolute Eosinophils (0.0 - 0.7 /CUMM) 0.3 Absolute Basophils (0.0 - 0.2 /CUMM) 0.1 Vital Signs Date Time Temp Pulse Resp B/P B/P Pulse O2 O2 Flow FiO2 Mean Ox Delivery Rate 09/28 0817 84 124/76 09/28 0816 84 124/76 09/28 0633 98.5 84 20 124/76 96 Room Air 09/27 2245 99.1 98 20 126/74 95 Room Air 09/27 1437 98.0 90 20 118/86 96 Intake & Output 09/28 1600 09/28 0800 09/28 0000 Intake Total 1483.2 741.6 Output Total 800 250 Balance 683.2 491.6 Intake, IV 600 300 Intake, Lipid 83.2 41.6 Intake, 800 400 TPN/PPN Output, Urine 800 250 Physical Exam: General Apperance: No evidence of acute distress, AOx3 CV: regular rate and rhythym, normal S1&S2, no MRG Pulmonary: lungs clear on ausculataion, no rubs, ronhci or wheeze Abdomen: bowel sounds present, hard, tender to palpation Extremities: No edema present, no evidence of rashes, eccymosis or purpura Assessment/Plan Assessment: Mr. Carbone is a 47 year old man with a past medical history significant for Bipolar d/o, HTN, hyperlipidemia, and IV drug abuse presented with abdominal pain, nausea, diarrhea and chills. He was found to have gallstone pancreatitis with ECRP being performed on 09/15/17. He was initially admitted to the ICU and subsequently transferred to the general medicine floor on 09/18/17. He reports having abdominal pain since the begining of April at the same time of treatment he was recieving at a drug rehabilitation facility in [facility]. Upon returning home to [facility] he began having acute abdominal pain and presented to [facility] ED on 09/14/17. He has been hospitalized from that time period for Pancreatitis. His main complaint since being on the medical floor is abdominal pain and diffusely tender and rigid abdomen. He reports that his pain has diminished in intensity however it is still constant and present. Over the weekend he was seen by Dr. Khalil and was NPO yesterday. Dr. Khalil recommended that if his condition improved then he could begin clear liquids. Today the patient does report pain while drinking fluids but would like to try a clear liquid diet. Plan: Problem List: 1. Gallstone Pancreatitis 2. Elevated LFTs 3. normocytic anemia 4. chronic medical conditions #Gallstone Pancreatitis: Patient presented with acute abdominal pain and found to have gallstone pancreatitis. He had ERCP done on 09/15/17 to remove the stone. Mr. Carbone has continued to have abdominal pain throughout his hospitalization. However today he reports that the intensity of the pain has improved. He is being followed by GI, and was seen yesterday by Dr. Khalil. Who recommended that Mr. Carbone be switched to clear liquid diet today if his symptoms improved, as well as continuing TPN, and to dollow daily LFTs and electrolytes. On labatory testing today the patients WBC count continues to improve, as well as his LFTs. -Start clear liquid diet -continue TPN -continue daily monitoring of LFTs and electrolytes -Morphine 45 mg PO BID -Morphine 2 mg IV Q6H PRN -appreciate GI and ID recommendations -continue to monitor for fever #Elevated LFTs: Lab testing today indicates AST, ALT are improving. -continue to monitor -avoid all hepatotoxins #normocytic anemia: Continues to recieve LR IV fluids, likely dilutional effect of the IV fluids. -Continue to monitor #chronic medical conditions -continue [place] -continue home medications as prescribed DVT Ppx: heparin clear liquid diet full code
--- NOTE | 2017-09-28 11:35 | PN- Infect Dx ---
Subjective Subjective: Afebrile. He feels improved with decreased abdominal discomfort and he is tolerating liquids so far today. Objective Last 24 Hrs of Vital Signs/I&O Vital Signs Date Time Temp Pulse Resp B/P B/P Pulse O2 O2 Flow FiO2 Mean Ox Delivery Rate 09/28 0817 84 124/76 09/28 0816 84 124/76 09/28 0633 98.5 84 20 124/76 96 Room Air 09/27 2245 99.1 98 20 126/74 95 Room Air 09/27 1437 98.0 90 20 118/86 96 Intake & Output 09/28 1600 09/28 0800 09/28 0000 Intake Total 1483.2 741.6 Output Total 800 250 Balance 683.2 491.6 Intake, IV 600 300 Intake, Lipid 83.2 41.6 Intake, 800 400 TPN/PPN Output, Urine 800 250 Physical Exam Other Physical Findings: He appears comfortable in no acute distress Lungs are clear Heart regular rhythm with no murmur Abdomen is mildly distended, softer, with decreased tenderness on palpation, positive bowel sounds Extremities no cyanosis, clubbing or edema Results Last 24 Hours of Lab Results: Laboratory Tests 09/28 0610 Chemistry Sodium (137 - 145 mmol/L) 137 Potassium (3.5 - 5.1 mmol/L) 5.0 Chloride (98 - 107 mmol/L) 98 Carbon Dioxide (22 - 30 mmol/L) 27 Anion Gap (5 - 16) 12 BUN (9 - 20 mg/dL) 14 Creatinine (0.7 - 1.2 mg/dL) 0.8 Estimated GFR (>60 ml/min) > 60 BUN/Creatinine Ratio (7 - 25 %) 17.5 Total Bilirubin (0.2 - 1.3 mg/dL) 0.6 Direct Bilirubin (< 0.4 mg/dL) 0.6 H AST (17 - 59 U/L) 69 H ALT (21 - 72 U/L) 273 H Alkaline Phosphatase (< 127 U/L) 113 Total Protein (6.3 - 8.2 g/dL) 6.1 L Albumin (3.5 - 5.0 g/dL) 3.2 L Triglycerides (<150 mg/dL) 85 Hematology CBC w Diff NO MAN DIFF REQ WBC (4.8 - 10.8 /CUMM) 15.9 H RBC (4.70 - 6.10 /CUMM) 3.76 L Hgb (14.0 - 18.0 G/DL) 11.0 L Hct (42 - 52 %) 33.9 L MCV (80.0 - 94.0 FL) 90.2 MCH (27.0 - 31.0 PG) 29.4 MCHC (33.0 - 37.0 G/DL) 32.6 L RDW (11.5 - 14.5 %) 14.6 H Plt Count (130 - 400 /CUMM) 778 H MPV (7.4 - 10.4 FL) 7.8 Gran % (42.2 - 75.2 %) 77.2 H Lymphocytes % (20.5 - 51.1 %) 13.2 L Monocytes % (1.7 - 9.3 %) 7.2 Eosinophils % (0 - 5 %) 2.0 Basophils % (0.0 - 2.0 %) 0.4 Absolute Granulocytes (1.4 - 6.5 /CUMM) 12.3 H Absolute Lymphocytes (1.2 - 3.4 /CUMM) 2.1 Absolute Monocytes (0.10 - 0.60 /CUMM) 1.2 H Absolute Eosinophils (0.0 - 0.7 /CUMM) 0.3 Absolute Basophils (0.0 - 0.2 /CUMM) 0.1 Last 24 Hours of David Results: No recent cultures Assessment/Plan ID Impression: Continues to improve, with decreasing abdominal pain, temperatures remaining normal and white blood cell count decreasing, off antibiotics, suggesting slowly resolving pancreatitis, with the recent repeat CT of the abdomen and pelvis revealing no significant change in the pancreatic inflammation. His liver enzymes are decreasing as well. Suggestion: 1. Continue to follow off antibiotics Will no longer follow at this time but please call with any questions
[2017-09-28 14:17] VITALS: BP 120/70
[2017-09-28 14:20] VITALS: BP 110/70
[2017-09-28 21:46] VITALS: BP 112/70
[2017-09-29 06:50] VITALS: BP 110/72
--- NOTE | 2017-09-29 07:25 | PN- Housestaff ---
See Addendum Subjective Follow-up For: Severe gallstone pancreatitis Subjective: No overnight events. The patient tolerated clear liquid diet well last night. His abdominal pain is improving. No chest pain or shortness of breath. Review of Systems Constitutional: Reports: no symptoms. EENTM: Reports: no symptoms. Cardiovascular: Reports: no symptoms. Respiratory: Reports: no symptoms. Gastrointestinal: Reports: see HPI, abdominal pain. Genitourinary: Reports: no symptoms. Musculoskeletal: Reports: no symptoms. Skin: Reports: no symptoms. Neurological/Psychological: Reports: no symptoms. Hematologic/Endocrine: Reports: no symptoms. Immunologic/Allergic: Reports: no symptoms. Objective Last 24 Hrs of Vital Signs/I&O Vital Signs Date Time Temp Pulse Resp B/P B/P Pulse O2 O2 Flow FiO2 Mean Ox Delivery Rate 09/29 0650 98.8 81 14 110/72 95 Room Air 09/28 2146 98.9 92 14 112/70 93 09/28 1420 98.5 96 20 110/70 97 Room Air 09/28 0817 84 124/76 09/28 0816 84 124/76 09/28 0800 Room Air Intake & Output 09/29 0800 09/29 0000 09/28 1600 Intake Total 1480.8 940.4 Output Total 850 950 Balance 630.8 940.4 -950 Intake, IV 600 300 Intake, Lipid 80.8 40.4 Intake, Oral 200 Intake, 800 400 TPN/PPN Number 0 Bowel Movements Output, Urine 850 950 Physical Exam General Appearance: Alert, Oriented X3, Cooperative, No Acute Distress Cardiovascular: Regular Rate, Normal S1, Normal S2 Lungs: mild crackles Abdomen: softer, but still hard, with reduced pain on palpation Extremities: No Edema, Normal Pulses, No Tenderness/Swelling Current Medications: Current Medications Sig/[place] Start time Last Medication Dose Route Stop Time Status Admin Amlodipine Besylate 5 MG DAILY 09/19 1400 AC 09/28 PO 0817 Atorvastatin Calcium 20 MG 1700 09/18 1700 AC 09/28 PO 1714 Docusate Sodium 100 MG DAILY NEEDED PRN 09/24 1315 AC PO Fat Emulsion 250 ML Q24H 09/28 1900 AC 09/28 Intravenous IV 09/29 Fat Emulsion 250 ML 1900 09/27 1900 DC 09/27 Intravenous IV 09/28 Fentanyl Citrate 25 MCG Q72H 09/22 1030 09/28 TOP 1110 Glycerin 2 SPRAY Q2P PRN 09/16 1430 AC 09/17 PO 1419 Heparin Sodium 5,000 UNIT Q8 09/15 0600 AC 09/29 (Porcine) SC 0521 Lactated Ringer's 1,000 ML Q6H 09/21 1145 AC 09/28 IV 2239 [place] Carbonate 1,500 MG DAILY 09/18 0900 09/28 PO 0815 Losartan Potassium 100 MG DAILY 09/18 0900 09/28 PO 0816 Methylnaltrexone 12 MG Q48 PRN 09/22 1315 AC 09/25 [place] 0906 Morphine Sulfate 45 MG .STK-MED ONE 09/28 0810 DC PO 09/28 0811 Morphine Sulfate 45 MG BID 09/25 0900 09/28 PO 2024 Morphine Sulfate 2 MG Q6-PRN PRN 09/25 0900 09/28 IV 1944 Ondansetron HCl 4 MG Q6P PRN 09/14 2245 AC IV Patient Medication 1 ED ONE ONE 09/28 1715 DE Teaching ED 09/28 1716 Polyethylene Glycol 17 GM DAILY 09/24 1303 09/28 PO 0816 Ramelteon 8 MG AT BEDTIME 09/24 2100 AC 09/28 PO 2024 Total Parenteral 1 UNIT 1900 09/28 1900 09/28 Nutrition IV 09/29 Total Parenteral 1 UNIT 1900 09/27 1900 DE 09/27 Nutrition IV 09/28 Last 24 Hrs of Lab/David Results Last 24 Hrs of Labs/Mics: Laboratory Tests 09/29/17 0540: Sodium Pending, Potassium Pending, Chloride Pending, Carbon Dioxide Pending, Anion Gap Pending, BUN Pending, Creatinine Pending, BUN/Creatinine Ratio Pending , Calcium Pending, Phosphorus Pending, Magnesium Pending, Total Bilirubin Pending, Direct Bilirubin Pending, AST Pending, ALT Pending, Alkaline Phosphatase Pending, Total Protein Pending, Albumin Pending, Triglycerides Pending, CBC w Diff Pending, WBC Pending, RBC Pending, Hgb Pending, Hct Pending, MCV Pending, MCH Pending, MCHC Pending, RDW Pending, Plt Count Pending, MPV Pending Assessment/Plan Assessment: Mr. Carbone is a 47 year old man with past medical history of bipolar disorder, hypertension, and hyperlipidemia presented with acute onset abdominal associated with nausea, diarrhea, and chills secondary to gallstone pancreatitis now status post ERCP. He was initially admitted to the ICU and then transferred to general medicine on 09/18/17 after stabilization of his condition. Problem list: 1. Gallstone pancreatitis status post ERCP 2. Transaminitis 3. Exophytic lesion arising from right kidney #Gallstone pancreatitis status post ERCP: Patient presented with epigastric pain , found to have gallstone pancreatitis, is now status post ERCP.. Gastroenterology is following. He will need cholecystectomy in 6-[address] on 09/19/17 showed a volume of abdominal ascites around the pancreas extending into the mesentery significantly increased but there is no pseudocyst formation in the enhancement and the pancreas remains normal with no evidence of pancreatic necrosis. Repeat CT abdomen/pelvis with IV contrast on 09/24/17 was performed for fevers and did not show any change from prior imaging study. Patient has remained afebrile for couple days and his abdominal pain is now improving with decreased pain medication requirement. -Fentanyl patch 25 g every 72 hours. -IV morphine to 2 mg every 6 hours when necessary pain -oral morphine 45 mg twice a day -No NSAIDs -Continue TPN -Clear liquid diet, advance slowly -Appreciate gastroenterology and general surgery conditions -Ondansetron as necessary -Appreciate ID recommendations -Watch electrolytes -Follow blood cultures #Transaminitis: Liver enzymes are slightly downtrending. -Hold acetaminophen -Avoid hepatotoxins #Exophytic lesion arising from right kidney: Incidental finding. -Follow up with nephrology as an outpatient. #Chronic medical problems: -Continue lithium -Continue amlodipine and losartan -Continue other home medications DVT prophylaxis with heparin clears, advance slowly Full code Problem List: 1. Gallstone pancreatitis Pain Ratin Pain Location: abd Pain Goal: Remain pain free Pain Plan: see a/p Tomorrow's Labs & Rationales: cbc, bep
--- NOTE | 2017-09-29 07:58 | PN- Student ---
Subjective Subjective: No overnight events reported. Mr. Carbone reports daily improvement from the pain intensity. He also states he feels less reliant on the IV pain medication. He stated that he also feels hungry and reports no issues with the clear liquid diet he was started on yesterday. He reports a total of 8 hours of sleep last night off and on. However he still is has yet to have a bowel movement and states that it has been a couple days since his last. He does not endorse any chest pain, palpitations, difficulty breathing, bruising or dysuria. Objective Objective: Current Medications Sig/[place] Start time Last Medication Dose Route Stop Time Status Admin Amlodipine Besylate 5 MG DAILY 09/19 1400 AC 09/28 PO 0817 Atorvastatin Calcium 20 MG 1700 09/18 1700 AC 09/28 PO 171 Docusate Sodium 100 MG DAILY NEEDED PRN 09/24 1315 AC PO Fat Emulsion 250 ML Q24H 09/28 1900 09/28 Intravenous IV 09/29 1858 203 Fat Emulsion 250 ML 1900 09/27 1900 CO 09/27 Intravenous IV 09/28 185 202 Fentanyl Citrate 25 MCG Q72H 09/22 1030 09/28 TOP 1110 Glycerin 2 SPRAY Q2P PRN 09/16 1430 AC 09/17 PO 1419 Heparin Sodium 5,000 UNIT Q8 09/15 0600 AC 09/29 (Porcine) SC 0521 Lactated Ringer's 1,000 ML Q6H 09/21 1145 CO 09/28 IV 2239 [place] Carbonate 1,500 MG DAILY 09/18 09 09/28 PO 0815 Losartan Potassium 100 MG DAILY 09/18 0900 09/28 PO 0816 Methylnaltrexone 12 MG Q48 PRN 09/22 1315 AC 09/25 [place] SC 0906 Morphine Sulfate 45 MG .STK-MED ONE 09/28 0810 DC PO 09/28 08 Morphine Sulfate 45 MG BID 09/25 09 09/28 PO 2024 Morphine Sulfate 2 MG Q6-PRN PRN 09/25 09 09/28 IV 1944 Ondansetron HCl 4 MG Q6P PRN 09/14 2245 AC IV Patient Medication 1 ED ONE ONE 09/28 1715 DC Teaching ED 09/28 1716 Polyethylene Glycol 17 GM DAILY 09/24 1303 AC 09/28 PO 0816 Ramelteon 8 MG AT BEDTIME 09/24 2100 AC 09/28 PO 2025 Total Parenteral 1 UNIT 1900 09/28 1900 AC 09/28 Nutrition IV 09/29 Total Parenteral 1 UNIT 1900 09/27 1900 DC 09/27 Nutrition IV 09/28 Laboratory Tests 09/29 0540 Chemistry Sodium Pending Potassium Pending Chloride Pending Carbon Dioxide Pending Anion Gap Pending BUN Pending Creatinine Pending BUN/Creatinine Ratio Pending Calcium Pending Phosphorus Pending Magnesium Pending Total Bilirubin Pending Direct Bilirubin Pending AST Pending ALT Pending Alkaline Phosphatase Pending Total Protein Pending Albumin Pending Triglycerides Pending Hematology CBC w Diff Pending WBC Pending RBC Pending Hgb Pending Hct Pending MCV Pending MCH Pending MCHC Pending RDW Pending Plt Count Pending MPV Pending Vital Signs Date Time Temp Pulse Resp B/P B/P Pulse O2 O2 Flow FiO2 Mean Ox Delivery Rate 09/29 0650 98.8 81 14 110/72 95 Room Air 09/28 2146 98.9 92 14 112/70 93 09/28 1420 98.5 96 20 110/70 97 Room Air 09/28 0817 84 124/76 09/28 0816 84 124/76 09/28 0800 Room Air Intake & Output 09/29 0800 09/29 0000 09/28 1600 Intake Total 1480.8 940.4 Output Total 850 950 Balance 630.8 940.4 -950 Intake, IV 600 300 Intake, Lipid 80.8 40.4 Intake, Oral 200 Intake, 800 400 TPN/PPN Number 0 Bowel Movements Output, Urine 850 950 Physical Exam: General Apperance: No evidence of acute distress, AOx3 CV: Regular rate and rhythym, normal S1 & S2, no MRG Pulm: lungs clear to ausculatation, no evidence of rubs, wheeze or ronchi Abd: Bowel sounds present, tender and rigid but improved Extremities: no evidence of edema, eccymosis, rash or purpura Assessment/Plan Assessment: Mr. Carbone is a 47 year old man with a past medical history significant for Bipolar d/o, HTN, hyperlipidemia, and IV drug abuse presented with abdominal pain, nausea, diarrhea and chills. He was found to have gallstone pancreatitis with ECRP being performed on 09/15/17. He was initially admitted to the ICU and subsequently transferred to the general medicine floor on 09/18/17. Prior to coming to [place] for his abdominal pain, he was treated for IV drug rehabilitation in [place] and [place]. He has been seen by GI and ID over the course of his hospitalization. His abdominal pain has steadily improved with Mr. Carbone only requiring 2 of a possible 4 IV PRN doses of Morphine 2 mg yesterday. Where as previously he was requiring the total 4 doses in a 24 hour period. He tolerated clear liquids yesterday. Plan: Problem list: 1. Gallstone Pancreatitis 2.Elevated LFTs 3. normocytic anemia 4. chronic medical conditions #Gallstone Pancreatitis: Mr. Carbone presented to the hospital with abdominal pain, n/v and found to have gallstone pancreatitis for which he underwent ERCP on 09/15/17 to remove the stone obstruction. Upon CT imaging of the abd/pelvis he was found to have pancreatitis with no evidence of necrosis or pseudocyst, he has had repeat imaging due to fever which indicated no obstruction or dilatation of the biliary tree or any other changes from his initial CT. He has not had a fever over the past couple of days and the intensity of his abdominal pain is improving. Evident by only requiring 2 of a possible 4 doses of MS 2 mg IV PRN. He was also started on clear liquids yesterday and reports no issues with the diet. He does state that he is feeling hungry and would like to eat something. He reports having a small bowel movement this morning. His lab work indicates continued improvement with his leukocytosis and LFTs improving. -increase diet to soft foods -nutritional consult on continuation of TPN -D/C IV MS -Morphine PO Q6H PRN -Morphine 45 mg PO BID #Elevated LFTs: Lab work this morning indicates improvement of liver function testing. Patient also reports decreased intensity of pain. -continue to monitor LFTs -continue to watch for signs of infection #normocytic anemia: likely due to dilutional effect of IV fluids. -continue to monitor #chronic medical conditions -continue lithium -continue home medications as prescribed DVT Ppx: heparin clear liquid diet full code
[2017-09-29 09:18] LABS: ABSOLUTE BASOPHIL COUNT 0.1 /CUMM (0.0-0.2); ABSOLUTE EOSINOPHIL COUNT 0.4 /CUMM (0.0-0.7); ABSOLUTE GRANULOCYTE CT 9.8 /CUMM (1.4-6.5); ABSOLUTE LYMPH COUNT 2.3 /CUMM (1.2-3.4); ABSOLUTE MONOCYTE COUNT 0.9 /CUMM (0.10-0.60); BASOPHIL % 0.5 % (0.0-2.0); EOSINOPHIL % 3.1 % (0-5); GRANULOCYTE % 72.5 % (42.2-75.2); HEMATOCRIT 32.4 % (42-52); MEAN CORPUSCULAR HGB CONC 33.1 G/DL (33.0-37.0); MEAN CORPUSCULAR VOLUME 90.5 FL (80.0-94.0); MEAN PLATELET VOLUME 7.7 FL (7.4-10.4); PLATELET COUNT 793 /CUMM (130-400); RBC DISTRIBUTION WIDTH 14.9 % (11.5-14.5); RED BLOOD CELL CT 3.58 /CUMM (4.70-6.10); WHITE BLOOD CELL COUNT 13.5 /CUMM (4.8-10.8)
[2017-09-29 14:07] VITALS: BP 138/80
--- NOTE | 2017-09-29 15:41 | PN- Gastroenterology ---
Assessment/Plan GI Assessment/Recommendations: Assessment: Mr. Mueller is a 47 year old male admitted with gallstone pancreatitis who has had a prolonged hospital course after an ERCP with sphincterotomy to remove stones ultimatley requiring TPN who is currently doing well. His diet has been able to be advanced to a full liquid diet and his pain is markedly improved so I am hopeful that his diet can be advanced further tomorrow to the point that his TPN can be discontinued. If this is able to be achieved he can hopefully be discharged in a few days and have him come back for a CCY in a few weeks. Of note, his LFTs have also markedly improved so I don't feel that any further interventions are necssary for this at this time. Recommendations: 1. Advance diet as tolerated 2. Follow daily LFTs 3. Analgesia as needed, but would attempt to loom changeover operator to oral pain medications 4. Follow lytes and replete as needed. 5. If diet is able to be advanced further would discontinue his TPN 6. Outpatient CCY in a few weeks at the discretion of surgery. I will continue to follow this patient and make further recommendations based on his clinical course and results of repeat blood work. Problem List: 1. Pancreatitis 2. Transaminitis 3. Abdominal pain Subjective Subjective: pt doing well; he is tolerating a full liquid diet and his pain is markedly improved. Objective Vital Signs and I&Os Vital Signs Date Time Temp Pulse Resp B/P B/P Pulse O2 O2 Flow FiO2 Mean Ox Delivery Rate 09/29 1407 97.8 86 20 138/80 98 09/29 1107 98.8 81 14 110/72 09/29 1107 98.8 81 14 110/72 09/29 0650 98.8 81 14 110/72 95 Room Air 09/28 2146 98.9 92 14 112/70 93 Intake & Output 09/29 1600 09/29 0400 09/28 1600 09/28 0400 09/27 1600 09/27 0400 Intake Total 2280.8 940.4 1483.2 741.6 1483.2 741.6 Output Total 058 209 7156 700 1100 1625 Balance 1580.8 90.4 183.2 41.6 383.2 -883.4 Intake, IV 600 300 600 300 600 300 Intake, Lipid 80.8 40.4 83.2 41.6 83.2 41.6 Intake, Oral 800 200 Intake, 800 400 800 400 800 400 TPN/PPN Number 0 Bowel Movements Output, Urine 637 574 3531 700 1100 1625 Physical Exam General Appearance: well developed/nourished, no apparent distress, alert, awake , comfortable Head: atraumatic, normal appearance Neck: normal inspection, supple, full range of motion Respiratory: normal breath sounds, chest non-tender, no respiratory distress Abdomen: normal bowel sounds, soft, tenderness Back: normal inspection Skin: intact, normal color, warm/dry Current Medications: Current Medications Sig/[place] Start time Last Medication Dose Route Stop Time Status Admin Amlodipine Besylate 5 MG DAILY 09/19 1400 AC 09/29 PO 1107 Atorvastatin Calcium 20 MG 1700 09/18 1700 AC 09/28 PO 1714 Docusate Sodium 100 MG DAILY NEEDED PRN 09/24 1315 AC PO Fat Emulsion 300 ML Q24H 09/29 1900 AC Intravenous IV 09/30 1859 Fat Emulsion 250 ML Q24H 09/28 1900 09/28 Intravenous IV 09/29 1859 2032 Fat Emulsion 250 ML 1900 09/27 1900 ND 09/27 Intravenous IV 09/28 1859 2021 Fentanyl Citrate 25 MCG Q72H 09/22 1030 09/28 TOP 1110 Glycerin 2 SPRAY Q2P PRN 09/16 1430 AC 09/17 PO 1419 Heparin Sodium 5,000 UNIT Q8 09/15 06 AC 09/29 (Porcine) SC 1324 Lactated Ringer's 1,000 ML Q6H 09/21 1145 ND 09/28 IV 2239 [place] Carbonate 1,500 MG DAILY 09/18 09 09/29 PO 1108 Losartan Potassium 100 MG DAILY 09/18 0900 AC 09/29 PO 1107 Methylnaltrexone 12 MG Q48 PRN 09/22 1315 09/25 [place] 0906 Morphine Sulfate 7.5 MG Q6PRN PRN 09/29 0845 AC PO Morphine Sulfate 45 MG BID 09/25 09 AC 09/29 PO 1110 Morphine Sulfate 2 MG Q6-PRN PRN 09/25 09 ND 09/28 IV 1944 Ondansetron HCl 4 MG Q6P PRN 09/14 2245 AC IV Patient Medication 1 ED ONE ONE 09/28 1715 ND Teaching ED 09/28 1716 Polyethylene Glycol 17 GM DAILY 09/24 1303 AC 09/29 PO 1107 Ramelteon 8 MG AT BEDTIME 09/24 2100 AC 09/29 PO 1107 Total Parenteral 1 UNIT 09/29 AC Nutrition IV 09/30 1858 Total Parenteral 1 UNIT 09/28 190 AC 09/28 Nutrition IV 09/29 Total Parenteral 1 UNIT 09/27 DC 09/27 Nutrition IV 09/28 Results Pertinent Lab Results: Laboratory Tests 09/29 09/28 0540 0610 Chemistry Sodium (137 - 145 mmol/L) 137 137 Potassium (3.5 - 5.1 mmol/L) 4.9 5.0 Chloride (98 - 107 mmol/L) 99 98 Carbon Dioxide (22 - 30 mmol/L) 27 27 Anion Gap (5 - 16) 11 12 BUN (9 - 20 mg/dL) 13 14 Creatinine (0.7 - 1.2 mg/dL) 0.8 0.8 Estimated GFR (>60 ml/min) > 60 > 60 BUN/Creatinine Ratio (7 - 25 %) 16.3 17.5 Calcium (8.4 - 10.2 mg/dL) 8.7 Phosphorus (2.5 - 4.5 mg/dL) 5.0 H Magnesium (1.6 - 2.3 mg/dL) 2.0 Total Bilirubin (0.2 - 1.3 mg/dL) 0.5 0.6 Direct Bilirubin (< 0.4 mg/dL) 0.5 H 0.6 H AST (17 - 59 U/L) 49 69 H ALT (21 - 72 U/L) 204 H 273 H Alkaline Phosphatase (< 127 U/L) 105 113 Total Protein (6.3 - 8.2 g/dL) 5.9 L 6.1 L Albumin (3.5 - 5.0 g/dL) 3.1 L 3.2 L Triglycerides (<150 mg/dL) 92 85 Hematology CBC w Diff NO MAN DIFF REQ NO MAN DIFF REQ WBC (4.8 - 10.8 /CUMM) 13.5 H 15.9 H RBC (4.70 - 6.10 /CUMM) 3.58 L 3.76 L Hgb (14.0 - 18.0 G/DL) 10.7 L 11.0 L Hct (42 - 52 %) 32.4 L 33.9 L MCV (80.0 - 94.0 FL) 90.5 90.2 MCH (27.0 - 31.0 PG) 30.0 29.4 MCHC (33.0 - 37.0 G/DL) 33.1 32.6 L RDW (11.5 - 14.5 %) 14.9 H 14.6 H Plt Count (130 - 400 /CUMM) 793 H 778 H MPV (7.4 - 10.4 FL) 7.7 7.8 Gran % (42.2 - 75.2 %) 72.5 77.2 H Lymphocytes % (20.5 - 51.1 %) 17.1 L 13.2 L Monocytes % (1.7 - 9.3 %) 6.8 7.2 Eosinophils % (0 - 5 %) 3.1 2.0 Basophils % (0.0 - 2.0 %) 0.5 0.4 Absolute Granulocytes (1.4 - 6.5 /CUMM) 9.8 H 12.3 H Absolute Lymphocytes (1.2 - 3.4 /CUMM) 2.3 2.1 Absolute Monocytes (0.10 - 0.60 /CUMM) 0.9 H 1.2 H Absolute Eosinophils (0.0 - 0.7 /CUMM) 0.4 0.3 Absolute Basophils (0.0 - 0.2 /CUMM) 0.1 0.1 09/27 0650 Chemistry Sodium (137 - 145 mmol/L) 137 Potassium (3.5 - 5.1 mmol/L) 5.1 Chloride (98 - 107 mmol/L) 98 Carbon Dioxide (22 - 30 mmol/L) 26 Anion Gap (5 - 16) 13 Calcium (8.4 - 10.2 mg/dL) 8.7 Phosphorus (2.5 - 4.5 mg/dL) 4.8 H Magnesium (1.6 - 2.3 mg/dL) 2.0 Total Bilirubin (0.2 - 1.3 mg/dL) 0.7 Direct Bilirubin (< 0.4 mg/dL) 0.6 H AST (17 - 59 U/L) 101 H ALT (21 - 72 U/L) 336 H Alkaline Phosphatase (< 127 U/L) 120 Total Protein (6.3 - 8.2 g/dL) 6.2 L Albumin (3.5 - 5.0 g/dL) 3.3 L Triglycerides (<150 mg/dL) 95 Hematology CBC w Diff NO MAN DIFF REQ WBC (4.8 - 10.8 /CUMM) 17.7 H RBC (4.70 - 6.10 /CUMM) 3.80 L Hgb (14.0 - 18.0 G/DL) 11.2 L Hct (42 - 52 %) 34.1 L MCV (80.0 - 94.0 FL) 89.9 MCH (27.0 - 31.0 PG) 29.5 MCHC (33.0 - 37.0 G/DL) 32.9 L RDW (11.5 - 14.5 %) 14.2 Plt Count (130 - 400 /CUMM) 813 H MPV (7.4 - 10.4 FL) 7.7 Gran % (42.2 - 75.2 %) 81.9 H Lymphocytes % (20.5 - 51.1 %) 9.5 L Monocytes % (1.7 - 9.3 %) 6.5 Eosinophils % (0 - 5 %) 1.9 Basophils % (0.0 - 2.0 %) 0.2 Absolute Granulocytes (1.4 - 6.5 /CUMM) 14.5 H Absolute Lymphocytes (1.2 - 3.4 /CUMM) 1.7 Absolute Monocytes (0.10 - 0.60 /CUMM) 1.1 H Absolute Eosinophils (0.0 - 0.7 /CUMM) 0.3 Absolute Basophils (0.0 - 0.2 /CUMM) 0
[2017-09-29 22:38] VITALS: BP 102/80
[2017-09-30 05:46] VITALS: BP 100/70
--- NOTE | 2017-09-30 07:14 | PN- Housestaff ---
See Addendum Subjective Follow-up For: pancreatitis Subjective: No overnight events. Patient has some right flank pain, crampy. He has not been getting out of bed much. He is tolerating full liquids well and is asking for regular food now. Review of Systems Constitutional: Reports: no symptoms. EENTM: Reports: no symptoms. Cardiovascular: Reports: no symptoms. Respiratory: Reports: no symptoms. Gastrointestinal: Reports: see HPI. Genitourinary: Reports: no symptoms. Musculoskeletal: Reports: no symptoms. Skin: Reports: no symptoms. Neurological/Psychological: Reports: no symptoms. Hematologic/Endocrine: Reports: no symptoms. Immunologic/Allergic: Reports: no symptoms. Objective Last 24 Hrs of Vital Signs/I&O Vital Signs Date Time Temp Pulse Resp B/P B/P Pulse O2 O2 Flow FiO2 Mean Ox Delivery Rate 09/30 0546 98.9 78 20 100/70 95 Room Air 09/29 2238 98.7 85 20 102/80 96 Room Air 09/29 1407 97.8 86 20 138/80 98 09/29 1107 98.8 81 14 110/72 09/29 1107 98.8 81 14 110/72 Intake & Output 09/30 0800 09/30 0000 09/29 1600 Intake Total 921.6 800 Output Total 550 700 Balance 371.6 100 Intake, Lipid 41.6 Intake, Oral 480 800 Intake, 400 TPN/PPN Output, Urine 550 700 Physical Exam General Appearance: Alert, Oriented X3, Cooperative, No Acute Distress Cardiovascular: Regular Rate, Normal S1, Normal S2 Lungs: Clear to Auscultation Abdomen: hard, mildly tender Extremities: No Edema, Normal Pulses, No Tenderness/Swelling Current Medications: Current Medications Sig/[place] Start time Last Medication Dose Route Stop Time Status Admin Amlodipine Besylate 5 MG DAILY 09/19 1400 AC 09/29 PO 1107 Atorvastatin Calcium 20 MG 1700 09/18 1700 AC 09/29 PO 1714 Docusate Sodium 100 MG DAILY NEEDED PRN 09/24 1315 AC PO Fat Emulsion 300 ML Q24H 09/29 1900 AC 09/29 Intravenous IV 09/30 1851999 Fat Emulsion 250 ML Q24H 09/28 1900 DC 09/28 Intravenous IV 09/29 Fentanyl Citrate 25 MCG Q72H 09/22 1030 AC 09/28 TOP 1110 Glycerin 2 SPRAY Q2P PRN 09/16 1430 AC 09/17 PO 1419 Heparin Sodium 5,000 UNIT Q8 09/15 0600 AC 09/30 (Porcine) SC 0551 Lactated Ringer's 1,000 ML Q6H 09/21 1145 DC 09/28 IV 2239 [place] Carbonate 1,500 MG DAILY 09/18 0900 AC 09/29 PO 1108 Losartan Potassium 100 MG DAILY 09/18 09 AC 09/29 PO 1107 Methylnaltrexone 12 MG Q48 PRN 09/22 1315 AC 09/25 [place] 0906 Morphine Sulfate 50 MG Q6PRN PRN 09/30 0715 UNVr PO Morphine Sulfate 7.5 MG Q6PRN PRN 09/29 0845 DC 09/30 PO 0551 Morphine Sulfate 45 MG BID 09/25 09 AC 09/29 PO 2127 Morphine Sulfate 2 MG Q6-PRN PRN 09/25 0900 DC 09/28 IV 1944 Ondansetron HCl 4 MG Q6P PRN 09/14 2245 AC IV Patient Medication 1 ED ONE ONE 09/29 1700 PA Teaching ED 09/29 1701 Polyethylene Glycol 17 GM DAILY 09/24 1303 AC 09/29 PO 1107 Ramelteon 8 MG AT BEDTIME 09/24 2100 AC 09/29 PO 1107 Simethicone 80 MG Q4P PRN 09/29 1815 AC PO Total Parenteral 1 UNIT 1900 09/29 1900 AC 09/29 Nutrition IV 09/30 [id number] Total Parenteral 1 UNIT 1900 09/28 1900 DC 09/28 Nutrition IV 09/29 Last 24 Hrs of Lab/David Results Last 24 Hrs of Labs/Mics: Laboratory Tests 09/30/17 0600: Sodium Pending, Potassium Pending, Chloride Pending, Carbon Dioxide Pending, Anion Gap Pending, BUN Pending, Creatinine Pending, BUN/Creatinine Ratio Pending , Calcium Pending, Phosphorus Pending, Magnesium Pending, Total Bilirubin Pending, Direct Bilirubin Pending, AST Pending, ALT Pending, Alkaline Phosphatase Pending, Total Protein Pending, Albumin Pending, Triglycerides Pending, CBC w Diff Pending, WBC Pending, RBC Pending, Hgb Pending, Hct Pending, MCV Pending, MCH Pending, MCHC Pending, RDW Pending, Plt Count Pending, MPV Pending Assessment/Plan Assessment: Mr. Carbone is a 47 year old man with past medical history of bipolar disorder, hypertension, and hyperlipidemia presented with acute onset abdominal associated with nausea, diarrhea, and chills secondary to gallstone pancreatitis now status post ERCP. He was initially admitted to the ICU and then transferred to general medicine on 09/18/17 after stabilization of his condition. Problem list: 1. Gallstone pancreatitis status post ERCP 2. Transaminitis 3. Exophytic lesion arising from right kidney #Gallstone pancreatitis status post ERCP: Patient presented with epigastric pain , found to have gallstone pancreatitis, is now status post ERCP.. Gastroenterology is following. He will need cholecystectomy in 6-[address] on 09/19/17 showed a volume of abdominal ascites around the pancreas extending into the mesentery significantly increased but there is no pseudocyst formation in the enhancement and the pancreas remains normal with no evidence of pancreatic necrosis. Repeat CT abdomen/pelvis with IV contrast on 09/24/17 was performed for fevers and did not show any change from prior imaging study. Patient has remained afebrile for severeal days and his abdominal pain is now improving with decreased pain medication requirement. -Fentanyl patch 25 g every 72 hours. -Tramadol 25mg Q4 prn severe pain -oral morphine 45 mg twice a day -No NSAIDs -Low-fat diet -Appreciate gastroenterology and general surgery conditions -Ondansetron as necessary -Watch electrolytes #Transaminitis: Liver enzymes are downtrending. -Hold acetaminophen -Avoid hepatotoxins #Exophytic lesion arising from right kidney: Incidental finding. -Follow up with nephrology as an outpatient. #Chronic medical problems: -Continue lithium -Continue amlodipine and losartan -Continue other home medications DVT prophylaxis with heparin Low fat diet Full code Problem List: 1. Gallstone pancreatitis Pain Ratin Pain Location: abd Pain Goal: Remain pain free Pain Plan: see a/p Tomorrow's Labs & Rationales: cbc, bep, lft
[2017-09-30 08:34] LABS: ABSOLUTE BASOPHIL COUNT 0.1 /CUMM (0.0-0.2); ABSOLUTE EOSINOPHIL COUNT 0.4 /CUMM (0.0-0.7); ABSOLUTE LYMPH COUNT 2.2 /CUMM (1.2-3.4); BASOPHIL % 0.7 % (0.0-2.0); EOSINOPHIL % 3.1 % (0-5); GRANULOCYTE % 68.8 % (42.2-75.2); HEMATOCRIT 31.5 % (42-52); MEAN CORPUSCULAR HGB 30.2 PG (27.0-31.0); MEAN CORPUSCULAR VOLUME 89.1 FL (80.0-94.0); MEAN PLATELET VOLUME 7.5 FL (7.4-10.4); PLATELET COUNT 754 /CUMM (130-400); RBC DISTRIBUTION WIDTH 14.6 % (11.5-14.5); RED BLOOD CELL CT 3.54 /CUMM (4.70-6.10); WHITE BLOOD CELL COUNT 11.7 /CUMM (4.8-10.8)
--- NOTE | 2017-09-30 09:41 | PN- Student ---
Subjective Subjective: No overnight events reported. Mr. Carbone reports pain upon deep inspiration in his right side just below his ribs. He states that this pain is intermittent only occurs occasionally when breathing in deep but not everytime. He also states that he has not been getting up and moving around but has not noticed any lower extremity or upper extremity swelling. He also reports no problems with the gradual increase in his diet and tolerated toast well. Objective Objective: Current Medications Sig/[place] Start time Last Medication Dose Route Stop Time Status Admin Amlodipine Besylate 5 MG DAILY 09/19 1400 AC 09/30 PO 0838 Atorvastatin Calcium 20 MG 1700 09/18 1700 AC 09/29 PO 1714 Docusate Sodium 100 MG DAILY NEEDED PRN 09/24 1315 AC PO Fat Emulsion 300 ML Q24H 09/29 1900 AC 09/29 Intravenous IV 09/30 185 2000 Fat Emulsion 250 ML Q24H 09/28 1900 DC 09/28 Intravenous IV 09/29 185 203 Fentanyl Citrate 25 MCG Q72H 09/22 1030 WV 09/28 TOP 1110 Glycerin 2 SPRAY Q2P PRN 09/16 1430 AC 09/17 PO 1419 Heparin Sodium 5,000 UNIT Q8 09/15 0600 AC 09/30 (Porcine) SC 0551 [place] Carbonate 1,500 MG DAILY 09/18 0900 AC 09/30 PO 0839 Losartan Potassium 100 MG DAILY 09/18 0900 AC 09/30 PO 0838 Methylnaltrexone 12 MG Q48 PRN 09/22 1315 AC 09/25 [place] SC 0906 Morphine Sulfate 30 MG BID 09/30 0900 AC PO Morphine Sulfate 50 MG Q6PRN PRN 09/30 0715 DC PO Morphine Sulfate 7.5 MG Q6PRN PRN 09/29 0845 WV 09/30 PO 0551 Morphine Sulfate 45 MG BID 09/25 0900 WV 09/30 PO 0839 Ondansetron HCl 4 MG Q6P PRN 09/14 2245 AC IV Patient Medication 1 ED ONE ONE 09/29 1700 DC Teaching ED 09/29 1701 Polyethylene Glycol 17 GM DAILY 09/24 1303 AC 09/30 PO 0840 Ramelteon 8 MG AT BEDTIME 09/24 2100 AC 09/29 PO 1107 Simethicone 80 MG Q4P PRN 09/29 1815 AC PO Total Parenteral 1 UNIT 1900 09/29 1900 AC 09/29 Nutrition IV 09/30 Total Parenteral 1 UNIT 09/28 DC 09/28 Nutrition IV 09/29 Tramadol HCl 25 MG Q4P PRN 09/30 0730 AC PO Laboratory Tests 09/30 0600 Chemistry Sodium (137 - 145 mmol/L) 138 Potassium (3.5 - 5.1 mmol/L) 4.8 Chloride (98 - 107 mmol/L) 100 Carbon Dioxide (22 - 30 mmol/L) 27 Anion Gap (5 - 16) 11 BUN (9 - 20 mg/dL) 13 Creatinine (0.7 - 1.2 mg/dL) 0.8 Estimated GFR (>60 ml/min) > 60 BUN/Creatinine Ratio (7 - 25 %) 16.3 Calcium (8.4 - 10.2 mg/dL) 8.7 Phosphorus (2.5 - 4.5 mg/dL) 4.0 Magnesium (1.6 - 2.3 mg/dL) 2.1 Total Bilirubin (0.2 - 1.3 mg/dL) 0.5 Direct Bilirubin (< 0.4 mg/dL) 0.5 H AST (17 - 59 U/L) 51 ALT (21 - 72 U/L) 172 H Alkaline Phosphatase (< 127 U/L) 106 Total Protein (6.3 - 8.2 g/dL) 5.7 L Albumin (3.5 - 5.0 g/dL) 3.0 L Triglycerides (<150 mg/dL) 97 Hematology CBC w Diff NO MAN DIFF REQ WBC (4.8 - 10.8 /CUMM) 11.7 H RBC (4.70 - 6.10 /CUMM) 3.54 L Hgb (14.0 - 18.0 G/DL) 10.7 L Hct (42 - 52 %) 31.5 L MCV (80.0 - 94.0 FL) 89.1 MCH (27.0 - 31.0 PG) 30.2 MCHC (33.0 - 37.0 G/DL) 34.0 RDW (11.5 - 14.5 %) 14.6 H Plt Count (130 - 400 /CUMM) 754 H MPV (7.4 - 10.4 FL) 7.5 Gran % (42.2 - 75.2 %) 68.8 Lymphocytes % (20.5 - 51.1 %) 18.6 L Monocytes % (1.7 - 9.3 %) 8.8 Eosinophils % (0 - 5 %) 3.1 Basophils % (0.0 - 2.0 %) 0.7 Absolute Granulocytes (1.4 - 6.5 /CUMM) 8.0 H Absolute Lymphocytes (1.2 - 3.4 /CUMM) 2.2 Absolute Monocytes (0.10 - 0.60 /CUMM) 1.0 H Absolute Eosinophils (0.0 - 0.7 /CUMM) 0.4 Absolute Basophils (0.0 - 0.2 /CUMM) 0.1 Vital Signs Date Time Temp Pulse Resp B/P B/P Pulse O2 O2 Flow FiO2 Mean Ox Delivery Rate 09/30 0546 98.9 78 20 100/70 95 Room Air 09/29 2238 98.7 85 20 102/80 96 Room Air 09/29 1407 97.8 86 20 138/80 98 09/29 1107 98.8 81 14 110/72 09/29 1107 98.8 81 14 11072 Intake & Output 09/30 1600 09/30 0800 09/30 0000 Intake Total 1483.2 921.6 Output Total 550 550 Balance 933.2 371.6 Intake, Lipid 83.2 41.6 Intake, Oral 600 480 Intake, 800 400 TPN/PPN Output, Urine 550 550 Physical Exam General apperance: No evidence of acute distress, sitting upright comfortable in bed, AOx3 CV: regular rhythym and rate, normal S1&S2, No MRG Pulmonary: lungs clear to ausculatation in posterior lung muñiz Abdomen: bowel sounds present, tender and rigid, small ecchymosis present adjacent to umbilicus on right side Extremities: No evidence of edema, rashes, ecchymosis Assessment/Plan Assessment: Mr. Carbone is a 47 year old man with a PMHx significant for Bipolar d/o, HTN, hyperlipidemia, and IV drug abuse presented with abdominal pain, nausea, diarrhea and chills. He was found to have gallstone pancreatitis with ECRP being performed on 09/15/17 to remove the obstructing stone. He was initially admitted to the ICU and subsequently transferred to the general medicine floor on . Prior to coming to [place] for his abdominal pain, he was treated for IV drug rehabilitation in [place] and [place]. He has been seen by GI and ID over the course of his hospitalization. His abdominal pain has steadily improved. His diet has been gradualy increased with Mr. Carbone tolerating liquids and toast yesterday, and barbadian toast and oatmeal this morning. Plan: Problem list: 1. Gallstone Pancreatitis 2. Elevated LFTs 3. Right sided pleuritic like pain 4. normocytic anemia 5. chronic medical conditions #Gallstone Pancreatitis: Mr. Carbone presented to the hospital with abdominal pain, n/v and found to have gallstone pancreatitis for which he underwent ERCP on 09/15/17 to remove the stone obstruction. Upon CT imaging of the abd/pelvis he was found to have pancreatitis with no evidence of necrosis or pseudocyst, he has had repeat imaging due to fever which indicated no obstruction or dilatation of the biliary tree or any other changes from his initial CT. He has not had a fever over the past couple of days and the intensity of his abdominal pain is improving. He is also being tapered on his fentanyl patch as well as being switched to PO analagesics rather than IV PRN. He also has gradually increased his diet over the last 2 days and has tolerated barbadian toast and oatmeal as of this morning. His lab work indicates continued improvement with his leukocytosis and LFTs improving. -increase diet -Discontinue TPN -discontinue IV fluids -Toradol PO PRN -Morphine 45 mg PO BID -Decrease fenatyl patch #Elevated LFTs: Lab work this morning continue to shows improvement of liver function. -continue to monitor LFTs -continue to watch for signs of infection #Right sideded pleuritic like pain: Patient reports that just recently developed intermittent pain on his right side below the ribs when breathing in deeply. However he does not experience this pain when breathing in all the time. He also denies any shortness of breath or chest pain. He also does not show any signs of extremity swelling. He does have a small ecchymosis on the right side of his abdomen adjacent to his umbilicus from previous heparin administration. This may be causing his right sided pain from soreness. It also may be related to being tapered off his analgesics and his ongoing pancreatitis. It is unlikely this is a DVT resulting in PE as he does not show any physical exam findings of DVT or feel short of breath. He is also on heparin for DVT ppx. It also may be related to some gas pain as the patient has had difficulty passing gas. He also has not moved around very much only ambulating to use the restroom. He was encouraged to move around today. -incentive spirometry -ambulation as tolerated -will investigate further if it does not improve #normocytic anemia: likely due to dilutional effect of IV fluids. -continue to monitor -IV fluids d/c f/u CBC tomorrow #chronic medical conditions -continue lithium -continue home medications as prescribed DVT ppx: heparin clear liquid diet full code
--- NOTE | 2017-09-30 14:50 | Discharge Summary ---
Visit Information Visit Dates Admission Date: 09/14/17 Discharge Date: 10/02/17 Hospital Course Course Attending Physician: Mildred Kimbrough MD Primary Care Physician: Patient Has No Primary Care Dr Hospital Course: Mr. Carbone is a 47 year old man with past medical history of bipolar disorder, hypertension, and hyperlipidemia presented with acute onset abdominal associated with nausea, diarrhea, and chills likely 2/2 choledocholithiasis causing pancreatitis and possible cholangitis. Patient was admitted to ICU for the management of following issues: 1. Gallstone pancreatitis status post ERCP 2. Transaminitis 3. Exophytic lesion arising from right kidney #Gallstone pancreatitis status post ERCP: Patient presented with epigastric pain. CT imaging on 09/14/17 revealed choledocholithiasis resulting in mild obstructive biliary ductal dilatation and secondary pancreatitis, additional mild mucosal hyperemia, surrounding inflammatory change and mild wall thickening of the gastric antrum and duodenum, and an exophytic 1.4 cm low-density nodular lesion. He was admitted to the ICU and gastroenterology was consulted. ERCP was subsequently done on 09/15/17 with sphincterectomy and stone extraction. He was kept nothing by mouth with IV fluid hydration and his diet was then subsequently advanced slowly. His pain was also controlled. He was transferred to the general medicine floor on 09/19/17. However, his pain was persistent and he was developing recurrent fevers with marketed leukocytosis. Repeat CT on 09/19/17 showed that the volume of ascites around the pancreas and sending to the mesentery had significantly increased but there was no pseudocyst formation or pancreatic necrosis. He was again made nothing by mouth and his pain was adequately controlled. He was also started on total parental nutrition because he had not eaten in over 7 days. The patient continued to have recurrent fevers as well as leukocytosis and so infectious disease was consulted out of concern for hepatic abscess given transaminitis or other infectious process. Repeat CT on 09/24/17 showed that the size of the fluid collection has not substantially changed, no evidence of mature pseudocyst formation, and no evidence of pancreatic necrosis. There was no liver abscess as well. He was initially treated with IV ampicillin/sulbactam but this was discontinued given lack of clear source of infection. He has subsequently remained afebrile for several days with improving abdominal pain with bowel rest. His pain medications were subsequently tapered and his diet was advanced slowly. The TPN was also tapered. His acute worsening was likely a post-ERCP recurrent pancreatitis. He is now tolerating foods well and stable for discharge. He should follow-up with gastroenterology as an outpatient. He should also avoid all alcohol consumption. He will need a cholecystectomy in 6-8 weeks. He should make an appointment with surgery for this. He should also follow-up with primary care. #Exophytic lesion arising from right kidney: This is an incidental finding on CT imaging. He can follow up with nephrology as an outpatient. #Chronic medical problems: His other home medications were continued. Psychiatry was consulted for management of his psychiatric medications but no significant changes were made. Allergies: Coded Allergies: NO KNOWN ALLERGIES (NONE 09/18/17) Disposition Summary Disposition Principal Diagnosis: 1. Gallstone pancreatitis status post ERCP Additional Diagnosis: 2. Transaminitis 3. Exophytic lesion arising from right kidney Discharge Disposition: home or self care Discharge Instructions General Discharge Information Code Status: Full Code Patient's Diet: Low-fat diet Patient's Activity: As tolerated Follow-Up Instructions/Appts: Please take all medications as directed. Please follow-up with primary care, gastroenterology, surgery, and nephrology. Medications at Discharge Discharge Medications: Continue taking these medications: [place] Carbonate (Herington Carbonate ER) 300 MG TABLET.ER 5 Tablet ORAL AT BEDTIME Qty = 75 Comments: Last Taken: 10/02/17 Time: 8:40 am Simvastatin (Simvastatin*) 40 MG TABLET 1 Tablet ORAL Every night Qty = 30 Comments: NOT GIVEN; NORVASC GIVEN WHILE IN HOSPITAL Losartan (Cozaar) 100 MG TABLET 1 Tablet ORAL DAILY Comments: Last Taken: 10/02/17 Time: 8:40 am Start taking the following new medications: Acetaminophen (Tylenol) 325 MG TABLET 325 Milligram ORAL EVERY 4 HOURS NEEDED as needed for PAIN Qty = 30 No Refills Instructions: . Comments: NOT GIVEN IN HOSPITAL Copies To: Shayne INIGUEZ,Shayne; Tian Blackwell APRN; Tru INIGUEZ,Javan Casillas; Matheus INIGUEZ, Torin Valencia; Debo INIGUEZ,Armando Trevino; Bry INIGUEZ,Darrion; Ervin Khalil MD
--- NOTE | 2017-09-30 14:52 | Patient Discharge Instructions ---
Discharge Instructions General Discharge Information You were seen/treated for: Gallstone pancreatitis Watch for these problems: Fever, chest pain or shortness of breath Special Instructions: Please take all medications as directed. Please follow-up with a primary care physician, and gastroenterology and general surgery Diet Continue normal diet: No Recommended Diet: Low Fat Activity Full Activity/No Limits: Yes Acute Coronary Syndrome Inclusion Criteria At DC or during hospital stay patient has or had the following: ACS DIAGNOSIS No Discharge Core Measures Meds if any: Prescribed or Continued at Discharge Meds if any: NOT Prescribed or Continued at Discharge Congestive Heart Failure Inclusion Criteria At DC or during hospital stay patient has or had the following: CHF DIAGNOSIS No Discharge Core Measures Meds if any: Prescribed or Continued at Discharge Meds if any: NOT Prescribed or Continued at Discharge Cerebrovascular accident Inclusion Criteria At DC or during hospital stay patient has or had the following: CVA/TIA Diagnosis No Discharge Core Measures Meds if any: Prescribed or Continued at Discharge Meds if any: NOT Prescribed or Continued at Discharge Venous thromboembolism Inclusion Criteria VTE Diagnosis No VTE Type NONE VTE Confirmed by (Test) NONE Discharge Core Measures - Per Current guidelines, there needs to be overlap - treatment for the first 5 days of Warfarin therapy. - If discharged on Warfarin prior to 5 days of - overlap therapy, the patient will need to be - assessed for post discharge needs including - *Post discharge parental anticoagulation - *Warfarin and/or parental anticoagulation education - *Follow up date to check INR post discharge At least 5 days overlap therapy as Inpatient No Meds if any: Prescribed or Continued at Discharge Note: Overlap Therapy is Warfarin and Anticoagulant Meds if any: NOT Prescribed or Continued at Discharge
[2017-09-30 15:16] VITALS: BP 120/78
[2017-09-30 22:19] VITALS: BP 120/80
[2017-10-01 06:20] VITALS: BP 108/76
--- NOTE | 2017-10-01 07:10 | PN- Housestaff ---
Gabriel INIGUEZ,[facility] 10/01/17 0709: Subjective Follow-up For: Pancreatitis Subjective: Patient was seen and examined at bedside. He complains of a 5/10 pain underneath is right ribs aggravated with movement and deep inspiration. Review of Systems Constitutional: Reports: no symptoms. Cardiovascular: Denies: chest pain. Respiratory: Denies: cough, short of breath. Gastrointestinal: Reports: abdominal pain. Objective Last 24 Hrs of Vital Signs/I&O Vital Signs Date Time Temp Pulse Resp B/P B/P Pulse O2 O2 Flow FiO2 Mean Ox Delivery Rate 10/01 0829 110/60 10/01 0620 98.8 77 18 108/76 95 Room Air 09/30 2219 98.9 92 20 120/80 95 Room Air 09/30 1516 98.6 96 20 120/78 95 Intake & Output 10/01 1600 10/01 0800 10/01 0000 Intake Total 300 300 Output Total 300 Balance 0 300 Intake, IV 20 Intake, Oral 300 280 Number 0 Bowel Movements Output, Urine 300 Physical Exam General Appearance: Alert, Oriented X3, Cooperative, Mild Distress Skin: No Rashes, No Breakdown Skin Temp/Moisture Exam: Warm/Dry Sepsis Skin Exam (color): Normal for Ethnicity HEENT: Atraumatic Cardiovascular: Normal S1, Normal S2, No Murmurs Lungs: Clear to Auscultation, Normal Air Movement Abdomen: Soft, mild RUQ tenderness Neurological: Normal Speech Extremities: No Edema Last 24 Hrs of Lab/David Results Last 24 Hrs of Labs/Mics: Laboratory Tests 10/01/17 0510: CBC w Diff NO MAN DIFF REQ, RBC 3.81 L, MCV 91.0, MCH 29.7, MCHC 32.6 L, RDW 14.3, MPV 7.5, Gran % 67.5, Lymphocytes % 21.2, Monocytes % 7.0, Eosinophils % 3.6, Basophils % 0.7, Absolute Granulocytes 8.5 H, Absolute Lymphocytes 2.7, Absolute Monocytes 0.9 H, Absolute Eosinophils 0.5, Absolute Basophils 0.1 Assessment/Plan Assessment: Mr. Carbone is a 47 year old man with past medical history of bipolar disorder, hypertension, and hyperlipidemia who presented with acute onset abdominal associated with nausea, diarrhea, and chills secondary to gallstone pancreatitis now status post ERCP. He was initially admitted to the ICU and then transferred to general medicine on 09/18/17 after stabilization of his condition. Assessment: 1. Gallstone pancreatitis s/p ERCP 2. Transaminitis 3. Exophytic lesion arising from right kidney Gallstone pancreatitis status post ERCP: Patient presented with epigastric pain, found to have gallstone pancreatitis, is now status post ERCP. * He is stable to be discharged from a medical standpoint. However, his narcotic pain meds need to be tapered before discharge. * Fentanyl patch and tramadol have been discontinued yesterday. * MS Contin has been reduced to 15 mg twice a day. Will administer one more dose tomorrow before discontinuing. * Continue Low-fat diet * He will require cholecystectomy which can be done in 4-6 weeks time. Transaminitis: - improving * Liver enzymes are downtrending. No need to trend LFTs further Exophytic lesion arising from right kidney: * Incidental finding. * Follow up with nephrology as an outpatient. Chronic medical problems: -Continue lithium -Continue amlodipine and losartan -Continue other home medications DVT prophylaxis: heparin x3 Low fat diet Full code Problem List: 1. Gallstone pancreatitis Pain Ratin Pain Location: none Pain Goal: Remain pain free Pain Plan: none Tomorrow's Labs & Rationales: none Mildred Kimbrough MD 10/01/17 1101: Attending MD Review Statement Attending Statement Attending MD Statement: examined this patient, discuss w/resident/PA/STRATEGIC CONSULTANT, agreed w/resident/PA/STRATEGIC CONSULTANT, reviewed EMR data (avail), discussed with nursing, discussed with case mgmt, amended to note Attending Assessment/Plan: Patient seen and examined, he was complaining of some pain in the right upper quadrant. He said that it is under the rib cage. Patient was started on solid diet which she is able to tolerate so far. He is still on high-dose narcotics which will need to be tapered down for he leaves. Unfortunately secondary to his history of opiate addiction, patient cannot be discharged with narcotic prescription. Vital Signs Date Time Temp Pulse Resp B/P B/P Pulse O2 O2 Flow FiO2 Mean Ox Delivery Rate 10/01 0829 110/60 10/01 0620 98.8 77 18 108/76 95 Room Air 09/30 2219 98.9 92 20 120/80 95 Room Air 09/30 1516 98.6 96 20 120/78 95 on exam; aox3, nad. cv; s1,s2, rrr resp; clear abd: soft, tender in ruq, bs+ ext: no edema Laboratory Tests 10/01 0510 Hematology CBC w Diff NO MAN DIFF REQ WBC (4.8 - 10.8 /CUMM) 12.6 H RBC (4.70 - 6.10 /CUMM) 3.81 L Hgb (14.0 - 18.0 G/DL) 11.3 L Hct (42 - 52 %) 34.7 L MCV (80.0 - 94.0 FL) 91.0 MCH (27.0 - 31.0 PG) 29.7 MCHC (33.0 - 37.0 G/DL) 32.6 L RDW (11.5 - 14.5 %) 14.3 Plt Count (130 - 400 /CUMM) 811 H MPV (7.4 - 10.4 FL) 7.5 Gran % (42.2 - 75.2 %) 67.5 Lymphocytes % (20.5 - 51.1 %) 21.2 Monocytes % (1.7 - 9.3 %) 7.0 Eosinophils % (0 - 5 %) 3.6 Basophils % (0.0 - 2.0 %) 0.7 Absolute Granulocytes (1.4 - 6.5 /CUMM) 8.5 H Absolute Lymphocytes (1.2 - 3.4 /CUMM) 2.7 Absolute Monocytes (0.10 - 0.60 /CUMM) 0.9 H Absolute Eosinophils (0.0 - 0.7 /CUMM) 0.5 Absolute Basophils (0.0 - 0.2 /CUMM) 0.1 A/P: 47 y/o M with pmh sig for bipolar disorder, hypertension, and hyperlipidemia admitted with acute pancreatitis, acute cholecystitis and acute cholangitis. Status post ERCP with stone extraction for choledocholithiasis overall improving but did complain of some pain in the right upper quadrant. Patient's diet has been advanced. TPN was discontinued. There was a slight increase in his white count this morning. LFTs had been continued to improve as of yesterday. At this point we'll keep him on low-fat solid diet. We tapered his opiates in the following manner. Fentanyl patch has been discontinued. Will reduce his MS Contin 15 mg twice a day today and then 15 mg 1 dose tomorrow. No further narcotics should be used. Pain can be controlled with low -dose Tylenol if needed. Continue the rest of the medications. Patient will have an appointment with [facility] as an outpatient once he started for discharge which will likely be tomorrow. Patient on heparin subcutaneous for DVT prophylaxis. Possible discharge home tomorrow. Patient was encouraged to ambulate. Please give patient suppository for the bowel movement.
[2017-10-01 08:40] LABS: ABSOLUTE BASOPHIL COUNT 0.1 /CUMM (0.0-0.2); ABSOLUTE EOSINOPHIL COUNT 0.5 /CUMM (0.0-0.7); ABSOLUTE GRANULOCYTE CT 8.5 /CUMM (1.4-6.5); ABSOLUTE LYMPH COUNT 2.7 /CUMM (1.2-3.4); ABSOLUTE MONOCYTE COUNT 0.9 /CUMM (0.10-0.60); BASOPHIL % 0.7 % (0.0-2.0); EOSINOPHIL % 3.6 % (0-5); GRANULOCYTE % 67.5 % (42.2-75.2); HEMATOCRIT 34.7 % (42-52); MEAN CORPUSCULAR HGB 29.7 PG (27.0-31.0); MEAN CORPUSCULAR HGB CONC 32.6 G/DL (33.0-37.0); MEAN PLATELET VOLUME 7.5 FL (7.4-10.4); PLATELET COUNT 811 /CUMM (130-400); RBC DISTRIBUTION WIDTH 14.3 % (11.5-14.5); RED BLOOD CELL CT 3.81 /CUMM (4.70-6.10); WHITE BLOOD CELL COUNT 12.6 /CUMM (4.8-10.8)
--- NOTE | 2017-10-01 09:33 | PN- Student ---
Subjective Subjective: No overnight events reported. Mr. Carbone continues to report pain under his right ribs when breathing in deeply or twisting motions. He states the pain is intermittent and only elicited upon these actions. He scores the pain 5/10 on the pain scale when the pain is elicited. He reports being able to pass gas but has not had a bowel movement since 09/25/17. Objective Objective: Current Medications Sig/[place] Start time Last Medication Dose Route Stop Time Status Admin Amlodipine Besylate 5 MG DAILY 09/19 1400 AC 10/01 PO 0829 Atorvastatin Calcium 20 MG 1700 09/18 1700 AC 09/30 PO 1702 Bisacodyl 10 MG ONCE ONE 10/01 0930 AC OH 10/01 0931 Docusate Sodium 100 MG DAILY NEEDED PRN 09/24 1315 AC PO Fat Emulsion 300 ML Q24H 09/29 190 DC 09/29 Intravenous IV 09/30 1851999 Glycerin 2 SPRAY Q2P PRN 09/16 1430 AC 09/17 PO 1419 Heparin Sodium 5,000 UNIT Q8 09/15 06 AC 10/01 (Porcine) SC 0507 [place] Carbonate 1,500 MG DAILY 09/18 0900 AC 10/01 PO 0829 Losartan Potassium 100 MG DAILY 09/18 0900 AC 10/01 PO 0829 Methylnaltrexone 12 MG Q48 PRN 09/22 1315 AC 09/25 [place] 0906 Morphine Sulfate 30 MG BID 09/30 0900 AC 10/01 PO 0829 Ondansetron HCl 4 MG Q6P PRN 09/14 2245 AC IV Patient Medication 1 ED ONE ONE 09/30 1100 DC 09/30 Teaching ED 09/30 1101 1223 Polyethylene Glycol 17 GM DAILY 09/24 1303 AC 10/01 PO 0829 Ramelteon 8 MG AT BEDTIME 09/24 2100 AC 09/30 PO 2124 Senna 187 MG ONCE PRN 10/01 0930 AC PO Simethicone 80 MG Q4P PRN 09/29 1815 AC 10/01 PO 0829 Total Parenteral 1 UNIT 1900 09/29 190 DC 09/29 Nutrition IV 09/30 [id number] Tramadol HCl 25 MG Q4P PRN 09/30 0730 AC PO Laboratory Tests 10/01 0510 Hematology CBC w Diff NO MAN DIFF REQ WBC (4.8 - 10.8 /CUMM) 12.6 H RBC (4.70 - 6.10 /CUMM) 3.81 L Hgb (14.0 - 18.0 G/DL) 11.3 L Hct (42 - 52 %) 34.7 L MCV (80.0 - 94.0 FL) 91.0 MCH (27.0 - 31.0 PG) 29.7 MCHC (33.0 - 37.0 G/DL) 32.6 L RDW (11.5 - 14.5 %) 14.3 Plt Count (130 - 400 /CUMM) 811 H MPV (7.4 - 10.4 FL) 7.5 Gran % (42.2 - 75.2 %) 67.5 Lymphocytes % (20.5 - 51.1 %) 21.2 Monocytes % (1.7 - 9.3 %) 7.0 Eosinophils % (0 - 5 %) 3.6 Basophils % (0.0 - 2.0 %) 0.7 Absolute Granulocytes (1.4 - 6.5 /CUMM) 8.5 H Absolute Lymphocytes (1.2 - 3.4 /CUMM) 2.7 Absolute Monocytes (0.10 - 0.60 /CUMM) 0.9 H Absolute Eosinophils (0.0 - 0.7 /CUMM) 0.5 Absolute Basophils (0.0 - 0.2 /CUMM) 0.1 Vital Signs Date Time Temp Pulse Resp B/P B/P Pulse O2 O2 Flow FiO2 Mean Ox Delivery Rate 10/01 0829 110/60 10/01 0620 98.8 77 18 108/76 95 Room Air 09/30 2219 98.9 92 20 120/80 95 Room Air 09/30 1516 98.6 96 20 120/78 95 Intake & Output 10/01 1600 10/01 0800 10/01 0000 Intake Total 300 300 Output Total 300 Balance 0 300 Intake, IV 20 Intake, Oral 300 280 Number 0 Bowel Movements Output, Urine 300 Physical Exam: general apperance: no evidence of acute distress, sitting upright eating in bed, AOx3 CV: regular rhythym and rate, normal S1&S2, no MRG pulmonary: posterior lung muñiz clear to ausculatation, no evidence of rubs, rhonci or wheeze abd: bowel sounds present, tender and rigid abdomen, slight ecchymosis present adjacent to umbilicus on right side extremities: no peripheral edema or swelling noted, 2+ pulses at posterior tib., dorsal pedis and radial arteries bilaterally Assessment/Plan Assessment: Mr. Carbone is a 47 year old man with a PMHx significant for Bipolar d/o, HTN, hyperlipidemia, and IV drug abuse presented with abdominal pain, nausea, diarrhea and chills. He was found to have gallstone pancreatitis with ECRP being performed on 09/15/17 to remove the obstructing stone. He was initially admitted to the ICU and subsequently transferred to the general medicine floor on . Prior to coming to [place] for his abdominal pain, he was treated for IV drug rehabilitation in [place] and [place]. He has been seen by GI and ID over the course of his hospitalization. His abdominal pain has steadily improved. His diet has been gradualy increased and Mr. Carbone has tolerated soft foods very well. He has not had a bowel movement since 09/25/17. He also has been reported pain under his right ribs with deep inspiration and twisting motion x 2 days. Although his labs have indicated leukocytosis during the duration of his stay, his wbc count has had a downward trend over his hospitalization, however today there was a slight bump in his wbc count. Plan: Problem list: 1. Gallstone Pancreatitis 2. Leukocytosis 3. Elevated LFTs 4. Right sided pleuritic like pain 5. normocytic anemia 6. chronic medical conditions #Gallstone Pancreatitis: Mr. Carbone presented to the hospital with abdominal pain, n/v and found to have gallstone pancreatitis for which he underwent ERCP on 09/15/17 to remove the stone obstruction. Upon CT imaging of the abd/pelvis he was found to have pancreatitis with no evidence of necrosis or pseudocyst, he has had repeat imaging due to fever which indicated no obstruction or dilatation of the biliary tree or any other changes from his initial CT. He has not had a fever over the past couple of days and the intensity of his abdominal pain is improving. He is also being tapered on his fentanyl patch as well as being switched to PO analagesics rather than IV PRN. He also has gradually increased his diet over the last few days. -increase diet -Toradol PO PRN -Morphine PO taper over the next 3 days -Decrease fenatyl patch #leukocytosis: Although his lab work has been consistent with leukocytosis there typically has been a downward trend over the course of his hospitalization. However today, CBC indicates a slight bump in his white count. This is likely due to the removal of IV fluids as there was a rise in all cell counts, rather than new onset infection. However as the patient has right sided pain it was considered that this may be related to an ascending cholangitis or liver abscess , however he does not show signs of infection and does not have a fever. It is also very unlikely he has some pulmonary pathology such as pneumonia or empyema as his lungs have been clear to ausculatation and he has not had any symptoms of respiratory difficulty. Mr. Carbone will likely stay for one more day in the hospital and will be monitored for signs of infection and repeat lab studies. -watch for signs of infection -repeat CBC tomorrow -continue to hold IV fluids #Elevated LFTs: Lab work this morning continue to shows improvement of liver function. -continue to monitor LFTs -continue to watch for signs of infection #Right sideded pleuritic like pain: Patient reports that just recently developed intermittent pain on his right side below the ribs when breathing in deeply. However he does not experience this pain when breathing in all the time. He also denies any shortness of breath or chest pain. He also does not show any signs of extremity swelling. He does have a small ecchymosis on the right side of his abdomen adjacent to his umbilicus from previous heparin administration. This may be causing his right sided pain from soreness. It also may be related to being tapered off his analgesics and his ongoing pancreatitis. It is unlikely this is a DVT resulting in PE as he does not show any physical exam findings of DVT or feel short of breath. He is also on heparin for DVT ppx. It also may be related to some gas pain as the patient has had difficulty passing gas. As he has had a spike in WBCs today it is also being considered that he has some sort of infectious pathology of the RUQ, however this is unlikely as he has not spiked a fever and this can be more properly explained by an abrupt stop in IV fluids that were contributing to a dilutional effect of all cell lines. -incentive spirometry -ambulation as tolerated -watch for signs of infection #normocytic anemia: likely due to dilutional effect of IV fluids. -continue to monitor -IV fluids d/c f/u CBC tomorrow #chronic medical conditions -continue lithium -continue home medications as prescribed DVT ppx: heparin clear liquid diet full code
[2017-10-01 15:18] VITALS: BP 130/70
[2017-10-01 22:26] VITALS: BP 102/70
[2017-10-02 06:20] VITALS: BP 104/70
--- NOTE | 2017-10-02 07:16 | PN- Housestaff ---
See Addendum Subjective Follow-up For: Gallstone pancreatitis Subjective: No overnight events. Patient complains of continued mild abd pain and pain when breathing. No CP or other issues. He feels ready to go home though. Review of Systems Constitutional: Reports: no symptoms. EENTM: Reports: no symptoms. Cardiovascular: Reports: no symptoms. Respiratory: Reports: no symptoms. Gastrointestinal: Reports: see HPI. Genitourinary: Reports: no symptoms. Musculoskeletal: Reports: no symptoms. Skin: Reports: no symptoms. Neurological/Psychological: Reports: no symptoms. Hematologic/Endocrine: Reports: no symptoms. Immunologic/Allergic: Reports: no symptoms. Objective Last 24 Hrs of Vital Signs/I&O Vital Signs Date Time Temp Pulse Resp B/P B/P Pulse O2 O2 Flow FiO2 Mean Ox Delivery Rate 10/02 0620 98.8 74 16 104/70 94 Room Air 10/01 2226 98.6 86 18 102/70 95 10/01 1518 98.8 96 20 130/70 95 10/01 0829 110/60 Intake & Output 10/02 0800 10/02 0000 10/01 1600 Intake Total 400 750 Output Total Balance 400 750 Intake, Oral 400 750 Physical Exam General Appearance: Alert, Oriented X3, Cooperative, No Acute Distress Cardiovascular: Regular Rate, Normal S1, Normal S2 Lungs: Clear to Auscultation Abdomen: Normal Bowel Sounds, Soft, No Tenderness Extremities: No Edema, Normal Pulses, No Tenderness/Swelling Current Medications: Current Medications Sig/[place] Start time Last Medication Dose Route Stop Time Status Admin Acetaminophen 325 MG Q4P PRN 10/02 0715 AC PO Amlodipine Besylate 5 MG DAILY 09/19 1400 AC 10/01 PO 0829 Atorvastatin Calcium 20 MG 1700 09/18 1700 AC 10/01 PO 1648 Bisacodyl 10 MG ONCE ONE 10/01 0930 DC 10/01 VT 10/01 0931 1025 Docusate Sodium 100 MG .STK-MED ONE 10/01 1648 DC PO 10/01 1649 Docusate Sodium 100 MG DAILY NEEDED PRN 09/24 1315 AC 10/01 PO 1648 Glycerin 2 SPRAY Q2P PRN 09/16 1430 AC 09/17 PO 1419 Heparin Sodium 5,000 UNIT Q8 09/15 0600 AC 10/02 (Porcine) SC 0532 [place] Carbonate 1,500 MG DAILY 09/18 0900 AC 10/01 PO 08 Losartan Potassium 100 MG DAILY 09/18 09 AC 10/01 PO 08 Methylnaltrexone 12 MG Q48 PRN 09/22 1315 AC 09/25 [place] 0[address] Morphine Sulfate 15 MG BID 10/02 0900 AC PO 10/02 09 Morphine Sulfate 15 MG BID 10/01 2100 DC 10/01 PO 2051 Morphine Sulfate 30 MG BID 09/30 0900 DC 10/01 PO 08 Ondansetron HCl 4 MG Q6P PRN 09/14 2245 AC IV Polyethylene Glycol 17 GM DAILY 09/24 1303 AC 10/01 PO 08 Ramelteon 8 MG AT BEDTIME 09/24 2100 AC 10/01 PO 2050 Senna 187 MG ONCE PRN 10/01 0930 DC 10/01 PO 1419 Simethicone 80 MG Q4P PRN 09/29 1815 AC 10/01 PO 08 Tramadol HCl 25 MG Q4P PRN 09/30 0730 DC PO Last 24 Hrs of Lab/David Results Last 24 Hrs of Labs/Mics: Laboratory Tests 10/02/17 0535: CBC w Diff Pending, WBC Pending, RBC Pending, Hgb Pending, Hct Pending, MCV Pending, MCH Pending, MCHC Pending, RDW Pending, Plt Count Pending, MPV Pending Assessment/Plan Assessment: Mr. Carbone is a 47 year old man with past medical history of bipolar disorder, hypertension, and hyperlipidemia presented with acute onset abdominal associated with nausea, diarrhea, and chills secondary to gallstone pancreatitis now status post ERCP. He was initially admitted to the ICU and then transferred to general medicine on 09/18/17 after stabilization of his condition. Problem list: 1. Gallstone pancreatitis status post ERCP 2. Transaminitis 3. Exophytic lesion arising from right kidney #Gallstone pancreatitis status post ERCP: Patient presented with epigastric pain , found to have gallstone pancreatitis, is now status post ERCP. Gastroenterology is following. He will need cholecystectomy in 6-[address] on 09/19/17 showed a volume of abdominal ascites around the pancreas extending into the mesentery significantly increased but there is no pseudocyst formation in the enhancement and the pancreas remains normal with no evidence of pancreatic necrosis. Repeat CT abdomen/pelvis with IV contrast on 09/24/17 was performed for fevers and did not show any change from prior imaging study. Patient has remained afebrile for severeal days and his abdominal pain is now improving with decreased pain medication requirement. Likely stable for discharge today. -oral morphine 15 mg once today, then stop -Low dose acetaminophen for pain -No NSAIDs -Low-fat diet -Appreciate gastroenterology and general surgery conditions -Ondansetron as necessary #Transaminitis: Liver enzymes are downtrending. -Hold acetaminophen -Avoid hepatotoxins #Exophytic lesion arising from right kidney: Incidental finding. -Follow up with nephrology as an outpatient. #Chronic medical problems: -Continue lithium -Continue amlodipine and losartan -Continue other home medications DVT prophylaxis with heparin Low fat diet Full code Problem List: 1. Gallstone pancreatitis Pain Ratin Pain Location: abd Pain Goal: Remain pain free Pain Plan: see a/p Tomorrow's Labs & Rationales: no
[2017-10-02] MEDS ORDERED: TYLENOL325 M1 PO ×2 (08:07→09:22)
[2017-10-02 08:28] LABS: ABSOLUTE BASOPHIL COUNT 0.1 /CUMM (0.0-0.2); ABSOLUTE EOSINOPHIL COUNT 0.4 /CUMM (0.0-0.7); ABSOLUTE GRANULOCYTE CT 7.2 /CUMM (1.4-6.5); ABSOLUTE LYMPH COUNT 2.3 /CUMM (1.2-3.4); ABSOLUTE MONOCYTE COUNT 0.7 /CUMM (0.10-0.60); BASOPHIL % 0.7 % (0.0-2.0); EOSINOPHIL % 3.5 % (0-5); GRANULOCYTE % 67.4 % (42.2-75.2); HEMATOCRIT 34.6 % (42-52); MEAN CORPUSCULAR HGB 29.7 PG (27.0-31.0); MEAN CORPUSCULAR VOLUME 90.1 FL (80.0-94.0); MEAN PLATELET VOLUME 7.4 FL (7.4-10.4); RBC DISTRIBUTION WIDTH 14.6 % (11.5-14.5); RED BLOOD CELL CT 3.84 /CUMM (4.70-6.10); WHITE BLOOD CELL COUNT 10.6 /CUMM (4.8-10.8)
--- NOTE | 2017-10-02 08:36 | PN- Student ---
Subjective Subjective: No evidence of acut distress. Mr. Carbone continues to report RUQ pain elicited only on deep inspiration, or movement. He has been tolerating food and liquids and was eating breakfast this morning without difficulty. He states he is looking forward to going home but concerned about the pain in his RUQ. He also questions as to why he needs to wait for surgery. Objective Objective: Current Medications Sig/[place] Start time Last Medication Dose Route Stop Time Status Admin Acetaminophen 325 MG Q4P PRN 10/02 0715 AC PO Amlodipine Besylate 5 MG DAILY 09/19 1400 AC 10/02 PO 0841 Atorvastatin Calcium 20 MG 1700 09/18 1700 AC 10/01 PO 1648 Bisacodyl 10 MG ONCE ONE 10/01 0930 DC 10/01 ID 10/01 0931 1025 Docusate Sodium 100 MG .STK-MED ONE 10/01 1648 DC PO 10/01 1649 Docusate Sodium 100 MG DAILY NEEDED PRN 09/24 1315 AC 10/01 PO 1648 Glycerin 2 SPRAY Q2P PRN 09/16 1430 AC 09/17 PO 1419 Heparin Sodium 5,000 UNIT Q8 09/15 0600 AC 10/02 (Porcine) SC 0532 [place] Carbonate 1,500 MG DAILY 09/18 0900 AC 10/02 PO 0840 Losartan Potassium 100 MG DAILY 09/18 0900 AC 10/02 PO 0840 Methylnaltrexone 12 MG Q48 PRN 09/22 1315 AC 09/25 [place] [address] Morphine Sulfate 15 MG BID 10/02 0900 DC 10/02 PO 10/02 0901 0842 Morphine Sulfate 15 MG BID 10/01 2100 DC 10/01 PO 205 Morphine Sulfate 30 MG BID 09/30 0900 DC 10/01 PO 0829 Ondansetron HCl 4 MG Q6P PRN 09/14 2245 AC IV Polyethylene Glycol 17 GM DAILY 09/24 1303 AC 10/02 PO 0842 Ramelteon 8 MG AT BEDTIME 09/24 2100 AC 10/01 PO 205 Senna 187 MG ONCE PRN 10/01 0930 DC 10/01 PO 1419 Simethicone 80 MG Q4P PRN 09/29 1815 AC 10/01 PO 0829 Tramadol HCl 25 MG Q4P PRN 09/30 0730 DC PO Laboratory Tests 10/02 0535 Hematology CBC w Diff Pending WBC Pending RBC Pending Hgb Pending Hct Pending MCV Pending MCH Pending MCHC Pending RDW Pending Plt Count Pending MPV Pending Vital Signs Date Time Temp Pulse Resp B/P B/P Pulse O2 O2 Flow FiO2 Mean Ox Delivery Rate 10/02 0841 74 104/70 10/02 0840 743 104/70 10/02 0620 98.8 74 16 104/70 94 Room Air 10/01 2226 98.6 86 18 102/70 95 10/01 1518 98.8 96 20 130/70 95 Intake & Output 10/02 1600 10/02 0800 10/02 0000 Intake Total 480 400 Output Total Balance 480 400 Intake, Oral 480 400 Physical Exam General Apperance: no evidence of acute distress, AOx3 CV: regular rhythym and rate, normal s1&s2, no MRG pulmonary: lungs clear to ausculatation abdomen: bowel sounds present, tender and rigid extremities: no peripheral edema, purpura, or ecchymosis present Assessment/Plan Assessment: Mr. Carbone is a 47 year old male with a past medical history significant for bipolar d/o, HTN, hyperlipidemia, and IV drug abuse presented to the ED with abdominal pain, nausea, diarrhea and chills. He was subsequently admitted to the ICU as he was found to have gallstone pancreatitis, ECRP was performed on to remove the obstructing stone. He came to the general medical floor on 09/18 for monitoring of his panc and managment of his pain. His pain was initially managed with fentanyl patch, oral MS and IV morphine PRN. He has been slowly tapered off these opoids over the duration of his hospitalization as tolerated. There was expressed concern from the patient regarding his previous drug abuse and taking opoid medications at home. It was for this reason he was monitored and slowly tapered off opoid analgesics. He reports having a bowel movement yesterday and states he is ready for discharge today. Plan: Problem List: 1. Gallstone Pancreatitis 2. Leukocytosis 3. Elevated LFTs 4. RUQ pain 5. normocytic anemia 6. chronic medical conditions #Gallstone Pancreatitis: Patient was transfered to general medical floor on 09/18 s/p ERCP on 09/15/17 to remove obstructing gallstone. Repeated imaging has proved to show an inflammed pancreas with no evidence of necrosis or pseudocyt formation. When Mr. Carbone first arrived to the medical floor he was in considerable pain that required fetanyl patch, oral morphine as well as frequent IV morphine to control the pain. However this has greatly improved over the duration of his hospitalizaiton and is now on low dose Acetomenophin for pain control. He will need CCY done to remove his GB, however this will be done in around 6-8 weeks as surgery has recommended due to current inflammation of Mr. Carbone's pancreas. -schedule f/u with GI and surgery -CCY in 6-8 wks -Acetomenophen for pain (low dose) -avoid NSAIDs -discharge to home #Leukocytosis: lab results today show resolution of elevated WBC count. -call pcp or return to hospital if fever occurs #Elevated LFTs: marked improvement over the duration of patient's hospitalization. Initial insult due to pancreatitis and gallstone obstruction. Will have CCY done in 6-8 weeks by surgery. -f/u with GI and surgery #RUQ pain: Patient has continued to report RUQ over the course of 3 days that seems to only be elicited upon movement or deep inspiration. Likely this pain is due to current inflammatory process and patient being tapered off opoid regimen. CCY will likely correct this pain alf, however due to pancreatitis inflamation needs to subside to reduce risk as per surgery recommendations. Patient was concerned about returning home with this current pain and this was explained to Mr. Carbone. He feels comfortable going home today after discussing this and after all questions and concerns were addressed. He will f/u with surgery and GI upon discharge. It is unlikely that this RUQ is a new onset of ascending colangitis, or liver abscess, or any other infectious process as he has not ran a fever and his WBC is in the normal range. -Discharge to home -f/u with surgery, GI and PCP -Acetomenophen (low dose) PRN for pain -return for further eval if fever returns, pain increases or persists #normocytic anemia: Labs indicate low RBC this may be due to poor nutrional intake as the patient has been NPO for some time and on TPN. He has only increased his diet gradually over the past couple of days and will continue to do so at home. Unlikely this is SOSA or ACD, however if persists in outpatient setting then should be further evaluated. -f/u with PCP #chronic medical conditions -continue lithium -continue other medications as prescribed Patient to be discharged to home No restrictions on ambulation Increase diet as tolerated all questions and concerns of patient addressed and answered Patient to f/u in outpatient setting Medically stable for discharge
[2017-10-02 08:41] VITALS: BP 104/70
[2017-10-02 09:52] LABS: PLATELET COUNT 774 /CUMM (130-400)
--- NOTE | 2017-10-02 10:30 | PN- Psychiatry ---
See Addendum Assessment/Plan Impression: Buck is motivated for treatment and hopes to re-engage with the 12-step programs , including finding a sponsor in [place]. He is eager to come to [facility] to begin his recovery. He states that he has cut a lot of ties with people he needs to avoid while he has been in the hospital, including his now ex-girlfriend. He is somewhat concerned he will encounter people from his drug using life at the [facility], and indicates that he realizes he has a choice, as discussed earlier with Claudia Jauregui LCSW and Ryann Collier LCSW. The patient has clonidine at home, but we are not sure of the dosing. He also has naltrexone. I have instructed him to not take either from his home supply. He had indicated to me earlier that naltrexone did not help much; he could discuss this at [facility]. He would benefit from clonidine 0.1 mg PO up to 3X/day as needed for withdrawal cravings. He denies leg cramps, abdominal cramps (As distinct from his right upper quadrant pain). This may help him through the next 3-4 days until he can start the IOP. He will have an [facility] intake later this afternoon with Ryann Collier LCSW. Suggestion: 1. Consider clonidine 0.1 mg PO up to 3X/day as needed for withdrawal cravings. 2. [facility] intake interview today, 10/02/17, before 1330 or after 1430; please plan discharge so that the patient can walk directly to the appointment at [address] [place] [address]. [phone]. 3. The patient is to avoid alcohol and drugs, especially opioids/opiates, and to attend AA or NA and find a sponsor. 4. Continue lithium SR 1500 mg PO daily. 5. I have ordered a trough lithium surveillance level from the lab draw this morning before administration of the medication. Results to Tian Blackwell APRN Pager #[phone] or Q. [phone] Psychiatry is signing off. Thank you for this consult. Subjective Subjective: A+OX3 Denies AH, VH; no aviva delusions Denies SI or HI Mood is "good," affect congruent Denies drug cravings at this time. Review of Systems Neurological/Psychological: Denies: no symptoms. Objective Last 24 Hrs of Vital Signs/I&O Vital Signs Date Time Temp Pulse Resp B/P B/P Pulse O2 O2 Flow FiO2 Mean Ox Delivery Rate 10/02 0841 74 104/70 10/02 0840 743 104/70 10/02 0620 98.8 74 16 104/70 94 Room Air 10/01 2226 98.6 86 18 102/70 95 10/01 1518 98.8 96 20 130/70 95 Intake & Output 10/02 1600 10/02 0800 10/02 0000 Intake Total 480 400 Output Total Balance 480 400 Intake, Oral 480 400 Physical Exam: Not performed Physical Exam General Appearance: no apparent distress, alert, awake, comfortable Neurologic/Psychiatric: awake, alert, oriented x 3, normal mood/affect Current Medications: Current Medications Sig/[place] Start time Last Medication Dose Route Stop Time Status Admin Acetaminophen 325 MG Q4P PRN 10/02 0715 AC PO Amlodipine Besylate 5 MG DAILY 09/19 1400 AC 10/02 PO 0841 Atorvastatin Calcium 20 MG 1700 09/18 1700 AC 10/01 PO 1648 Docusate Sodium 100 MG .STK-MED ONE 10/01 1648 DC PO 10/01 1649 Docusate Sodium 100 MG DAILY NEEDED PRN 09/24 1315 AC 10/01 PO 1648 Glycerin 2 SPRAY Q2P PRN 09/16 1430 AC 09/17 PO 1419 Heparin Sodium 5,000 UNIT Q8 09/15 0600 AC 10/02 (Porcine) SC 0532 [place] Carbonate 1,500 MG DAILY 09/18 0900 AC 10/02 PO 0840 Losartan Potassium 100 MG DAILY 09/18 0900 AC 10/02 PO 0840 Methylnaltrexone 12 MG Q48 PRN 09/22 1315 AC 09/25 [place] 0906 Morphine Sulfate 15 MG BID 10/02 0900 DC 10/02 PO 10/02 0901 0842 Morphine Sulfate 15 MG BID 10/01 2100 DC 10/01 PO 205 Ondansetron HCl 4 MG Q6P PRN 09/14 2245 AC IV Polyethylene Glycol 17 GM DAILY 09/24 1303 AC 10/02 PO 0842 Ramelteon 8 MG AT BEDTIME 09/24 2100 AC 10/01 PO 205 Senna 187 MG ONCE PRN 10/01 0930 DC 10/01 PO 1419 Simethicone 80 MG Q4P PRN 09/29 1815 AC 04/26 PO 0829 Tramadol HCl 25 MG Q4P PRN 09/30 0730 DC PO Results Last 24 Hrs of Labs/Mics: Laboratory Tests 10/02 10/02 0905 0535 Chemistry Sodium (137 - 145 mmol/L) 136 L Potassium (3.5 - 5.1 mmol/L) 4.6 Chloride (98 - 107 mmol/L) 101 Carbon Dioxide (22 - 30 mmol/L) 25 Anion Gap (5 - 16) 10 BUN (9 - 20 mg/dL) 14 Creatinine (0.7 - 1.2 mg/dL) 0.9 Estimated GFR (>60 ml/min) > 60 BUN/Creatinine Ratio (7 - 25 %) 15.6 Total Bilirubin (0.2 - 1.3 mg/dL) 0.5 Direct Bilirubin (< 0.4 mg/dL) 0.5 H AST (17 - 59 U/L) 47 ALT (21 - 72 U/L) 151 H Alkaline Phosphatase (< 127 U/L) 114 Hematology CBC w Diff NO MAN DIFF REQ WBC (4.8 - 10.8 /CUMM) 10.6 RBC (4.70 - 6.10 /CUMM) 3.84 L Hgb (14.0 - 18.0 G/DL) 11.4 L Hct (42 - 52 %) 34.6 L MCV (80.0 - 94.0 FL) 90.1 MCH (27.0 - 31.0 PG) 29.7 MCHC (33.0 - 37.0 G/DL) 33.0 RDW (11.5 - 14.5 %) 14.6 H Plt Count (130 - 400 /CUMM) 774 H MPV (7.4 - 10.4 FL) 7.4 Gran % (42.2 - 75.2 %) 67.4 Lymphocytes % (20.5 - 51.1 %) 22.0 Monocytes % (1.7 - 9.3 %) 6.4 Eosinophils % (0 - 5 %) 3.5 Basophils % (0.0 - 2.0 %) 0.7 Absolute Granulocytes (1.4 - 6.5 /CUMM) 7.2 H Absolute Lymphocytes (1.2 - 3.4 /CUMM) 2.3 Absolute Monocytes (0.10 - 0.60 /CUMM) 0.7 H Absolute Eosinophils (0.0 - 0.7 /CUMM) 0.4 Absolute Basophils (0.0 - 0.2 /CUMM) 0.1 Toxicology [place] (0.6 - 1.2 mmol/L) Pending
== END 2017-10-02 14:10 | DRG 409 ==
LOC: ERH 17:40 → ERHI 21:20 → 2NA 21:20 → CRI 21:20 → CANRESERV 21:38 → ENRESERV 21:38 → EDBEDREQ 22:10 → ERHI 22:11 → ENRESERV 22:29 → CRI 09-15 00:33 → ENTRNSPT 09-18 10:59 → 2NA 09-18 11:06 → EDTRNSPTSTS 09-18 11:13 → EDTRNSPT 09-18 11:13 → CMPTRNSPT 09-18 11:23 → 2NA 09-19 09:25 → ENPENDDIS 10-02 09:21 → 2NA 10-02 14:10
PROVIDERS: Emergency Medicine; Internal Medicine; Internal Medicine Hematology & Oncology; Internal Medicine Interventional Cardiology; Physician Assistant Medical; Physician Assistant Surgical
PROC: 0FCC8ZZ Extirpation of Matter from Ampulla of Vater, Via Natural or Artificial Opening Endoscopic (ICD-10-PCS; principal; 2017-09-15)
PROC: 0FC48ZZ Extirpation of Matter from Gallbladder, Via Natural or Artificial Opening Endoscopic (ICD-10-PCS; 2017-09-15)
PROC: 3E04317 Introduction of Other Thrombolytic into Central Vein, Percutaneous Approach (ICD-10-PCS; 2017-09-15)
PROC: 02H633Z Insertion of Infusion Device into Right Atrium, Percutaneous Approach (ICD-10-PCS; 2017-09-21)
PROC: 3E0436Z Introduction of Nutritional Substance into Central Vein, Percutaneous Approach (ICD-10-PCS; 2017-09-21)
DX: K85.10 Biliary acute pancreatitis without necrosis or infection (principal); K80.60 Calculus of gallbladder and bile duct with cholecystitis, unspecified, without obstruction; R18.8 Other ascites; F31.9 Bipolar disorder, unspecified; I10 Essential (primary) hypertension; E78.5 Hyperlipidemia, unspecified; F11.21 Opioid dependence, in remission; K59.03 Drug induced constipation; T40.605A Adverse effect of unspecified narcotics, initial encounter; R74.0 Nonspecific elevation of levels of transaminase and lactic acid dehydrogenase [LDH]; D64.9 Anemia, unspecified; F17.200 Nicotine dependence, unspecified, uncomplicated
CPT/HCPCS: 2NASP; CCU; ERO; 36415; 36592; 71045; 74018; 74177; 80307; 81003; 82436; 87040; 87086; 93005; 93010; 96372; 96374; 96375; 96376; C1769; G0480; J0131; J0360; J1170; J1644; J1885; J2405; J3490; J7120; Q9967

== ENCOUNTER 2017-10-07 10:33 | Emergency (ER) | payer OTHER ==
[~2017-10-07] VITALS: Ht 180.3 cm; Wt 90.7 kg
[~2017-10-07 10:33] MED LIST: COZAAR100 M1 PO; LITHIUM CARBON300 M6 PO; LOSARTAN POTASS50 M1 PO; SIMVASTATIN40 M1 PO; TYLENOL325 M1 PO
--- NOTE | 2017-10-07 11:22 | ED GI/GU/ABDOMINAL COMPLAINT ---
History of Present Illness General Chief Complaint: General Adult Stated Complaint: SENT BY DR BUSTAMANTE FOR EVAL OF ABNORMAL JON LIP Source: patient, old records Exam Limitations: no limitations Vital Signs & Intake/Output Vital Signs & Intake/Output Vital Signs Date Time Temp Pulse Resp B/P B/P Pulse O2 O2 Flow FiO2 Mean Ox Delivery Rate 10/07 1603 98.4 87 18 144/80 97 Room Air 10/07 1419 99.0 81 18 129/74 97 Room Air ED Intake and Output 10/08 0000 10/07 1200 Intake Total 1000 Output Total Balance 1000 Intake, IV 1000 Patient 200 lb Weight Weight Reported by Patient Measurement Method Allergies Coded Allergies: NO KNOWN ALLERGIES (NONE 09/18/17) Reconcile Medications [place] Carbonate ([place] Carbonate ER) 300 MG TABLET.ER 5 TAB PO AT BEDTIME MOOD STABILITY (Reported) Losartan (Cozaar) 100 MG TABLET 1 TAB PO DAILY HIGH BLOOD PRESSURE (Reported) Ondansetron (Zofran Odt) 4 MG TAB.RAPDIS 1 TAB SL TID PRN nausea Oxycodone HCl/Acetaminophen (Percocet 5-325 MG Tablet) 5 MG-325 MG TABLET 1-2 TAB PO BID PRN PAIN Simvastatin (Simvastatin*) 40 MG TABLET 1 TAB PO QPM HIGH CHOLESTROL ( Reported) Triage Note: PT FROM HOME C/O SENT IN BY DR BUSTAMANTE FOR ABNORMAL AMYALASE AND LIPASE LABS DRAWN YESTERDAY. PT STATES HOSPITALIZATION 3X WEEKS AGO FOR PANCREATITIS. PT STATES STILL IN PAIN, UNABLE TO HOLD FOOD DOWN. PT STATES RESTING FOR 5X DAYS WITHOUT ANY CHANGE. PTS VSS. AFEBRILE IN TRIAGE. PT STATES PAIN 5/10. Triage Nurses Notes Reviewed? yes Onset: Gradual Duration: week(s): Timing: recent history Quality/Severity: severe Severity Numbers: 10 Location: generalized abdomen HPI: 47yo male with hx of alcohol and opiate abuse presents to ED complaining of generailzed abdominal pain. Patient was recently admitted here on 09/14/17 for choledocolithiasis and pancreatitis. Patient was discharged on 10/02/17. Patient had outpatient labs through his primary care. PCP called him today to tell him his lipase was 1000. It was recommended he come here to the ED for CT scan. Abdomenal pain is described as the same as when he was here last week, severe, 10/10. Patient Tried tylenol which did not help. Patient reports nausea and nonbilious, nonbloody vomiting for the past week, when ever he tries to eat he will "regurgitate" foot. Patient denies fevers, chills, diarrhea, constipation, dyspnea. Past History Travel History Traveled to [place] past 21 day No Medical History Any Pertinent Medical History? see below for history Cardiovascular: hypertension, hyperlipidemia Psychiatric: bipolar disease History of MRSA: No History of VRE: No History of CDIFF: No Tetanus Vaccine: Surgical History Surgical History: non-contributory Psychosocial History What is your primary language Spanish Tobacco Use: Current Daily Use Daily Tobacco Use Amount/Type: =< 4 Cigarettes daily Family History Family History, If Any: FATHER, ; Cause: Lung cancer. FH: lung cancer Relation not specified for: FH: hyperlipidemia FH: hypertension Hx Contributory? No Review of Systems Review of Systems Constitutional: Reports: no symptoms. EENTM: Reports: no symptoms. Respiratory: Reports: no symptoms. Cardiovascular: Reports: no symptoms. GI: Reports: see HPI. Genitourinary: Reports: no symptoms. Musculoskeletal: Reports: no symptoms. Skin: Reports: no symptoms. Neurological/Psychological: Reports: no symptoms. Hematologic/Endocrine: Reports: no symptoms. Immunologic/Allergic: Reports: no symptoms. All Other Systems: Reviewed and Negative Physical Exam Physical Exam General Appearance: well developed/nourished, no apparent distress, alert, awake Head: atraumatic, normal appearance Eyes: Bilateral: normal appearance. Ears, Nose, Throat, Mouth: hearing grossly normal Neck: normal inspection, supple, full range of motion Respiratory: normal breath sounds, no respiratory distress, lungs clear Cardiovascular: regular rate/rhythm Gastrointestinal: soft, mild distention, tenderness through out exam with gaurding Back: normal inspection, normal range of motion Extremities: normal range of motion Neurologic/Psych: awake, alert, oriented x 3 Skin: intact, normal color, warm/dry Core Measures ACS in differential dx? No Sepsis Present: No Sepsis Focused Exam Completed? No Progress Differential Diagnosis: appendicitis, bowel obstruction, cholecystitis, diverticulitis, gastritis, hepatitis, hernia, inflamm bowel dis, pancreatitis, peptic ulcer, PUD/GERD, perforated viscous, SBO Plan of Care: Laboratory Tests 10/07/17 1418: Lactic Acid Cancelled 10/07/17 1342: Urine Color YEL, Urine Clarity CLEAR, Urine pH 6.5, Ur Specific [place] 1.015, Urine Protein NEG, Urine Ketones NEG, Urine Nitrite NEG, Urine Bilirubin NEG, Urine Urobilinogen 0.2, Ur Leukocyte Esterase NEG, Ur Microscopic EXAM NOT REQUIRED, Urine Hemoglobin NEG, Urine Glucose NEG Lipase is elevated at 1200, this level decreased from when patient was admitted and then has gradually increased since patient was here at the hospital. CT scan shows pancreatic cysts which have "matured" since previous imaging. No signs of pancreatic necrosis. These findings were discussed with finance lecturer, Dr. Reza. Dr. Reza feels that the patient's current abdominal pain could be attributed to these growing cysts. She believes the patient is stable for outpatient follow-up with gastroenterology based on his labs and CAT scan. She recommends increasing patient's pain medication given his significant pain, she recommends Percocet. Patient to follow up with GI next week. Patient also requires outpatient follow-up with general surgery for his scheduled cholecystectomy. Patient understands and agrees with our plan, he will follow up as directed. The patient was discussed with Dr. Jarrell who agrees with this plan. Diagnostic Imaging: Viewed by Me: CT Scan. Discussed w/RAD: CT Scan. Radiology Impression: PATIENT: EVANGELISTA CARO PRESENT AGE: 47 PATIENT ACCOUNT NO: [id number] : 70 LOCATION: [facility] ORDERING PHYSICIAN: Key SIMONS SERVICE DATE: 10/07/17 EXAM TYPE: CAT - CT ABD & PELVIS W IV CONTRAST EXAMINATION: CT ABDOMEN AND PELVIS WITH CONTRAST CLINICAL INFORMATION: 47-year-old male patient with recent history of choledocholithiasis. Increasing lipase. Pancreatitis. COMPARISON: Recent CT exams of the abdomen and pelvis on 09/14/2017, 09/19/2017, and 09/24/2017. TECHNIQUE: Multidetector volumetric imaging was performed of the abdomen and pelvis following IV administration of 95 mL of Optiray 320 intravenous contrast. Sagittal and coronal reformatted images were obtained on the technologist's workstation. DLP: 790 mGy-cm FINDINGS: EDUCATIONAL RESOURCE COORDINATOR: There is increasing soft tissue mass in the epigastrium superior to the transverse colon. This has developed over the interim. There is no intestinal obstruction. Platelike atelectasis is present in the base of the left lung. LUNG BASES: Minor dependent atelectasis is present in both lower lobes. There is no pleural effusion. LIVER, GALLBLADDER, AND BILIARY TREE: Liver is normal in size and attenuation. The intrahepatic and extrahepatic bile ducts have been decompressed since 09/14/2017. The gallbladder is not dilated. PANCREAS: Currently, there is no overt evidence of pancreatic necrosis. The previously described peripancreatic effusions are beginning to mature showing formation of thin marcial and these areas are evolving into pseudocysts. The largest pseudocyst in the lesser sac measures 5.7 cm in diameter. The smallest measures approximately 2.4 cm. Pancreatic effusion is accumulating in the jacob hepatis surrounding the common hepatic artery. Conglomerate pseudocysts are forming in the transverse mesocolon which results in displacement of the transverse colon inferiorly. There is also fluid extension into the root of the small bowel mesentery. In toto, this grouping of pseudocyst measure 12.7 cm in width, 8.2 cm in AP diameter, and 12.8 cm in cephalocaudad dimension. There is no sign of pancreatic ascites. SPLEEN: Unremarkable. No infarcts. ADRENAL GLANDS: Unremarkable. KIDNEYS AND URETERS: The kidneys are normal in size, shape, and attenuation. No hydronephrosis, hydroureter, or calculi seen. No perinephric stranding. At 1.3 cm diameter hyperdense cyst arises from the posterior inferior polar region of the right kidney. BLADDER: Unremarkable. GASTROINTESTINAL TRACT: The small and large bowel are unremarkable. The appendix is now normal void of any contrast or stone. ABDOMINAL WALL: No significant hernia is appreciated. LYMPH NODES: Normal. VASCULAR: The splenic vein and portal venous system are well patent. There is no evidence of thrombosis. PELVIC VISCERA: Unremarkable. OSSEOUS STRUCTURES: Unremarkable. IMPRESSION: 1. Currently no evidence of pancreatic necrosis in this patient pancreatitis. 2. Decompression of the biliary ducts. 3. Numerous pseudocysts are forming in the areas of previous fluid accumulation in the pancreatic bed, lesser sac, transverse mesocolon, and mesenteric root. DICTATED BY: Ar Bermudez MD DATE/TIME DICTATED:10/07/171351 SPORTS COMMENTATOR: JOSÉ MIGUEL DATE/TIME TRANSCRIBED:10/07/171351 CONFIDENTIAL, DO NOT COPY WITHOUT APPROPRIATE AUTHORIZATION. <Electronically signed in Other Vendor System> SIGNED BY: Ar Bermudez MD 10/07/17 1442 Initial ED EKG: none Departure Departure Disposition: HOME OR SELF CARE Condition: Stable Clinical Impression Primary Impression: Abdominal pain Qualifiers: Abdominal location: generalized Qualified Code: R10.84 - Generalized abdominal pain Secondary Impressions: Pancreatic cyst Referrals: Arturo INIGUEZ,Rubens Cancino (PCP/Family) Additional Instructions: Take Percocet as prescribed as needed for abdominal pain. Take Zofran as prescribed as needed for nausea, try this medication 30 minutes prior to an meal. Follow-up with Dr. Gamboa next week, call the office to make an appointment. Also follow-up with the general surgeon regarding YOUR scheduled gallbladder surgery. Return with worsening symptoms or concerns. Please note that there might be incidental findings in your evaluation that are unrelated to the current emergency department visit. Please notify your primary care doctor about this emergency department visit in order to obtain and review all of the testing performed so that these incidental findings can be monitored as needed. If you had an x-ray performed, please understand that some fractures may not be seen on the initial set of x-rays. If your symptoms persist you might need a repeat set of x-rays to check for such a fracture. If you had a laceration evaluated, please understand that foreign bodies such as glass or wood may not be visible to the naked eye or on plain x-rays. If the wound becomes red, swollen, increasingly more painful or if there is any drainage from the wound, please have it reevaluated by a physician for the possibility of a retained foreign body. If you're unable to follow up as outlined in the discharge instructions please return to the emergency department. Thank you for choosing the [facility] Emergency Department for your care. It was a pleasure to serve you today. Departure Forms: Customer Survey General Discharge Information Prescriptions: Current Visit Scripts Ondansetron (Zofran Odt) 1 TAB SL TID PRN nausea #20 TAB Oxycodone HCl/Acetaminophen (Percocet 5-325 MG Tablet) 1-2 TAB PO BID PRN PAIN #20 TAB
[2017-10-07 11:42] LABS: ABSOLUTE BASOPHIL COUNT 0 /CUMM (0.0-0.2); ABSOLUTE EOSINOPHIL COUNT 0.1 /CUMM (0.0-0.7); ABSOLUTE GRANULOCYTE CT 7.1 /CUMM (1.4-6.5); ABSOLUTE LYMPH COUNT 1.6 /CUMM (1.2-3.4); ABSOLUTE MONOCYTE COUNT 0.7 /CUMM (0.10-0.60); BASOPHIL % 0.3 % (0.0-2.0); EOSINOPHIL % 1.2 % (0-5); GRANULOCYTE % 74.1 % (42.2-75.2); HEMATOCRIT 37.3 % (42-52); MEAN CORPUSCULAR HGB 30.7 PG (27.0-31.0); MEAN CORPUSCULAR HGB CONC 34.6 G/DL (33.0-37.0); MEAN CORPUSCULAR VOLUME 88.8 FL (80.0-94.0); MEAN PLATELET VOLUME 7.3 FL (7.4-10.4); PLATELET COUNT 629 /CUMM (130-400); RBC DISTRIBUTION WIDTH 14.7 % (11.5-14.5); WHITE BLOOD CELL COUNT 9.5 /CUMM (4.8-10.8)
--- NOTE | 2017-10-07 14:42 | CT SCAN REPORT ---
EXAMINATION: CT ABDOMEN AND PELVIS WITH CONTRAST CLINICAL INFORMATION: 47-year-old male patient with recent history of choledocholithiasis. Increasing lipase. Pancreatitis. COMPARISON: Recent CT exams of the abdomen and pelvis on 09/14/2017, 09/19/2017, and 09/24/2017. TECHNIQUE: Multidetector volumetric imaging was performed of the abdomen and pelvis following IV administration of 95 mL of Optiray 320 intravenous contrast. Sagittal and coronal reformatted images were obtained on the technologist's workstation. DLP: 790 mGy-cm FINDINGS: INSTRUMENT REPAIRER STEAM PLANT: There is increasing soft tissue mass in the epigastrium superior to the transverse colon. This has developed over the interim. There is no intestinal obstruction. Platelike atelectasis is present in the base of the left lung. LUNG BASES: Minor dependent atelectasis is present in both lower lobes. There is no pleural effusion. LIVER, GALLBLADDER, AND BILIARY TREE: Liver is normal in size and attenuation. The intrahepatic and extrahepatic bile ducts have been decompressed since 09/14/2017. The gallbladder is not dilated. PANCREAS: Currently, there is no overt evidence of pancreatic necrosis. The previously described peripancreatic effusions are beginning to mature showing formation of thin marcial and these areas are evolving into pseudocysts. The largest pseudocyst in the lesser sac measures 5.7 cm in diameter. The smallest measures approximately 2.4 cm. Pancreatic effusion is accumulating in the jacob hepatis surrounding the common hepatic artery. Conglomerate pseudocysts are forming in the transverse mesocolon which results in displacement of the transverse colon inferiorly. There is also fluid extension into the root of the small bowel mesentery. In toto, this grouping of pseudocyst measure 12.7 cm in width, 8.2 cm in AP diameter, and 12.8 cm in cephalocaudad dimension. There is no sign of pancreatic ascites. SPLEEN: Unremarkable. No infarcts. ADRENAL GLANDS: Unremarkable. KIDNEYS AND URETERS: The kidneys are normal in size, shape, and attenuation. No hydronephrosis, hydroureter, or calculi seen. No perinephric stranding. At 1.3 cm diameter hyperdense cyst arises from the posterior inferior polar region of the right kidney. BLADDER: Unremarkable. GASTROINTESTINAL TRACT: The small and large bowel are unremarkable. The appendix is now normal void of any contrast or stone. ABDOMINAL WALL: No significant hernia is appreciated. LYMPH NODES: Normal. VASCULAR: The splenic vein and portal venous system are well patent. There is no evidence of thrombosis. PELVIC VISCERA: Unremarkable. OSSEOUS STRUCTURES: Unremarkable. IMPRESSION: 1. Currently no evidence of pancreatic necrosis in this patient pancreatitis. 2. Decompression of the biliary ducts. 3. Numerous pseudocysts are forming in the areas of previous fluid accumulation in the pancreatic bed, lesser sac, transverse mesocolon, and mesenteric root.
[2017-10-07 16:03] VITALS: BP 144/80
[2017-10-07] MEDS ORDERED: ZOFRAN ODT4 M1 SL (16:11)
[2017-10-07] MEDS ORDERED: PERCOCET 5-3251 EACH PO (16:22)
== END 2017-10-07 16:29 ==
LOC: ERH 10:33
PROVIDERS: Physician Assistant
DX: K86.2 Cyst of pancreas (principal); I10 Essential (primary) hypertension; F17.210 Nicotine dependence, cigarettes, uncomplicated
CPT/HCPCS: 74177; 81003; 96361; 96374; 96376; G0480

== ENCOUNTER 2017-11-01 05:38 | Inpatient (IN) | payer OTHER ==
[~2017-11-01] VITALS: Ht 180.3 cm; Wt 88.5 kg
[~2017-11-01 05:38] MED LIST changes: +PERCOCET 5-3251 EACH PO; +ZOFRAN ODT4 M1 SL
--- NOTE | 2017-11-01 05:57 | ED GI/GU/ABDOMINAL COMPLAINT ---
History of Present Illness General Chief Complaint: Abdominal Pain/Flank Pain Stated Complaint: ABD PAIN Source: patient, old records Exam Limitations: no limitations Allergies Coded Allergies: NO KNOWN ALLERGIES (NONE 09/18/17) Reconcile Medications [place] Carbonate ([place] Carbonate ER) 300 MG TABLET.ER 5 TAB PO AT BEDTIME MOOD STABILITY (Reported) Losartan (Cozaar) 100 MG TABLET 1 TAB PO DAILY HIGH BLOOD PRESSURE (Reported) Ondansetron (Zofran Odt) 4 MG TAB.RAPDIS 1 TAB SL TID PRN nausea Oxycodone HCl/Acetaminophen (Percocet 5-325 MG Tablet) 5 MG-325 MG TABLET 1-2 TAB PO BID PRN PAIN Simvastatin (Simvastatin*) 40 MG TABLET 1 TAB PO QPM HIGH CHOLESTROL ( Reported) Triage Note: PT FROM HOME C/O ABD PAIN FOR THE PAST 2 DAYS. PT STATES ABD PAIN 10/10 BURNING SHARP STABBING SENSATION THAT IS NONRADITING. PT DENIES N/V/D, CP, SOB. PTS BP ELEVATED, RECENTLY ADMITTED FOR PANCREATITIS. Triage Nurses Notes Reviewed? yes HPI: Patient presents with continued pain in his periumbilical area. The pain and radiates out to the rest the abdomen. The pain is sharp and burning in nature. He rates the pain at 10 out of 10. Patient states the pain never really went away and he just cannot take the pain anymore. Patient has no point with gastroenterology in 2 days but he could not wait. There are no fevers or chills. There is no nausea or vomiting. There is no constipation or diarrhea. (David INIGUEZ,Rubens Gray) Vital Signs & Intake/Output Vital Signs & Intake/Output Vital Signs Date Time Temp Pulse Resp B/P B/P Pulse O2 O2 Flow FiO2 Mean Ox Delivery Rate 11/03 0827 76 142/90 11/03 0639 98.2 65 20 130/100 96 Room Air 11/02 2245 97.9 63 18 147/99 98 Room Air 11/02 1527 98.7 71 18 132/89 98 Room Air 11/02 1515 67 150/90 ED Intake and Output 11/03 0000 11/02 1200 Intake Total 1820 1720 Output Total 1100 400 Balance 720 1320 Intake, IV 1200 1600 Intake, Oral 620 120 Number 0 0 Bowel Movements Output, Urine 1100 400 (Ambrocio INIGUEZ,Hamzah) Past History Travel History Traveled to [place] past 21 day No Medical History Any Pertinent Medical History? see below for history Cardiovascular: hypertension, hyperlipidemia Gastrointestinal: pancreatitis Psychiatric: bipolar disease History of MRSA: No History of VRE: No History of CDIFF: No Tetanus Vaccine: Surgical History Surgical History: non-contributory Psychosocial History What is your primary language Andorran Tobacco Use: Current Daily Use Daily Tobacco Use Amount/Type: =< 4 Cigarettes daily ETOH Use: denies use Illicit Drug Use: denies illicit drug use Family History Family History, If Any: FATHER, ; Cause: Lung cancer. FH: lung cancer Relation not specified for: FH: hyperlipidemia FH: hypertension Hx Contributory? No (Rubens Hernandez MD) Review of Systems Review of Systems Constitutional: Reports: no symptoms. EENTM: Reports: no symptoms. Respiratory: Reports: no symptoms. Cardiovascular: Reports: no symptoms. GI: Reports: see HPI, abdominal pain. Genitourinary: Reports: no symptoms. Musculoskeletal: Reports: no symptoms. Skin: Reports: no symptoms. Neurological/Psychological: Reports: no symptoms. Hematologic/Endocrine: Reports: no symptoms. Immunologic/Allergic: Reports: no symptoms. All Other Systems: Reviewed and Negative (David INIGUEZ,Rubens Gray) Physical Exam Physical Exam General Appearance: well developed/nourished, alert, awake, anxious, moderate distress Head: atraumatic, normal appearance Eyes: Bilateral: PERRL, EOMI. Ears, Nose, Throat, Mouth: hearing grossly normal, DRY MUCOSA Neck: normal inspection, supple, full range of motion Respiratory: normal breath sounds, chest non-tender, no respiratory distress, lungs clear Cardiovascular: regular rate/rhythm, normal peripheral pulses, bradycardia Gastrointestinal: normal bowel sounds, soft, no organomegaly, tenderness Back: normal inspection, normal range of motion Extremities: normal range of motion Neurologic/Psych: no motor/sensory deficits, awake, alert, oriented x 3, normal gait, normal mood/affect Skin: intact, normal color, warm/dry Core Measures ACS in differential dx? No Sepsis Present: No Sepsis Focused Exam Completed? No (Rubens Hernandez MD) Progress Differential Diagnosis: AMI, biliary colic, cholecystitis, diverticulitis, pancreatitis Initial ED EKG: NSR, no ST T wave changes Prior EKG: unchanged (Rubens Hernandez MD) Plan of Care: Orders Procedure Date/time Status CBC WITHOUT DIFFERENTIAL 11/03 06 Complete CYTOLOGY SPECIMEN 11/02 1304 Active PHOSPHORUS 11/02 0816 Complete MAGNESIUM 11/02 0816 Complete FOLIC ACID 11/02 0816 Complete CALCIUM 11/02 0816 Complete Lab Add-on Test 11/02 UNK Active Current Medications Sig/[place] Start time Last Medication Dose Stop Time Status Admin Losartan Potassium 100 MG DAILY 11/03 0900 AC 11/03 (Cozaar) 0827 Gabapentin 200 MG Q8 11/02 1400 AC 11/03 (Neurontin) 0528 Hydromorphone HCl 2 MG Q4P PRN 11/02 1030 AC 11/03 (Dilaudid) 0828 Oxycodone/ 2 TAB Q6P PRN 11/02 1030 AC 11/03 Acetaminophen 0528 (Percocet) Enoxaparin Sodium 40 MG DAILY 11/01 2100 AC 11/03 (Lovenox) 0827 [place] Carbonate 1,500 MG AT BEDTIME 11/01 2100 AC 11/02 (Lithobid Slow 202 Release) Ibuprofen 400 MG Q6P PRN 11/01 1415 AC (Motrin) Laboratory Tests 11/03/17 0700: CBC w Diff NO MAN DIFF REQ, RBC 4.54 L, MCV 89.1, MCH 29.5, MCHC 33.1, RDW 13.9 , MPV 7.4, Gran % 60.8, Lymphocytes % 23.8, Monocytes % 7.8, Eosinophils % 7.1 H, Basophils % 0.5, Absolute Granulocytes 5.0, Absolute Lymphocytes 1.9, Absolute Monocytes 0.6, Absolute Eosinophils 0.6, Absolute Basophils 0 Diagnostic Imaging: Viewed by Me: Ultrasound. Discussed w/RAD: Ultrasound. Radiology Impression: Limited visualization of the pancreas. There are 2 complex lesions seen in and adjacent to the pancreas likely representing pancreatic pseudocysts. Multiple cysts seen in and around the pancreas on recent CT are not visualized by ultrasound. Comments: Continued pain despite multiple rounds of analgesia. (Ambrocio INIGUEZ,Hamzah) Departure Departure Disposition: STILL A PATIENT Condition: Stable Referrals: Arturo INIGUEZ,Rubens Cancino (PCP/Family) Departure Forms: Customer Survey General Discharge Information (David INIGUEZ,Rubens Gray) Departure Clinical Impression Primary Impression: Pancreatic pseudocyst Secondary Impressions: Abdominal pain Admission Note Spoke With: Chava INIGUEZ,Whitney Jennings Documentation of Exam: Documentation of any treatments & extenuating circumstances including Concerns Regarding Discharge (functional status, medication knowledge or non-compliance, living conditions, etc.) that warrant an admission rather than observation: NPO IV analgesia IV antiemetic GI evaluation psychiatry evaluation for opiate dependence medication adjustment advance diet continuing care discharge planning (Hamzah Albrecht MD) Critical Care Note Critical Care Note Critical Care Time: 30-74 min (40) (Hamzah Albrecht MD)
[2017-11-01 06:18] LABS: ABSOLUTE BASOPHIL COUNT 0 /CUMM (0.0-0.2); ABSOLUTE EOSINOPHIL COUNT 0.2 /CUMM (0.0-0.7); ABSOLUTE GRANULOCYTE CT 9.5 /CUMM (1.4-6.5); ABSOLUTE LYMPH COUNT 1.4 /CUMM (1.2-3.4); ABSOLUTE MONOCYTE COUNT 0.7 /CUMM (0.10-0.60); BASOPHIL % 0.3 % (0.0-2.0); EOSINOPHIL % 1.7 % (0-5); GRANULOCYTE % 80.1 % (42.2-75.2); HEMATOCRIT 46.9 % (42-52); MEAN CORPUSCULAR HGB 29.3 PG (27.0-31.0); MEAN CORPUSCULAR VOLUME 88.9 FL (80.0-94.0); MEAN PLATELET VOLUME 7.7 FL (7.4-10.4); PLATELET COUNT 511 /CUMM (130-400); RBC DISTRIBUTION WIDTH 14.1 % (11.5-14.5); RED BLOOD CELL CT 5.28 /CUMM (4.70-6.10); WHITE BLOOD CELL COUNT 11.9 /CUMM (4.8-10.8)
--- NOTE | 2017-11-01 10:41 | ULTRASOUND REPORT ---
EXAMINATION: US ABDOMEN LIMITED CLINICAL INFORMATION: Recurrent abdominal pain. History of pancreatitis and pseudocysts.. COMPARISON: Previous CT scans most recent 10/07/2017 TECHNIQUE: Real-time imaging of the right upper quadrant abdominal viscera. FINDINGS: PANCREAS: The pancreas is difficult to visualize. There is a complex cyst seen in the body of the pancreas measuring 4.7 x 1.5 x 4.2 cm. There is a larger complex lesion seen superior to the pancreas that measures 5.4 x 3.2 x 7.5 cm. When compared with previous CT scan, these likely correspond to known pancreatic pseudocysts. Numerous other cysts in an around the pancreas seen by CT are not appreciated. LIVER: Normal. The liver demonstrates normal size, contour and echogenicity. No focal lesion or intrahepatic biliary duct dilatation. GALLBLADDER: Normal. The gallbladder is physiologically distended without evidence of stones, sludge, polyps, wall thickening or pericholecystic fluid. COMMON BILE DUCT: Normal in caliber measuring 0.4 cm in diameter. RIGHT KIDNEY: Normal. No hydronephrosis. No renal calculi or focal parenchymal lesions. The kidney measures 11.2 cm in maximum dimension. FREE FLUID: None. IMPRESSION: Limited visualization of the pancreas. There are 2 complex lesions seen in and adjacent to the pancreas likely representing pancreatic pseudocysts. Multiple cysts seen in and around the pancreas on recent CT are not visualized by ultrasound.
--- NOTE | 2017-11-01 12:05 | History & Physical ---
General Information and HPI MD Statement: I have seen and personally examined EVANGELISTA CARBONE and documented this H&P. The patient is a 47 year old M who presented with a patient stated chief complaint of abdominal pain. Source of Information: patient, family, old records Exam Limitations: no limitations History of Present Illness: Mr. Carbone is a 47 year old man with past medical history of bipolar disorder, hypertension, and hyperlipidemia who was recently seen at [facility] from September 14 to October 02, where he was treated for abdominal pain 2/2 choledocholithiasis causing pancreatitis and possible cholangitis, during that admission he underwent an ERCP with sphincterotomy and stone extraction, who presented to the emergency department on 11/01/2017 complaining of worsening abdominal pain. At the time of our clinical interaction, the pain was rated at a 9 out of 10 severity. Described as sharp and shooting. Located in the epigastric area. Patient states that certain positions made the pain better. He states that pain was worsened with by mouth intake. Patient also states that prior to coming in he endorses a decreased appetite. He also endorses loose stools however denies the presence of any blood or any mucus. Patient did also state that he has noted that recently his urine has been very discolored. The patient was also seen in the emergency department on 10/07/2017 where he was experiencing abdominal pain as well. He was given instructions to follow-up with Dr. Gamboa and general surgeon for cholecystectomy evaluation. Allergies/Medications Allergies: Coded Allergies: NO KNOWN ALLERGIES (NONE 09/18/17) Home Med list [place] Carbonate ([place] Carbonate ER) 300 MG TABLET.ER 5 TAB PO AT BEDTIME MOOD STABILITY (Reported) Losartan (Cozaar) 100 MG TABLET 1 TAB PO DAILY HIGH BLOOD PRESSURE (Reported) Ondansetron (Zofran Odt) 4 MG TAB.RAPDIS 1 TAB SL TID PRN nausea Oxycodone HCl/Acetaminophen (Percocet 5-325 MG Tablet) 5 MG-325 MG TABLET 1-2 TAB PO BID PRN PAIN Simvastatin (Simvastatin*) 40 MG TABLET 1 TAB PO QPM HIGH CHOLESTROL ( Reported) Compliance With Home Meds: GOOD Past History Travel History Traveled to [place] past 21 day No Medical History Cardiovascular: hypertension, hyperlipidemia Gastrointestinal: pancreatitis Psychiatric: bipolar disease History of MRSA: No History of VRE: No History of CDIFF: No Tetanus Vaccine: Surgical History Surgical History: non-contributory Past Family/Social History Family History Relations & Conditions if any FATHER, ; Cause: Lung cancer. FH: lung cancer Relation not specified for: FH: hyperlipidemia FH: hypertension Psychosocial History Past Psychosocial History Unobtainable at this time Where do you live? Home Who Do You Live With? self Services at Home: None Primary Language: Jamaican Smoking Status: Current Everyday Smoker (5 Cigarettes ) ETOH Use: denies use Illicit Drug Use: denies illicit drug use Functional Ability ADLs Independent: dressing, eating, toileting, bathing. Ambulation: independent IADLs Independent: shopping, housework, finances, food prep, telephone, transportation , medication admin. Review of Systems Review of Systems Constitutional: Reports: chills, weakness. Denies: fever. Cardiovascular: Denies: chest pain, edema, orthopena, palpitations. Respiratory: Denies: cough, hemoptysis, orthopnea, short of breath. GI: Reports: abdominal pain, bloating, diarrhea, nausea, changes in stool. Denies: constipation, vomiting, steatorrhea. Genitourinary: Reports: see HPI. Musculoskeletal: Denies: see HPI, back pain, gout, joint pain, joint swelling. Skin: Denies: change in skin color, change in hair/nails, dryness, erythema, jaundice. Exam & Diagnostic Data Last 24 Hrs of Vital Signs/I&O Vital Signs Date Time Temp Pulse Resp B/P B/P Pulse O2 O2 Flow FiO2 Mean Ox Delivery Rate 11/01 1050 97.9 62 16 148/71 98 Room Air 11/01 0814 98.7 63 18 152/99 99 Room Air 11/01 0559 97 Room Air 11/01 0547 97.5 83 18 156/113 98 Room Air Intake & Output 11/01 1600 11/01 0800 11/01 0000 Intake Total Output Total Balance Patient 99.79 kg Weight Weight Reported by Patient Measurement Method Physical Exam General Appearance Alert, Oriented X3, Cooperative, Mild Distress Cardiovascular Regular Rate, Normal S1, Normal S2 Lungs Clear to Auscultation Abdomen Normal Bowel Sounds, Soft, Tenderness noted on deep palpation. No rebound, no guarding, morocho sign - Neurological Normal Gait, Normal Speech, Strength at 5/5 X4 Ext Extremities No Edema Vascular Normal Pulses Last 24 Hrs of Labs/David: Laboratory Tests 11/01/17926: Urine Opiates Screen > 4000.00 H, Methadone Screen < 40, Barbiturate Screen < 60, Ur Phencyclidine Scrn < 6.00, Amphetamines Screen < 100, U Benzodiazepines Scrn < 85, Urine Cocaine Screen 190, Urine Cannabis Screen < 5.00, Urine Color SVETLANA, Urine Clarity CLEAR, Urine pH 6.0, Ur Specific [place] 1.025, Urine Protein 30 H, Urine Ketones TRACE H, Urine Nitrite NEG, Urine Bilirubin NEG@ ICTO, Urine Urobilinogen 1.0, Ur Leukocyte Esterase NEG, Ur Microscopic SEDIMENT EXAMINED, Urine WBC 1-3 H, Urine Crystals 3+ CA OX H, Urine Mucus MANY H, Urine Hemoglobin NEG, Urine Glucose NEG 11/01/17 0554: Anion Gap 14, Estimated GFR > 60, BUN/Creatinine Ratio 11.8, Glucose 117 H, Calcium 10.1, Total Bilirubin 0.6, AST 24, ALT 30, Alkaline Phosphatase 83, Troponin I < 0.01, Total Protein 7.3, Albumin 4.4, Globulin 2.9, Albumin/ Globulin Ratio 1.5, Amylase 37, Lipase 163, CBC w Diff NO MAN DIFF REQ, RBC 5.28 , MCV 88.9, MCH 29.3, MCHC 33.0, RDW 14.1, MPV 7.7, Gran % 80.1 H, Lymphocytes % 12.1 L, Monocytes % 5.8, Eosinophils % 1.7, Basophils % 0.3, Absolute Granulocytes 9.5 H, Absolute Lymphocytes 1.4, Absolute Monocytes 0.7 H, Absolute Eosinophils 0.2, Absolute Basophils 0 Microbiology 11/01 1899 URINE ROUT: Urine Culture - RECD Diagnostic Data Other Results SERVICE DATE: 11/01/17 EXAM TYPE: US - US-LIMITED ABDOMEN EXAMINATION: US ABDOMEN LIMITED CLINICAL INFORMATION: Recurrent abdominal pain. History of pancreatitis and pseudocysts.. COMPARISON: Previous CT scans most recent 10/07/2017 TECHNIQUE: Real-time imaging of the right upper quadrant abdominal viscera. FINDINGS: PANCREAS: The pancreas is difficult to visualize. There is a complex cyst seen in the body of the pancreas measuring 4.7 x 1.5 x 4.2 cm. There is a larger complex lesion seen superior to the pancreas that measures 5.4 x 3.2 x 7.5 cm. When compared with previous CT scan, these likely correspond to known pancreatic pseudocysts. Numerous other cysts in an around the pancreas seen by CT are not appreciated. LIVER: Normal. The liver demonstrates normal size, contour and echogenicity. No focal lesion or intrahepatic biliary duct dilatation. GALLBLADDER: Normal. The gallbladder is physiologically distended without evidence of stones, sludge, polyps, wall thickening or pericholecystic fluid. COMMON BILE DUCT: Normal in caliber measuring 0.4 cm in diameter. RIGHT KIDNEY: Normal. No hydronephrosis. No renal calculi or focal parenchymal lesions. The kidney measures 11.2 cm in maximum dimension. FREE FLUID: None. IMPRESSION: Limited visualization of the pancreas. There are 2 complex lesions seen in and adjacent to the pancreas likely representing pancreatic pseudocysts. Multiple cysts seen in and around the pancreas on recent CT are not visualized by ultrasound. DICTATED BY: Vaughn INIGUEZ,Dolly Trevino Assessment/Plan Assessment: Mr. Carbone is a 47 year old man with past medical history of bipolar disorder, hypertension, and hyperlipidemia who was recently seen at [facility] from September 14 to October 02, where he was treated for abdominal pain 2/2 choledocholithiasis causing pancreatitis and possible cholangitis, during that admission he underwent an ERCP with sphincterotomy and stone extraction, who presented to the emergency department on 11/01/2017 complaining of worsening abdominal pain. His pain is concerning in the sense that it could be due to worsening or increasing size of pseudocyst which is been seen on previous documentation. No evidence of any acute right upper quadrant pain suggesting cholecystitis. LFT and Amlase/Lipase are also normal. #Abdominal pain related to pseudocyst of pancreas. #History of hypertension #History of hyperlipidemia, #History of choledocholithiasis status post ERCP with sphincterotomy. #Exophytic right renal lesion #History of substance abuse. Admit patient to general medicine. Aggressive hydration with normal saline at 200 mL per hour. Formal GI consultation has been obtained recommended CT scan of the abdomen and pelvis with pancreatic protocol. Once imaging studies are back may consider more aggressive measures including drainage if size is greater than 6 cm. Advanced diet as tolerated. Patient did state that he wanted clear liquids for now. Continue lithium for bipolar. Adequate pain with IV Dilaudid, since it was inflated, Motrin, May consider surgical consultation at the time of discharge. May consider nephro consultation at the time of discharge. May consider social work consultation once patient stabilizes. Substance cessation counseling. DVT prophylaxis with Lovenox. Patient is a full code. As Ranked By This Provider Problem List: 1. Pancreatic pseudocyst 2. Bipolar 1 disorder 3. Substance abuse Core Measures/Misc (02/22) Sepsis (View protocol) Sepsis Present: Yes If YES complete Sepsis Event Note If YES complete Sepsis Event Note
--- NOTE | 2017-11-01 14:06 | PN- Att Addend ---
Attending Addendum Attending Brief Note Patient seen and examined in the emergency room. Plan of care discussed with the medical team and the patient. Available lab work and radiology test reports were reviewed. Patient is a 47-year-old male with the history of recent admission to the hospital ICU for gallstone pancreatitis with a complicated course. He was hospitalized from September 14 to October 02 and a friend ERCP on September 16. His sphincterotomy and stone extraction done. Subsequently he remained febrile and was on TPN for several days. His last CT scan from October 07 shows document of fluid collections at multiple locations. Patient was discharged home on Percocet which she ran out about 2 weeks ago and since then trying to manage pain without narcotics. For past 2 days his pain has gotten worse. Patient has been feeling nauseous but did not vomit he denies any fever or chills and was a not able to eat for last 2 days. Allergies Coded Allergies: NO KNOWN ALLERGIES (NONE 09/18/17) Reconcile Medications [place] Carbonate ([place] Carbonate ER) 300 MG TABLET.ER 5 TAB PO AT BEDTIME MOOD STABILITY (Reported) Losartan (Cozaar) 100 MG TABLET 1 TAB PO DAILY HIGH BLOOD PRESSURE (Reported) Ondansetron (Zofran Odt) 4 MG TAB.RAPDIS 1 TAB SL TID PRN nausea Oxycodone HCl/Acetaminophen (Percocet 5-325 MG Tablet) 5 MG-325 MG TABLET 1-2 TAB PO BID PRN PAIN Simvastatin (Simvastatin*) 40 MG TABLET 1 TAB PO QPM HIGH CHOLESTROL ( Reported) Medical History Any Pertinent Medical History? see below for history Cardiovascular: hypertension, hyperlipidemia Gastrointestinal: pancreatitis Psychiatric: bipolar disease History of MRSA: No History of VRE: No History of CDIFF: No Tetanus Vaccine: Surgical History Surgical History: non-contributory Psychosocial History What is your primary language [place] Island[place] Tobacco Use: Current Daily Use Daily Tobacco Use Amount/Type: =< 4 Cigarettes daily ETOH Use: denies use Illicit Drug Use: denies illicit drug use Family History Family History, If Any: FATHER, ; Cause: Lung cancer. FH: lung cancer Relation not specified for: FH: hyperlipidemia FH: hypertension Vital Signs Date Time Temp Pulse Resp B/P B/P Pulse O2 O2 Flow FiO2 Mean Ox Delivery Rate 11/01 1252 98.2 65 18 148/72 100 Room Air 11/01 1050 97.9 62 16 148/71 98 Room Air 11/01 0814 98.7 63 18 152/99 99 Room Air 11/01 0559 97 Room Air 11/01 0547 97.5 83 18 156/113 98 Room Air Intake & Output 11/01 1600 11/01 0800 11/01 0000 Intake Total Output Total Balance Patient 220 lb Weight Weight Reported by Patient Measurement Method Exam: General: Patient awake alert oriented without any distress CVS: S1 plus S2 without any murmur or gallops Chest: Few scattered crepitation without any wheeze. There is no respiratory distress. Abdomen: Soft with mild to moderate tenderness in epigastric area, bowel sound present, no guarding or rebound TELLER SUPERVISOR: Awake alert oriented without any focal neuro deficit and follows commands appropriately Extremities: No edema; no clubbing or cyanosis noted Laboratory Tests 11/01/17 0927: Urine Opiates Screen > 4000.00 H, Methadone Screen < 40, Barbiturate Screen < 60, Ur Phencyclidine Scrn < 6.00, Amphetamines Screen < 100, U Benzodiazepines Scrn < 85, Urine Cocaine Screen 190, Urine Cannabis Screen < 5.00, Urine Color SVETLANA, Urine Clarity CLEAR, Urine pH 6.0, Ur Specific [place] 1.025, Urine Protein 30 H, Urine Ketones TRACE H, Urine Nitrite NEG, Urine Bilirubin NEG@ ICTO, Urine Urobilinogen 1.0, Ur Leukocyte Esterase NEG, Ur Microscopic SEDIMENT EXAMINED, Urine WBC 1-3 H, Urine Crystals 3+ CA OX H, Urine Mucus MANY H, Urine Hemoglobin NEG, Urine Glucose NEG 11/01/17 0554: Anion Gap 14, Estimated GFR > 60, BUN/Creatinine Ratio 11.8, Glucose 117 H, Calcium 10.1, Total Bilirubin 0.6, AST 24, ALT 30, Alkaline Phosphatase 83, Troponin I < 0.01, Total Protein 7.3, Albumin 4.4, Globulin 2.9, Albumin/ Globulin Ratio 1.5, Amylase 37, Lipase 163, CBC w Diff NO MAN DIFF REQ, RBC 5.28 , MCV 88.9, MCH 29.3, MCHC 33.0, RDW 14.1, MPV 7.7, Gran % 80.1 H, Lymphocytes % 12.1 L, Monocytes % 5.8, Eosinophils % 1.7, Basophils % 0.3, Absolute Granulocytes 9.5 H, Absolute Lymphocytes 1.4, Absolute Monocytes 0.7 H, Absolute Eosinophils 0.2, Absolute Basophils 0 US abd Limited visualization of the pancreas. There are 2 complex lesions seen in and adjacent to the pancreas likely representing pancreatic pseudocysts. Multiple cysts seen in and around the pancreas on recent CT are not visualized by ultrasound. Assessment and problem list * Multiple pancreatic pseudocyst without any sign of infection * Abdominal pain likely originating from pseudocysts * History of gallstone pericarditis status post ERCP and sphincterotomy * History of hypertension * History of bipolar disorder currently on lithium * Hyperlipidemia * Right renal mass/cyst Plan * Admit to general medical floor * Okay to feed patient * GI consult * Start Motrin for mild pain, Percocet for moderate pain and IV Dilaudid for severe pain * Continue lithium * Send urine for cytology
--- NOTE | 2017-11-01 14:16 | Admission Certification ---
Admission Certification Certification Statement - As attending physician, I certify that at the time of - admission, based on clinical presentation, severity of - symptoms, need for further diagnostic testing and - therapeutic interventions, and risk of adverse outcomes - without in-hospital treatment, in my clinical assessment, - this patient requires an acute hospital stay for a minimum - of two nights or longer. I have also considered psychsocial - factors such as support system, advanced age, financial - issues, cognitive issues, and failed out-patient treatments, - past re-admission history, safety of patient, and lack of - compliance as applicable. Specific rationale supporting this admission is: Pancreatic pseudocyst and abdominal pain
[2017-11-01 15:50] VITALS: BP 130/90
--- NOTE | 2017-11-01 16:19 | Cons- Gastroenterology ---
General Information and HPI Consulting Request Date of Consult: 11/01/17 Requested By: Abhijit Larsen MD Reason for Consult: 1. Abdominal Pain 2. History of Pancreatitis with Pseudocyst Source of Information: patient, Electronic Medical Record Exam Limitations: no limitations History of Present Illness: The patient is a 47-year-old male with a remote history of alcohol abuse as well as heroin abuse, who was last admitted to [facility] in September 14, 2017 with gallstone pancreatitis and cholangitis. He underwent ERCP by Dr. Cayden Gamboa with sphincterotomy and stone extraction. He did not undergo cholecystectomy during that admission due to development of pancreatitis complicated by pseudocyst formation. Patient was discharged to home, however he returned to the [facility] ED with increasing abdominal pain. An ultrasound done on admission showed the following. FINDINGS: PANCREAS: The pancreas is difficult to visualize. There is a complex cyst seen in the body of the pancreas measuring 4.7 x 1.5 x 4.2 cm. There is a larger complex lesion seen superior to the pancreas that measures 5.4 x 3.2 x 7.5 cm. When compared with previous CT scan, these likely correspond to known pancreatic pseudocysts. Numerous other cysts in an around the pancreas seen by CT are not appreciated. LIVER: Normal. The liver demonstrates normal size, contour and echogenicity. No focal lesion or intrahepatic biliary duct dilatation. GALLBLADDER: Normal. The gallbladder is physiologically distended without evidence of stones, sludge, polyps, wall thickening or pericholecystic fluid. COMMON BILE DUCT: Normal in caliber measuring 0.4 cm in diameter. RIGHT KIDNEY: Normal. No hydronephrosis. No renal calculi or focal parenchymal lesions. The kidney measures 11.2 cm in maximum dimension. FREE FLUID: None. IMPRESSION: Limited visualization of the pancreas. There are 2 complex lesions seen in and adjacent to the pancreas likely representing pancreatic pseudocysts. Multiple cysts seen in and around the pancreas on recent CT are not visualized by ultrasound. Mr. Carbone had been seen in the ED on October 07, for evaluation of continued abdominal pain and a lipase of 1000. At that time a CT Scan of the abdomen and pelvis was done which showed the following. FINDINGS: ANALYTICAL LAB ANALYST: There is increasing soft tissue mass in the epigastrium superior to the transverse colon. This has developed over the interim. There is no intestinal obstruction. Platelike atelectasis is present in the base of the left lung. LUNG BASES: Minor dependent atelectasis is present in both lower lobes. There is no pleural effusion. LIVER, GALLBLADDER, AND BILIARY TREE: Liver is normal in size and attenuation. The intrahepatic and extrahepatic bile ducts have been decompressed since 09/14/2017. The gallbladder is not dilated. PANCREAS: Currently, there is no overt evidence of pancreatic necrosis. The previously described peripancreatic effusions are beginning to mature showing formation of thin marcial and these areas are evolving into pseudocysts. The largest pseudocyst in the lesser sac measures 5.7 cm in diameter. The smallest measures approximately 2.4 cm. Pancreatic effusion is accumulating in the jacob hepatis surrounding the common hepatic artery. Conglomerate pseudocysts are forming in the transverse mesocolon which results in displacement of the transverse colon inferiorly. There is also fluid extension into the root of the small bowel mesentery. In toto, this grouping of pseudocyst measure 12.7 cm in width, 8.2 cm in AP diameter, and 12.8 cm in cephalocaudad dimension. There is no sign of pancreatic ascites. SPLEEN: Unremarkable. No infarcts. ADRENAL GLANDS: Unremarkable. KIDNEYS AND URETERS: The kidneys are normal in size, shape, and attenuation. No hydronephrosis, hydroureter, or calculi seen. No perinephric stranding. At 1.3 cm diameter hyperdense cyst arises from the posterior inferior polar region of the right kidney. BLADDER: Unremarkable. GASTROINTESTINAL TRACT: The small and large bowel are unremarkable. The appendix is now normal void of any contrast or stone. ABDOMINAL WALL: No significant hernia is appreciated. LYMPH NODES: Normal. VASCULAR: The splenic vein and portal venous system are well patent. There is no evidence of thrombosis. PELVIC VISCERA: Unremarkable. OSSEOUS STRUCTURES: Unremarkable. IMPRESSION: 1. Currently no evidence of pancreatic necrosis in this patient pancreatitis. 2. Decompression of the biliary ducts. 3. Numerous pseudocysts are forming in the areas of previous fluid accumulation in the pancreatic bed, lesser sac, transverse mesocolon, and mesenteric root. Allergies/Medications Allergies: Coded Allergies: NO KNOWN ALLERGIES (NONE 09/18/17) Home Med List: Maeser Carbonate (Maeser Carbonate ER) 300 MG TABLET.ER 5 TAB PO AT BEDTIME MOOD STABILITY (Reported) Losartan (Cozaar) 100 MG TABLET 1 TAB PO DAILY HIGH BLOOD PRESSURE (Reported) Ondansetron (Zofran Odt) 4 MG TAB.RAPDIS 1 TAB SL TID PRN nausea Oxycodone HCl/Acetaminophen (Percocet 5-325 MG Tablet) 5 MG-325 MG TABLET 1-2 TAB PO BID PRN PAIN Simvastatin (Simvastatin*) 40 MG TABLET 1 TAB PO QPM HIGH CHOLESTROL ( Reported) Current Medications: Current Medications Sig/Carrington Start time Last Medication Dose Route Stop Time Status Admin Acetaminophen 0 .STK-MED ONE 11/01 0800 DC IV Acetaminophen 1,000 MG ONCE ONE 11/01 0745 DC 11/01 IV 11/01 0746 0756 Hydromorphone HCl 2 MG Q6P PRN 11/01 1415 AC IV Ibuprofen 400 MG Q6P PRN 11/01 1415 AC PO Ketorolac 0 .STK-MED ONE 11/01 0638 DC Tromethamine .ROUTE Ketorolac 30 MG ONCE ONE 11/01 0630 DC 11/01 Tromethamine IV 11/01 0631 0631 Morphine Sulfate 4 MG ONCE ONE 11/01 1400 DC 11/01 IV 11/01 1401 1407 Morphine Sulfate 0 .STK-MED ONE 11/01 1231 DC .ROUTE Morphine Sulfate 4 MG ONCE ONE 11/01 1200 DC 11/01 IV 11/01 1201 1226 Morphine Sulfate 0 .STK-MED ONE 11/01 1056 DC .ROUTE Morphine Sulfate 4 MG ONCE ONE 11/01 1045 DC 11/01 IV 11/01 1046 1050 Morphine Sulfate 4 MG ONCE ONE 11/01 0630 DC 11/01 IV 11/01 0631 0618 Morphine Sulfate 0 .STK-MED ONE 11/01 0626 DC .ROUTE Morphine Sulfate 4 MG ONCE ONE 11/01 0600 DC 11/01 IV 11/01 0601 0555 Morphine Sulfate 0 .STK-MED ONE 11/01 0600 DC .ROUTE Ondansetron HCl 4 MG ONCE ONE 11/01 0615 DC 11/01 IV 11/01 0616 0606 Ondansetron HCl 0 .STK-MED ONE 11/01 0612 DC .ROUTE Oxycodone/ 1 TAB Q6P PRN 11/01 1415 AC 11/01 Acetaminophen PO 1548 Sodium Chloride 1,000 ML BOLUS ONE 11/01 1200 DC 11/01 IV 11/01 1259 1226 Sodium Chloride 1,000 ML BOLUS ONE 11/01 0600 DC 11/01 IV 11/01 0659 0555 Past History Travel History Traveled to [place] past 21 day No Medical History Cardiovascular: hypertension, hyperlipidemia Gastrointestinal: pancreatitis Psychiatric: bipolar disease Surgical History Surgical History: non-contributory Family History Relations & Conditions If Any: FATHER, ; Cause: Lung cancer. FH: lung cancer Relation not specified for: FH: hyperlipidemia FH: hypertension Psychosocial History Where Do You Live? Home Who Do You Live With? self Services at Home: None Primary Language: [place] Citizen Smoking Status: Current Everyday Smoker (5 Cigarettes ) ETOH Use: denies use Illicit Drug Use: denies illicit drug use Functional Ability ADLs Independent: dressing, eating, toileting, bathing. Ambulation: independent IADLs Independent: shopping, housework, finances, food prep, telephone, transportation , medication admin. Review of Systems Review of Systems Constitutional: Reports: weakness. Denies: chills, diaphoresis, fever. EENTM: Reports: no symptoms. Cardiovascular: Reports: no symptoms. Respiratory: Reports: no symptoms. GI: Reports: see HPI. Genitourinary: Reports: no symptoms. Musculoskeletal: Reports: no symptoms. Skin: Reports: no symptoms. Neurological/Psychological: Reports: no symptoms. Hematologic/Endocrine: Reports: no symptoms. Exam & Diagnostic Data Vital Signs and I&O Vital Signs Date Time Temp Pulse Resp B/P B/P Pulse O2 O2 Flow FiO2 Mean Ox Delivery Rate 11/01 1550 98.3 68 20 130/90 97 Room Air 11/01 1252 98.2 65 18 148/72 100 Room Air 11/01 1050 97.9 62 16 148/71 98 Room Air 11/01 0814 98.7 63 18 152/99 99 Room Air 11/01 0559 97 Room Air 11/01 0547 97.5 83 18 156/113 98 Room Air Intake & Output 11/01 1600 11/01 0400 10/31 1600 10/31 0400 10/30 1600 10/30 0400 Intake Total Output Total Balance Patient 195 lb Weight Weight Reported by Patient Measurement Method Physical Exam General Appearance: well developed/nourished, moderate distress Head: atraumatic, normal appearance Eyes: Bilateral: normal appearance. Ears, Nose, Throat: hearing grossly normal Neck: normal inspection, supple, full range of motion Respiratory: normal breath sounds, lungs clear Cardiovascular: regular rate/rhythm, Normal S1 and S2 Gastrointestinal: normal bowel sounds, soft, Mild upper abdominal tenderness without rebound or guarding Extremities: normal inspection, no edema Neurologic/Psych: awake, alert, oriented x 3 Cranial Nerves: Canial Nerves II-XII grossly intact Skin: intact, normal color, warm/dry Results Pertinent Lab Results: Laboratory Tests 11/01 11/01 0927 0554 Chemistry Sodium (137 - 145 mmol/L) 141 Potassium (3.5 - 5.1 mmol/L) 4.3 Chloride (98 - 107 mmol/L) 106 Carbon Dioxide (22 - 30 mmol/L) 21 L Anion Gap (5 - 16) 14 BUN (9 - 20 mg/dL) 13 Creatinine (0.7 - 1.2 mg/dL) 1.1 Estimated GFR (>60 ml/min) > 60 BUN/Creatinine Ratio (7 - 25 %) 11.8 Glucose (65 - 99 mg/dL) 117 H Calcium (8.4 - 10.2 mg/dL) 10.1 Total Bilirubin (0.2 - 1.3 mg/dL) 0.6 AST (17 - 59 U/L) 24 ALT (21 - 72 U/L) 30 Alkaline Phosphatase (< 127 U/L) 83 Troponin I (<0.11 ng/ml) < 0.01 Total Protein (6.3 - 8.2 g/dL) 7.3 Albumin (3.5 - 5.0 g/dL) 4.4 Globulin (1.9 - 4.2 gm/dL) 2.9 Albumin/Globulin Ratio (1.1 - 2.2 %) 1.5 Amylase (30 - 110 U/L) 37 Lipase (23 - 300 U/L) 163 Hematology CBC w Diff NO MAN DIFF REQ WBC (4.8 - 10.8 /CUMM) 11.9 H RBC (4.70 - 6.10 /CUMM) 5.28 Hgb (14.0 - 18.0 G/DL) 15.5 Hct (42 - 52 %) 46.9 MCV (80.0 - 94.0 FL) 88.9 MCH (27.0 - 31.0 PG) 29.3 MCHC (33.0 - 37.0 G/DL) 33.0 RDW (11.5 - 14.5 %) 14.1 Plt Count (130 - 400 /CUMM) 511 H MPV (7.4 - 10.4 FL) 7.7 Gran % (42.2 - 75.2 %) 80.1 H Lymphocytes % (20.5 - 51.1 %) 12.1 L Monocytes % (1.7 - 9.3 %) 5.8 Eosinophils % (0 - 5 %) 1.7 Basophils % (0.0 - 2.0 %) 0.3 Absolute Granulocytes (1.4 - 6.5 /CUMM) 9.5 H Absolute Lymphocytes (1.2 - 3.4 /CUMM) 1.4 Absolute Monocytes (0.10 - 0.60 /CUMM) 0.7 H Absolute Eosinophils (0.0 - 0.7 /CUMM) 0.2 Absolute Basophils (0.0 - 0.2 /CUMM) 0 Toxicology Urine Opiates Screen (>2000 NG/ML) > 4000.00 H Methadone Screen (>300 NG/ML) < 40 Barbiturate Screen (>200 NG/ML) < 60 Ur Phencyclidine Scrn (>25 NG/ML) < 6.00 Amphetamines Screen (>1000 NG/ML) < 100 U Benzodiazepines Scrn (>200 NG/ML) < 85 Urine Cocaine Screen (>300 NG/ML) 190 Urine Cannabis Screen (>50 NG/ML) < 5.00 Urines Urine Color (YEL,AMB,STR) SVETLANA Urine Clarity (CLEAR) CLEAR Urine pH (5.0 - 8.0) 6.0 Ur Specific [place] (1.001 - 1.035) 1.025 Urine Protein (NEG,<30 MG/DL) 30 H Urine Ketones (NEG) TRACE H Urine Nitrite (NEG) NEG Urine Bilirubin (NEG) NEG@ICTO Urine Urobilinogen (0.1 - 1.0 EU/dl) 1.0 Ur Leukocyte Esterase (NEG) NEG Ur Microscopic SEDIMENT EXAMINED Urine WBC (0 - 2 /HPF) 1-3 H Urine Crystals 3+ CA OX H Urine Mucus (FEW,NONE) MANY H Urine Hemoglobin (NEG) NEG Urine Glucose (N MG/DL) NEG Assessment/Plan Assessment/Recommendations: ASSESSMENT: 1. Abdominal Pain -- likely related to Pseudocyst Formation 2. Pseudocyst Formation -- ? whether pseudocysts are mature enough for drainage procedure at this time with possible cyst gastrostomy. Ultrasound is not the best modality to evaluating the pancreas. 3. History of IVDU and alcohol abuse 4. History of cholelithiasis 5. History of choledocholitiasis, s/p ERCP with sphincterotomy RECOMMENDATIONS: 1. CT Scan of the abdomen and pelvis, pancreatic protocol 2. Diet as tolerated 3. Narcotic analgesia 4. IV hydration 200 /hr Consult Acknowledgment - Thank you for your consult request.
[2017-11-01 22:16] VITALS: BP 160/110
--- NOTE | 2017-11-01 23:07 | CT SCAN REPORT ---
EXAMINATION: CT ABDOMEN AND PELVIS WITH CONTRAST CLINICAL INFORMATION: Abdominal pain. Evaluate for pseudocyst formation. COMPARISON: Multiple priors, most recently 10/07/2017 TECHNIQUE: Multidetector volumetric imaging was performed of the abdomen and pelvis following IV administration of 95 mL of Optiray 320 intravenous contrast. Sagittal and coronal reformatted images were obtained on the technologist's workstation. DLP: 515 mGy-cm FINDINGS: LUNG BASES: Bibasilar subsegmental atelectasis. LIVER, GALLBLADDER, AND BILIARY TREE: The liver is normal in size, shape, and attenuation. No focal hepatic lesion or biliary ductal dilatation is present. The gallbladder is unremarkable with no evidence of radiopaque gallstones, gallbladder wall thickening, or obvious pericholecystic inflammatory changes. PANCREAS: Pancreatic parenchyma is homogenous. No pancreatic ductal dilatation. There are multiple loculated fluid collections surrounding the pancreas. The collection anterior to the pancreatic body somewhat decreased in prominence compared to the previous CT, currently measuring 3.7 x 3.3 cm, compared to 5.7 x 4.4 cm on the prior. This may now be confluent with the additional fluid extending posterior and to the left, which previously had the appearance of multiple smaller collections. There is inferior extension which is better defined on the current study than on the prior, measuring 7.4 x 4.3 cm, series 2 image 38. There is additionally a separate collection more anteriorly, along the greater curvature of the stomach in the region of the gastric antrum. This is decreased from previous, currently measuring 7.4 x 3.6 cm, compared to 10 x 3.9 cm on prior. SPLEEN: Unremarkable. ADRENAL GLANDS: Unremarkable. KIDNEYS AND URETERS: The kidneys are normal in size, shape, and attenuation. No hydronephrosis, hydroureter, or calculi seen. No perinephric stranding. 1.2 cm exophytic right lower pole renal lesion, measuring higher than simple fluid. This is unchanged from recent priors. BLADDER: Unremarkable. GASTROINTESTINAL TRACT: The stomach is distended without wall thickening. The small bowel is fluid-filled and mildly dilated with air-fluid levels. This is increased from prior. There is no focal transition point. Normal appendix. No colonic wall thickening or inflammation. Trace pelvic free fluid. ABDOMINAL WALL: No significant hernia is appreciated. LYMPH NODES: Normal. VASCULAR: Unremarkable. The portal vein and splenic vein remain patent. PELVIC VISCERA: The prostate and seminal vesicles are unremarkable. OSSEOUS STRUCTURES: No acute or suspicious osseous abnormality. Multilevel degenerative changes throughout the spine. Vacuum disc phenomenon at L5-S1. Mild degenerative changes of the hips. IMPRESSION: Multiple pseudocysts are seen surrounding the pancreatic parenchyma. When compared to the previous study, there is decreased overall size of the collection which is superior to the pancreatic body and tail, although it appears somewhat more confluent. The overall size of the collection inferior to the pancreas is fairly similar to prior, also appearing more confluent. The collection along the greater curvature of the stomach remains well-defined, with decreasing size. Increased fluid-filled prominence of small bowel without focal transition point identified. Ileus is suggested.
[2017-11-02 02:27] VITALS: BP 164/108
[2017-11-02 02:30] VITALS: BP 164/108
[2017-11-02 06:50] VITALS: BP 158/106
[2017-11-02 09:23] LABS: ABSOLUTE EOSINOPHIL COUNT 0.2 /CUMM (0.0-0.7); ABSOLUTE LYMPH COUNT 1.6 /CUMM (1.2-3.4); MEAN CORPUSCULAR HGB 29.6 PG (27.0-31.0); RED BLOOD CELL CT 4.68 /CUMM (4.70-6.10)
[2017-11-02 09:42] LABS: ABSOLUTE BASOPHIL COUNT 0.1 /CUMM (0.0-0.2); ABSOLUTE GRANULOCYTE CT 9.9 /CUMM (1.4-6.5); ABSOLUTE MONOCYTE COUNT 0.7 /CUMM (0.10-0.60); BASOPHIL % 0.5 % (0.0-2.0); EOSINOPHIL % 1.9 % (0-5); GRANULOCYTE % 79.1 % (42.2-75.2); HEMATOCRIT 42.1 % (42-52); MEAN CORPUSCULAR VOLUME 89.8 FL (80.0-94.0); MEAN PLATELET VOLUME 7.7 FL (7.4-10.4); PLATELET COUNT 390 /CUMM (130-400); RBC DISTRIBUTION WIDTH 14.2 % (11.5-14.5); WHITE BLOOD CELL COUNT 12.5 /CUMM (4.8-10.8)
--- NOTE | 2017-11-02 10:38 | PN- Housestaff ---
Rocco INIGUEZ,Esther 11/02/17 1038: Subjective Follow-up For: pancreatic psuedocyst bipolar disorder opiate abuse Subjective: Patient seen and examined. Notes that he feels "horrible". Notes overnight diaphoresis and nausea with vomiting. Vomitus appeared "stew-like", brown, as per patient report. The patient notes continuing epigastric sharp, stabbing pain. He notes that the pain medications he is on Dilantin 2 mg every 6 only helped for about 1 hour. The patient also notes several "mosquito bites" that appeared to be small cysts beneath the epidermis with no tract, no fluctuance. There are 3 cysts on his right arm and scabs in his lower extremities, also noted are excoriations from itching. The patient denies any recent travel, bug bites as far as he can remember. Denies any new foods. The patient is an opiate abuser and last notes that he did heroin one week ago, non-intravenous. Review of Systems Constitutional: Reports: diaphoresis. EENTM: Reports: no symptoms. Cardiovascular: Reports: no symptoms. Respiratory: Reports: no symptoms. Gastrointestinal: Reports: abdominal pain, nausea, vomiting. Genitourinary: Reports: no symptoms. Musculoskeletal: Reports: no symptoms. Skin: Reports: lesions. Neurological/Psychological: Reports: no symptoms. Objective Last 24 Hrs of Vital Signs/I&O Vital Signs Date Time Temp Pulse Resp B/P B/P Pulse O2 O2 Flow FiO2 Mean Ox Delivery Rate 11/02 0650 98.7 83 18 158/106 95 11/02 0230 164/108 11/02 0227 65 164/108 11/01 2216 98.3 78 20 160/110 99 11/01 1550 98.3 68 20 130/90 97 Room Air 11/01 1252 98.2 65 18 148/72 100 Room Air Intake & Output 11/02 1600 11/02 0800 11/02 0000 Intake Total 1720 1110 Output Total 400 400 Balance 1320 710 Intake, IV 1600 810 Intake, Oral 120 300 Number 0 0 Bowel Movements Output, 200 Emesis Output, Urine 400 200 Physical Exam General Appearance: Alert, Oriented X3, Cooperative, No Acute Distress Skin: No Breakdown, No Significant Lesion, a group of 3 cysts on the right upper arm, not erythematous, no fluctuance, no tract. Several scattered scabs in the lower extremities and left arm. Excoriations noted. Wong INIGUEZ,Goodgretelisamar 11/03/17 1313: Attending MD Review Statement Attending Statement Attending MD Statement: examined this patient, discuss w/resident/PA/SILO OPERATOR, agreed w/resident/PA/SILO OPERATOR, discussed with family, reviewed EMR data (avail), discussed with nursing, discussed with case mgmt, amended to note Attending Assessment/Plan: Patient seen and examined. Lying in bed complaining of diffuse abdominal pain. He does admit the pain relieved also call with use of current pain regimen. We did offer to increase the dose of the current pain regimen however patient is okay with the current dose. He however does want to because of the pain to be addressed. He remains afebrile and hemodynamically stable. The gastroenterology service has suggested drainage of the pseudocyst. Examination abdomen is nondistended soft but with diffuse tenderness particularly in the left upper quadrant. On imaging is also noted to have some ileus. Recommendations: -Follow-up with the interventional radiology service regarding percutaneous drainage here at [facility]. If this is not feasible consider transfer to [facility] for further management. Patient is in agreement with this plan. -Continue current pain regimen. Will escalate as needed. Patient is currently okay with the current dose. -General surgery consultation regarding his ileus. Keep n.p.o. for now. Begin on IV hydration. -Mobilize patient as tolerated.
--- NOTE | 2017-11-02 12:00 | PN- Att Addend ---
Attending Addendum Attending Brief Note Patient seen and examined in the emergency room. Plan of care discussed with the medical team and the patient. Available lab work and radiology test reports were reviewed. Exam: General: Patient awake alert oriented without any distress CVS: S1 plus S2 without any murmur or gallops Chest: Few scattered crepitation without any wheeze. There is no respiratory distress. 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 alert oriented without any focal neuro deficit and follows commands appropriately Extremities: No edema; no clubbing or cyanosis noted Assessment and problem list * Multiple pancreatic pseudocyst without any sign of infection- based on CT findings pseudocysts are stable and probably have decreased in size * Abdominal pain likely originating from pseudocysts * History of gallstone pericarditis status post ERCP and sphincterotomy * History of hypertension * History of bipolar disorder currently on lithium * Hyperlipidemia * Right renal mass/cyst Plan * Continue Motrin for mild pain, Percocet for moderate pain and IV Dilaudid for severe pain * Continue lithium * Send urine for cytology * Increase Neurontin 200 mg 3 times a day * Increase Percocet to 2 tablets every 6 when necessary * Increased started to every 4 hours 2 mg * if po intake remains poor patient may need IV fluid support CT abdomen and pancreas Multiple pseudocysts are seen surrounding the pancreatic parenchyma. When compared to the previous study, there is decreased overall size of the collection which is superior to the pancreatic body and tail, although it appears somewhat more confluent. The overall size of the collection inferior to the pancreas is fairly similar to prior, also appearing more confluent. The collection along the greater curvature of the stomach remains well-defined, with decreasing size. Increased fluid-filled prominence of small bowel without focal transition point identified. Ileus is suggested. Current Medications Sig/[place] Start time Last Medication Dose Route Stop Time Status Admin Enoxaparin Sodium 40 MG DAILY 11/01 2100 AC 11/02 SC 1131 Gabapentin 100 MG Q8 11/02 1400 AC PO Hydromorphone HCl 2 MG Q4P PRN 11/02 1030 AC IV Hydromorphone HCl 2 MG Q6P PRN 11/01 1415 DC 11/02 IV 0850 Ibuprofen 400 MG Q6P PRN 11/01 1415 AC PO [place] Carbonate 1,500 MG AT BEDTIME 11/01 2100 AC 11/01 PO 2046 Morphine Sulfate 4 MG ONCE ONE 11/01 1400 DC 11/01 IV 11/01 1401 1407 Morphine Sulfate 0 .STK-MED ONE 11/01 1231 DC .ROUTE Morphine Sulfate 4 MG ONCE ONE 11/01 1200 DC 11/01 IV 11/01 1201 1226 Ondansetron HCl 4 MG ONCE ONE 11/02 0230 DC 11/02 IV 11/02 0231 0317 Oxycodone/ 2 TAB Q6P PRN 11/02 1030 AC 11/02 Acetaminophen PO 1130 Oxycodone/ 1 TAB Q6P PRN 11/01 1415 DC 11/02 Acetaminophen PO 0218 Sodium Chloride 1,000 ML Q5H 11/01 2100 DC 11/02 IV 11/02 0659 0530 Sodium Chloride 1,000 ML ONCE ONE 11/01 1730 DC 11/01 IV 11/01 2229 1817 Sodium Chloride 1,000 ML BOLUS ONE 11/01 1200 DC 11/01 IV 11/01 1259 1226 Laboratory Tests 11/02/17 0816: Anion Gap 8, Estimated GFR > 60, BUN/Creatinine Ratio 11.1, CBC w Diff NO MAN DIFF REQ, RBC 4.68 L, MCV 89.8, MCH 29.6, MCHC 33.0, RDW 14.2, MPV 7.7, Gran % 79.1 H, Lymphocytes % 12.7 L, Monocytes % 5.8, Eosinophils % 1.9, Basophils % 0.5, Absolute Granulocytes 9.9 H, Absolute Lymphocytes 1.6, Absolute Monocytes 0.7 H, Absolute Eosinophils 0.2, Absolute Basophils 0.1 11/01/17 09: Urine Opiates Screen > 4000.00 H, Methadone Screen < 40, Barbiturate Screen < 60, Ur Phencyclidine Scrn < 6.00, Amphetamines Screen < 100, U Benzodiazepines Scrn < 85, Urine Cocaine Screen 190, Urine Cannabis Screen < 5.00, Urine Color SVETLANA, Urine Clarity CLEAR, Urine pH 6.0, Ur Specific [place] 1.025, Urine Protein 30 H, Urine Ketones TRACE H, Urine Nitrite NEG, Urine Bilirubin NEG@ ICTO, Urine Urobilinogen 1.0, Ur Leukocyte Esterase NEG, Ur Microscopic SEDIMENT EXAMINED, Urine WBC 1-3 H, Urine Crystals 3+ CA OX H, Urine Mucus MANY H, Urine Hemoglobin NEG, Urine Glucose NEG 11/01/17 0554: Anion Gap 14, Estimated GFR > 60, BUN/Creatinine Ratio 11.8, Glucose 117 H, Calcium 10.1, Total Bilirubin 0.6, AST 24, ALT 30, Alkaline Phosphatase 83, Troponin I < 0.01, Total Protein 7.3, Albumin 4.4, Globulin 2.9, Albumin/ Globulin Ratio 1.5, Amylase 37, Lipase 163, CBC w Diff NO MAN DIFF REQ, RBC 5.28 , MCV 88.9, MCH 29.3, MCHC 33.0, RDW 14.1, MPV 7.7, Gran % 80.1 H, Lymphocytes % 12.1 L, Monocytes % 5.8, Eosinophils % 1.7, Basophils % 0.3, Absolute Granulocytes 9.5 H, Absolute Lymphocytes 1.4, Absolute Monocytes 0.7 H, Absolute Eosinophils 0.2, Absolute Basophils 0 Microbiology 11/01 1900 URINE ROUT: Urine Culture - RES Vital Signs Date Time Temp Pulse Resp B/P B/P Pulse O2 O2 Flow FiO2 Mean Ox Delivery Rate 11/02 0650 98.7 83 18 158/106 95 11/02 0230 164/108 11/02 0227 65 164/108 11/01 2216 98.3 78 20 160/110 99 11/01 1550 98.3 68 20 130/90 97 Room Air 11/01 1252 98.2 65 18 148/72 100 Room Air Intake & Output 11/02 1600 11/02 0800 11/02 0000 Intake Total 1720 1110 Output Total 400 400 Balance 1320 710 Intake, IV 1600 810 Intake, Oral 120 300 Number 0 0 Bowel Movements Output, 200 Emesis Output, Urine 400 200
[2017-11-02 15:27] VITALS: BP 132/89
--- NOTE | 2017-11-02 15:43 | PN- Gastroenterology ---
Assessment/Plan GI Assessment/Recommendations: ASSESSMENT: 1. Multiple Pseudocysts 2. Fluid-Filled Small Bowel without Transition Zone suggestive of an Ileus, likely due to narrcotic use 3. Cholelithiasis 4. s/p Choledocholithiasis with stone extraction by ERCP RECOMMENDATIONS: 1. Would add Neurontin to patient's medical regimen which may act as a neuromodulator and perhaps decreased patient's requirement for narcotic analgesia 2. CT scan suggests ileus would make sure that electrolytes are all repleted. Would check a CMP. Would also check calcium, phosphorus, magnesium, B12 and folate. 3. Would encourage that patient ambulate 4. We'll review with radiology regarding possibility of drainage of pseudocyst. Subjective Subjective: Patient is tolerating somewhat of a diet, but has pain after eating. He is feeling better than yesterday. He has a history of IV heroin abuse and has been trying to maintain abstinence. He has been participating in an outpatient program at [facility]. He reports that he did use once as an outpatient recently for pain control. He has had no nausea or vomiting. Objective Vital Signs and I&Os Vital Signs Date Time Temp Pulse Resp B/P B/P Pulse O2 O2 Flow FiO2 Mean Ox Delivery Rate 11/02 1527 98.7 71 18 132/89 98 Room Air 11/02 1515 67 150/90 11/02 0650 98.7 83 18 158/106 95 11/02 0230 164/108 11/02 0227 65 164/108 11/01 2216 98.3 78 20 160/110 99 11/01 1550 98.3 68 20 130/90 97 Room Air Intake & Output 11/02 1600 11/02 0400 11/01 1600 11/01 0400 10/31 1600 10/31 0400 Intake Total 3480 1170 Output Total 1100 800 Balance 2380 370 Intake, IV 2800 810 Intake, Oral 680 360 Number 0 0 Bowel Movements Output, 200 Emesis Output, Urine 1100 600 Patient 195 lb Weight Weight Reported by Patient Measurement Method Physical Exam General Appearance: alert, awake, mild distress Respiratory: normal breath sounds, lungs clear Cardiovascular: regular rate/rhythm, Normal S1 and S2, witout rub, murmur, or gallop Abdomen: normal bowel sounds, no organomegaly, mild upper abdominal tenderness Neurologic/Psychiatric: awake, alert, oriented x 3 Skin: intact, warm/dry Current Medications: Current Medications Sig/[place] Start time Last Medication Dose Route Stop Time Status Admin Enoxaparin Sodium 40 MG DAILY 11/01 2100 AC 11/02 SC 1131 Gabapentin 100 MG Q8 11/02 1400 DC PO Gabapentin 200 MG Q8 11/02 1400 AC 11/02 PO 1510 Hydromorphone HCl 2 MG Q4P PRN 11/02 1030 AC 11/02 IV 1510 Hydromorphone HCl 2 MG Q6P PRN 11/01 1415 DC 11/02 IV 0850 Ibuprofen 400 MG Q6P PRN 11/01 1415 AC PO [place] Carbonate 1,500 MG AT BEDTIME 11/01 2100 AC 11/01 PO 2046 Losartan Potassium 50 MG DAILY 11/02 1251 AC 11/02 PO 1515 Ondansetron HCl 4 MG ONCE ONE 11/02 0230 DC 11/02 IV 11/02 0231 0317 Oxycodone/ 2 TAB Q6P PRN 11/02 1030 AC 11/02 Acetaminophen PO 1130 Oxycodone/ 1 TAB Q6P PRN 11/01 1415 DC 11/02 Acetaminophen PO 0218 Sodium Chloride 1,000 ML Q5H 11/01 2100 DC 11/02 IV 11/02 0659 0530 Sodium Chloride 1,000 ML ONCE ONE 11/01 1730 DC 11/01 IV 11/01 2229 1817 Results Pertinent Lab Results: Laboratory Tests 11/02 11/01 0816 0927 Chemistry Sodium (137 - 145 mmol/L) 138 Potassium (3.5 - 5.1 mmol/L) 4.1 Chloride (98 - 107 mmol/L) 109 H Carbon Dioxide (22 - 30 mmol/L) 22 Anion Gap (5 - 16) 8 BUN (9 - 20 mg/dL) 10 Creatinine (0.7 - 1.2 mg/dL) 0.9 Estimated GFR (>60 ml/min) > 60 BUN/Creatinine Ratio (7 - 25 %) 11.1 Hematology CBC w Diff NO MAN DIFF REQ WBC (4.8 - 10.8 /CUMM) 12.5 H RBC (4.70 - 6.10 /CUMM) 4.68 L Hgb (14.0 - 18.0 G/DL) 13.9 L Hct (42 - 52 %) 42.1 MCV (80.0 - 94.0 FL) 89.8 MCH (27.0 - 31.0 PG) 29.6 MCHC (33.0 - 37.0 G/DL) 33.0 RDW (11.5 - 14.5 %) 14.2 Plt Count (130 - 400 /CUMM) 390 MPV (7.4 - 10.4 FL) 7.7 Gran % (42.2 - 75.2 %) 79.1 H Lymphocytes % (20.5 - 51.1 %) 12.7 L Monocytes % (1.7 - 9.3 %) 5.8 Eosinophils % (0 - 5 %) 1.9 Basophils % (0.0 - 2.0 %) 0.5 Absolute Granulocytes (1.4 - 6.5 /CUMM) 9.9 H Absolute Lymphocytes (1.2 - 3.4 /CUMM) 1.6 Absolute Monocytes (0.10 - 0.60 /CUMM) 0.7 H Absolute Eosinophils (0.0 - 0.7 /CUMM) 0.2 Absolute Basophils (0.0 - 0.2 /CUMM) 0.1 Toxicology Urine Opiates Screen (>2000 NG/ML) > 4000.00 H Methadone Screen (>300 NG/ML) < 40 Barbiturate Screen (>200 NG/ML) < 60 Ur Phencyclidine Scrn (>25 NG/ML) < 6.00 Amphetamines Screen (>1000 NG/ML) < 100 U Benzodiazepines Scrn (>200 NG/ML) < 85 Urine Cocaine Screen (>300 NG/ML) 190 Urine Cannabis Screen (>50 NG/ML) < 5.00 Urines Urine Color (YEL,AMB,STR) SVETLANA Urine Clarity (CLEAR) CLEAR Urine pH (5.0 - 8.0) 6.0 Ur Specific [place] (1.001 - 1.035) 1.025 Urine Protein (NEG,<30 MG/DL) 30 H Urine Ketones (NEG) TRACE H Urine Nitrite (NEG) NEG Urine Bilirubin (NEG) NEG@ICTO Urine Urobilinogen (0.1 - 1.0 EU/dl) 1.0 Ur Leukocyte Esterase (NEG) NEG Ur Microscopic SEDIMENT EXAMINED Urine WBC (0 - 2 /HPF) 1-3 H Urine Crystals 3+ CA OX H Urine Mucus (FEW,NONE) MANY H Urine Hemoglobin (NEG) NEG Urine Glucose (N MG/DL) NEG 11/01 0554 Chemistry Sodium (137 - 145 mmol/L) 141 Potassium (3.5 - 5.1 mmol/L) 4.3 Chloride (98 - 107 mmol/L) 106 Carbon Dioxide (22 - 30 mmol/L) 21 L Anion Gap (5 - 16) 14 BUN (9 - 20 mg/dL) 13 Creatinine (0.7 - 1.2 mg/dL) 1.1 Estimated GFR (>60 ml/min) > 60 BUN/Creatinine Ratio (7 - 25 %) 11.8 Glucose (65 - 99 mg/dL) 117 H Calcium (8.4 - 10.2 mg/dL) 10.1 Total Bilirubin (0.2 - 1.3 mg/dL) 0.6 AST (17 - 59 U/L) 24 ALT (21 - 72 U/L) 30 Alkaline Phosphatase (< 127 U/L) 83 Troponin I (<0.11 ng/ml) < 0.01 Total Protein (6.3 - 8.2 g/dL) 7.3 Albumin (3.5 - 5.0 g/dL) 4.4 Globulin (1.9 - 4.2 gm/dL) 2.9 Albumin/Globulin Ratio (1.1 - 2.2 %) 1.5 Amylase (30 - 110 U/L) 37 Lipase (23 - 300 U/L) 163 Hematology CBC w Diff NO MAN DIFF REQ WBC (4.8 - 10.8 /CUMM) 11.9 H RBC (4.70 - 6.10 /CUMM) 5.28 Hgb (14.0 - 18.0 G/DL) 15.5 Hct (42 - 52 %) 46.9 MCV (80.0 - 94.0 FL) 88.9 MCH (27.0 - 31.0 PG) 29.3 MCHC (33.0 - 37.0 G/DL) 33.0 RDW (11.5 - 14.5 %) 14.1 Plt Count (130 - 400 /CUMM) 511 H MPV (7.4 - 10.4 FL) 7.7 Gran % (42.2 - 75.2 %) 80.1 H Lymphocytes % (20.5 - 51.1 %) 12.1 L Monocytes % (1.7 - 9.3 %) 5.8 Eosinophils % (0 - 5 %) 1.7 Basophils % (0.0 - 2.0 %) 0.3 Absolute Granulocytes (1.4 - 6.5 /CUMM) 9.5 H Absolute Lymphocytes (1.2 - 3.4 /CUMM) 1.4 Absolute Monocytes (0.10 - 0.60 /CUMM) 0.7 H Absolute Eosinophils (0.0 - 0.7 /CUMM) 0.2 Absolute Basophils (0.0 - 0.2 /CUMM) 0 Imaging/Other Studies: FINDINGS: LUNG BASES: Bibasilar subsegmental atelectasis. LIVER, GALLBLADDER, AND BILIARY TREE: The liver is normal in size, shape, and attenuation. No focal hepatic lesion or biliary ductal dilatation is present. The gallbladder is unremarkable with no evidence of radiopaque gallstones, gallbladder wall thickening, or obvious pericholecystic inflammatory changes. PANCREAS: Pancreatic parenchyma is homogenous. No pancreatic ductal dilatation. There are multiple loculated fluid collections surrounding the pancreas. The collection anterior to the pancreatic body somewhat decreased in prominence compared to the previous CT, currently measuring 3.7 x 3.3 cm, compared to 5.7 x 4.4 cm on the prior. This may now be confluent with the additional fluid extending posterior and to the left, which previously had the appearance of multiple smaller collections. There is inferior extension which is better defined on the current study than on the prior, measuring 7.4 x 4.3 cm, series 2 image 38. There is additionally a separate collection more anteriorly, along the greater curvature of the stomach in the region of the gastric antrum. This is decreased from previous, currently measuring 7.4 x 3.6 cm, compared to 10 x 3.9 cm on prior. SPLEEN: Unremarkable. ADRENAL GLANDS: Unremarkable. KIDNEYS AND URETERS: The kidneys are normal in size, shape, and attenuation. No hydronephrosis, hydroureter, or calculi seen. No perinephric stranding. 1.2 cm exophytic right lower pole renal lesion, measuring higher than simple fluid. This is unchanged from recent priors. BLADDER: Unremarkable. GASTROINTESTINAL TRACT: The stomach is distended without wall thickening. The small bowel is fluid-filled and mildly dilated with air-fluid levels. This is increased from prior. There is no focal transition point. Normal appendix. No colonic wall thickening or inflammation. Trace pelvic free fluid. ABDOMINAL WALL: No significant hernia is appreciated. LYMPH NODES: Normal. VASCULAR: Unremarkable. The portal vein and splenic vein remain patent. PELVIC VISCERA: The prostate and seminal vesicles are unremarkable. OSSEOUS STRUCTURES: No acute or suspicious osseous abnormality. Multilevel degenerative changes throughout the spine. Vacuum disc phenomenon at L5-S1. Mild degenerative changes of the hips. IMPRESSION: Multiple pseudocysts are seen surrounding the pancreatic parenchyma. When compared to the previous study, there is decreased overall size of the collection which is superior to the pancreatic body and tail, although it appears somewhat more confluent. The overall size of the collection inferior to the pancreas is fairly similar to prior, also appearing more confluent. The collection along the greater curvature of the stomach remains well-defined, with decreasing size. Increased fluid-filled prominence of small bowel without focal transition point identified. Ileus is suggested.
[2017-11-02 22:45] VITALS: BP 147/99
[2017-11-03 06:39] VITALS: BP 130/100
[2017-11-03 07:54] LABS: ABSOLUTE BASOPHIL COUNT 0 /CUMM (0.0-0.2); ABSOLUTE EOSINOPHIL COUNT 0.6 /CUMM (0.0-0.7); ABSOLUTE LYMPH COUNT 1.9 /CUMM (1.2-3.4); ABSOLUTE MONOCYTE COUNT 0.6 /CUMM (0.10-0.60); BASOPHIL % 0.5 % (0.0-2.0); EOSINOPHIL % 7.1 % (0-5); GRANULOCYTE % 60.8 % (42.2-75.2); HEMATOCRIT 40.5 % (42-52); MEAN CORPUSCULAR HGB 29.5 PG (27.0-31.0); MEAN CORPUSCULAR HGB CONC 33.1 G/DL (33.0-37.0); MEAN CORPUSCULAR VOLUME 89.1 FL (80.0-94.0); MEAN PLATELET VOLUME 7.4 FL (7.4-10.4); PLATELET COUNT 397 /CUMM (130-400); RBC DISTRIBUTION WIDTH 13.9 % (11.5-14.5); RED BLOOD CELL CT 4.54 /CUMM (4.70-6.10); WHITE BLOOD CELL COUNT 8.2 /CUMM (4.8-10.8)
--- NOTE | 2017-11-03 13:22 | PN- Housestaff ---
See Addendum Subjective Follow-up For: pancreatic psuedocyst bipolar disorder opiate abuse Subjective: Patient seen and examined. The patient still continues to have pain that he rates at a 7 out of 10. He states that eating has helped with the pain. He denies any nausea or vomiting, diarrhea. Review of Systems Constitutional: Reports: no symptoms. EENTM: Reports: no symptoms. Cardiovascular: Reports: no symptoms. Respiratory: Reports: no symptoms. Gastrointestinal: Reports: abdominal pain, bloating. Genitourinary: Reports: no symptoms. Musculoskeletal: Reports: no symptoms. Objective Last 24 Hrs of Vital Signs/I&O Vital Signs Date Time Temp Pulse Resp B/P B/P Pulse O2 O2 Flow FiO2 Mean Ox Delivery Rate 11/03 1420 98.3 86 20 134/86 97 Room Air 11/03 0827 76 142/90 11/03 0639 98.2 65 20 130/100 96 Room Air 11/02 2245 97.9 63 18 147/99 98 Room Air Intake & Output 11/03 1600 11/03 0800 11/03 0000 Intake Total 1100 Output Total 600 500 Balance 500 -500 Intake, IV 600 Intake, Oral 500 Output, Urine 600 500 Physical Exam General Appearance: Alert, Oriented X3, Cooperative, No Acute Distress Skin: No Rashes, No Breakdown, No Significant Lesion (well) Skin Temp/Moisture Exam: Warm/Dry Sepsis Skin Exam (color): Normal for Ethnicity HEENT: Atraumatic, EOMI, Mucous Membr. moist/pink Neck: Supple, No JVD Cardiovascular: Regular Rate, Normal S1, Normal S2, No Murmurs Lungs: Clear to Auscultation, Normal Air Movement Abdomen: Normal Bowel Sounds, Soft, No Hepatospenomegaly, No Masses Neurological: Normal Speech Extremities: No Clubbing, No Cyanosis, No Edema Current Medications: Current Medications Sig/[place] Start time Last Medication Dose Route Stop Time Status Admin Dextrose/Sodium 1,000 ML Q13H 11/03 1145 AC 11/03 Chloride IV 1212 Enoxaparin Sodium 40 MG DAILY 11/01 2100 AC 11/03 SC 0827 Gabapentin 300 MG Q8 11/03 2200 AC PO Gabapentin 200 MG Q8 11/02 1400 DC 11/03 PO 1357 Hydromorphone HCl 2 MG Q4P PRN 11/02 1030 AC 11/03 IV 1648 Ibuprofen 400 MG Q6P PRN 11/[address] [place] Carbonate 1,500 MG AT BEDTIME 11/01 2100 AC 11/02 PO 202 Losartan Potassium 100 MG DAILY 11/03 0900 AC 11/03 PO 0827 Losartan Potassium 50 MG DAILY 11/02 1251 DC 11/02 PO 1515 Oxycodone/ 2 TAB Q6P PRN 11/02 1030 AC 11/03 Acetaminophen PO 0528 Last 24 Hrs of Lab/David Results Last 24 Hrs of Labs/Mics: Laboratory Tests 11/03/17 0700: CBC w Diff NO MAN DIFF REQ, RBC 4.54 L, MCV 89.1, MCH 29.5, MCHC 33.1, RDW 13.9 , MPV 7.4, Gran % 60.8, Lymphocytes % 23.8, Monocytes % 7.8, Eosinophils % 7.1 H, Basophils % 0.5, Absolute Granulocytes 5.0, Absolute Lymphocytes 1.9, Absolute Monocytes 0.6, Absolute Eosinophils 0.6, Absolute Basophils 0 Assessment/Plan Assessment: Mr. Carbone is a 47 year old man with past medical history of bipolar disorder, hypertension, and hyperlipidemia who was recently seen at [facility] from September 14 to October 02, where he was treated for abdominal pain 2/2 choledocholithiasis causing pancreatitis and possible cholangitis, during that admission he underwent an ERCP with sphincterotomy and stone extraction, who presented to the emergency department on 11/01/2017 complaining of worsening abdominal pain. His pain is concerning in the sense that it could be due to worsening or increasing size of pseudocyst which is been seen on previous documentation. No evidence of any acute right upper quadrant pain suggesting cholecystitis. LFT and Amlase/Lipase are also normal. #Abdominal pain related to pseudocyst of pancreas. #History of hypertension #History of hyperlipidemia, #History of choledocholithiasis status post ERCP with sphincterotomy. #Exophytic right renal lesion #History of substance abuse. Plan CT abdomen showed pancreatic psuedocysts andincreased fluid-filled prominence of small bowel without focal transition point identified. Ileus is suggested. Patient is currently nothing by mouth and on fluids D5 half-normal saline for potential surgery, we will follow up with surgical suggestions for ileus. Follow -up abdominal x-ray today for ileus. Likely ileus secondary to illness and narcotics. We have checked a calcium, phosphate, mag level, folate which are normal, B12 is pending. For the pseudocyst, cyst gastrectomy would be necessary and would be carried out by GI endoscopically. However as per senior center director Dr. Reza, we will monitor this pseudocyst as they seem to have decreased in size. Usually cysts are drained when they're greater than 7 cm in size. D5 half-normal saline at 75 mL per hour Continue pain control with Motrin, Dilaudid, Percocet, gabapentin 200 mg every 8 will be increased to 300 mg every 8 hours. We will consult with pain management tomorrow. We have added gabapentin to decrease the requirement for narcotics as patient has established dependence. The position of one of the pseudocyst is pushing against the stomach causing the patient the pain he is experiencing. Hypertension-will continue patient's outpatient losartan 100 mg daily Continue lithium for bipolar disorder. May consider social work consultation once patient stabilizes. Substance cessation counseling. DVT prophylaxis with Lovenox. Patient is a full code. Problem List: 1. Pancreatic pseudocyst Pain Ratin Pain Location: abdomen Pain Goal: Pain 4 or less Pain Plan: percocet gabapentin motrin Tomorrow's Labs & Rationales: no labs
--- NOTE | 2017-11-03 13:35 | PN- Gastroenterology ---
Assessment/Plan GI Assessment/Recommendations: ASSESSMENT: 1. Multiple Pseudocysts 2. History of IV Drug Use which May Decrease Response to Narcotic Analgesia 3. Cholelithiasis 4. s/p Choledocholithiasis with stone extraction by ERCP RECOMMENDATIONS: 1. Would increase dose of Neurontin to 300 mg Q 8 hours. 2. I have reviewed the images on CT scan myself and with radiology. The pseudocyst is causing extrinsic compression of the gastric lumen, however, it has also decreased in size. The other fluid collection, does not appear to have a mature wall. 3. Would encourage that patient ambulate. 4. Consider consultation with pain management. I would encourage patient to see if pseudocysts resolve spontaneously since they do appear to be decreasing in size. Will discuss with Dr. Rice at [facility]. Subjective Subjective: Patient is feeling somewhat better. Continues to have abdominal pain. No nausea or vomiting. Does not feel that neurontin has helped much with his pain control. Objective Vital Signs and I&Os Vital Signs Date Time Temp Pulse Resp B/P B/P Pulse O2 O2 Flow FiO2 Mean Ox Delivery Rate 11/03 0827 76 142/90 11/03 0639 98.2 65 20 130/100 96 Room Air 11/02 2245 97.9 63 18 147/99 98 Room Air 11/02 1527 98.7 71 18 132/89 98 Room Air 11/02 1515 67 150/90 Intake & Output 11/03 1600 11/03 0400 11/02 1600 11/02 0400 11/01 1600 11/01 0400 Intake Total 3480 1170 Output Total 500 1100 800 Balance -500 2380 370 Intake, IV 2800 810 Intake, Oral 680 360 Number 0 0 Bowel Movements Output, 200 Emesis Output, Urine 500 1100 600 Patient 195 lb Weight Weight Reported by Patient Measurement Method Physical Exam General Appearance: well developed/nourished, no apparent distress, comfortable Head: atraumatic, normal appearance Respiratory: normal breath sounds, lungs clear Cardiovascular: regular rate/rhythm, Normal S1 and S2 without rub, murmur or gallop Abdomen: normal bowel sounds, soft, no organomegaly, mild tenderness without rebound or guarding Neurologic/Psychiatric: alert, oriented x 3, normal mood/affect Skin: normal color, warm/dry Current Medications: Current Medications Sig/[place] Start time Last Medication Dose Route Stop Time Status Admin Dextrose/Sodium 1,000 ML Q13H 11/03 1145 AC 11/03 Chloride IV 1212 Enoxaparin Sodium 40 MG DAILY 11/01 2100 AC 11/03 SC 0827 Gabapentin 200 MG Q8 11/02 1400 AC 11/03 PO 527 Hydromorphone HCl 2 MG Q4P PRN 11/02 1030 AC 11/03 IV 1238 Ibuprofen 400 MG Q6P PRN 11/01 1415 AC PO [place] Carbonate 1,500 MG AT BEDTIME 11/01 2099 AC 11/02 PO 202 Losartan Potassium 100 MG DAILY 11/03 0900 AC 11/03 PO 826 Losartan Potassium 50 MG DAILY 11/02 1251 DC 11/02 PO 151 Oxycodone/ 2 TAB Q6P PRN 11/02 1030 AC 11/03 Acetaminophen PO 527 Results Pertinent Lab Results: Laboratory Tests 11/03 11/02 0700 0816 Chemistry Sodium (137 - 145 mmol/L) 138 Potassium (3.5 - 5.1 mmol/L) 4.1 Chloride (98 - 107 mmol/L) 109 H Carbon Dioxide (22 - 30 mmol/L) 22 Anion Gap (5 - 16) 8 BUN (9 - 20 mg/dL) 10 Creatinine (0.7 - 1.2 mg/dL) 0.9 Estimated GFR (>60 ml/min) > 60 BUN/Creatinine Ratio (7 - 25 %) 11.1 Calcium (8.4 - 10.2 mg/dL) 8.5 Phosphorus (2.5 - 4.5 mg/dL) 3.8 Magnesium (1.6 - 2.3 mg/dL) 1.8 Folate (2.76 - 20.0 ng/mL) 13.3 Hematology CBC w Diff NO MAN DIFF REQ NO MAN DIFF REQ WBC (4.8 - 10.8 /CUMM) 8.2 12.5 H RBC (4.70 - 6.10 /CUMM) 4.54 L 4.68 L Hgb (14.0 - 18.0 G/DL) 13.4 L 13.9 L Hct (42 - 52 %) 40.5 L 42.1 MCV (80.0 - 94.0 FL) 89.1 89.8 MCH (27.0 - 31.0 PG) 29.5 29.6 MCHC (33.0 - 37.0 G/DL) 33.1 33.0 RDW (11.5 - 14.5 %) 13.9 14.2 Plt Count (130 - 400 /CUMM) 397 390 MPV (7.4 - 10.4 FL) 7.4 7.7 Gran % (42.2 - 75.2 %) 60.8 79.1 H Lymphocytes % (20.5 - 51.1 %) 23.8 12.7 L Monocytes % (1.7 - 9.3 %) 7.8 5.8 Eosinophils % (0 - 5 %) 7.1 H 1.9 Basophils % (0.0 - 2.0 %) 0.5 0.5 Absolute Granulocytes (1.4 - 6.5 /CUMM) 5.0 9.9 H Absolute Lymphocytes (1.2 - 3.4 /CUMM) 1.9 1.6 Absolute Monocytes (0.10 - 0.60 /CUMM) 0.6 0.7 H Absolute Eosinophils (0.0 - 0.7 /CUMM) 0.6 0.2 Absolute Basophils (0.0 - 0.2 /CUMM) 0 0.1 11/01 11/01 0927 0554 Chemistry Sodium (137 - 145 mmol/L) 141 Potassium (3.5 - 5.1 mmol/L) 4.3 Chloride (98 - 107 mmol/L) 106 Carbon Dioxide (22 - 30 mmol/L) 21 L Anion Gap (5 - 16) 14 BUN (9 - 20 mg/dL) 13 Creatinine (0.7 - 1.2 mg/dL) 1.1 Estimated GFR (>60 ml/min) > 60 BUN/Creatinine Ratio (7 - 25 %) 11.8 Glucose (65 - 99 mg/dL) 117 H Calcium (8.4 - 10.2 mg/dL) 10.1 Total Bilirubin (0.2 - 1.3 mg/dL) 0.6 AST (17 - 59 U/L) 24 ALT (21 - 72 U/L) 30 Alkaline Phosphatase (< 127 U/L) 83 Troponin I (<0.11 ng/ml) < 0.01 Total Protein (6.3 - 8.2 g/dL) 7.3 Albumin (3.5 - 5.0 g/dL) 4.4 Globulin (1.9 - 4.2 gm/dL) 2.9 Albumin/Globulin Ratio (1.1 - 2.2 %) 1.5 Amylase (30 - 110 U/L) 37 Lipase (23 - 300 U/L) 163 Hematology CBC w Diff NO MAN DIFF REQ WBC (4.8 - 10.8 /CUMM) 11.9 H RBC (4.70 - 6.10 /CUMM) 5.28 Hgb (14.0 - 18.0 G/DL) 15.5 Hct (42 - 52 %) 46.9 MCV (80.0 - 94.0 FL) 88.9 MCH (27.0 - 31.0 PG) 29.3 MCHC (33.0 - 37.0 G/DL) 33.0 RDW (11.5 - 14.5 %) 14.1 Plt Count (130 - 400 /CUMM) 511 H MPV (7.4 - 10.4 FL) 7.7 Gran % (42.2 - 75.2 %) 80.1 H Lymphocytes % (20.5 - 51.1 %) 12.1 L Monocytes % (1.7 - 9.3 %) 5.8 Eosinophils % (0 - 5 %) 1.7 Basophils % (0.0 - 2.0 %) 0.3 Absolute Granulocytes (1.4 - 6.5 /CUMM) 9.5 H Absolute Lymphocytes (1.2 - 3.4 /CUMM) 1.4 Absolute Monocytes (0.10 - 0.60 /CUMM) 0.7 H Absolute Eosinophils (0.0 - 0.7 /CUMM) 0.2 Absolute Basophils (0.0 - 0.2 /CUMM) 0 Toxicology Urine Opiates Screen (>2000 NG/ML) > 4000.00 H Methadone Screen (>300 NG/ML) < 40 Barbiturate Screen (>200 NG/ML) < 60 Ur Phencyclidine Scrn (>25 NG/ML) < 6.00 Amphetamines Screen (>1000 NG/ML) < 100 U Benzodiazepines Scrn (>200 NG/ML) < 85 Urine Cocaine Screen (>300 NG/ML) 190 Urine Cannabis Screen (>50 NG/ML) < 5.00 Urines Urine Color (YEL,AMB,STR) SVETLANA Urine Clarity (CLEAR) CLEAR Urine pH (5.0 - 8.0) 6.0 Ur Specific [place] (1.001 - 1.035) 1.025 Urine Protein (NEG,<30 MG/DL) 30 H Urine Ketones (NEG) TRACE H Urine Nitrite (NEG) NEG Urine Bilirubin (NEG) NEG@ICTO Urine Urobilinogen (0.1 - 1.0 EU/dl) 1.0 Ur Leukocyte Esterase (NEG) NEG Ur Microscopic SEDIMENT EXAMINED Urine WBC (0 - 2 /HPF) 1-3 H Urine Crystals 3+ CA OX H Urine Mucus (FEW,NONE) MANY H Urine Hemoglobin (NEG) NEG Urine Glucose (N MG/DL) NEG
[2017-11-03 14:20] VITALS: BP 134/86
[2017-11-03 22:40] VITALS: BP 133/91
--- NOTE | 2017-11-03 23:16 | RADIOLOGY REPORT ---
EXAMINATION: XR ABDOMEN MULTIPLE VIEWS CLINICAL INDICATION: Abdominal pain. Ileus. Follow-up. COMPARISON: Abdomen 09/22/2017. CT scan abdomen pelvis 11/01/2017 TECHNIQUE: 2 views of the abdomen. FINDINGS: There is distention of small bowel loops in the midabdomen with air-fluid levels. This is similar to the CAT scan of 11/01/2017. No distention of the colonic bowel loops. Gas is seen to level of the distal rectum at the central pelvis. Scattered stool in the colon. IMPRESSION: Continued distention of small bowel loops with scattered air-fluid levels. Gas is seen also through large bowel to the distal rectum. No transition point. This may be ileus versus early obstruction. No change in appearance since 11/01/2017 CT study.
[2017-11-04 07:00] VITALS: BP 119/71
--- NOTE | 2017-11-04 07:34 | PN- Housestaff ---
Rocco INIGUEZ,Esther 11/04/17 0734: Subjective Follow-up For: pancreatic psuedocyst narcotic abuse Subjective: patient notes less pain than yesterday but does complain that his current regimen doesnt control the pain assisted. we did an abdominal xray yesterday which showed ileus presumably from his opiate use. the patient is very eager to leave. he is hungry. he denies any nausea or vomiting or diarrhea. Review of Systems Constitutional: Reports: no symptoms. EENTM: Reports: no symptoms. Cardiovascular: Reports: no symptoms. Respiratory: Reports: no symptoms. Gastrointestinal: Reports: abdominal pain. Genitourinary: Reports: no symptoms. Musculoskeletal: Reports: no symptoms. Skin: Reports: no symptoms. Neurological/Psychological: Reports: no symptoms. Objective Last 24 Hrs of Vital Signs/I&O Vital Signs Date Time Temp Pulse Resp B/P B/P Pulse O2 O2 Flow FiO2 Mean Ox Delivery Rate 11/04 1357 97.5 9 20 120/60 97 11/04 1105 80 146/76 11/04 0700 98.2 58 20 119/71 98 Room Air 11/03 2240 98.3 68 20 133/91 97 Room Air Intake & Output 11/04 1600 11/04 0800 11/04 0000 Intake Total 1400 600 300 Output Total 800 450 Balance 1400 -200 -150 Intake, IV 600 600 300 Intake, Oral 800 0 Output, Urine 800 450 Physical Exam General Appearance: Alert, Oriented X3, Cooperative, No Acute Distress Skin: No Rashes, No Breakdown, No Significant Lesion Skin Temp/Moisture Exam: Warm/Dry HEENT: Atraumatic, EOMI, Mucous Membr. moist/pink Cardiovascular: Regular Rate, Normal S1, Normal S2, No Murmurs Lungs: Clear to Auscultation, Normal Air Movement Abdomen: Normal Bowel Sounds, Soft, No Hepatospenomegaly, No Masses, tenderness on palpation of epigastric area Neurological: Normal Speech Extremities: No Clubbing, No Cyanosis, No Edema, Normal Pulses, No Tenderness/ Swelling Vascular: Normal Pulses, Pulses Symmetrical Current Medications: Current Medications Sig/Carrington Start time Last Medication Dose Route Stop Time Status Admin Dextrose/Sodium 1,000 ML Q13H 11/03 1145 AC 11/04 Chloride IV 0209 Enoxaparin Sodium 40 MG DAILY 11/01 2100 AC 11/04 SC 1104 Gabapentin 300 MG Q8 11/03 2200 AC 11/04 PO 1455 Hydromorphone HCl 2 MG Q4P PRN 11/02 1030 DC 11/04 IV 0543 Ibuprofen 400 MG Q6P PRN 11/01 1415 AC PO Ketorolac 30 MG Q8P PRN 11/04 1715 AC Tromethamine IM [place] Carbonate 1,500 MG AT BEDTIME 11/01 2100 AC 11/03 PO 2022 Losartan Potassium 100 MG DAILY 11/03 0900 AC 11/04 PO 1105 Oxycodone/ 2 TAB Q6P PRN 11/02 1030 DC 11/04 Acetaminophen PO 1011 Patient Medication 1 ED ONE ONE 11/04 1045 DC 11/04 Teaching ED 11/04 1046 1105 Patient Medication 1 ED ONE ONE 11/03 1830 DC Teaching ED 11/03 1831 Tramadol HCl 50 MG Q4 11/04 1400 AC 11/04 PO 1455 Assessment/Plan Assessment: Mr. Carbone is a 47 year old man with past medical history of bipolar disorder, hypertension, and hyperlipidemia who was recently seen at [facility] from September 14 to October 02, where he was treated for abdominal pain 2/2 choledocholithiasis causing pancreatitis and possible cholangitis, during that admission he underwent an ERCP with sphincterotomy and stone extraction, who presented to the emergency department on 11/01/2017 complaining of worsening abdominal pain. His pain is concerning in the sense that it could be due to worsening or increasing size of pseudocyst which is been seen on previous documentation. No evidence of any acute right upper quadrant pain suggesting cholecystitis. LFT and Amlase/Lipase are also normal. #Abdominal pain related to pseudocyst of pancreas. #History of hypertension #History of hyperlipidemia, #History of choledocholithiasis status post ERCP with sphincterotomy. #Exophytic right renal lesion #History of substance abuse. Plan -CT abdomen showed pancreatic psuedocysts andincreased fluid-filled prominence of small bowel without focal transition point identified. Ileus is suggested. abdominal xray also showed evidence of ileus/early obstruction. We contact surgery who said at this point no intervention as that is saved for emergency in cases of ileus. For now replete electrolytes and take patient off narcotics -We have advanced diet to regular -We have checked a calcium, phosphate, mag level, folate, b12 which are normal -For the pseudocyst, cyst gastrectomy would be necessary and would be carried out by GI endoscopically at [facility] after discharge if need be. However as per countersinker Dr. Reza, we will monitor this pseudocyst as they seem to have decreased in size. Usually cysts are drained when they're greater than 7 cm in size. -Patient to follow up with Dr. Gamboa GI in [address] Tellez in 2 months to evaluate for lap jamil -Continue pain control with gabapentin 300 mg every 8 hours. We have added gabapentin to decrease the requirement for strong narcotics as patient has established dependence. The position of one of the pseudocyst is pushing against the stomach causing the patient the pain he is experiencing. We will dc narcotics and start ultram. -Hypertension-will continue patient's outpatient losartan 100 mg daily -Continue lithium for bipolar disorder. -May consider social work consultation once patient stabilizes. Continue at [facility] where he goes for substance abuse. DVT prophylaxis with Lovenox. Patient is a full code. Problem List: 1. Pancreatic pseudocyst Pain Ratin Pain Location: epigastric Pain Goal: Pain 4 or less Pain Plan: ultram Tomorrow's Labs & Rationales: hernandez Back MD,Carlo 11/04/17 1255: Attending MD Review Statement Attending Statement Attending MD Statement: examined this patient, discuss w/resident/PA/SAP ABAP PROGRAMMER, agreed w/resident/PA/SAP ABAP PROGRAMMER, reviewed EMR data (avail), discussed with nursing, discussed with case mgmt, amended to note Attending Assessment/Plan: Patient examined. Resting comfortably. He reports feeling better today compared to yesterday. Denies nausea vomiting. He was evaluated by the gastroenterology and general surgery service yesterday. His pancreatic cysts are decreasing in size. No surgical intervention is recommended at this time. If intervention is required he will require cyst gastrectomy this will need to be done at [facility].. His countersinker Dr. Marie is in conversation with specialists at [facility] regarding this. This is most likely narcotic induced. We have discussed this with the patient. He is in agreement to abdominal x-ray yesterday shows ongoing ileus. Try other pain medication regimen. Discontinue Dilaudid and Percocet. Begin patient on Ultram for pain control. Mobilize patient as tolerated. If pain is controlled on an oral regimen he may be discharged home tomorrow with outpatient follow-up per the recommendations of the gastroenterology service. Patient has been advised to abstain from alcohol use following discharge.
--- NOTE | 2017-11-04 07:36 | Patient Discharge Instructions ---
Discharge Instructions General Discharge Information You were seen/treated for: pain secondary to pancreatic pseudocysts narcotic abuse causing ileus Special Instructions: 1. please follow up with your pcp in one week 2. please follow up with GI in 2 weeks 3. please follow up with surgery in 2 months Diet Continue normal diet: Yes Activity Full Activity/No Limits: Yes (as tolerated) Acute Coronary Syndrome Inclusion Criteria At DC or during hospital stay patient has or had the following: ACS DIAGNOSIS No Discharge Core Measures Meds if any: Prescribed or Continued at Discharge Meds if any: NOT Prescribed or Continued at Discharge Congestive Heart Failure Inclusion Criteria At DC or during hospital stay patient has or had the following: CHF DIAGNOSIS No Discharge Core Measures Meds if any: Prescribed or Continued at Discharge Meds if any: NOT Prescribed or Continued at Discharge Cerebrovascular accident Inclusion Criteria At DC or during hospital stay patient has or had the following: CVA/TIA Diagnosis No Discharge Core Measures Meds if any: Prescribed or Continued at Discharge Meds if any: NOT Prescribed or Continued at Discharge Venous thromboembolism Inclusion Criteria VTE Diagnosis No VTE Type NONE VTE Confirmed by (Test) NONE Discharge Core Measures - Per Current guidelines, there needs to be overlap - treatment for the first 5 days of Warfarin therapy. - If discharged on Warfarin prior to 5 days of - overlap therapy, the patient will need to be - assessed for post discharge needs including - *Post discharge parental anticoagulation - *Warfarin and/or parental anticoagulation education - *Follow up date to check INR post discharge At least 5 days overlap therapy as Inpatient No Meds if any: Prescribed or Continued at Discharge Note: Overlap Therapy is Warfarin and Anticoagulant Meds if any: NOT Prescribed or Continued at Discharge
--- NOTE | 2017-11-04 09:21 | Cons- General Surgery ---
General Information and HPI Consulting Request Date of Consult: 11/03/17 Requested By: Chava INIGEUZ,Abhijit History of Present Illness: CC: abdominal pain HPI: 47-year-old smoker nondiabetic with a history significant for opioid dependence, admitted here last month on the with gallstone pancreatitis, and ERCP was done the next day reviewed that report there was a stone in the ampulla which was removed and a sphincterotomy was done. After this the pancreatitis continued too severe to fit in a laparoscopic cholecystectomy he followed up with me in the office about 2 weeks ago tolerating diet still had midepigastric pain, but it's not as severe as last month, no fevers no nausea. Plan then was to reevaluate in a month waiting for the acute peripancreatic collections to subside. In the meantime his pain is continued he was just admitted and a CT scan shows that these collections are beginning to organize into pseudocysts. Otherwise no bleeding per rectum no fevers no sweats he's tolerating diet he did vomit only once throughout this entire episode he thinks it was after IV injection of analgesics. He still occasionally has loose watery bowel movements which she's had for months preceding this, and lately has appetite has been diminished. Pain is not worse on movement denies any dark discoloration of urine no particular right upper quadrant pain it's more across the epigastrium bilaterally relieved with analgesics not exacerbated by food. I've reviewed the [facility]. No history of PUD, bleeding problems, heart disease or issues with anesthesia. Family history alcoholism and gallstones Past medical history also acid reflux alcoholism drug abuse depression high blood pressure high cholesterol, surgical history umbilical hernia Allergies/Medications Allergies: Coded Allergies: NO KNOWN ALLERGIES (NONE 09/18/17) Home Med List: [place] Carbonate ([place] Carbonate ER) 300 MG TABLET.ER 5 TAB PO AT BEDTIME MOOD STABILITY (Reported) Losartan (Cozaar) 100 MG TABLET 1 TAB PO DAILY HIGH BLOOD PRESSURE (Reported) Ondansetron (Zofran Odt) 4 MG TAB.RAPDIS 1 TAB SL TID PRN nausea Oxycodone HCl/Acetaminophen (Percocet 5-325 MG Tablet) 5 MG-325 MG TABLET 1-2 TAB PO BID PRN PAIN Simvastatin (Simvastatin*) 40 MG TABLET 1 TAB PO QPM HIGH CHOLESTROL ( Reported) Past History Medical History Cardiovascular: hypertension, hyperlipidemia Gastrointestinal: pancreatitis Psychiatric: bipolar disease Surgical History Pertinent Surgical History: non-contributory Family History Relations & Conditions If Any: FATHER, ; Cause: Lung cancer. FH: lung cancer Relation not specified for: FH: hyperlipidemia FH: hypertension Psychosocial History Where Do You Live? Home Who Do You Live With? self Services at Home: None Primary Language: Kyrgyz Smoking Status: Current Everyday Smoker (5 Cigarettes ) ETOH Use: denies use Illicit Drug Use: denies illicit drug use Functional Ability ADLs Independent: dressing, eating, toileting, bathing. Ambulation: independent IADLs Independent: shopping, housework, finances, food prep, telephone, transportation , medication admin. Review of Systems Review of Systems: Constitutional: No fever, sweats or weight loss ENMT: No sore throat Cardiovascular: No chest pain, palpitations or leg swelling Respiratory: No shortness of breath, cough, or sputum or dyspnea on exertion GI: No GERD or bleeding per rectum : No dysuria or hematuria Musculoskeletal: No new muscle weakness, bone or joint pain Skin / Breast: No jaundice, rashes or itching Psychiatric: No history of drug or alcohol abuse no depression or anxiety Hematologic / lymphatic system: No problems with excessive bleeding, bruising, or blood clots Exam & Diagnostic Data Vital Signs and I&O I reviewed Vital Signs Date Time Temp Pulse Resp B/P B/P Pulse O2 O2 Flow FiO2 Mean Ox Delivery Rate 11/04 0700 98.2 58 20 119/71 98 Room Air 11/03 2240 98.3 68 20 133/91 97 Room Air 11/03 1420 98.3 86 20 134/86 97 Room Air I reviewed Intake & Output 11/04 1600 11/04 0000 11/03 1600 11/03 0811/03 0000 Intake Total 709 752 2990 Output Total 800 450 600 500 Balance -200 -150 500 -500 Intake, IV 600 300 600 Intake, Oral 0 500 Output, Urine 800 450 600 500 Physical Exam: Constitutional: pleasant, no acute distress, conversant Eyes: sclera anicteric ENMT: ears and nose atraumatic, moist mucous membranes, good dentition, no lip lesions Neck: Supple, trachea is midline, no cervical or supraclavicular adenopathy and no palpable thyromegaly Cardiovascular: S1, S2, no murmurs, no peripheral edema Respiratory: clear to auscultation with normal respiratory effort and no intercostal retractions GI: abdomen soft, mild midepigastric tenderness no rebound, nondistended, no palpable hepatosplenomegaly Extremities / lymphatics: symmetrically warm, free range of motion no peripheral edema, no cervical, supraclavicular, axillary, or inguinal adenopathy Musculoskeletal: Did not evaluate gait and station, no digital cyanosis, good muscle strength and tone no atrophy, motor grossly 5 out of 5 throughout Skin: no jaundice, no rashes warm, nondiaphoretic, no areas of erythema or induration Psychiatric: mood and affect are appropriate and alert and oriented to person place and time Last 24 Hours of Labs: I reviewed with blood cell count normal amylase lipase is not elevated not acidotic I reviewed the admission CT scan on PACS myself and compared to the previous ones including those done in 2006 and then more recently September 14, 24 October second and Last month earlier acute peripancreatic collections earlier this month he started to coalesce and is developing a dumbbell shaped pseudocyst around the antrum but not obstructing it. Assessment/Plan Assessment/Plan Impression is immature pseudocyst (about 4-5 weeks) he doesn't have convincing evidence of gastric outlet obstruction, it may be relative. From a surgical perspective technically this can be a very hazardous and morbid procedure if done too soon, usually reserved for complications, he's showing no signs of bleeding or infection, just the pain. One prefers it to be mature so that there is something to sew to, control the bleeding, the contents of the pseudocyst are like peanut butter not easily drainable. I've heard that they wanted evaluate him for endoscopic drainage that's not done at this institution, so it's reasonable to get their opinion if can show them the films, they may wait too. Problem List: 1. Pancreatic pseudocyst 2. Pancreatitis 3. Abdominal pain Consult Acknowledgment - Thank you for your consult request.
--- NOTE | 2017-11-04 11:18 | PN- Gastroenterology ---
Subjective Subjective: I have asked Dr. Tiffanie Rice from [facility] to review Mr. Carbone's CT Scan of the abdomen regarding possible cyst-gastrostomy. Objective Vital Signs and I&Os Vital Signs Date Time Temp Pulse Resp B/P B/P Pulse O2 O2 Flow FiO2 Mean Ox Delivery Rate 11/04 1105 80 146/76 11/04 0700 98.2 58 20 119/71 98 Room Air 11/03 2240 98.3 68 20 133/91 97 Room Air 11/03 1420 98.3 86 20 134/86 97 Room Air Intake & Output 11/04 1600 11/04 0400 11/03 1600 11/03 0400 11/02 1600 11/02 0400 Intake Total 178 529 4228 3480 1170 Output Total 187 609 5081 1100 800 Balance -200 -150 0 2380 370 Intake, IV 600 653 769 3815 810 Intake, Oral 0 500 680 360 Number 0 0 Bowel Movements Output, 200 Emesis Output, Urine 641 955 2318 1100 600 Physical Exam General Appearance: no apparent distress Current Medications: Current Medications Sig/[place] Start time Last Medication Dose Route Stop Time Status Admin Dextrose/Sodium 1,000 ML Q13H 11/03 1145 AC 11/04 Chloride IV 0209 Enoxaparin Sodium 40 MG DAILY 11/01 2100 AC 11/04 SC 1104 Gabapentin 300 MG Q8 11/03 2200 AC 11/04 PO 0538 Gabapentin 200 MG Q8 11/02 1400 DC 11/03 PO 1357 Hydromorphone HCl 2 MG Q4P PRN 11/02 1030 DC 11/04 IV 0543 Ibuprofen 400 MG Q6P PRN 11/01 1415 AC PO [place] Carbonate 1,500 MG AT BEDTIME 11/01 2100 AC 11/03 PO 2022 Losartan Potassium 100 MG DAILY 11/03 0900 AC 11/04 PO 1105 Oxycodone/ 2 TAB Q6P PRN 11/02 1030 DC 11/04 Acetaminophen PO 1011 Patient Medication 1 ED ONE ONE 11/04 1045 DC 11/04 Teaching ED 11/04 1046 1105 Patient Medication 1 ED ONE ONE 11/03 1830 IA Teaching ED 11/03 1831 Tramadol HCl 50 MG Q4 11/04 1400 AC PO Results Pertinent Lab Results: Laboratory Tests 11/03 11/02 0700 0816 Chemistry Sodium (137 - 145 mmol/L) 138 Potassium (3.5 - 5.1 mmol/L) 4.1 Chloride (98 - 107 mmol/L) 109 H Carbon Dioxide (22 - 30 mmol/L) 22 Anion Gap (5 - 16) 8 BUN (9 - 20 mg/dL) 10 Creatinine (0.7 - 1.2 mg/dL) 0.9 Estimated GFR (>60 ml/min) > 60 BUN/Creatinine Ratio (7 - 25 %) 11.1 Calcium (8.4 - 10.2 mg/dL) 8.5 Phosphorus (2.5 - 4.5 mg/dL) 3.8 Magnesium (1.6 - 2.3 mg/dL) 1.8 Vitamin B12 (239 - 931 pg/mL) 357 Folate (2.76 - 20.0 ng/mL) 13.3 Hematology CBC w Diff NO MAN DIFF REQ NO MAN DIFF REQ WBC (4.8 - 10.8 /CUMM) 8.2 12.5 H RBC (4.70 - 6.10 /CUMM) 4.54 L 4.68 L Hgb (14.0 - 18.0 G/DL) 13.4 L 13.9 L Hct (42 - 52 %) 40.5 L 42.1 MCV (80.0 - 94.0 FL) 89.1 89.8 MCH (27.0 - 31.0 PG) 29.5 29.6 MCHC (33.0 - 37.0 G/DL) 33.1 33.0 RDW (11.5 - 14.5 %) 13.9 14.2 Plt Count (130 - 400 /CUMM) 397 390 MPV (7.4 - 10.4 FL) 7.4 7.7 Gran % (42.2 - 75.2 %) 60.8 79.1 H Lymphocytes % (20.5 - 51.1 %) 23.8 12.7 L Monocytes % (1.7 - 9.3 %) 7.8 5.8 Eosinophils % (0 - 5 %) 7.1 H 1.9 Basophils % (0.0 - 2.0 %) 0.5 0.5 Absolute Granulocytes (1.4 - 6.5 /CUMM) 5.0 9.9 H Absolute Lymphocytes (1.2 - 3.4 /CUMM) 1.9 1.6 Absolute Monocytes (0.10 - 0.60 /CUMM) 0.6 0.7 H Absolute Eosinophils (0.0 - 0.7 /CUMM) 0.6 0.2 Absolute Basophils (0.0 - 0.2 /CUMM) 0 0.1 Imaging/Other Studies: ASSESSMENT: 1. Pancreatic Pseudocyst with compression of the gastric lumen 2. Cholelithiasis 3. History of Gallstone Pancreatitis with Choledocholithiasis and Cholangitis RECOMMENDATIONS: 1
[2017-11-04 13:57] VITALS: BP 120/60
--- NOTE | 2017-11-04 14:59 | PN- Gastroenterology ---
Assessment/Plan GI Assessment/Recommendations: ASSESSMENT: 1. Multiple Pseudocysts 2. History of IV Drug Use which May Decrease Response to Narcotic Analgesia 3. Cholelithiasis 4. s/p Choledocholithiasis with stone extraction by ERCP RECOMMENDATIONS: 1. Patient is now off all narcotics. Has been started on tramadol 2. I have discussed Mr. Carbone's case with Dr. Rice at [facility] who will review his CT scans. 3. I spent 35 minutes with Mr. Carbone discussing a treatment plan. He is concerned about going home and having a recurrence of pain. I told him that his pseudocysts appear to be decreasing in size and that as long as he was comfortable and without significant pain he could be monitored clinically to see if they resolve without any intervention. I told him we could not predict whether he would have another episode of pain. I did tell him however that should he have recurrent pain and should there be evidence that the pseudocysts were not resolving that he will be able to see Dr. Rice who would potentially be able to do an internal drainage by cyst gastrostomy. 4. Advance diet 5. Observe overnight off narcotics and if stable DC in a.m. 6. Follow-up with Dr. Cayden Gamboa in 2 weeks 7. Follow-up with Torin Jarvis MD in 2 months for cholecystectomy Subjective Subjective: Patient feeling much better today. Had only one dose of Dilaudid in the middle of the night and the second at 9:45 in the AM. Has not had any other pain medicines all day. He is tolerating a diet. Has no abdominal pain now. Objective Vital Signs and I&Os Vital Signs Date Time Temp Pulse Resp B/P B/P Pulse O2 O2 Flow FiO2 Mean Ox Delivery Rate 11/04 1357 97.5 9 20 120/60 97 11/04 1105 80 146/76 11/04 0700 98.2 58 20 119/71 98 Room Air 11/03 2240 98.3 68 20 133/91 97 Room Air Intake & Output 11/04 1600 11/04 0400 11/03 0400 11/02 0400 Intake Total 282 494 9441 3480 1170 Output Total 582 751 1412 1100 800 Balance -200 -150 0 2380 370 Intake, IV 600 197 573 2369 810 Intake, Oral 0 500 680 360 Number 0 0 Bowel Movements Output, 200 Emesis Output, Urine 714 312 4010 1100 600 Physical Exam General Appearance: alert, awake, comfortable Respiratory: lungs clear Cardiovascular: regular rate/rhythm, normal S1 and S2, without rub, murmur, or gallop. Abdomen: normal bowel sounds, soft, non-tender, no organomegaly Neurologic/Psychiatric: awake, alert, oriented x 3, normal mood/affect Skin: normal color, warm/dry Current Medications: Current Medications Sig/[place] Start time Last Medication Dose Route Stop Time Status Admin Dextrose/Sodium 1,000 ML Q13H 11/03 1145 AC 11/04 Chloride IV 0209 Enoxaparin Sodium 40 MG DAILY 11/01 2100 AC 11/04 SC 1104 Gabapentin 300 MG Q8 11/03 2200 AC 11/04 PO 0538 Hydromorphone HCl 2 MG Q4P PRN 11/02 1030 DC 11/04 IV 0543 Ibuprofen 400 MG Q6P PRN 11/01 1415 AC PO [place] Carbonate 1,500 MG AT BEDTIME 11/01 2100 AC 11/03 PO 202 Losartan Potassium 100 MG DAILY 11/03 0900 AC 11/04 PO 1105 Oxycodone/ 2 TAB Q6P PRN 11/02 1030 DC 11/04 Acetaminophen PO 1011 Patient Medication 1 ED ONE ONE 11/04 1045 RI 11/04 [facility] ED 11/04 1046 1105 Patient Medication 1 ED ONE ONE 11/03 1830 [facility] ED 11/03 1831 Tramadol HCl 50 MG Q4 11/04 1400 AC PO Results Pertinent Lab Results: Laboratory Tests 11/03 11/02 0700 0816 Chemistry Sodium (137 - 145 mmol/L) 138 Potassium (3.5 - 5.1 mmol/L) 4.1 Chloride (98 - 107 mmol/L) 109 H Carbon Dioxide (22 - 30 mmol/L) 22 Anion Gap (5 - 16) 8 BUN (9 - 20 mg/dL) 10 Creatinine (0.7 - 1.2 mg/dL) 0.9 Estimated GFR (>60 ml/min) > 60 BUN/Creatinine Ratio (7 - 25 %) 11.1 Calcium (8.4 - 10.2 mg/dL) 8.5 Phosphorus (2.5 - 4.5 mg/dL) 3.8 Magnesium (1.6 - 2.3 mg/dL) 1.8 Vitamin B12 (239 - 931 pg/mL) 357 Folate (2.76 - 20.0 ng/mL) 13.3 Hematology CBC w Diff NO MAN DIFF REQ NO MAN DIFF REQ WBC (4.8 - 10.8 /CUMM) 8.2 12.5 H RBC (4.70 - 6.10 /CUMM) 4.54 L 4.68 L Hgb (14.0 - 18.0 G/DL) 13.4 L 13.9 L Hct (42 - 52 %) 40.5 L 42.1 MCV (80.0 - 94.0 FL) 89.1 89.8 MCH (27.0 - 31.0 PG) 29.5 29.6 MCHC (33.0 - 37.0 G/DL) 33.1 33.0 RDW (11.5 - 14.5 %) 13.9 14.2 Plt Count (130 - 400 /CUMM) 397 390 MPV (7.4 - 10.4 FL) 7.4 7.7 Gran % (42.2 - 75.2 %) 60.8 79.1 H Lymphocytes % (20.5 - 51.1 %) 23.8 12.7 L Monocytes % (1.7 - 9.3 %) 7.8 5.8 Eosinophils % (0 - 5 %) 7.1 H 1.9 Basophils % (0.0 - 2.0 %) 0.5 0.5 Absolute Granulocytes (1.4 - 6.5 /CUMM) 5.0 9.9 H Absolute Lymphocytes (1.2 - 3.4 /CUMM) 1.9 1.6 Absolute Monocytes (0.10 - 0.60 /CUMM) 0.6 0.7 H Absolute Eosinophils (0.0 - 0.7 /CUMM) 0.6 0.2 Absolute Basophils (0.0 - 0.2 /CUMM) 0 0.1
[2017-11-04 22:08] VITALS: BP 140/82
[2017-11-05 07:38] VITALS: BP 138/78
--- NOTE | 2017-11-05 08:02 | PN- Housestaff ---
Wong INIGUEZ,Goodgretelisamar 11/05/17 1129: Attending MD Review Statement Attending Statement Attending MD Statement: examined this patient, discuss w/resident/PA/STERILIZATION TECH, agreed w/resident/PA/STERILIZATION TECH, reviewed EMR data (avail), discussed with nursing, discussed with case mgmt, amended to note Attending Assessment/Plan: Patient seen and examined. No issues overnight reported by nursing staff. Remains afebrile and hemodynamically stable. Resting comfortably and not in any acute distress. He reports feeling much better today. He is a much better spirits today. Denies nausea vomiting. Reports abdominal discomfort has improved. He was taken off opioids yesterday and started on tramadol. Toradol was added later in the day for added pain control. Patient had some concerns regarding discharge follow-up. This was prescribed directly by Dr. Marie this morning. He is medically stable to be discharged home today. He will follow-up with the gastroenterology service as an outpatient as arranged by Dr. Reza. He will also follow-up with the general surgery service for elective cholecystectomy.
[2017-11-05] MEDS ORDERED: GABAPENTIN300 M2 PO ×2 (08:09→10:10)
[2017-11-05] MEDS ORDERED: TRAMADOL HCL50 M1 PO ×2 (08:09→10:10)
[2017-11-05] MEDS ORDERED: IBUPROFEN400 M1 PO ×2 (08:09→10:10)
[2017-11-05 08:57] VITALS: BP 138/78
--- NOTE | 2017-11-05 10:25 | PN- Gastroenterology ---
Assessment/Plan GI Assessment/Recommendations: ASSESSMENT: 1. Multiple Pseudocysts 2. History of IV Drug Use which May Decrease Response to Narcotic Analgesia 3. Cholelithiasis 4. s/p Choledocholithiasis with stone extraction by ERCP RECOMMENDATIONS: 1. Patient is now off all narcotics. Has been started on tramadol 2. Despite an extensive conversation yesterday with Mr. Carbone yesterday regarding discharge, and subsequent follow up plans as including the fact that I had spoken to Dr. Rice but that he did not need to go to [facility] at this moment, Mr. Carbone told the house officers that he thought he was going to be transferred to [facility] Today. 3. I returned to Mr. Carbone's room after having seen him earlier in the morning telling him he could go home and again reiterating his discharge and treatment plan. In the presence of his attending physician and house officers, I reiterated that I have discussed Mr. Carbone's case with Dr. Rice at [facility] who will review his CT scans. I told him that his pseudocysts appear to be decreasing in size and that as long as he was comfortable and without significant pain he could be monitored clinically to see if they resolve without any intervention, which they may very well do. I did tell him that should he have recurrent pain and should there be evidence that the pseudocysts were not resolving that he will be able to see Dr. Rice who would potentially be able to do an internal drainage by cyst gastrostomy if appropriate. Dr. Gamboa will have access to all these records.. 4. Observe overnight off narcotics and if stable DC in a.m. 5. Follow-up with Dr. Cayden Gamboa in 2 weeks 6. Follow-up with Torin Jarvis MD in 2 months for cholecystectomy Subjective Subjective: Patient feeling much better. No nausea or vomiting. One episode of short lived pain. No narcotic requirement. Objective Vital Signs and I&Os Vital Signs Date Time Temp Pulse Resp B/P B/P Pulse O2 O2 Flow FiO2 Mean Ox Delivery Rate 11/05 0857 62 138/78 11/05 0738 98.7 62 20 138/78 98 Room Air 11/04 2208 97.9 76 20 140/82 97 Room Air 11/04 1357 97.5 9 20 120/60 97 11/04 1105 80 146/76 Intake & Output 11/05 1600 11/05 0400 11/04 1600 11/04 0400 11/03 1600 11/03 0400 Intake Total 2000 300 1100 Output Total 589 591 3420 Balance 1200 -150 0 Intake, IV 1200 300 600 Intake, Oral 800 0 500 Number 1 Bowel Movements Output, Urine 278 683 3504 Patient 195 lb Weight Physical Exam General Appearance: well developed/nourished, no apparent distress, comfortable Respiratory: normal breath sounds, lungs clear Cardiovascular: regular rate/rhythm, Normal S1 and S2 without rub, murmur or gallop Abdomen: normal bowel sounds, soft, non-tender, no organomegaly Extremities: normal inspection, no edema Neurologic/Psychiatric: oriented x 3, normal mood/affect Skin: intact, normal color, warm/dry Current Medications: Current Medications Sig/[place] Start time Last Medication Dose Route Stop Time Status Admin Dextrose/Sodium 1,000 ML Q13H 11/03 1145 DC 11/04 Chloride IV 0209 Enoxaparin Sodium 40 MG DAILY 11/01 2100 AC 11/05 SC 0857 Gabapentin 300 MG Q8 11/03 2200 AC 11/05 PO 0616 Ibuprofen 400 MG Q6P PRN 11/01 1415 AC PO Ketorolac 30 MG Q8P PRN 11/04 1715 AC Tromethamine IM [place] Carbonate 1,500 MG AT BEDTIME 11/01 2100 AC 11/04 PO 2108 Losartan Potassium 100 MG DAILY 11/03 0900 AC 11/05 PO 0857 Patient Medication 1 ED ONE ONE 11/04 1045 DC 11/04 Teaching ED 11/04 1046 1105 Tramadol HCl 50 MG Q4 11/04 1400 AC 11/05 PO 0616 Results Pertinent Lab Results: Laboratory Tests 11/03 0700 Hematology CBC w Diff NO MAN DIFF REQ WBC (4.8 - 10.8 /CUMM) 8.2 RBC (4.70 - 6.10 /CUMM) 4.54 L Hgb (14.0 - 18.0 G/DL) 13.4 L Hct (42 - 52 %) 40.5 L MCV (80.0 - 94.0 FL) 89.1 MCH (27.0 - 31.0 PG) 29.5 MCHC (33.0 - 37.0 G/DL) 33.1 RDW (11.5 - 14.5 %) 13.9 Plt Count (130 - 400 /CUMM) 397 MPV (7.4 - 10.4 FL) 7.4 Gran % (42.2 - 75.2 %) 60.8 Lymphocytes % (20.5 - 51.1 %) 23.8 Monocytes % (1.7 - 9.3 %) 7.8 Eosinophils % (0 - 5 %) 7.1 H Basophils % (0.0 - 2.0 %) 0.5 Absolute Granulocytes (1.4 - 6.5 /CUMM) 5.0 Absolute Lymphocytes (1.2 - 3.4 /CUMM) 1.9 Absolute Monocytes (0.10 - 0.60 /CUMM) 0.6 Absolute Eosinophils (0.0 - 0.7 /CUMM) 0.6 Absolute Basophils (0.0 - 0.2 /CUMM) 0
== END 2017-11-05 10:35 | DRG 439 ==
LOC: ERH 05:38 → ERHI 11:48 → 2NB 11:48 → ENRESERV 12:36 → ENTRNSPT 12:53 → EDTRNSPT 13:29 → EDTRNSPTSTS 13:29 → 2NB 13:34 → CMPTRNSPT 14:01 → ENPENDDIS 11-05 10:12 → 2NB 11-05 10:35
PROVIDERS: Emergency Medicine; Student in an Organized Health Care Education/Training Program
DX: K86.3 Pseudocyst of pancreas (principal); K56.7 Ileus, unspecified; F31.9 Bipolar disorder, unspecified; I10 Essential (primary) hypertension; E78.5 Hyperlipidemia, unspecified; F11.10 Opioid abuse, uncomplicated; T40.605A Adverse effect of unspecified narcotics, initial encounter; N28.89 Other specified disorders of kidney and ureter; F17.210 Nicotine dependence, cigarettes, uncomplicated
CPT/HCPCS: 2NBP; 36592; 74021; 74177; 80307; 81001; 82436; 87086; 93005; 93010; 96374; 96375; 96376; J0131; J1650; J1885; J2405; J3490; J7042